=== PATIENT | female | born 1985 | race Caucasian/White ===

== ENCOUNTER 2020-12-30 13:25 | Outpatient (RCR) | payer MEDICAID, SELFPAY | END 2021-02-08 23:59 | LOC: IMMUN 13:25 | PROVIDERS: Referring Provider Family Medicine; Visit Provider Family Medicine | DX: Z23 Encounter for immunization (principal) | CPT/HCPCS: 0001A; 91300 ==

== ENCOUNTER 2021-05-08 17:54 | Emergency (ER) | payer MEDICAID, SELFPAY ==
[2021-05-08 17:56] VITALS: BP 140/100; PULSE 80; RESP 18; TEMP 36.5; O2SAT 100; BMI 35.1
--- NOTE | 2021-05-08 18:59 | US_ITS ---
HISTORY: LLQ pain in early pregancy EXAMINATION: US OB Transvaginal TECHNIQUE: Transvaginal (for optimal evaluation of the adnexa) pelvic ultrasound was performed. Grayscale, spectral waveform, and color flow Doppler evaluation of the adnexa. COMPARISON: None LMP: 04/09/2021 correlating with 6 weeks 1 day gestation and December 31, 2021 delivery date FINDINGS: 10.5 x 6.0 x 5.8 cm anteverted uterus with unremarkable myometrium. Single fundal gestational sac. Single normal yolk sac. Single pole with crown-rump length 0.51 cm correlate with 6 weeks 3 days gestation and estimated delivery date 12/29/2021. heart rate 114 bpm. Small giuliano-gestational hemorrhage involving less than 25% of sac circumference. Cervix is long and closed with small nabothian cysts. Right over a 2.4 x 3.2 x 1.9 cm with normal parenchymal appearance and preserved Doppler vascular flow. Left ovary 2.9 x 1.6 x 2.3 cm with normal small follicles and preserved Doppler vascular flow. Trace left adnexal free fluid. US/Transvaginal w/Preg US IMPRESSION: Single live intrauterine with normal heart rate. Estimated gestational age is concordant with provided dating. Small giuliano-gestational hemorrhage involving less than 25% of sac circumference. Normal ovaries with trace likely physiologic left adnexal free fluid. at 2137 Reported and signed by: Silvino Rodriguez MD Electronically Signed: Silvino Rodriguez MD at 21:36 EDT Tel , Service support ,
--- NOTE | 2021-05-08 19:50 | ED.VIS.FEGU ---
HPI HPI - Female History of Present Illness Chief Complaint: Vag Bld, Preg Informant: patient Pain Pain: Positive for Pelvic Pain Associated Symptoms P: 4 Ab: 0 Narrative Narrative: Patient is a 36-year-old female presenting with lower pelvic pain. Patient states she is approximately 5 weeks . Her last menstrual period was March 26. Had a positive test about a week ago. She notes been having red spotting and brown discharge since then. She did test positive for BV on Sunday but not started treatment for this. She follows with Dr. Campa through [facility]. She notes over the past week she is also an intermittent sharp pain in her left lower quadrant. She states she has never had this before. She is concerned there might be something with her . She denies any fever or chills. Denies any other urinary symptoms. No other complaints at this time. PFSH PFSH Home Medications metronidazole 500 mg PO BID 7 Days #14 tab 05/08/21 [Rx Last Taken Unknown] nitrofurantoin monohyd/m-cryst [Macrobid] 100 mg PO BID #10 cap 05/08/21 [Rx Last Taken Unknown] Allergy/AdvReac Type Severity Reaction Status Date / Time No Known Allergies Allergy Verified 05/08/21 17:55 Social History Smoking Status: Never smoker ROS ROS ED Constitutional Constitutional ED: Denies chills or fever(s) Eyes Eyes: Denies change in vision Cardiovascular Cardiovascular: Denies chest pain or palpitations Respiratory/Chest Respiratory/Chest: Denies cough or dyspnea Gastrointestinal Gastrointestinal: Reports abdominal pain; Denies diarrhea, nausea or vomiting Genitourinary Genitourinary ED: Reports urinary frequency and other Details: vaginal bleeding/spotting ; Denies dysuria or hematuria Musculoskeletal Musculoskeletal: Denies arthralgias or myalgias Integumentary Denies rash Neurologic Neurologic: Denies headache(s) or weakness EXAM Physical Exam Const Vital Signs: 05/08/21 17:56 05/08/21 21:07 05/08/21 21:23 Temperature 97.7 F L Temperature Source Temporal Pulse Rate 80 78 Respiratory Rate 18 17 19 H Blood Pressure 140/100 H 134/74 H 128/79 H Blood Pressure Mean 113 94 Pulse Ox 100 98 Oxygen Delivery Method Room Air Room Air Positive well nourished and well developed General Appearance ED: well developed HEENT Reports moist mucous membranes Negative for tenderness Eyes PERRL and EOMs intact bilaterally Neck supple and no JVD Chest Wall inspection of chest normal Resp normal respiratory effort and clear to auscultation bilaterally Cardio regular rate, regular rhythm and no murmurs GI normal to inspection, nondistended, normoactive bowel sounds no CVA tenderness Extremity normal to inspection and full ROM Neuro oriented x3 Sensorium / Orientation: alert Motor Exam: Negative for general weakness Psych mental status grossly normal Skin no rashes or lesions noted MDM MDM MDM Narrative Medical decision making narrative: Patient evaluated for vaginal bleeding and . She did show me results that showed a positive BV on outpatient blood work. Should be treated with Flagyl for this. We were in downtime so the remainder of her lab work resulted on paper. Patient's urinalysis showed negative nitrites, 50 blood, 500 leukoesterase with 5-10 white blood cells, 0-5 red blood cells, 5-10 epithelial cells and 2+ bacteria. Urine culture is added on and she will be treated for UTI with Macrobid. Patient's blood type is A+ and her CBC is largely normal with a hemoglobin of 13.0. Patient be discharged home with prescriptions for Macrobid and Flagyl. She will follow-up with her [facility]. Ultrasound shows single intrauterine gestation with small perigestational hemorrhage involving less than 25% of sac circumference. I suspect this is the cause of her bleeding. Counseled on risk and expectant management with threatened . Discharged home in stable condition. Lab Data Attestation: I reviewed the patient's lab results. Labs: Laboratory Results - last 24 hr 05/08/21 19:15 HCG, Quant 05369 H Radiography Diagnostic Testing: Radiology Impression Obstetrics Ultrasound 05/08/21 18:59 IMPRESSION: Single live intrauterine with normal heart rate. Estimated gestational age is concordant with provided dating. Small giuliano-gestational hemorrhage involving less than 25% of sac circumference. Normal ovaries with trace likely physiologic left adnexal free fluid. at 2137 Reported and signed by: Silvino Rodriguez MD Electronically Signed: Silvino Rodriguez MD at 21:36 EDT Tel , Service support , Discharge Plan Triage Chief Complaint: Vag Bld, Preg ED Provider: Deb Goodman Dx/Rx/DC Orders Clinical Impression: , threatened, UTI (urinary tract infection), Vaginitis affecting in first trimester, antepartum Instructions: ED Possible Miscarriage ..., ED CYSTITIS Female Adult, ED Bacterial Vaginosis (BV) Prescriptions: New nitrofurantoin monohyd/m-cryst [Macrobid] 100 mg capsule 100 mg PO BID Qty: 10 RF: 0 metronidazole 500 mg tablet 500 mg PO BID 7 Days Qty: 14 RF: 0 Primary Care Provider: Care Physician,No Primary Referrals: Care Physician,No Primary [Primary Care Provider] - Activity Restrictions/Additional Instructions: Please follow-up with your [facility]. Disposition Disposition: Home, Self Care
[2021-05-08 20:18] LABS: hCG Titer Quant., Serum 28130 mIU/mL (1-3)
[2021-05-08 21:07] VITALS: BP 134/74; RESP 17; O2SAT 98
[2021-05-08 21:07] LABS: Basophil# 0.03 X10^3/uL; Basophil% 0.3 % (0-1); Eosinophil# 0.23 X10^3/uL; Eosinophils% 2.3 % (0-5); Lymphocyte % 30.1 % (19-41); Mean Corp Hgb Conc 33.3 g/dL (32-36); Mean Corpuscular Hgb 29.3 pg (27.0-32.0); Mean Platelet Vol. 10.9 fl (6.2-12.0); NRBC Flagged by Analyzer 0 % (0-5); Neutrophil # 5.97 X10^3/uL (2.7-7.7); Neutrophil % 59.8 % (47-70); Platelet Count 280 K/mm3 (150-450); RBC Distribution Width CV 11.9 % (11.6-14.6); RBC Distribution Width SD 38.6 fl (35.1-43.9); Red Blood Count 4.43 M/mm3 (4.2-5.4)
[2021-05-08 21:23] VITALS: BP 128/79; PULSE 78; RESP 19
[2021-05-08 23:04] LABS: Bacteria 2+ /hpf (None Seen); Color, Urine Yellow (Yellow); Glucose, Dipstick NEGATIVE (Normal); Ketone-Dipstick Negative (Negative); Leukocyte Esterase-Dipstick 500 /ul (Negative); Mucous, Urine 1+ /hpf (<or=2+); Nitrite-Dipstick Negative (Negative); Occult Blood-Urine 50 /ul (Negative); Protein-Dipstick 30 mg/dl (Negative); Red Blood Cells-Urine 0-5 SEEN /hpf (0-5); Specific Gravity, Urine 1.025 (1.002-1.030); Squamous Epithelial Cells - UA 5-10 SEEN /hpf (5-10); Urine Bilirubin Dipstick Negative (Negative); Urine Clarity Clear (Clear); Urine Urobilinogen Normal (Normal); White Blood Cells 5-10 SEEN /hpf (0-5)
== END 2021-05-08 22:19 | disposition home or self-care (01) ==
PROVIDERS: Emergency Provider Emergency Medicine
DX: O02.0 Blighted ovum and nonhydatidiform mole (principal); O23.41 Unspecified infection of urinary tract in pregnancy, first trimester; O23.591 Infection of other part of genital tract in pregnancy, first trimester; Z3A.01 Less than 8 weeks gestation of pregnancy
CPT/HCPCS: 76817; 81001; 84702; 85025; 86900; 86901; 87086; 87088; 99282; A4216

== ENCOUNTER 2021-12-29 07:13 | Inpatient (IN) | payer MEDICAID, SELFPAY ==
[2021-12-29] VITALS (55 sets, daily range): BP systolic 101–161; BP diastolic 51–85; PULSE 63–101; RESP 18; TEMP 36.1–37.9; O2SAT 79–100; BMI 38.0
[2021-12-29] MEDS: 0.9% Normal Saline Single 100 ML IV.SOLN. INTRA-UTER (08:20)
--- NOTE | 2021-12-29 08:37 | HP.PCM.OB_ITS ---
HPI - General General Date of Admission: 12/29/21 HPI Narrative DUARTE SUNSHINE, is a 36 F at 39.5 weeks gestation who presents for induction of labor for AMA and Obesity. complicated by proteinuria. Maternal Data Information ALEK Calculator Estimated Delivery Date Method Current WG Current Estimate 12/31/21 Manual 39w 5d PFSH PFSH Allergy/AdvReac Type Severity Reaction Status Date / Time No Known Allergies Allergy Verified 05/08/21 17:55 Social History Smoking Status: Never smoker ROS Eyes Eyes: Denies blurry vision, change in vision or spots in vision ENT HEENT: Denies dizziness or headache(s) Cardiovascular Cardiovascular: Denies abdominal pain, chest pain or dyspnea Respiratory/Chest Respiratory/Chest: Denies cough, dyspnea, shortness of breath at rest or shortness of breath with exertion Gastrointestinal Gastrointestinal: Denies abdominal pain, diarrhea or vomiting Genitourinary Genitourinary: Denies change in urinary stream, difficulty urinating or dysuria Musculoskeletal Musculoskeletal: Reports none Integumentary Integumentary: Denies rash Neurologic Neurologic: Denies dizziness, headache(s), memory loss or weakness Psychiatric Psychiatric: Reports none Vital Signs Vital Signs Vital Signs: 12/29/21 07:25 12/29/21 07:29 Temperature 97.0 F L Pulse Rate 99 Blood Pressure 120/67 BP Systolic 120 BP Diastolic 67 Physical Exam Const alert, oriented x3 and no apparent distress General Appearance: cooperative Orientation / Consciousness: awake Exam Limitations: no limitations HEENT normocephalic Head and Scalp: normal to inspection Eyes General Eye: normal appearance of both eyes Neck full ROM and no lymphadenopathy Lymph Lymphatic: no lymphadenopathy noted Chest inspection of chest normal Resp normal respiratory effort, normal air movement and clear to auscultation bilaterally Effort and Inspection: able to speak in complete sentences and symmetric chest movement Cardio regular rate and regular rhythm GI normal to inspection, nondistended, normoactive bowel sounds Manual OB Exam: presentation cephalic, dilated 1, effaced 60 and station - 2 Back/Spine normal ROM Extremity full ROM and no calf tenderness Skin no rashes or lesions noted General Skin Exam: no breakdown Neuro oriented x3 and CN's II-XII intact bilaterally Psych mental status grossly normal and thought process normal Labs Labs Labs: Blood Type AB POSITIVE Antibody Screen Pending Hct 39.0 % (37-47) Hgb 13.0 g/dL (12.0-15.0) Obstetrics US Rubella- immune HB- neg HC- neg GBS - neg HIV- NR Assessment & Plan (1) 39 weeks gestation of : (2) Advanced maternal age (AMA) in : (3) Obesity affecting : QUALIFIERS: Trimester: third trimester Qualified Code(s): O99.213 - Obesity complicating , third trimester (4) Proteinuria affecting : QUALIFIERS: Trimester: third trimester Qualified Code(s): O12.13 - Gestational proteinuria, third trimester PLAN: Admit to labor and delivery Routine labs Start IV and titrate per orders CE- 1/60/-2 Parker bulb placed without difficulty Start Pitocin IV and titrate per policy GBS negative Epidural when indicated Anticipate Dr. Pete updated and is collaborating physician
[2021-12-29 08:39] LABS: Absolute Neutrophil Count 7.8 X10^3/uL (2.0-7.7); Basophil# 0.03 X10^3/uL; Basophil% 0.3 % (0-1); Eosinophil# 0.45 X10^3/uL; Eosinophils% 4.1 % (0-5); Hematocrit 37.1 % (37-47); Lymphocyte % 18.1 % (19-41); Mean Corp Hgb Conc 32.3 g/dL (32-36); Mean Corpuscular Hgb 28.2 pg (27.0-32.0); Mean Corpuscular Volume 87.1 fL (81-99); Mean Platelet Vol. 11.3 fl (6.2-12.0); Monocyte# 0.74 X10^3/uL; Monocyte% 6.7 % (0-10); NRBC Flagged by Analyzer 0 % (0-5); Neutrophil # 7.77 X10^3/uL (2.7-7.7); Neutrophil % 70.3 % (47-70); Platelet Count 225 K/mm3 (150-450); RBC Distribution Width CV 14.1 % (11.6-14.6); RBC Distribution Width SD 45.1 fl (35.1-43.9); Red Blood Count 4.26 M/mm3 (4.2-5.4)
[2021-12-29] MEDS: Lactated Ringers 1,000 ML 50 ML IV (08:42)
[2021-12-29] MEDS: Oxytocin 30 units/NS 500 ml 30 UNITS/500 ML IV.SOLN IV (08:43)
--- NOTE | 2021-12-29 12:13 | PCM.PN.BLA ---
Progress Note Patient seen at bedside. Parker bulb just came out. Feeling contractions and desires epidural placement. Physical Exam Const alert and no apparent distress General Appearance: cooperative and comfortable Exam Limitations: no limitations HEENT normocephalic Eyes General Eye: normal appearance of both eyes Neck full ROM General: normal visual inspection Chest Chest: symmetrical chest wall rise Resp normal respiratory effort and normal air movement Effort and Inspection: symmetric chest movement Auscultation: clear to auscultation bilaterally Cardio regular rate and regular rhythm GI normal to inspection, nondistended, normoactive bowel sounds Back/Spine normal ROM Extremity full ROM and no calf tenderness General Extremity: normal exam except as noted Skin no rashes or lesions noted Neuro CN's II-XII intact bilaterally Psych mental status grossly normal Assessment & Plan Assessment/Plan (1) 39 weeks gestation of : (2) Advanced maternal age (AMA) in : (3) Obesity affecting : QUALIFIERS: Trimester: third trimester Qualified Code(s): O99.213 - Obesity complicating , third trimester (4) Proteinuria affecting : QUALIFIERS: Trimester: third trimester Qualified Code(s): O12.13 - Gestational proteinuria, third trimester PLAN: CE- /-1- difficult to complete due to maternal pain Pitocin 6 mu/min- continue to increase per policy Cat. 1 tracing, NST reactive Anticipate AROM after epidural placement
[2021-12-29] MEDS: Lactated Ringers 500 ML 999 ML IV ×2 (12:19→14:44)
[2021-12-29] MEDS: fentaNYL-bupivacaine (epidural) 100 ML BAG EPIDURAL ×2 (13:10→18:19)
[2021-12-29] MEDS: Lactated Ringers 1,000 ML 200 ML IV (16:59)
[2021-12-29] MEDS: Amnioinfusion- 0.9% NS 1,000 ML IV.SOLN. 1000 ML INTRA-UTER (18:06)
[2021-12-29] MEDS: Ondansetron 4 MG/2 ML Vial IV (18:19)
[2021-12-29] MEDS: Oxytocin 30 units/NS 500 ml 30 UNITS/500 ML IV.SOLN 334 UNITS IV (19:07)
--- NOTE | 2021-12-29 19:16 | EX.PCM.OBRPT ---
Assessment & Plan (1) (spontaneous vaginal delivery): Maternal Data Information ALEK Calculator Estimated Delivery Date Method Current WG Current Estimate 12/31/21 Manual 39w 5d Vaginal Delivery Maternal Presentation Maternal Presentation: Medically Indicated Induction Maternal Presentation: Patient at 39.5 weeks here for induction of labor for AMA and Obesity. Type of Induction: Pitocin, Parker Bulb and Amniotomy Medical Reason for Induction: - (AMA, OBESITY) Operative Information Date of Procedure: 12/29/21 Pre-Operative Diagnosis: Term gestation Post-Operative Diagnosis: Same, Live female Surgery / Procedure Performed: Spontaneous Vaginal Delivery Type of Anesthesia: Epidural Drain: Parker to straight drain Estimated Blood Loss: 200 Time of Delivery: 19:06 Findings Description of Procedure: Patient feeling pressure with contractions. Minimal maternal effort delivered head followed immediately by body. Vigorous female placed on maternal abdomen and was attended to by nursing staff. Pitocin IV started for active management of the third stage of labor. 3 vessel cord was clamped and cut after delay by patient. Infant placed immediately skin to skin with patient. Placenta delivered spontaneously and intact. Fundus firm 1 below U. Vagina and perineum intact. Vaginal sweep completed by me. Hemostasis obtained. EBL 200 cc. APGARS 8/9. Patient and infant bonding well at this time. Presentation: Vertex and THAD Amniotic Membrane Rupture Type: Artificial Time of Membrane Rupture: 1448 Amniotic Fluid Description: Clear Placental Delivery Description: Spontaneous Placenta Disposition: [facility] Cord Vessel Description: 3 Vessels Cord Entanglement: None A Gender: Female (1 minute): 8 (5 minute): 9 Delayed Cord Clamping: Yes Post Vaginal Delivery Medications Given After Delivery: IV Pitocin Episiotomy Description: None Laceration: None Complication Complications: None
[2021-12-29] MEDS: Naproxen 500 MG Tablet PO (22:25)
[2021-12-30] MEDS: Naproxen 500 MG Tablet PO (06:36)
--- NOTE | 2021-12-30 08:03 | PN_ITS ---
Subjective Subjective patient seen at bedside, doing well. Patient reports good pain control. lochia mild. Objective Data Objective Data Vital Signs: Vital Signs Temp Pulse Resp BP Pulse Ox 99 F 64 18 118/60 79 12/29/21 22:25 12/29/21 22:25 12/29/21 22:25 12/29/21 22:25 12/29/21 14:38 Weight: 100.6 kg Body Mass Index (BMI) 38.0 Intake & Output: Intake and Output for Last 24 Hours 12/28/21 12/29/21 12/30/21 23:59 23:59 23:59 Intake Total 3013.97 / 3013.97 Output Total 1300 / 1300 200 / 200 Balance 1713.97 / 1713.97 -200 / -200 Lab / Micro Data Result Diagrams: 12/29/21 08:20 Labs: Laboratory Results - last 24 hr 12/29/21 08:20: WBC 11.0, RBC 4.26, Hgb 12.0, Hct 37.1, MCV 87.1, MCH 28.2, MCHC 32.3, RDW Std Deviation 45.1 H, RDW Coeff of Neel 14.1, Plt Count 225, MPV 11.3, Immature Gran % (Auto) 0.500, Neut % (Auto) 70.3 H, Lymph % (Auto) 18.1 L, [place] % (Auto) 6.7, Eos % (Auto) 4.1, Baso % (Auto) 0.3, Absolute Neuts (auto) 7.8 H, Absolute Lymphs (auto) 2.00, Nucleated RBC % 0 12/29/21 08:20: Blood Type AB POSITIVE, Antibody Screen NEGATIVE Micro: Microbiology 12/29/21 08:20 Nasal Secretion SARS-CoV-2 Antigen (Rapid) - Final Physical Exam Const alert and oriented x3 General Appearance: cooperative HEENT normocephalic Neck General: normal visual inspection GI soft to palpation and non-distended GI Narrative: Fundus firm Extremity normal to inspection and no calf tenderness Skin no rashes or lesions noted Neuro oriented x3 and CN's II-XII intact bilaterally Psych mental status grossly normal Assessment & Plan Assessment/Plan (1) (spontaneous vaginal delivery): PLAN: PPD# 1 , Doing well Routine care pain mgmt ambulation dc home at 24 hrs
--- NOTE | 2021-12-30 08:04 | PCM.DC ---
Discharge Instructions Diet Discharge Diet: No restrictions Activity May resume sexual activity in: 6-8 weeks Dressing / Incision Call your doctor if you observe: Fever of 101 or Higher, Inability to urinate, Using more than 1 pad per hour and Uncontrolled pain Follow Up Care Please Follow Up With: Belén Doshi MD When: 1-2 weeks post and again at 6 weeks post . [phone] Test Results: Test results from this visit will be discussed in further detail at your follow-up appointment, if applicable. Discharge Plan Admission Admit Date/Time: 12/29/21 07:13 Attending Provider: Serene Horowitz Primary Care Provider: Care Physician,Ebony Primary Discharge Orders/Prescriptions Prescriptions: New acetaminophen 500 mg Tablet 1,000 mg PO Q6H PRN PRN (Reason: Pain 1-10 Or Fever) Qty: 0 RF: 0 naproxen 500 mg Tablet 500 mg PO Q8H PRN PRN (Reason: Pain Score 1-3) Qty: 0 RF: 0 Referrals / Follow Up: Care Physician,No Primary [Primary Care Provider] - Disposition Disposition (needs filled in before D/C Order can be placed): Home, Self Care
[2021-12-30 09:32] VITALS: BP 119/71; PULSE 87; RESP 14; TEMP 36.7
[2021-12-30 12:01] VITALS: BP 112/48; PULSE 74; RESP 16; TEMP 37.1
[2021-12-30 16:19] VITALS: BP 106/58; PULSE 78; RESP 14; TEMP 36.9
[2021-12-30 20:24] VITALS: BP 108/64; RESP 15; TEMP 36.7
== END 2021-12-30 21:45 | disposition home or self-care (01) | DRG 560 ==
PROVIDERS: Admitting Provider Advanced Practice Midwife; Referring Provider Advanced Practice Midwife; Visit Provider Advanced Practice Midwife
DX: O99.213 Obesity complicating pregnancy, third trimester (principal); Z37.0 Single live birth; O12.13 Gestational proteinuria, third trimester; E66.9 Obesity, unspecified; Z3A.39 39 weeks gestation of pregnancy
CPT/HCPCS: 59025; 59050; 85025; 86850; 86900; 86901; 87426; 99218; J7030; J7120; G0378; J2405

== ENCOUNTER 2022-05-11 06:57 | Day surgery (SDC) | payer MEDICAID, SELFPAY ==
[2022-05-10 11:33] LABS: Hematocrit 38.1 % (37-47); Mean Corp Hgb Conc 34.1 g/dL (32-36); Mean Corpuscular Volume 87.8 fL (81-99); Mean Platelet Vol. 10.3 fl (6.2-12.0); Platelet Count 264 K/mm3 (150-450); RBC Distribution Width CV 11.9 % (11.6-14.6); RBC Distribution Width SD 38.5 fl (35.1-43.9); Red Blood Count 4.34 M/mm3 (4.2-5.4); White Blood Count 8.5 K/mm3 (4.4-11.0)
--- NOTE | 2022-05-11 | FALS_PTH ---
PATIENT: DUARTE SUNSHINE [place] [facility] [place][id number] AGE/SX: 37/F ROOM: RE05/11/[address]: Dr. Gini Pete DO : 1985 BED: DIS: 05/11/2022 SPEC #: [id number] RECD: 05/11/22 12:00 STATUS: RAY JODY #: [id number] KATHLEEN: 05/11/22 00:[address]: Gini Pete DEPT: SURGICAL PATHOLOGY RECD BY: Candelario Roque ENTERED: 05/11/22 12:01 SP TYPE: FALL TUBES OTHR DR: No Primary Care Phys Tissues: Fallopian tube Procedures: Surgery Specimen Level II HEADER OPERATION: Laparoscopic salpingectomy PRE-OP DIAGNOSIS: Sterilization TISSUE SUBMITTED: Bilateral fallopian tubes MICROSCOPIC DIAGNOSIS Bilateral fallopian tubes, salpingectomy: Bilateral fallopian tubes, no pathologic diagnosis. DOLORES:daniel 05/12/2022 MICROSCOPIC DESCRIPTION Slides are reviewed. GROSS DESCRIPTION Received in fixative is one container labeled with the patient's name and designated bilateral fallopian tubes. The specimen consists of bilateral fallopian tubes including fimbrial ends measuring 6 cm in length and 0.4 cm in diameter and 4.5 cm in length and 0.5 cm in diameter. The fallopian tubes are not identified as right or left. Sections reveal unremarkable cut surfaces. Cadd Manager sections are submitted in two cassettes with each cassette containing one fallopian tube. / SJ:rg 05/11/2022 TC:4 CPT: 59001 x2
[2022-05-11 07:25] VITALS: BP 137/88; PULSE 88; RESP 16; TEMP 36.6; O2SAT 100; BMI 32.1
[2022-05-11] MEDS: Lactated Ringers 1,000 ML 15 ML IV (07:30)
[2022-05-11 07:31] LABS: Internal QC Validated? YES +Cl - CLEAR BKGD; Pregnancy, Urine Negative Negative
[2022-05-11] MEDS: Bupivacaine 0.25% 30 ML Vial (08:21)
[2022-05-11] MEDS: Lubricating Jelly 60 GM Tube 30 GM (08:21)
--- NOTE | 2022-05-11 08:25 | DCINST_ITS ---
Discharge Instructions Diet Discharge Diet: No restrictions Activity Discharge Activity: May Drive (Once you are more than 24 hours out from surgery, and you feel strong enough to slam on a brake or turn a steering wheel sharply) and May Shower (Once you are more than 24 hours out from surgery) May resume sexual activity in: 1 week (No intercourse, tampons, hot tubs, baths, pools) Ice area for (Minutes): 15 Weight Bearing Status: Weight bearing as tolerated Lifting Restrictions: Nothing heavier than baby Dressing / Incision Call your doctor if your incision/area has: Continuous Slow Oozing, Sudden Increased Bleeding, Increased Pain/ Swelling, Increased Redness, Foul Smelling Discharge and Swelling at the incision site Call your doctor if you observe: Fever of 101 or Higher, Coldness, Increased Pain, Numbness or Tingling, Change in Color, Inability to urinate, Inability to have a bowel movement, Using more than 1 pad per hour, Shortness of breath, Dizziness, Fainting spells, Swelling in the ankles, Chest pain, Increased palpitations (irregular heartbeat), Calf discomfort and Uncontrolled pain Suture Line Care: Avoid Pulling/Pushing and Avoid Pinching/Bending Remove Dressing in: leave until fall off (The glue may start to peel off, and you can peel it off or cut the edges that are up if they are bothersome for you. There are sutures underneath the glue that will dissolve) Cleanse incision/area with: Soap & Water Follow Up Care Please Follow Up With: Gini Pete DO When: 1-2 weeks Test Results: Test results from this visit will be discussed in further detail at your follow- up appointment, if applicable. Discharge Plan Admission Primary Reason for Your Visit: surgery Attending Provider: Gini Pete Primary Care Provider: Care Physician,Ebony Primary Discharge Orders/Prescriptions Prescriptions: New oxycodone-acetaminophen [Percocet] 5-325 mg tablet 1 tab PO Q6H PRN (Reason: pain) 7 Days Qty: 10 0RF Continued naproxen 500 mg Tablet 500 mg PO Q8H PRN PRN (Reason: Pain Score 1-3) Qty: 0 0RF Held acetaminophen 500 mg Tablet 1,000 mg PO Q6H PRN PRN (Reason: Pain 1-10 Or Fever) Qty: 0 0RF Hold Instructions: Resume on 05/18/22. while taking percocet Referrals / Follow Up: Care Physician,No Primary [Primary Care Provider] - Disposition Disposition (needs filled in before D/C Order can be placed): Home, Self Care
--- NOTE | 2022-05-11 08:35 | OP.PCM_ITS ---
Problems Associated Problem List Diagnoses (1) Encounter for sterilization: Report of Operation Date of Procedure: 05/11/22 Pre-Operative Diagnosis: Request for sterilization Post-Operative Diagnosis: As above Surgery/Procedure Performed:: Laparoscopic bilateral salpingectomy Description of Surgical Findings:: Normal appearing pelvis, uterus and bilateral adnexa Surgeon: Gini Pete programmer developer: Kelli Holcomb [id number] Type of Anesthesia: General Special Medications: None Specimen's removed: Bilateral fallopian tubes Drains: None Estimated Blood Loss (mL): < 50 Fluids Replaced: 1 L Description of Procedure: The patient was taken to the operating room where general anesthesia was induced. She was prepped and draped in the dorsal lithotomy position using yellowfin stirrups. From below a weighted speculum was placed. The anterior lip of the cervix was grasped with a single-tooth tenaculum. A Alyse cannula uterine manipulator was placed. The weighted speculum was removed. Gloves were changed and attention was turned to the abdominal portion of the procedure. Local was infiltrated at all port sites. An infraumbilical incision was made to accommodate a 5 mm port. This port was placed under direct visualization. Once confirmed intraperitoneal, CO2 insufflation was initiated. The patient was placed in Trendelenburg. The pelvis was inspected and noted to be normal- appearing. A left lateral 5 mm port was placed. A right lateral 5 mm port was placed. The left fallopian tube was followed out to the fimbriated end. The mesosalpinx was serially clamped, cauterized, and ligated using the LigaSure device until reaching level of the cornua. Once at the level of the cornua the tube was transected. The left fallopian tube was removed. The same was performed on the right side after following the right fallopian tube out to the fimbriated end. The LigaSure device was used to serially clamped, cauterized, and transected along the mesosalpinx hugging the tube. Once at the level of the cornua the tube was transected and removed. The bilateral fallopian tubes were sent to pathology for review. Hemostasis was noted. The abdomen was exsufflated. The ports were removed. Port sites were closed with Monocryl and glue. Instrument, sponge, needle counts were correct. The patient was taken to the recovery room in stable condition. Grafts/Implants Used: None Procedure Start Time: 09:01 Procedure Stop Time: :50 Complications None Admit VTE Documentation VTE Present on Admission: No VTE Mechan Device Prophylaxis: SCD's
[2022-05-11 09:59] VITALS: BP 122/91; BP 137/88; PULSE 76; RESP 16; TEMP 36.8; O2SAT 96
[2022-05-11 10:15] VITALS: BP 134/83; BP 137/88; PULSE 79; RESP 16; O2SAT 96
[2022-05-11 10:30] VITALS: BP 132/94; BP 137/88; PULSE 74; RESP 16; O2SAT 100
[2022-05-11 10:37] VITALS: BP 123/96; BP 137/88; PULSE 70; RESP 16; TEMP 36.6; O2SAT 100
--- NOTE | 2022-05-11 11:31 | NURSING ---
STATES HAS MILD DIZZINESS. NO C/O NAUSEA. NO C/O PAIN. STATES HAS WEIRD TASTE IN MOUTH AFTER EATING ICE CREAM AND DRINKING HOT TEA. PATIENT BELIEVES WEIRD TASTE MAY BE DUE TO EFFECTS OF ANESTHESIA.
[2022-05-11 11:45] VITALS: BP 137/88; BP 138/85; PULSE 85; RESP 16; TEMP 36.6; O2SAT 99
== END 2022-05-11 12:26 | disposition home or self-care (01) ==
LOC: SDC 06:59 → AC 06:59
PROVIDERS: Referring Provider Obstetrics & Gynecology; Visit Provider Obstetrics & Gynecology
PROC: (CPT 58661; principal; 2022-05-11 08:20)
DX: Z30.2 Encounter for sterilization (principal)
CPT/HCPCS: 58661; 00840; 36415; 81025; 85027; 86850; 86900; 86901; 88302; J7120; J2405

== ENCOUNTER 2024-06-22 17:54 | Emergency (ER) | payer MEDICAID, SELFPAY ==
[2024-06-22 17:55] VITALS: BP 137/104; PULSE 89; RESP 18; TEMP 36.3; O2SAT 100; BMI 35.6
--- NOTE | 2024-06-22 20:12 | EX.ED.DYSGE1 ---
HPI History of Present Illness Chief Complaint: Rash Narrative Narrative: 39-year-old female who denies significant past medical history presents with eczematous rash on her arms and on her torso that she has had since around June 07, 2 weeks ago. She states on the she went to urgent care and was put on a Medrol Dosepak. She took it but feels like her symptoms are still present. She has really done her eye skin on her hands and she feels an itchy burning type of rash. It is not on her legs. She denies any difficulty swallowing or breathing. No recent fevers or chills, no nausea or vomiting. No exacerbating or alleviating factors. She denies any new lotions or detergents, states that she has not used lotion in a while but needs to. She describes the areas as a red splotchy patches that are all over, and are itchy. No throat closing or other symptoms. [facility] Medical History Anxiety Alcohol use Low iron Seasonal allergies Lactating mother Gastric reflux Non-smoker Leg cramps History of pyloric stenosis as a child Home Medications ?Medication ?Instructions ?Recorded ?Last Taken ?Type acetaminophen 500 mg tablet 1,000 mg (2 x 500 mg) PO Q6H PRN 12/30/21 Unknown Rx PRN Pain 1-10 Or Fever #0 tabs naproxen 500 mg tablet 500 mg PO Q8H PRN PRN Pain Score 12/30/21 Unknown Rx 1-3 #0 tabs benzocaine 15 mg-menthol 3.6 mg 1 madalyn mucous membrane Q2H PRN sore 02/28/24 Unknown Rx lozenges (Cepacol Sore Throat throat #16 ea (benzocaine-menthol)) Allergy/AdvReac Type Severity Reaction Status Date / Time No Known Allergies Allergy Verified 06/22/24 18:01 Surgical History History of oral surgery Social History Smoking Status: Current some day smoker tobacco type: e-cigarettes alcohol intake: current substance use type: does not use ROS ROS ED ROS Narrative Review of systems positive for maculopapular rash, itchy, with dry skin located on her arms and torso. Denies throat closing, no difficulty breathing or shortness of breath, no fevers or chills, no nausea or vomiting. EXAM Physical Exam Narrative Exam Narrative: Afebrile. Vital signs noted. Nontoxic-appearing. Regular rate and rhythm. Lungs clear to auscultation bilaterally. Abdomen soft nontender with normal active bowel sounds. Airway patent. No wheezing or stridor. Neurological examination nonfocal and nonlateralizing. Skin examination does reveal maculopapular eczematous rash all over her bilateral upper extremities and on her torso. Const Vital Signs: 06/22/24 17:55 Temperature 97.3 F L Temperature Source Temporal Pulse Rate 89 Respiratory Rate 18 Blood Pressure 137/104 H Blood Pressure Mean 115 Pulse Ox 100 Oxygen Delivery Method Room Air MDM MDM MDM Narrative Medical decision making narrative: Differential diagnosis includes but not limited to atopic dermatitis/eczema versus pityriasis versus hives. Patient was concerned that she has a history of STD, but it was treated. I do not think this is any relation to do with her previous STD. Given her dry flaky skin, she could have psoriasis as well. I do feel she would benefit from a Kenalog intramuscular injection. She will follow-up with her primary care provider, she was referred to dermatology as well. I feel she can be discharged safely home with follow-up. Return instructions to the emergency department were reviewed. Disposition is discharged home in stable condition. Discharge Plan Triage Chief Complaint: Rash ED Provider: Chon Lamar Dx/Rx/DC Orders Clinical Impression: Dermatitis, Rash Instructions: Nonspecific Skin Rash, ED Atopic Dermatitis (Adult) Prescriptions: No Action Cepacol Sore Throat (roc-men) 15-3.6 mg lozenge 1 madalyn mucous membrane Q2H PRN (Reason: sore throat) Qty: 16 0RF acetaminophen 500 mg Tablet 1,000 mg PO Q6H PRN PRN (Reason: Pain 1-10 Or Fever) Qty: 0 0RF naproxen 500 mg Tablet 500 mg PO Q8H PRN PRN (Reason: Pain Score 1-3) Qty: 0 0RF Primary Care Provider: Care Physician,No Primary Referrals: Dayne Cabrera MD [Med Staff - Active Staff] - 1 Week if not improving Ehsan Luna MD [Med Staff - Machine Joiner Cementer] - As soon as possible Care Physician,No Primary [Primary Care Provider] - Print Language: Belizean Disposition Disposition: Home, Self Care
[2024-06-22 20:22] VITALS: BP 119/73; PULSE 75; RESP 16; TEMP 36.7; O2SAT 100
[2024-06-22] MEDS: Triamcinolone Acetonide 40 MG/ML Vial IM (20:25)
== END 2024-06-22 20:44 | disposition home or self-care (01) ==
PROVIDERS: Emergency Provider Emergency Medicine; Visit Provider Emergency Medicine
DX: L30.9 Dermatitis, unspecified (principal); F17.290 Nicotine dependence, other tobacco product, uncomplicated
CPT/HCPCS: 96372; 99282

== ENCOUNTER 2025-03-28 20:00 | Emergency (ER) | payer MEDICAID, SELFPAY ==
[2025-03-28 20:01] VITALS: BP 128/80; PULSE 81; RESP 16; TEMP 36.8; O2SAT 100
--- NOTE | 2025-03-28 20:22 | EDS_ITS ---
<Statement entered by Toñito Lozoya DO - 03/28/25 23:39> Patient was seen and examined with physician early childhood assistant Linda All components of the history and physical confirmed and agreed. History of present illness and physical exam: Patient is a 40-year-old female with past medical history anxiety, alcohol use, GERD who presented to the emergency department with concerns for anxiety. States that she is drinking yesterday evening stayed up late and woke up this morning feeling hung over with a slight headache was feeling nauseous. She states that she had 1 episode of diarrhea earlier. They ordered pizza for dinner and noted that her mouth became dry and started to panic and felt shaky. States that she felt like she was going to have the beginning of panic attack therefore called EMS who brought her here for further evaluation management. Patient states that she is feeling better now. Patient states that this feels very similar to her anxiety attacks. Denies any sick contacts. . Review of systems: Agreed above Physical exam: Agree with above MDM Patient is a 40-year-old female who presented to the emergency department with a chief complaint of concern for anxiety attack. On the differential diagnose includes but not limited to anxiety, panic attack, ACS, dehydration. Nursing notified us at after going to the bathroom the patient felt much better and wants to go home. She states that she will return with worsening symptoms or other concerns. She was advised follow-up with her doctor in outpatient setting. All course concerns answered she was discharged home in stable condition. Final impression: Anxiety attack Nausea Disposition: Patient will be discharged home in stable condition Supervising attending attestation: Toñito Lozoya D.O. [facility] History of Present Illness Chief Complaint: Anxiety Narrative Narrative: Patient presenting today due to concerns for anxiety. She was drinking yesterday evening and stayed up late. She woke up this morning feeling hung over and had a slight headache and was feeling nauseous. She had 1 episode of loose stool. She ordered pizza for dinner and her mouth became really dry including her throat, she started to panic and felt shaky. She began to have a panic attack which she has had in the past and called EMS who transported her here for evaluation. She reports that she is now feeling improved, she does feel dehydrated from drinking last night and reports that she has only had 1 water bottle to drink today and a medium sized coffee. She denies fever, chills, abdominal pain, chest pain, and vomiting. No HI, SI, or substance use aside from alcohol. PFSH PFSH Medical History Anxiety Alcohol use Low iron Seasonal allergies Lactating mother Gastric reflux Non-smoker Leg cramps History of pyloric stenosis as a child Home Medications ?Medication ?Instructions ?Recorded ?Last Taken ?Type NK 03/28/25 Unknown History Allergy/AdvReac Type Severity Reaction Status Date / Time No Known Allergies Allergy Verified 03/28/25 20:01 Family History no significant family his Surgical History History of oral surgery Social History Smoking Status: Current some day smoker tobacco type: e-cigarettes alcohol intake: current substance use type: does not use ROS ROS ED Constitutional Constitutional ED: Denies chills or fever(s) Cardiovascular Cardiovascular: Denies chest pain Respiratory/Chest Respiratory/Chest: Denies dyspnea Gastrointestinal Gastrointestinal: Reports nausea; Denies abdominal pain or vomiting Integumentary Denies rash Neurologic Neurologic: Denies weakness Psychiatric Psychiatric: Reports anxiety; Denies depression, suicidal ideation or suicidal thoughts EXAM Physical Exam Const Vital Signs: 03/28/25 20:01 03/28/25 21:01 03/28/25 21:04 Temperature 98.3 F 98.3 F 98.3 F Temperature Source Oral Pulse Rate 81 81 81 Respiratory Rate 16 16 16 Blood Pressure 128/80 H 128/80 H 128/80 H Blood Pressure Mean 96 96 96 Pulse Ox 100 100 100 Oxygen Delivery Method Room Air
--- NOTE | 2025-03-28 20:22 | EX.ED.DYSGE1 ---
HPI History of Present Illness Chief Complaint: Anxiety Narrative Narrative: Patient presenting today due to concerns for anxiety. She was drinking yesterday evening and stayed up late. She woke up this morning feeling hung over and had a slight headache and was feeling nauseous. She had 1 episode of loose stool. She ordered pizza for dinner and her mouth became really dry including her throat, she started to panic and felt shaky. She began to have a panic attack which she has had in the past and called EMS who transported her here for evaluation. She reports that she is now feeling improved, she does feel dehydrated from drinking last night and reports that she has only had 1 water bottle to drink today and a medium sized coffee. She denies fever, chills, abdominal pain, chest pain, and vomiting. No HI, SI, or substance use aside from alcohol. [facility] Medical History Anxiety Alcohol use Low iron Seasonal allergies Lactating mother Gastric reflux Non-smoker Leg cramps History of pyloric stenosis as a child Home Medications ?Medication ?Instructions ?Recorded ?Last Taken ?Type NK 03/28/25 Unknown History Allergy/AdvReac Type Severity Reaction Status Date / Time No Known Allergies Allergy Verified 03/28/25 20:01 Family History no significant family his Surgical History History of oral surgery Social History Smoking Status: Current some day smoker tobacco type: e-cigarettes alcohol intake: current substance use type: does not use ROS ROS ED Constitutional Constitutional ED: Denies chills or fever(s) Cardiovascular Cardiovascular: Denies chest pain Respiratory/Chest Respiratory/Chest: Denies dyspnea Gastrointestinal Gastrointestinal: Reports nausea; Denies abdominal pain or vomiting Integumentary Denies rash Neurologic Neurologic: Denies weakness Psychiatric Psychiatric: Reports anxiety; Denies depression, suicidal ideation or suicidal thoughts EXAM Physical Exam Const Vital Signs: 03/28/25 20:01 03/28/25 21:01 03/28/25 21:04 Temperature 98.3 F 98.3 F 98.3 F Temperature Source Oral Pulse Rate 81 81 81 Respiratory Rate 16 16 16 Blood Pressure 128/80 H 128/80 H 128/80 H Blood Pressure Mean 96 96 96 Pulse Ox 100 100 100 Oxygen Delivery Method Room Air Positive well nourished, well developed and no apparent distress General Appearance ED: well developed HEENT Reports normocephalic and head/scalp atraumatic Mouth ED: Yes moist mucous membranes normal Eyes PERRL and EOMs intact bilaterally Neck full ROM and supple Chest Wall inspection of chest normal Resp normal respiratory effort and clear to auscultation bilaterally Cardio regular rate and regular rhythm GI soft to palpation, non-tender, non-distended and no masses Back/Spine normal ROM and normal to inspection Extremity normal to inspection and full ROM Neuro oriented x3, CN's II-XII intact bilaterally, moves all extremities, no focal motor deficits and no sensory deficits noted Sensorium / Orientation: awake and alert Psych mental status grossly normal and thought process normal Appearance: grossly normal Attitude: calm Activity / Motor Behavior: appropriate eye contact Speech: normal speech Insight: insight good Judgement: judgement good Skin no rashes or lesions noted and no wounds MDM MDM MDM Narrative Medical decision making narrative: Patient presenting today due to concerns for anxiety. She was out drinking last night and stayed up late and felt hung over this morning when she woke up. All she had to drink today was 1 water bottle and a medium coffee, she then ate pizza for dinner and her mouth became really dry and her throat became dry which panicked her and she started to have a panic attack. She then called EMS. She reports that she has had panic attacks in the past but is no longer feeling as anxious. She reports that she feels dehydrated. She has been intermittently nauseous today but denies having any abdominal pain. Her abdomen is soft and nontender on exam. I did order IV fluids and Zofran for her, however she is now requesting to leave the emergency department reports that she is feeling better. She has no HI or SI. She denies any other substance use. Given she is feeling improved she will be discharged home in stable condition. Discharge Plan Triage Chief Complaint: Anxiety ED Midlevel Provider: [place] ED Provider: Toñito Lozoya Dx/Rx/DC Orders Clinical Impression: Anxiety, Nausea Instructions: ED Panic Attack Prescriptions: No Action NK Primary Care Provider: Care Physician,No Primary Referrals: Care Physician,No Primary [Primary Care Provider] - Activity Restrictions/Additional Instructions: Follow-up with your PCP and return for any worsening symptoms. Print Language: Chinese Disposition Disposition: Home, Self Care Discharge Date/Time: 03/28/25 21:04
--- OUTSIDE RECORDS SUMMARY | 2025-03-28 20:56 | XMS RPT_ITS | CCD ---
Author Organization [facility] Care Team Providers Care Computer Equipment Repairer Name Role Phone Sammi Georges Unavailable Unavailable Roshni Franklin Unavailable Unavailable Cem Perez Unavailable Unavailable EvelinaHang Unavailable Unavai lable Sammi Georges Unavailable Unavailable Sammi Georges Unavailable Unavailable Ty, Carissa Attending Unavailable Ty, Carissa Admitting Unavailable No Doctor Assigned, Nodr Primary Care Unavail able Ty, Carissa Attending Unavailable No Doctor Assigned, Nodr Primary Care Unavail able Ty, Carissa Attending Unavailable No Doctor Assigned, Nodr Primary Care Unavail able Ty, Carissa Attending Unavailable No Doctor Assigned, Nodr Primary Care Unavail able Ty, Carissa Admitting Unavailable Ty, Carissa Attending Unavailable No Doctor Assigned, Nodr Primary Care Unavail able Ty, Carissa Admitting Unavailable Ty, Carissa Attending Unavailable No Doctor Assigned, Nodr Primary Care Unavail able Ty, Carissa Admitting Unavailable Ty, Carissa Attending Unavailable No Doctor Assigned, Nodr Primary Care Unavail able Ty, Carissa Attending Unavailable No Doctor Assigned, Nodr Primary Care Unavail able Ty, Carissa Admitting Unavailable Ty, Carissa Attending Unavailable No Doctor Assigned, Nodr Primary Care Unavail able Ty, Carissa Attending Unavailable No Doctor Assigned, Nodr Primary Care Unavail able Arturo, Lazara Primary Care Provider [phone] ARTURO, LAZARA Primary Care Unavailable MARY ALEXIS Attending Unavailabl e ARTURO, LAZARA Primary Care Unavailable BENNETT KERNS Admitting Unavail able CEM PEREZ Attending Unavailabl e ARTURO, LAZARA Primary Care Unavailable Unavailable Primary Care Provider Unavailabl e Unavailable Primary Care Provider Unavailabl e Unavailable Primary Care Provider Unavailabl e Unavailable Primary Care Provider Unavailabl e Heri Wolf Attending Unavailable Care Physician, No Primary Referring Unava ilable Care Physician, No Primary Primary Care Unava ilable Teajs Washington Attending Unavailable Care Physician, No Primary Referring Unava ilable Care Physician, No Primary Primary Care Unava ilable Care Physician, No Primary Primary Care Unava ilable Chon Lamar Attending Unavailable BOO PRIEST Attending Unavailable BETTY MEREDITH Attending Unavailable MASOUD, BETTY Referring Unavailable Allergies Allergy Classification Reported Allergen(s) Allergy Type Date of Onset Reaction(s) Facility (1 source) No Known Medication Allergies; Translations: [No Known Medication Allergies] Propensity to adverse reactions to drug (disorder) [facility] Repository (20 sources) Butorphanol; Translations: [BUTORPHANOL] Drug Allergy 1 Other: See Comments [facility] Work Phone: (20 sources) Seasonal allergy; Translations: [SEASONAL ALLERGIES] Allergy to substance 1 Other: See Comments [facility] Work Phone: (20 sources) House Dust Mite; Translations: [HOUSE DUST MITE] Drug Allergy 1 Unknown [facility] Work Phone: Medications Current Medications Medication Drug Class(es) Dates Sig (Normalized) Sig (Original) acetaminophen 500 mg oral tablet (3 sources) Start: 12-30-2021 take 1000 mg by mouth every six hours as needed Acetaminophen Active 1000 MG PO EVERY 6 HOURS NEEDED December 30, 2021 8:04am Start: 03-20-2019 End: 03-22-2019 take 1 tablet by mouth every four hours as needed acetaminophen (TYLENOL) tablet 650 mg acetaminophen 325 mg / oxyCODONE hydrochloride 5 mg oral tablet (1 source) Opioid Agonist Start: 05-11-2022 take 1 tablet by mouth every six hours Oxycodone-Acetaminophen (Percocet) 5-325 mg tablet Active 1 TABLET PO EVERY 6 HOURS 06 09May 11, 2022 Start: 05-11-2022 take 1 tablet by carmelo th every six hours Oxycodone-Acetaminophen (Percocet) 5-325 mg tablet Active 1 TABLET PO EVERY 6 HOURS 06 09May 11, 2022 60 actuat albuterol 0.09 mg/actuat metered dose inhaler (2 sources) beta2-Adrenergic Agonist Start: 01-23-2019 End: 02-22-2019 take 2 puff(s) by inhalation every six hours as needed for wheezing albuterol 90 mcg/actuation inhaler Inhale 2 (two) puffs every 6 (six) hours as needed for wheezing . 1 Inhaler 0 01/23/2019 02/22/2019 Active cephalexin 500 mg oral capsule (3 sources) Cephalosporin Antibacterial Start: 09-29-2024 End: 10-09-2024 take 1 capsule by mouth twice daily cephALEXin (KEFLEX) 500 mg capsule Indications: Strep throat Take 1 capsule by mouth two times a day for 10 days. 20 capsule 09/29/2024 10/09/2024 Active Start: 10-02-2022 End: 10-09-2022 take 1 capsule by mouth twice daily cephALEXin (KEFLEX) 500 mg capsule Take 1 capsule by mouth twice daily for 7 days. 14 capsule 0 10/02/2022 10/09/2022 Active Comment on above: Take 1 capsule by [facility] twice daily for 7 days. doxycycline monohydrate 100 mg oral capsule (2 sources) Tetracycline-class Drug Start: 05-07-20 End: 05-14-20 take 1 capsule by mouth twice daily doxycycline monohydrate (MONODOX) 100 mg capsule Take 1 capsule by mouth twice daily for 7 days. 14 capsule 0 05/07/2023 05/14/2023 Active Comment on above: Take 1 capsule by [facility] twice daily for 7 days. ibuprofen 600 mg oral tablet (2 sources) Nonsteroidal Anti-inflammatory Drug Start: 03-20-20 End: 04-21-20 take 1 tablet by mouth every six hours as needed ibuprofen (ADVIL,MOTRIN) 600 MG tablet Take 1 (one) tablet (600 mg total) by mouth every 6 (six) hours as needed for pain . 30 tablet 0 03/22/2019 04/21/2019 Active metroNIDAZOLE 500 mg oral tablet (4 sources) Nitroimidazole Antimicrobial Start: 01-07-20 End: 01-14-20 take 1 tablet by mouth twice daily metroNIDAZOLE (FLAGYL) 500 mg tablet Take 1 tablet by mouth two times a day for 7 days. 14 tablet 01/06/2025 01/13/2025 Active Start: 06-25-2024 End: 07-02-2024 take 1 tablet by mouth twice daily metroNIDAZOLE (FLAGYL) 500 mg tablet Indications: Bacterial vaginosis Take 1 tablet by mouth two times a day for 7 days. 14 tablet 06/25/2024 07/02/2024 Active naproxen 500 mg oral tablet (2 sources) Nonsteroidal Anti-inflammatory Drug Start: 12-30-2021 take 500 mg by mouth every eight hours as needed Naproxen Active 500 MG PO EVERY 8 HOURS NEEDED 0 December 30, 2021 8:04am Norethindrone (2 sources) Start: 11-01-2017 norethindrone (MICRONOR) 0.35 mg tablet penicillin v potassium 500 mg oral tablet (1 source) Start: 04-26-2022 End: 05-01-2022 take 1 tablet by mouth four times daily penicillin V potassium (V-CILLIN, VEETIDS) 500 mg tablet Indications: Toothache Take 1 tablet by mouth four times daily for 5 days. 20 tablet 0 04/26/2022 05/01/2022 Active Comment on above: Take 1 tablet by carmelo th four times daily for 5 days. PNV no.95/ferrous fum/folic ac ( MULTIVITAMINS ORAL) (1 source) PNV no.95/ferrou s fum/folic ac ( MULTIVITAMINS ORAL) Take by mouth . 0 Active valACYclovir 1000 mg oral tablet (4 sources) Herpesvirus Nucleoside Analog DNA Polymerase Inhibitor, Herpes Simplex Virus Nucleoside Analog DNA Polymerase Inhibitor, Herpes Zoster Virus Nucleoside Analog DNA Polymerase Inhibitor Start: 06-24-2024 End: 07-01-2024 valACYclovir (VALTREX) 1 gram tablet Take 1 tablet by mouth two times a day for 7 days. FOR 7 DAYS. 14 tablet 06/24/2024 07/01/2024 Active Completed/Discontinued Medications Medication Drug Class(es) Dates Sig (Normalized) Sig (Original) acyclovir 400 mg oral tablet (17 sources) Herpesvirus Nucleoside Analog DNA Polymerase Inhibitor, Herpes Simplex Virus Nucleoside Analog DNA Polymerase Inhibitor, Herpes Zoster Virus Nucleoside Analog DNA Polymerase Inhibitor Start: 12-01-2021 End: 06-24-2024 take 1 tablet by mouth three times daily acyclovir (ZOVIRAX) 400 mg tablet Indications: 35 weeks gestation of , Supervision of high risk in third trimester , Obesity complicating , third trimester , History of herpes genitalis Take 1 tablet by mouth three times daily. Continue until delivery. 90 tablet 1 12/01/2021 06/24/2024 Discontinued Comment on above: Take 1 tablet by [facility] three times daily. Continue until delivery. aluminum hydroxide 40 mg/ml / magnesium hydroxide 40 mg/ml / simethicone 4 mg/ml oral suspension (1 source) Start: 03-20-2019 End: 03-22-2019 take 30 mL by mouth every four hours as needed aluminum-magnesium hydroxide-simethic one (MAALOX PLUS) 200-200-20 mg/5 mL suspension 30 mL amoxicillin 500 mg oral capsule (5 sources) Penicillin-class Antibacterial Start: 09-29-2024 End: 09-29-2024 take 1 capsule by mouth twice daily amoxicillin (AMOXIL) 500 mg capsule Indications: Strep throat Take 1 capsule by mouth two times a day for 10 days. 20 capsule 09/29/2024 09/29/2024 Discontinued Start: 09-10-2024 End: 09-20-2024 take 1 capsule by mouth twice daily amoxicillin (AMOXIL) 500 mg capsule Take 1 capsule by mouth two times a day for 10 days. 20 capsule 09/10/2024 09/20/2024 Active Start: 03-19-2023 End: 03-29-2023 take 1 capsule by mouth twice daily amoxicillin (AMOXIL) 500 mg capsule Indications: Strep throat Take 1 capsule by mouth twice daily for 10 days. 20 capsule 0 03/19/2023 03/29/2023 Active take 1 capsule by [facility] three times daily amoxicillin (AMOXIL) 500 MG capsule Take 500 mg by mouth 3 (three) times a day . 0 Active Comment on above: Take 1 capsule by [facility] twice daily for 10 days. aspirin 81 mg delayed release oral tablet (7 sources) Platelet Aggregation Inhibitor, Nonsteroidal Anti-inflammatory Drug Start: 021 End: take 1 tablet by mouth once daily aspirin, enteric coated (ASPIRIN, ENTERIC COATED) 81 mg EC tablet Take 1 tablet by mouth once daily. 30 tablet 5 07/29/2021 04/26/2022 Discontinued Comment on above: Take 1 tablet by [facility] once daily. benzocaine 200 mg/ml topical spray (1 source) Standardized Chemical Allergen Start: End: benzocaine (AMERICAINE) 20 % topical spray 1 application calcium chloride 0.0014 meq/ml / potassium chloride 0.004 meq/ml / sodium chloride 0.103 meq/ml / sodium lactate 0.028 meq/ml injectable solution (1 source) Start: End: lactated Ringers infusion diphenhydrAMINE (BENADRYL) oral solid 25 mg (1 source) Start: End: take 25 mg by mouth every six hours as needed diphenhydrAMINE (BENADRYL) oral solid 25 mg docusate sodium 100 mg oral capsule (1 source) Start: End: docusate sodium (COLACE) capsule 100 mg docusate sodium 50 mg / sennosides, alf 8.6 mg oral tablet (1 source) Start: End: senna-docusate (SENNA-S) 8.6-50 mg per tablet 2 tablet famotidine 20 mg oral tablet (1 source) Histamine-2 Receptor Antagonist Start: take 1 tablet by mouth twice daily famotidine (PEPCID) 20 mg tablet Take 1 tablet by mouth twice daily. 60 tablet 0 11/02/2021 Active Comment on above: [facility]. 24 hr ferrous sulfate 142 mg extended release oral tablet (7 sources) Start: End: take 3 tablets by mouth once daily Ferrous Sulfate (SLOW FE) 142 mg (45 mg iron) TbER Indications: 33 weeks gestation of , Supervision of high risk in third trimester Take 3 tablets by mouth once daily. 60 tablet 5 11/16/2021 04/26/2022 Discontinued Comment on above: Take 3 tablets by mo [facility] once daily. folic acid 1 mg oral tablet (7 sources) Start: End: take 1 tablet by mouth once daily folic acid 1 mg tablet Take 1 tablet by mouth once daily. 60 tablet 5 05/27/2021 04/26/2022 Discontinued Comment on above: [facility]. omeprazole 10 mg delayed release oral capsule (17 sources) Proton Pump Inhibitor Start: End: take 1 capsule by mouth once daily omeprazole (PRILOSEC) 10 mg capsule Indications: 37 weeks gestation of , Gastroesophageal reflux disease, unspecified whether esophagitis present take 1 capsule by mouth once daily 30 capsule 01/24/2022 06/24/2024 Discontinued Comment on above: Take 1 capsule by mo [facility] once daily. take 1 capsule by mo [facility] once daily ondansetron 4 mg oral tablet (7 sources) Serotonin-3 Receptor Antagonist Start: End: take 1 tablet by mouth every eight hours as needed ondansetron (ZOFRAN) 4 mg tablet Take 1 tablet by mouth every 8 hours as needed for nausea/vomiting. 40 tablet 1 05/27/2021 04/26/2022 Discontinued Comment on above: Take 1 tablet by [facility] every 8 hours as needed for nausea/vomiting. oxytocin (PITOCIN) bolus from bag 10,000 haylie-units (1 source) Start: End: oxytocin (PITOCIN) bolus from bag 10,000 haylie-units oxytocin in lactated ringers (PITOCIN) 20 unit/1,000 mL infusion (2 sources) Start: End: oxytocin in lactated ringers (PITOCIN) 20 unit/1,000 mL infusion Start: 03-20-2019 End: 03-20-2019 oxytocin in lactated ringers (PITOCIN) 20 unit/1,000 mL infusion oxytocin in lactated ringers (PITOCIN) 20 unit/1,000 mL infusion - ADS Override Pull (1 source) Start: 03-20-2019 End: 03-20-2019 oxytocin in lactated ringers (PITOCIN) 20 unit/1,000 mL infusion - ADS Override Pull rho(d) immune globulin (RHOPHYLAC) injection 300 mcg (1 source) Start: 03-20-2019 End: 03-22-2019 inject 300 ug by intramuscular injection every twenty-four hours as needed rho(d) immune globulin (RHOPHYLAC) injection 300 mcg simethicone 80 mg chewable tablet (1 source) Start: 03-20-2019 End: 03-22-2019 simethicone (MYLICON) chewable tablet 80 mg vitamin b6 50 mg oral tablet (7 sources) Start: 05-27-2021 End: 04-26-2022 take 1 tablet by mouth twice daily pyridoxine, vitamin B6, (VITAMIN B-6) 50 mg tablet Take 1 tablet by mouth twice daily. 100 tablet 1 05/27/2021 04/26/2022 Discontinued Comment on above: Take 1 tablet by carmelo th twice daily. Problems Active Problems Problem Classification Problem Date Documented Date Episodic/Chronic Contraceptive and procreative management (5 sources) Patient encounter status; Translations: [Encounter for other general counseling and advice on contraception] Episodic Disorders of teeth and jaw (1 source) Toothache; Translations: [Other specified disorders of teeth and supporting structures] Episodic Esophageal disorders (1 source) Gastroesophageal reflux disease; Translations: [Gastro-esophageal reflux disease without esophagitis] Chronic Genitourinary symptoms and ill-defined conditions (4 sources) Dysuria; Translations: [Dysuria] Onset: 01-05-2025 05-06-2023 Episodic Hemorrhage during ; abruptio placenta; placenta previa (2 sources) Threatened miscarriage; Translations: [Threatened ] Episodic Immunizations and screening for infectious disease (1 source) Exposure to sexually transmissible disorder; Translations: [Contact with and (suspected) exposure to infections with a predominantly sexual mode of transmission] 05-06-2023 Episodic Inflammatory diseases of female pelvic organs (1 source) Bacterial vaginosis; Translations: [Acute vaginitis] 06-25-2024 Episodic Other complications of ; puerperium affecting management of mother (3 sources) Advanced maternal age ; Translations: [Advanced maternal age during ] Episodic Other complications of (3 sources) Maternal obesity complicating , childbirth and the puerperium, antepartum; Translations: [Obesity complicating , third trimester] Chronic Other complications of (1 source) Obesity complicating , unspecified trimester; Translations: [Obesity complicating , childbirth, or the puerperium, unspecified as to episode of care or not applicable] Chronic Other complications of (3 sources) High risk ; Translations: [Supervision of high risk , unspecified, third trimester] Episodic Other complications of (2 sources) Vaginitis in ; Translations: [Infection of other part of genital tract in , first trimester] Episodic Other complications of (2 sources) Proteinuria; Translations: [Gestational proteinuria, unspecified trimester] Episodic Other complications of (1 source) Gestational proteinuria, unspecified trimester; Translations: [Unspecified renal disease in , without mention of hypertension, unspecified as to episode of care or not applicable] Episodic Other female genital disorders (2 sources) Vaginal discharge; Translations: [Other specified noninflammatory disorders of vagina] 06-24-2024 Episodic Other female genital disorders (1 source) Other specified noninflammatory disorders of vagina; Translations: [Vaginal discharge] Onset: 01-05-2025 Episodic Other lower respiratory disease (2 sources) Cough; Translations: [Cough] Episodic Other nervous system disorders (1 source) Postoperative pain ; Translations: [Other acute postprocedural pain] Episodic Other and delivery including normal (4 sources) Vaginal delivery; Translations: [Encounter for full-term uncomplicated delivery] Episodic Other screening for suspected conditions (not mental disorders or infectious disease) (1 source) Cancer cervix screening status; Translations: [Encounter for screening for malignant neoplasm of cervix] 06-24-2024 Episodic Other skin disorders (1 source) Rash and other nonspecific skin eruption; Translations: [Rash and other nonspecific skin eruption] Onset: 07-15-2024 Episodic Other upper respiratory infections (7 sources) Sore throat symptom; Translations: [Acute pharyngitis, unspecified] Onset: 02-28-2024 03-19-2023 Episodic Residual codes; unclassified (5 sources) Gestation period, 39 weeks; Translations: [39 weeks gestation of ] Onset: 03-20-2019 03-20-2019 Episodic Residual codes; unclassified (1 source) Gestation period, 35 weeks; Translations: [35 weeks gestation of ] Episodic Residual codes; unclassified (1 source) Gestation period, 38 weeks; Translations: [38 weeks gestation of ] Episodic Residual codes; unclassified (1 source) 39 weeks gestation of ; Translations: [ state, incidental] Episodic Residual codes; unclassified (1 source) Gestation period, 37 weeks; Translations: [37 weeks gestation of ] Episodic Residual codes; unclassified (1 source) Postoperative state; Translations: [Other specified postprocedural states] Episodic Residual codes; unclassified (1 source) Unprotected sexual intercourse; Translations: [High risk heterosexual behavior] 06-24-2024 Episodic Urinary tract infections (3 sources) Urinary tract infectious disease; Translations: [Urinary tract infection, site not specified] Episodic Past or Other Problems Problem Classification Problem Date Documented Da te Episodic/Chronic Other complications of (20 sources) Obesity; Translations: [Obesity complicating , unspecified trimester] Onset: 1 Resolved: 4 06-02-2021 Chronic Other complications of (20 sources) Multigravida of advanced maternal age; Translations: [Supervision of elderly multigravida, unspecified trimester] Onset: 1 Resolved: 4 06-02-2021 Episodic Other complications of (20 sources) Spotting per vagina in ; Translations: [Spotting complicating , unspecified trimester] Onset: 1 Resolved: 4 06-02-2021 Episodic Other complications of (20 sources) Heartburn; Translations: [Other specified related conditions, third trimester] Onset: 2 Resolved: 4 11-02-2021 Episodic Other complications of (20 sources) Gestational proteinuria; Translations: [Gestational proteinuria, third trimester] Onset: 2 Resolved: 4 Episodic Other gastrointestinal disorders (20 sources) H/O: gastrointestinal disease; Translations: [Personal history of other diseases of the digestive system] Onset: 1 06-02-2021 Episodic Other infections; including parasitic (20 sources) History of sexually transmitted disease; Translations: [Personal history of other infectious and parasitic diseases] Onset: 1 Episodic Residual codes; unclassified (1 source) High risk heterosexual behavior; Translations: [Unprotected sexual intercourse] Onset: 4 Episodic Screening and history of mental health and substance abuse codes (20 sources) H/O: anxiety state; Translations: [Personal history of other mental and behavioral disorders] Onset: 1 06-02-2021 Episodic Sexually transmitted infections (not HIV or hepatitis) (20 sources) Syphilis test finding; Translations: [Syphilis, unspecified] Onset: 1 07-29-2021 Episodic NEGATED: Highlighted row has been ruled out!Unclassified (2 sources) No known active problems Results Test Name Value Interpretation Reference Range Facil ity BACTERIAL VAGINOSIS NAATon 0 01-05-2025 Lactobacillus crispatus+gasseri+ jensenii + Gardnerella vaginalis + Atopobium vaginae rRNA FLACO+probe Ql (Vag fld) Detected Abnormal Not detected [facility] Comment on above: Order Comment: Speci men Type: FLUID SPECIMEN Ordering Facility: [facility] Address: [address] [place] [address] Performed By: #### H PVHRT #### [facility] CLIA [id number] [address] [place] [address] [place] #### [id number] #### [facility] CLIA [id number] [address] [place] [address] [place] [facility] CLIA [id number] [address] [place] [address] [place] Bacteria Ur Culton Bacteria identified Cx Nom (U) ORGANISM ID: 1 10,000 -<50,000 CFU/ml Normal urogenital sola Normal [facility] Comment on above: Performed By: #### H PVHRT #### [facility] CLIA [id number] [address] [place] [address] [place] #### [id number] #### [facility] CLIA [id number] [address] [place] [address] [place] [facility] CLIA [id number] [address] [place] [address] [place] C. trachomatis+N. gonorrhoea e DNA FLACO+probe Ql (Unsp spec)on 01-05-2025 C. trachomatis rRNA FLACO+probe Ql (Unsp spec) Not detected Normal Not detected [facility] Comment on above: Order Comment: Speci men Type: FLUID SPECIMEN Ordering Facility: [facility] Address: [address] [place] [address] Performed By: #### H PVHRT #### [facility] CLIA [id number] [address] [place] [address] [place] #### [id number] #### [facility] CLIA [id number] [address] [place] [address] [place] [facility] CLIA [id number] [address] [place] [address] [place] N. gonorrhoeae rRNA FLACO+probe Ql (Unsp spec) Not detected Normal Not detected [facility] Comment on above: Order Comment: Speci men Type: FLUID SPECIMEN Ordering Facility: [facility] Address: [address] [place] [address] Performed By: #### H PVHRT #### [facility] CLIA [id number] [address] [place] [address] [place] #### [id number] #### [facility] CLIA [id number] [address] [place] [address] [place] [facility] CLIA [id number] [address] [place] [address] [place] LUCY/TRICHOMONAS NAATon 0 01-05-2025 C. glabrata RNA FLACO+probe Ql (Vag fld) Not detected Normal Not detected [facility] Comment on above: Order Comment: Speci men Type: FLUID SPECIMEN Ordering Facility: [facility] Address: [address] [place] [address] Performed By: #### H PVHRT #### [facility] CLIA [id number] [address] [place] [address] [place] #### [id number] #### [facility] CLIA [id number] [address] [place] [address] [place] [facility] CLIA [id number] [address] [place] [address] [place] Lucy sp DNA FLACO+probe Ql (Vag fld) Not detected Normal Not detected [facility] Comment on above: Order Comment: Speci men Type: FLUID SPECIMEN Ordering Facility: [facility] Address: [address] [place] [address] Result Comment: The Lucy species group target includes C. albicans, C. tropicalis, C. parapsilosis, and C. dubliniensis. Performed By: #### H PVHRT #### [facility] CLIA [id number] [address] [place] [address] [place] #### [id number] #### [facility] LAB[facility]ATORY CLIA [id number] [address] [place] [address] [place] [facility] CLIA [id number] [address] [place] [address] [place] T. vaginalis DNA FLACO+probe Ql (Unsp spec) Not detected Normal Not detected [facility] Comment on above: Order Comment: Speci men Type: FLUID SPECIMEN Ordering Facility: [facility] Address: [address] [place] [address] Performed By: #### H PVHRT #### [facility] CLIA [id number] [address] [place] [address] [place] #### [id number] #### [facility] CLIA [id number] [address] [place] [address] [place] [facility] CLIA [id number] [address] [place] [address] [place] CNOVon 01-05-2025 CNOV Office Visit (UCWSTR ) DUARTE SUNSHINE ([id number]) 1985 F Date Time Provider Department 01/05/25 3:30 PM BOO PRIEST UCWSTR During your visit today, we recorded the following information about you: Temperature Pulse Respiration Blood pressure 98.4 degrees 64/minute 18/minute 132/68 Weight Last Period 95 kg 12/29/24 Boo Priest APRN.LEI MAKER 01/05/2025 3:55 PM Signed [facility] Subjective Duarte Sunshine is a 39 year old female. Patient presents with: UTI: Yellow vaginal discharge, denies burning with urination or frequency Patient came in with complaints of 1 weeks worth of burning and frequency. Patient says she has noticed some yellow discharge. Patient does have unprotected sex with her partner but they have been together 11 years. Patient denies any abdominal pain fever chills nausea vomiting or other symptoms. Patient had her tubes tied says there is no chance of . Patient did have some spotting before and after her period The history is provided by the patient. No humanities and languages professor was used. UTI Review of Systems Constitutional: Negative. HENT: Negative. Genitourinary: Positive for dysuria and vaginal discharge. Objective BP 132/68 (BP Site: Left Arm, BP Position: Sitting) Pulse 64 Temp 36.9 ?C (98.4 ?F) Resp 18 Wt 95 kg (209 lb 7 oz) LMP 12/29/2024 (Approximate) SpO2 100% BMI 35.32 kg/m? Physical Exam Constitutional: Appearance: Normal appearance. Cardiovascular: Rate and Rhythm: Normal rate and regular rhythm. Heart sounds: Normal heart sounds. Pulmonary: Effort: Pulmonary effort is normal. Breath sounds: Normal breath sounds. Abdominal: General: Abdomen is flat. Palpations: Abdomen is soft. Tenderness: There is no abdominal tenderness. There is no right CVA tenderness, left CVA tenderness or guarding. Neurological: Mental Status: She is alert. PAST MEDICAL HISTORY Diagnosis Date Abnormal Pap smear of cervix Anemia anxiety Chlamydia 2012 Gestational proteinuria in third trimester (HCC) 12/28/2021 Herpes simplex virus (HSV) infection History of genital warts History of HPV infection History of syphilis Syphilis 2016 PAST SURGICAL HISTORY Procedure Laterality Date PAST SURGICAL HISTORY OF had pyloric stenosis as a baby, had surgery to open SALPINGECTOMY Bilateral 05/11/2022 laparoscopic ALLERGIES House Dust Mite, Seasonal Allergies, and Stadol [Butorphanol] MEDICATIONS No prescriptions on file. FAMILY HISTORY Problem Relation Age of Onset Thyroid Mother Hypertension Mother Hyperlipidemia Father other (ovarian cysts) Sister Breast Cancer Maternal Grandmother 70 Blood Clots Maternal Grandfather Ovarian cancer Paternal Grandmother 90 Hodgkin Lymphoma Paternal Grandfather No Known Problems Daughter No Known Problems Daughter No Known Problems Son No Known Problems Son Social History Tobacco Use Smoking status: Never Smokeless tobacco: Never Vaping Use Vaping status: Never Used Substance Use Topics Alcohol use: Not Currently Comment: Occasionally Drug use: Never {ASSESSMENT/PLAN: 1. Dysuria - ICD9: 788.1, ICD10: R30.0 (primary diagnosis) acute - Send urine for culture - Patient education for prevention given - UA DIP, URINE (POC) - BACTERIAL CULTURE, URINE 2. Vaginal discharge - ICD9: 623.5, ICD10: N89.8 - BACTERIAL VAGINOSIS NAAT - LUCY/TRICHOMONAS NAAT - GONORRHEA/CHLAMYDIA NAAT Did self swabs. No treatment was given at this time. If anything comes back positive please treat accordingly. Boo Priest APRN.LEI MAKER History and Record Review External record(s) reviewed: no prior records. Disposition The patient was discharged. Procedures Allergies As of Date: 01/05/2025 Noted Allergy Reaction HOUSE DUST MITE 05/04/2021 16 - Unknown SEASONAL ALLERGIES 05/04/2021 14 - Other: See Comments STADOL (BUTORPHANOL) 06/02/2021 14 - Other: See Comments Comments: dizziness and increased heart rate Date Reviewed: 01/05/2025 Reviewed by: Priya Ramos OCCA - Fully Assessed Reason for Visit: UTI [116] Cmt: Yellow vaginal discharge, denies burning with urination or frequency Primary Visit Diagnosis:Dysuria [R30.0] Other Visit Diagnosis:Vaginal discharge [N89.8] Order(s):UA DIP, URINE (POC) [[id number]] Order #: [id number]. #:[id number] BACTERIAL CULTURE, URINE [SQURCUL] Order #: [id number]. #:[id number] BACTERIAL VAGINOSIS NAAT [SQBVAMP] Order #: [id number]. #:[id number] LUCY/TRICHOMONAS NAAT [SQCVTV] Order #: [id number]. #:[id number] GONORRHEA/CHLAMYDIA NAAT [SQGCCT] Order #: [id number]. #:[id number] Problem List As Of Date 01/05/2025 Noted Resolved Antepartum multigravida of advanced maternal ag*06/02/2021 06/24/2024 Obesity during [O99.210] 06/02/2021 06/24/20 (more content not included)... Normal [facility] UA DIP, URINE (POC)on 2024 BILIRUBIN UA (POCT) Negative Negative [facility] CLARITY UA (POCT) Clear [facility] COLOR UA (POCT) Yellow [facility] GLUCOSE UA (POCT) Negative Negative mg/dL [facility] Hemoglobin Ql (U) Trace-intact Abnormal Negative [facility] Interpretation and review of laboratory results Abnormal [facility] KETONE UA (POCT) Negative Negative mg/dL [facility] LEUKOCYTES UA (POCT) Trace Abnormal Negative [facility] NITRITE UA (POCT) Negative Negative [facility] PH UA (POCT) 7 4.5 - 8.0 [facility] Protein Ql (U) Negative Negative mg/dL [facility] SPECIFIC GRAVITY UA (POCT) 1.015 1.005 - 1.030 [facility] UROBILINOGEN UA (POCT) 0.2 Normal E.U./dL [facility] Location:[address], [place], [place], [id number] [place] [address] POINT OF CARE [facility] CNOVon 09-29-2024 CNOV Office Visit (UCWSTR ) DUARTE SUNSHINE ([id number]) 1985 F Date Time Provider Department 09/29/24 9:30 AM BOO PRIEST WSTR During your visit today, we recorded the following information about you: Temperature Pulse Respiration Blood pressure 98.8 degrees 101/minute 18/minute 106/72 Weight 92.2 kg Boo Priest APRN.LEI MAKER 09/29/2024 9:59 AM Signed CC: Patient presents with: Sore Throat: ST, fever, OSEGUERA, bodyaches, chills and fatigue x 2 days HPI: Duarte Sunshien is a 39 year old female who presents to the office with complaint of sore throat and fever for 2 days. Symptoms are staying the same. Associated symptoms includes body aches. Denies nausea, vomiting , and diarrhea. Treatments tried include nothing so far. with no relief of symptoms. Sick contacts: unknown. History of asthma, frequent episodes of bronchitis, chronic bronchitis, bronchiectasis or COPD: No Smoker: No Seasonal/environmental allergies: No The ROS is otherwise negative. The patient's pmh, medications, allergies, and past visits are reviewed. PHYSICAL EXAM: BP 106/72 Pulse 101 Temp 37.1 ?C (98.8 ?F) (Tympanic) Resp 18 Wt 92.2 kg (203 lb 4.2 oz) LMP 05/31/2024 (Approximate) SpO2 98% BMI 34.28 kg/m? General appearance: alert, cooperative, pleasant, in no acute distress Head: Normocephalic Eyes: EOM's intact, conjunctiva pink and moist, no icterus, sclera white, non-injected Ears: Right ear: External ear/canal- Normal, TM - clear with good landmarks. Left ear: External ear/canal- Normal, TM - clear with good landmarks Oropharynx:moderate erythema, with exudates present Heart: Negative. RRR without obvious murmur, gallop, or rubs. No ectopy. Lungs: clear to auscultation, without rales or wheeze, good air exchange PAST MEDICAL HISTORY Diagnosis Date Abnormal Pap smear of cervix Anemia anxiety Chlamydia 2013 Gestational proteinuria in third trimester 12/28/2021 Herpes simplex virus (HSV) infection History of genital warts History of HPV infection History of syphilis Syphilis 2017 PAST SURGICAL HISTORY Procedure Laterality Date PAST SURGICAL HISTORY OF had pyloric stenosis as a baby, had surgery to open SALPINGECTOMY Bilateral 05/11/2022 laparoscopic ALLERGIES House Dust Mite, Seasonal Allergies, and Stadol [Butorphanol] MEDICATIONS cephALEXin (KEFLEX) 500 mg capsule Take 1 capsule by mouth two times a day for 10 days. FAMILY HISTORY Problem Relation Age of Onset Thyroid Mother Hypertension Mother Hyperlipidemia Father other (ovarian cysts) Sister Breast Cancer Maternal Grandmother 70 Blood Clots Maternal Grandfather Ovarian cancer Paternal Grandmother 90 Hodgkin Lymphoma Paternal Grandfather No Known Problems Daughter No Known Problems Daughter No Known Problems Son No Known Problems Son Social History Tobacco Use Smoking status: Never Smokeless tobacco: Never Vaping Use Vaping status: Never Used Substance Use Topics Alcohol use: Not Currently Comment: Occasionally Drug use: Never ASSESSMENT/PLAN: 1. Sore throat - ICD9: 462, ICD10: J02.9 (primary diagnosis) - STREP A MOLECULAR (POC) - pos 2. Strep throat - ICD9: 034.0, ICD10: J02.0 - CEPHALEXIN 500 MG CAPSULE Recently completed amoxicillin for strep Prescription instructions reviewed with patient as applicable. Potential red flag symptoms discussed with the patient. Reviewed appropriate action plan to take if red flag symptoms occur. Patient agreeable to treatment plan. Boo Priest APRN.LEI MAKER Allergies As of Date: 09/29/2024 Noted Allergy Reaction HOUSE DUST MITE 05/04/2021 16 - Unknown SEASONAL ALLERGIES 05/04/2021 14 - Other: See Comments STADOL (BUTORPHANOL) 06/02/2021 14 - Other: See Comments Comments: dizziness and increased heart rate Date Reviewed: 09/29/2024 Reviewed by: Meaghan Hurt LPN - Fully Assessed Reason for Visit: Sore Throat [200] Cmt: ST, fever, OSEGUERA, bodyaches, chills and fatigue x 2 days Primary Visit Diagnosis:Sore throat [J02.9] Other Visit Diagnosis:Strep throat [J02.0] Order(s):STREP A MOLECULAR (POC) [[id number]] Order #: [id number]. #:[id number] cephALEXin (KEFLEX) 500 mg capsuleTake 1 capsule by mouth two times a day for 10 days.Disp: 20 capsuleRfl: 0 Prescriptions as of 09/29/2024 - cephALEXin (KEFLEX) 500 mg capsule Take 1 capsule by mouth two times a day for 10 days. 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 Normal [facility] STREP A MOLECULAR (POC)on Interpretation and review of laboratory results Abnormal [facility] Procedural Control Valid [facility] Strep A (POCT) Positive Abnormal Negative [facility] CNOVon 09-10-2024 CNOV Office Visit (UCWSTR ) DUARTE SUNSHINE ([id number]) 1985 F Date Time Provider Department 09/10/24 3:30 PM JAMAAL CHAPARRO [facility] During your visit today, we recorded the following information about you: Temperature Pulse Respiration Blood pressure 98.7 degrees 88/minute 18/minute 118/76 Weight 91.3 kg Jamaal Chaparro MD 09/10/2024 3:34 PM Signed Patient presents with: Sore Throat: ST, fatigue and drainage x 4 days HPI: Feeling sick for 4-5 days. Positive symptoms: Sore throat, Fatigue, malaise, some Cough with dry throat Negative symptoms: Rhinorrhea, Fever, Nausea, Vomiting, Diarrhea, OTC: Ibuprofen MEDICATIONS: No current outpatient medications on file. No current facility-administered medications for this visit. ALLERGIES: ALLERGIES Allergen Reactions House Dust Mite Unknown Seasonal Allergies Other: See Comments Stadol [Butorphanol] Other: See Comments dizziness and increased heart rate VITALS: BP 118/76 Pulse 88 Temp 37.1 ?C (98.7 ?F) (Tympanic) Resp 18 Wt 91.3 kg (201 lb 4.5 oz) LMP 05/31/2024 (Approximate) SpO2 99% BMI 33.95 kg/m? PHYSICAL EXAM: GEN: Pleasant, in no acute distress. HEENT: PERRL, EOMI, conjunctiva clear Ears: canals clear. TMs without erythema, bulge, or effusion Sinuses: non-tender frontal sinus, non-tender maxillary sinuses Throat: moist mucous membranes, pharyngeal erythema and exudate Neck: supple, no thyromegaly, mild anterior lymphadenopathy HEART: regular rate, regular rhythm, no murmurs LUNGS: clear to auscultation, no wheezes or crackles, no increased WOB ASSESSMENT/PLAN: 1. Streptococcal pharyngitis - ICD9: 034.0, ICD10: J02.0 (primary diagnosis) 2. Sore throat - ICD9: 462, ICD10: J02.9 - Rapid molecular strep test positive - Discussed supportive care treatment with as needed analgesia. - Contagious disease precautions discussed- including considered contagious until on antibiotics for 24 hours - STREP A MOLECULAR (POC) Jamaal Chaparro MD Allergies As of Date: 09/10/2024 Noted Allergy Reaction HOUSE DUST MITE 05/04/2021 16 - Unknown SEASONAL ALLERGIES 05/04/2021 14 - Other: See Comments STADOL (BUTORPHANOL) 06/02/2021 14 - Other: See Comments Comments: dizziness and increased heart rate Date Reviewed: 09/10/2024 Reviewed by: Meaghan Hurt LPN - Fully Assessed Reason for Visit: Sore Throat [200] Cmt: ST, fatigue and drainage x 4 days Primary Visit Diagnosis:Streptococca l pharyngitis [J02.0] Other Visit Diagnosis:Sore throat [J02.9] Order(s):STREP A MOLECULAR (POC) [[id number]] Order #: [id number]. #:[id number] amoxicillin (AMOXIL) 500 mg capsuleTake 1 capsule by mouth two times a day for 10 days.Disp: 20 capsuleRfl: 0 Prescriptions as of 09/10/2024 - amoxicillin (AMOXIL) 500 mg capsule Take 1 capsule by mouth two times a day for 10 days. 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 Level of Service: OFFICE/OUTPATIENT ESTABLISHED MOD MDM 30 MIN [[id number]] LOS History for Encounter --- Level of Service: OFFICE/OUTPATIENT ESTABLISHED LOW MDM 20 MIN[[id number]] Date AND Time: 09-10-2024 3:34 PM Recorded by User: JAMAAL CHAPARRO Encounter Status:Closed by JAMAAL CHAPARRO on 09/10/24 Normal [facility] STREP A MOLECULAR (POC)on Interpretation and review of laboratory results Abnormal [facility] Procedural Control Valid [facility] Strep A (POCT) Positive Abnormal Negative [facility] Burak 06-26-2024 OSEIN Telephone (OBGYWM) BITADUARTE Julio ([id number]) 1985 F Date Time Provider Department 06/26/24 BETTY MEREDITH During your visit today, we recorded the following information about you: Betty Meredith APRN.CNP 06/26/2024 7:58 AM Signed Please let the pt know that her Syphilis is positive, 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 She will need treatment. CRISPIN Romero Jennifer, RN 06/26/2024 8:34 AM Signed Left message for patient to call office. Faxed notification to [facility] asking that they reach out to patient for treatment. KRISTOFER Blair Jennifer, RN 06/26/2024 9:12 AM Signed Patient notified. [facility] will [facility]. She's aware that her partner(s) need treatment. Geraldine Donnelly RN Allergies As of Date: 06/26/2024 Noted Allergy Reaction HOUSE DUST MITE 05/04/2021 16 - Unknown SEASONAL ALLERGIES 05/04/2021 14 - Other: See Comments STADOL (BUTORPHANOL) 06/02/2021 14 - Other: See Comments Comments: dizziness and increased heart rate Date Reviewed: 06/24/2024 Reviewed by: Betty Meredith APRN.CNP - Fully Assessed Reason for Visit: Results [95] Prescriptions as of 06/26/2024 - metroNIDAZOLE (FLAGYL) 500 mg tablet Take 1 tablet by mouth two times a day for 7 days. - valACYclovir (VALTREX) 1 gram tablet Take 1 tablet by mouth two times a day for 7 days. FOR 7 DAYS. 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 [A*07/11/2021 Heartburn during in third trimester [*11/02/2021 06/24/2024 Gestational proteinuria in third trimester [O12*12/28/2021 06/24/2024 Encounter Status:Closed by GERALDINE DONNELLY on 06/26/24 [facility] DU[facility]SHINE ([id number]) 1985 F Date Time Provider Department 06/25/24 JACI TA During your visit today, we recorded the following information about you: Allergies As of Date: 06/25/2024 Noted Allergy Reaction HOUSE DUST MITE 05/04/2021 16 - Unknown SEASONAL ALLERGIES 05/04/2021 14 - Other: See Comments STADOL (BUTORPHANOL) 06/02/2021 14 - Other: See Comments Comments: dizziness and increased heart rate Date Reviewed: 06/24/2024 Reviewed by: Betty Meredith APRN.[facility] - Fully Assessed Reason for Visit: Results [95] Primary Visit Diagnosis:Bacterial vaginosis [N76.0, B96.89] Order(s):metroNIDAZOLE (FLAGYL) 500 mg tabletTake 1 tablet by mouth two times a day for 7 days.Disp: 14 tabletRfl: 0 Prescriptions as of 06/25/2024 - metroNIDAZOLE (FLAGYL) 500 mg tablet Take 1 tablet by mouth two times a day for 7 days. - valACYclovir (VALTREX) 1 gram tablet Take 1 tablet by mouth two times a day for 7 days. FOR 7 DAYS. 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 Encounter Status:Closed by MARIVEL BUTTS on 06/25/24 Normal [facility] BACTERIAL VAGINOSIS NAATon 1 Lactobacillus crispatus+gasseri+ jensenii + Gardnerella vaginalis + Atopobium vaginae rRNA FLACO+probe Ql (Vag fld) Positive Abnormal Negative for bacterial vaginosis [facility] Comment on above: Order Comment: Speci men Type: FLUID SPECIMEN Ordering Facility: [facility] Address: [address] [place] [address] Performed By: #### H PVHRT #### [facility] CLIA [id number] [address] [place] [address] [place] #### [id number] #### [facility] CLIA [id number] [address] [place] [address] [place] [facility] CLIA [id number] [address] [place] [address] [place] C. trachomatis+N. gonorrhoea e DNA FLACO+probe Ql (Unsp spec)on 06-24-2024 C. trachomatis rRNA FLACO+probe Ql (Unsp spec) Negative Normal Negative for Chlamydia trachomatis by amplificaton [facility] Comment on above: Order Comment: Speci men Type: FLUID SPECIMEN Ordering Facility: [facility] Address: [address] [place] [address] Performed By: #### H PVHRT #### [facility] CLIA [id number] [address] [place] [address] [place] #### [id number] #### [facility] CLIA [id number] [address] [place] [address] [place] [facility] CLIA [id number] [address] [place] [address] [place] N. gonorrhoeae rRNA FLACO+probe Ql (Unsp spec) Negative Normal Negative for Neisseria gonorrhoeae by amplification [facility] Comment on above: Order Comment: Speci men Type: FLUID SPECIMEN Ordering Facility: [facility] Address: [address] [place] [address] Performed By: #### H PVHRT #### [facility] CLIA [id number] [address] [place] [address] [place] #### [id number] #### [facility] CLIA [id number] [address] [place] [address] [place] [facility] CLIA [id number] [address] [place] [address] [place] LUCY/TRICHOMONAS NAATon 1 C. glabrata RNA FLACO+probe Ql (Vag fld) Negative Normal Negative for Lucy glabrata [facility] Comment on above: Order Comment: Speci men Type: SWAB Ordering Facility: [facility] Address: [address] [place] [address] Performed By: #### C VTV #### [facility] CLIA [id number] [address] [place] [address] [place] Lucy sp DNA FLACO+probe Ql (Vag fld) Negative Normal Negative for Lucy species [facility] Comment on above: Order Comment: Speci men Type: SWAB Ordering Facility: [facility] Address: [address] [place] [address] Performed By: #### C VTV #### [facility] CLIA [id number] [address] [place] [address] OF [place] T. vaginalis DNA FLACO+probe Ql (Unsp spec) Negative Normal Negative for Trichomonas vaginalis by amplification [facility] Comment on above: Order Comment: Speci men Type: SWAB Ordering Facility: [facility] Address: [address] [place] [address] Performed By: #### C VTV #### [facility] CLIA [id number] [address] [place] [address] OF [place]UN CNOVon 06-24-2024 CNOV Office Visit (OBGYWM ) DUARTE SUNSHINE ([id number]) 1985 F Date Time Provider Department 06/24/24 9:00 AM BETTY MEREDITH OBGYWM During your visit today, we recorded the following information about you: Blood pressure Weight Height Last Period 122/78 91.7 kg 1.64 m 05/31/24 Betty Meredith APRN.LEI MAKER 06/24/2024 10:37 AM Signed Patient declined tilt tray driverMorris Luna is a 39 year old who presents for an annual gynecologic exam with complaints, patient reported unprotected intercourse, vaginal discharge. Rash started on 06/10- a little itchy Menses: cycles every 28 days and 4-5 days of flow. Contraception: tubal sterilization HPV vaccine: No Last Pap: 10/14/2019 normal HPV: 10/13/2019 negative patient reports a history of HPV with genital warts History of abnormal pap: Yes Last mammogram: never Sexually active: Yes Patient concerns for STD exposure: Yes OB History T5 L5 SAB0 IAB0 Ectopic0 Multiple0 Live Births5 Comment: x 4 [employer] History LMP: 04/23/2023 (Approximate), Unknown Age at Menarche: Age at First : Age at Menopause: Wrapper [employer] Preserver History Comments: Sexual Activity: Yes; Male Contraception: Condom, Pill PAST MEDICAL HISTORY Diagnosis Date Abnormal Pap smear of cervix Anemia anxiety Chlamydia 2013 Gestational proteinuria in third trimester 12/28/2021 Herpes simplex virus (HSV) infection History of genital warts History of HPV infection History of syphilis Syphilis 2017 PAST SURGICAL HISTORY Procedure Laterality Date PAST SURGICAL HISTORY OF had pyloric stenosis as a baby, had surgery to open SALPINGECTOMY Bilateral 05/11/2022 laparoscopic FAMILY HISTORY Problem Relation Age of Onset Thyroid Mother Hypertension Mother Hyperlipidemia Father other (ovarian cysts) Sister Breast Cancer Maternal Grandmother 70 Blood Clots Maternal Grandfather Ovarian cancer Paternal Grandmother 90 Hodgkin Lymphoma Paternal Grandfather No Known Problems Daughter No Known Problems Daughter No Known Problems Son No Known Problems Son SOCIAL HISTORY Social History Tobacco Use Smoking status: Never Smokeless tobacco: Never Vaping Use Vaping status: Never Used Substance Use Topics Alcohol use: Not Currently Comment: Occasionally Drug use: Never REVIEW OF SYSTEMS Abdomen: No abdominal pain, nausea, vomiting, diarrhea, or constipation. No bloating, early satiety, indigestion, or increased flatulence. Bladder: No dysuria, gross hematuria, urinary frequency, urinary urgency, or incontinence. Breast: No breast lumps, nipple d/c, overlying skin changes, redness or skin retraction. Allergies and current medication updated:Yes SENSITIVE EXAM: The sensitive examination was discussed with the Patient or Patient's Authorized Api Architect. As applicable, any other physician, advance practice provider, medical student, or other health professional student that will be observing or involved in the sensitive examination for educational or training purposes was discussed with the Patient or Authorized Api Architect. The Patient or Authorized Api Architect has agreed to proceed with the sensitive examination. (Sensitive examination includes inspection and/or palpation of the breasts, pelvis, prostate and anorectal regions). EXAM: LMP 04/23/2023 GENERAL: pleasant, female in no apparent distress HEENT: Normocephalic, atraumatic, mucus membranes moist, and no lesions NECK: Supple, full range of motion, no adenopathy, and thyroid normal DERMATOLOGY: papular rash all over body BREAST: soft, non-tender, symmetric, no dominant mass, normal nipple-areolar complex, no lymphadenopathy, and no nipple discharge CHEST: Normal inspiratory effort ABDOMEN: soft, non-tender, and no masses PELVIC: external genitalia normal, normal Bartholin's glands, urethra, [place]'s glands, no cervical lesions, physiologic discharge present, normal appearing perineal body and perianal region, vulvar lesion herpes lesions BIMANUAL: uterus normal size, shape and consistency, no adnexal masses, and non-tender RECTOVAGINAL: deferred. NEURO: alert and oriented x3,exam grossly non-focal EXTREMITIES: normal ASSESSMENT/PLAN: 1. Encounter for gynecological examination (general) (routine) without abnormal findings - ICD9: V72.31, ICD10: Z01.419 (primary diagnosis) - Completed pap test and breast exam - Encouraged monthly BSE - Follow up for annual exam in one year. - GONORRHEA/CHLAMYDIA NAAT 2. Vaginal discharge - ICD9: 623.5, ICD10: N89.8 - GONORRHEA/CHLAMYDIA NAAT - HEPATITIS B SURFACE ANTIGEN - TRICHOMONAS VAGINALIS NAAT - LUCY/TRICHOMONAS NAAT - BACTERIAL VAGINOSIS NAAT 3. Unprotected sexual intercourse - ICD9: V69.2, ICD10: Z72.51 - SYPHILIS TREPONEMAL W/REFLEX - HIV 1/2 COMBO WITH REFLEX TO DIFFERENTIATION - HEPATITIS C ANTIBODY I (more content not included)... Normal [facility] HBV surface Ag Ser Qlon 10 HBV surface Ag Ql (S) Negative Normal Negative [facility] Comment on above: Order Comment: Speci men Type: FLUID SPECIMEN Ordering Facility: [facility] Address: [address] [place] [address] Performed By: #### H PVHRT #### [facility] CLIA [id number] [address] [place] [address] [place] [address] [place] #### [id number] #### [facility] CLIA [id number] [address] [place] [address] [place] [facility] CLIA [id number] [address] [place] [address] [place] HCV Ab Ser Qlon 06-24-2024 HCV Ab Ql (S) Negative Normal Negative [facility] Comment on above: Order Comment: Speci men Type: FLUID SPECIMEN Ordering Facility: [facility] Address: [address] [place] [address] Result Comment: The result suggests no evidence of active infection with Hepatitis C virus. Should recent infection be suspected, repeat testing may be considered 4-6 weeks after this draw. Performed By: #### H PVHRT #### [facility] CLIA [id number] [address] [place] [address] [place] #### [id number] #### [facility] CLIA [id number] [address] [place] [address] [place] [facility] CLIA [id number] [address] [place] [address] [place] HIGH RISK HUMAN PAPILLOMA BHARATH (HPV), PCR FOR DETECTION AND GENOTYPINGon 06-24-2024 HPV 16 Ag Ql (Unsp spec) Not detected Normal Not detected [facility] Comment on above: Order Comment: Speci men Type: FLUID SPECIMEN Ordering Facility: [facility] Address: [address] [place] [address] Performed By: #### H PVHRT #### [facility] CLIA [id number] [address] [place] [address] [place] #### [id number] #### [facility] CLIA [id number] [address] [place] [address] [place] [facility] CLIA [id number] [address] [place] [address] [place] HPV 18 Ag Ql (Unsp spec) Not detected Normal Not detected [facility] Comment on above: Order Comment: Speci men Type: FLUID SPECIMEN Ordering Facility: [facility] Address: [address] [place] [address] Performed By: #### H PVHRT #### [facility] CLIA [id number] [address] [place] [address] [place] #### [id number] #### [facility] CLIA [id number] [address] [place] [address] [place] [facility] CLIA [id number] [address] [place] [address] [place] HPV 31+33+35+39+45+51+ 52+56+58+59+66+68 DNA FLACO+probe Ql (Cvx) Not detected Normal Not detected [facility] Comment on above: Order Comment: Speci men Type: FLUID SPECIMEN Ordering Facility: [facility] Address: [address] [place] [address] Result Comment: High Risk HPV Other Type includes HPV types 31, 33, 35, 39, 45, 51, 52, 56, 58, 59, 66 and 68. Performed By: #### H PVHRT #### [facility] CLIA [id number] [address] [place] [address] [place] #### [id number] #### [facility] CLIA [id number] [address] [place] [address] [place] [facility] CLIA [id number] [address] [place] [address] [place] HIV 1+2 Ab IA Qlon 4 HIV 1 and 2 Ab IA.rapid Nom (S/P/Bld) Normal [facility] Comment on above: Order Comment: Speci men Type: FLUID SPECIMEN Ordering Facility: [facility] Address: [address] [place] [address] Result Comment: Test not indicated. Performed By: #### H PVHRT #### [facility] CLIA [id number] [address] [place] [address] [place] #### [id number] #### [facility] CLIA [id number] [address] [place] [address] [place] [facility] CLIA [id number] [address] [place] [address] [place] HIV 1+2 Ab+HIV1 p24 Ag IA Ql Non-Reactive Normal Nonreactive [facility] Comment on above: Order Comment: Speci men Type: FLUID SPECIMEN Ordering Facility: [facility] Address: [address] [place] [address] Performed By: #### H PVHRT #### [facility] CLIA [id number] [address] [place] [address] [place] #### [id number] #### [facility] CLIA [id number] [address] [place] [address] [place] [facility] CLIA [id number] [address] [place] [address] [place] HIV immunoassay testing algorithm interpretation (S/P/Bld) [Interp] Normal [facility] Comment on above: Order Comment: Speci men Type: FLUID SPECIMEN Ordering Facility: [facility] Address: [address] [place] [address] Result Comment: No e vidence of HIV-1 or HIV-2 infection. Should recent infection be suspected, repeat testing may be considered 2-3 weeks after this draw. [place] Rev. Code 3701.243(E): This information has been disclosed to you from confidential records protected from disclosure by state law. ???You shall make no further disclosure of this information without the specific, written, and informed release of the individual to whom it pertains or as otherwise permitted by state law. A general authorization for the release of medical or other information is not sufficient for the purpose of the release of HIV test results or diagnoses. Performed By: #### H PVHRT #### [facility] CLIA [id number] [address] [place] [address] [place] #### [id number] #### [facility] CLIA [id number] [address] [place] [address] [place] [facility] CLIA [id number] [address] [place] [address] [place] PAP TESTon 06-24-2024 ADEQUACY Normal [facility] Comment on above: Order Comment: Speci men Type: FLUID SPECIMEN Ordering Facility: [facility] Address: [address] [place] [address] Result Comment: Sati sfactory for interpretation. No endocervical component Performed By: #### H PVHRT #### [facility] CLIA [id number] [address] [place] [address] [place] #### [id number] #### [facility] CLIA [id number] [address] [place] [address] [place] [facility] CLIA [id number] [address] [place] [address] [place] CASE REPORT Normal [facility] Comment on above: Order Comment: Speci men Type: FLUID SPECIMEN Ordering Facility: [facility] Address: [address] [place] [address] Result Comment: Gyne cologic Cytology Report Case: [id number] Authorizing Provider: Betty Meredith APRN.LEI MAKER Collected: 06/24/2024 11:34 AM Ordering Location: OB/Gynecology Received: 06/24/2024 12:19 PM First Screen: Darling, Samantha, CT, ASCP Specimen: Pap Test, ThinPrep, Cervix Performed By: #### H PVHRT #### [facility] CLIA [id number] [address] [place] [address] [place] #### [id number] #### [facility] CLIA [id number] [address] [place] [address] [place] [facility] CLIA [id number] [address] [place] [address] [place] CLINICAL HISTORY, CYTOLOGY, MERCERIZING RANGE FEEDER Routine Exam Normal [facility] Comment on above: Order Comment: Speci men Type: FLUID SPECIMEN Ordering Facility: [facility] Address: [address] [place] [address] Performed By: #### H PVHRT #### [facility] CLIA [id number] [address] [place] [address] [place] #### [id number] #### [facility] CLIA [id number] [address] [place] [address] [place] [facility] CLIA [id number] [facility] [place] [address] [place] CYTOLOGY PAP OTHER INT Predominance of coccobacilli consistent with shift in vaginal sola Normal [facility] Comment on above: Order Comment: Speci men Type: FLUID SPECIMEN Ordering Facility: [facility] Address: [address] [place] [address] Performed By: #### H PVHRT #### [facility] CLIA [id number] [address] [place] [address] [place] #### [id number] #### [facility] CLIA [id number] [address] [place] [address] [place] [facility] CLIA [id number] [address] [place] [address] [place] FINAL PERFORMING LAB Normal [facility] Comment on above: Order Comment: Speci men Type: FLUID SPECIMEN Ordering Facility: [facility] Address: [address] [place], [place] [id number] Result Comment: Tech nical component, trommel tender screening performed at [facility], [address] [place] [address] CLIA# [id number] Diagnostic interpretation performed at [facility], [address] [place] [id number] CLIA# [id number] Credit Verification Clerk: Marianne Bradley M.D. Performed By: #### H PVHRT #### [facility] CLIA [id number] [address] [place] [address] [place] #### [id number] #### [facility] CLIA [id number] [address] [place] [address] [place] [facility] CLIA [id number] [address] [place] [address] [place] INTERPRETATION, CYTOLOGY, MERCERIZING RANGE FEEDER Normal [facility] Comment on above: Order Comment: Speci men Type: FLUID SPECIMEN Ordering Facility: [facility] Address: [address] [place] [address] Result Comment: Nega tive for intraepithelial lesion or malignancy. Performed By: #### H PVHRT #### [facility] CLIA [id number] [address] [place] [address] [place] #### [id number] #### [facility] CLIA [id number] [address] [place] [address] [place] [facility] CLIA [id number] [address] [place] [address] [place] LMP 05/31/2024 Normal [facility] Comment on above: Order Comment: Speci men Type: FLUID SPECIMEN Ordering Facility: [facility] Address: [address] [place] [address] Performed By: #### H PVHRT #### [facility] CLIA [id number] [address] [place] [address] [place] #### [id number] #### [facility] CLIA [id number] [address] [place] [address] [place] [facility] CLIA [id number] [address] [place] [address] [place] PAP DISCLAIMER COMMENT The Pap Smear is a screening test for cervical cancer. False negative results occur with all screening tests, emphasizing the need for rescreening at recommended intervals, and clinical correlation. Normal [facility] Comment on above: Order Comment: Speci men Type: FLUID SPECIMEN Ordering Facility: [facility] Address: [address] [place] [address] Performed By: #### H PVHRT #### [facility] CLIA [id number] [address] [place] [address] [place] #### [id number] #### [facility] CLIA [id number] [address] [place] [address] [place] [facility] CLIA [id number] [address] [place] [address] [place] PAP ROAD MARKER COMMENT This specimen has be en analyzed by the ThinPrep Imaging System, an automated imaging and review system, which assists the laboratory in evaluating cells on ThinPrep Pap tests. Following automated imaging, selected brooks from every slide are reviewed by a trommel tender. Normal [facility] Comment on above: Order Comment: Speci men Type: FLUID SPECIMEN Ordering Facility: [facility] Address: [address] [place] [address] Performed By: #### H PVHRT #### [facility] CLIA [id number] [address] [place] [address] [place] #### [id number] #### [facility] CLIA [id number] [address] [place] [address] [place] [facility] CLIA [id number] [address] [place] [address] [place] RPR Ser Qlon 06-24-2024 Reagin Ab RPR Ql (S) Reactive Abnormal Nonreactive [facility] Comment on above: Order Comment: Speci men Type: FLUID SPECIMEN Ordering Facility: [facility] Address: [address] [place] [address] Result Comment: Rapi d plasma reagin (RPR) test detects non-treponemal antibodies. RPR may be reactive in a variety of infectious and non-infectious conditions. Correlation with clinical picture and with treponemal antibody results is required for final interpretation. Performed By: #### H PVHRT #### [facility] CLIA [id number] [address] [place] [address] [place] #### [id number] #### [facility] CLIA [id number] [address] [place] [address] [place] [facility] CLIA [id number] [address] [place] [address] [place] RPR Ser-Titron 06-24-2024 Reagin Ab RPR (S) [Titer] 1:256 Normal [facility] Comment on above: Order Comment: Speci men Type: FLUID SPECIMEN Ordering Facility: [facility] Address: [address] [place] [address] Result Comment: Rapi d plasma reagin (RPR) test detects non-treponemal antibodies. RPR may be reactive in a variety of infectious and non-infectious conditions. Correlation with clinical picture and with treponemal antibody results is required for final interpretation. Performed By: #### H PVHRT #### [facility] CLIA [id number] [address] [place] [address] [place] #### [id number] #### [facility] CLIA [id number] [address] [place] [address] [place] [facility] CLIA [id number] [address] [place] [address] [place] Reagin and Treponema pallidu m IgG and IgM [Interp]on 06-24-2024 T. pallidum IgG+IgM IA Ql (S) Reactive Abnormal Nonreactive [facility] Comment on above: Order Comment: Speci men Type: FLUID SPECIMEN Ordering Facility: [facility] Address: [address] [place] [address] Performed By: #### H PVHRT #### [facility] CLIA [id number] [address] [place] [address] [place] #### [id number] #### [facility] CLIA [id number] [address] [place] [address] [place] [facility] CLIA [id number] [address] [place] [address] [place] Reagin+T pallidum IgG+IgM Se rPl-Impon 06-24-2024 Reagin and Treponema pallidum IgG and IgM [Interp] The results suggest active Treponemal infection, however, RPR titers may remain elevated for extended periods after adequate treatment in serofast individuals. Correlation with clinical picture and treatment history is required. Normal [facility] Comment on above: Order Comment: Speci men Type: FLUID SPECIMEN Ordering Facility: [facility] Address: [address] [place] [address] Performed By: #### H PVHRT #### [facility] CLIA [id number] [address] [place] [address] [place] #### [id number] #### [facility] CLIA [id number] [address] [place] [address] [place] [facility] CLIA [id number] [address] [place] [address] [place] Emergency Department Summary on 06-22-2024 Emergency Department Summary [facility] Records Department [address] [place] [address] Emergency Department Summary 06/22/24 MR#: [id number] Acct: [id number] Name: BITADUARTE ADY Rep #: [id number] : 1985 39 From: Chon Lamar MD PCP: Care Physician,No Primary Status:REG ER Location: ED HPI History of Present Illness Chief Complaint: Rash Narrative Narrative: 39-year-old female who denies significant past medical history presents with eczematous rash on her arms and on her torso that she has had since around June 07, 2 weeks ago. She states on the she went to urgent care and was put on a Medrol Dosepak. She took it but feels like her symptoms are still present. She has really done her eye skin on her hands and she feels an itchy burning type of rash. It is not on her legs. She denies any difficulty swallowing or breathing. No recent fevers or chills, no nausea or vomiting. No exacerbating or alleviating factors. She denies any new lotions or detergents, states that she has not used lotion in a while but needs to. She describes the areas as a red splotchy patches that are all over, and are itchy. No throat closing or other symptoms. [facility] Medical History Anxiety Alcohol use Low iron Seasonal allergies Lactating mother Gastric reflux Non-smoker Leg cramps History of pyloric stenosis as a child Home Medications ???Medication ???Instructions ???Recorded ???Last Taken ???Type acetaminophen 500 mg tablet 1,000 mg (2 x 500 mg) PO Q6H PRN 12/30/21 Unknown Rx PRN Pain 1-10 Or Fever #0 tabs naproxen 500 mg tablet 500 mg PO Q8H PRN PRN Pain Score 12/30/21 Unknown Rx 1-3 #0 tabs benzocaine 15 mg-menthol 3.6 mg 1 madalyn mucous membrane Q2H PRN sore 02/28/24 Unknown Rx lozenges (Cepacol Sore Throat throat #16 ea (benzocaine-menthol)) Allergy/AdvReac Type Severity Reaction Status Date / Time No Known Allergies Allergy Verified 06/22/24 18:01 Surgical History History of oral surgery Social History Smoking Status: Current some day smoker tobacco type: e-cigarettes alcohol intake: current substance use type: does not use ROS ROS ED ROS Narrative Review of systems positive for maculopapular rash, itchy, with dry skin located on her arms and torso. Denies throat closing, no difficulty breathing or shortness of breath, no fevers or chills, no nausea or vomiting. EXAM Physical Exam Narrative Exam Narrative: Afebrile. Vital signs noted. Nontoxic-appearing. Regular rate and rhythm. Lungs clear to auscultation bilaterally. Abdomen soft nontender with normal active bowel sounds. Airway patent. No wheezing or stridor. Neurological examination nonfocal and nonlateralizing. Skin examination does reveal maculopapular eczematous rash all over her bilateral upper extremities and on her torso. Const Vital Signs: 06/22/24 17:55 Temperature 97.3 F L Temperature Source Temporal Pulse Rate 89 Respiratory Rate 18 Blood Pressure 137/104 H Blood Pressure Mean 115 Pulse Ox 100 Oxygen Delivery Method Room Air MDM MDM MDM Narrative Medical decision making narrative: Differential diagnosis includes but not limited to atopic dermatitis/eczema versus pityriasis versus hives. Patient was concerned that she has a history of STD, but it was treated. I do not think this is any relation to do with her previous STD. Given her dry flaky skin, she could have psoriasis as well. I do feel she would benefit from a Kenalog intramuscular injection. She will follow-up with her primary care provider, she was referred to dermatology as well. I feel she can be discharged safely home with follow-up. Return instructions to the emergency department were reviewed. Disposition is discharged home in stable condition. Discharge Plan Triage Chief Complaint: Rash ED Provider: Chon Lamar Dx/Rx/DC Orders Clinical Impression: Dermatitis, Rash Instructions: Nonspecific Skin Rash, ED Atopic Dermatitis (Adult) Prescriptions: No Action Cepacol Sore Throat (roc-men) 15-3.6 mg lozenge 1 madalyn mucous membrane Q2H PRN (Reason: sore throat) Qty: 16 0RF acetaminophen 500 mg Tablet 1,000 mg PO Q6H PRN PRN (Reason: Pain 1-10 Or Fever) Qty: 0 0RF naproxen 500 mg Tablet 500 mg PO Q8H PRN PRN (Reason: Pain Score 1-3) Qty: 0 0RF Primary Care Provider: Care Physician,No Primary Referrals: Dayne Cabrera MD [Med Staff - Active Staff] - 1 Week if not improving Ehsan Luna MD [Med Staff - Radiology Administrator] - As soon as possible Care Physician,No Primary [Primary Care Provider] - Print Language: Telugu Disposition Disposition: Home, Self Care What to do i (more content not included)... Normal [facility] Urgent Care Visit Reporton 0 02-28-2024 Urgent Care Visit Report [facility] [address], [address] [place] [address] OFFICE VISIT Date of Service: 02/28/24 MR#: [id number] Acct: [id number] Name: DUARTE SUNSHINE ADY Rep #: [id number] : 1985 Provider: MG Slaughter Age/Sex: 39/F Location: [facility] Status: Signed Intake Vital Signs 05/11/22 07:25 02/28/24 10:27 Height 5 ft 4 in 5 ft 4 in Weight: 193 lb BMI 33.1 BP 112/60 Blood Pressure Location Lt brachial Position Sitting Respiration 17 Pulse 81 Pulse Source NIBP Temp 98.7 F Temp Source Temporal Pulse Oximetry (%) 97 Oxygen Delivery Method room air Intake Visit Reasons: CONCERN FOR STREP THROAT Chief Complaint: ST, fatigue Child Care Worker Required: No Is patient in pain?: Yes Allergies No Known Allergies Allergy (Verified 02/28/24 10:28) Is last menstrual period known: No Post menopausal: No Patient : No Have you fallen in the past year?: No Nurse's Note: ST, fatigue x 2 days worsening. concern for strep. denies cough, congestion, fever, OSEGUERA, BA PFSH Medical History Anxiety Alcohol use Low iron Seasonal allergies Lactating mother Gastric reflux Non-smoker Leg cramps History of pyloric stenosis as a child Surgical History History of oral surgery Social History (Updated 02/28/24 @ 10:30 by Nikki Priest) Smoking Status: Never smoker alcohol intake: current substance use type: does not use HPI HPI Chief Complaint: ST, fatigue Details: DUARTE SUNSHINE, is a 39 F who presents to the office today for complaint of sore throat and fatigue starting yesterday. Patient states being concerned for strep and is requesting a strep test at this time. She denies hemoptysis, shortness of breath or difficulty breathing. She has had a slight cough which she states is intermittent and nonproductive. She denies fever, chills, sweats. No nausea, vomiting or diarrhea. No loss of taste or smell. No other associated symptoms or alleviating/aggravatin g factors. ROS Const Constitutional: No other (6 system ROS completed with pertinent findings in the HPI otherwise normal.) Exam Const General: cooperative and healthy appearing HENMT Head: normal to inspection Ears: hearing grossly normal bilaterally, TM's normal bilaterally and EAC's normal Nose: external nose normal and nasal discharge clear Mouth: oral mucosae normal Throat: abnormal tonsil bilaterally Resp Effort Inspection: normal respiratory effort Auscultation: Bilateral: Clear to Auscultation Cardio Palpation: normal PMI Rate: regular rate Rhythm: regular rhythm Neuro General: patient alert and CN's II-XI intact bilaterally Psych Appearance: grossly normal Mental Status: mental status grossly normal Results Office Rapid Strep A Office Rapid Strep A Negative Last Edit by Nikki Priest on 02/28/24 10:36 Coding Level of Care Code Off vis,new,level 3 Diagnoses Acute pharyngitis J02.9 Assessment and Plan Assessment and Plan (1) Acute pharyngitis: Status: Acute Orders: Orders POC Rapid Strep A Today J02.9 - Acute pharyngitis, unspecified Medications: New benzocaine-menthol 15-3.6 mg (Cepacol Sore Throat (benzocaine-menthol)) 1 madalyn mucous membrane Q2H PRN 16 ea 0RF sore throat Discontinued oxycodone-acetaminophe n 5-325 mg (Percocet) Discontinued Reason: Order Completed 1 TAB PO Q6H 7 days PRN 10 tabs 0RF pain G89.18 - Other acute postprocedural pain Plan Patient tested negative for strep in the office today. Cepacol as prescribed today. Encouraged to get plenty of rest, drink lots of clear liquids, and use Tylenol or Ibuprofen (unless contraindicated) for fever and comfort. Patient also educated on other symptomatic management techniques. To be seen in 7-10 days if no improvement; sooner if worsening of symptoms. Patient advised of potential red flags and when appropriate to report to the ED. Patient verbalized understanding and agreement with all the above. Clinical Quality Measures Falls Risk Screening/Assistive Devices Have you fallen in the past year?: No 02/28/24 1100 Date Heri Pereser Signature: Date (if applicable) CC: Normal [facility] UA DIP, URINE (POC)on 2022 BILIRUBIN UA (POCT) Negative Negative [facility] CLARITY UA (POCT) Clear [facility] COLOR UA (POCT) Yellow [facility] GLUCOSE UA (POCT) Negative Negative mg/dL [facility] Hemoglobin Ql (U) Trace-intact Abnormal Negative [facility] KETONE UA (POCT) Negative Negative mg/dL [facility] LEUKOCYTES UA (POCT) Negative Negative [facility] NITRITE UA (POCT) Negative Negative [facility] PH UA (POCT) 7.0 4.5 - 8.0 [facility] Protein Ql (U) Negative Negative mg/dL [facility] SPECIFIC GRAVITY UA (POCT) 1.015 1.005 - 1.030 [facility] UROBILINOGEN UA (POCT) 0.2 E.U./dL Normal E.U./dL [facility] STREP A MOLECULAR (POC)on Procedural Control Valid [facility] Strep A (POCT) Positive Abnormal Negative [facility] UA DIP, URINE (POC)on 2022 BILIRUBIN UA (POCT) Negative Negative [facility] CLARITY UA (POCT) Clear [facility] COLOR UA (POCT) Yellow [facility] GLUCOSE UA (POCT) Negative Negative mg/dL [facility] HEMOGLOBIN/BLOOD UA (POCT) Trace-lysed Abnormal Negative [facility] KETONE UA (POCT) Negative Negative mg/dL [facility] LEUKOCYTES UA (POCT) Negative Negative [facility] NITRITE UA (POCT) Negative Negative [facility] PH UA (POCT) 7.0 4.5 - 8.0 [facility] Protein Ql (U) 100 mg/dL Abnormal Negative mg/dL [facility] SPECIFIC GRAVITY UA (POCT) 1.020 1.005 - 1.030 [facility] UROBILINOGEN UA (POCT) 0.2 E.U./dL Normal E.U./dL [facility] Laboratory - Chemistry and C hemistry - challengeon 05-11-2022 HCG ( test) Ql (U) Negative [facility] Work Phone: Comment on above: Very dilute urine sp ecimens, as indicated by a low specificgravity, may not contain media sales representative levels of hCG. If is still suspected, a first morning urinespecimen should be collected 48 hours later and tested. Basophil percentageon 2021 WBC (Bld) [#/Vol] 8.5 10*3/uL 4.4-11.0 [facility] Work Phone: Blood erythrocytes count (nu mber/volume)on 05-10-2022 RBC (Bld) [#/Vol] 4.34 10*6/uL 4.2-5.4 [facility] Work Phone: Blood hemoglobin measurement (mass/volume)on 05-10-2022 Hemoglobin (Bld) [Mass/Vol] 13.0 g/dL 12.0-15.0 [facility] Work Phone: Blood platelet mean volumeon 05-10-2022 Platelet mean volume (Bld) [Entitic vol] 10.3 fL 6.2-12.0 [facility] Work Phone: Determination of erythrocyte mean corpuscular volume (MCV)on 05-10-2022 MCV (RBC) [Entitic vol] 87.8 fL 81-99 [facility] Work Phone: Hematocrit Auto (Bld) [Volum e fraction]on 05-10-2022 Hematocrit (Bld) [Volume fraction] 38.1 % 37-47 [facility] Work Phone: Laboratory - Hematology and Cell countson 05-10-2022 Erythrocyte distribution width (RBC) [Entitic vol] 38.5 fL 35.1-43.9 [facility] Work Phone: Erythrocyte distribution width (RBC) [Ratio] 11.9 % 11.6-14.6 [facility] Work Phone: MCH (RBC) [Entitic mass] 30.0 pg 27.0-32.0 [facility] Work Phone: MCHC Auto (RBC) [Mass/Vol]on 05-10-2022 MCHC (RBC) [Mass/Vol] 34.1 g/dL 32-36 [facility] Work Phone: Platelets bldon 05-10-2022 Platelets (Bld) [#/Vol] 264 10*3/uL 150-450 [facility] Work Phone: HCG QUAL UR B/Oon 03-23-2022 status Negative neg - pos [facility] Quality Check Yes [facility] Absolute lymphocyte counton 12-29-2021 Lymphocytes Auto (Unsp spec) [#/Vol] 2.00 10*3/uL 0.83-4.51 [facility] Work Phone: Basophil percentageon 2021 Basophils/100 WBC (Bld) 0.3 % 0-1 [facility] Work Phone: Eosinophils/100 WBC (Bld) 4.1 % 0-5 [facility] Work Phone: Neutrophils (Bld) [#/Vol] 7.8 10*3/uL 2.0-7.7 [facility] Work Phone: Neutrophils/100 WBC (Bld) 70.3 % 47-70 [facility] Work Phone: WBC (Bld) [#/Vol] 11.0 10*3/uL 4.4-11.0 [facility] Work Phone: Blood erythrocytes count (nu mber/volume)on 12-29-2021 RBC (Bld) [#/Vol] 4.26 10*6/uL 4.2-5.4 [facility] Work Phone: Blood hemoglobin measurement (mass/volume)on 12-29-2021 Hemoglobin (Bld) [Mass/Vol] 12.0 g/dL 12.0-15.0 [facility] Work Phone: Blood lymphocytes/100 leukoc yteson 12-29-2021 Lymphocytes/100 WBC (Bld) 18.1 % 19-41 [facility] Work Phone: Blood monocytes/100 leukocyt eson 12-29-2021 Monocytes/100 WBC (Bld) 6.7 % 0-10 [facility] Work Phone: Blood platelet mean volumeon 12-29-2021 Platelet mean volume (Bld) [Entitic vol] 11.3 fL 6.2-12.0 [facility] Work Phone: Determination of erythrocyte mean corpuscular volume (MCV)on 12-29-2021 MCV (RBC) [Entitic vol] 87.1 fL 81-99 [facility] Work Phone: Hematocrit Auto (Bld) [Volum e fraction]on 12-29-2021 Hematocrit (Bld) [Volume fraction] 37.1 % 37-47 [facility] Work Phone: Laboratory - Hematology and Cell countson 12-29-2021 Erythrocyte distribution width (RBC) [Entitic vol] 45.1 fL 35.1-43.9 [facility] Work Phone: Erythrocyte distribution width (RBC) [Ratio] 14.1 % 11.6-14.6 [facility] Work Phone: Immature granulocytes/100 WBC (Bld) 0.500 % 0.0-0.9 [facility] Work Phone: Comment on above: IG% - Immature Granu locytes (promyelocytes, myelocytes and metamyelocytes) > 1% indicates that a LEFT SHIFT is Present. MCH (RBC) [Entitic mass] 28.2 pg 27.0-32.0 [facility] Work Phone: Nucleated RBC/100 WBC (Bld) [Ratio] 0 % 0-5 [facility] Work Phone: MCHC Auto (RBC) [Mass/Vol]on 12-29-2021 MCHC (RBC) [Mass/Vol] 32.3 g/dL 32-36 [facility] Work Phone: Platelets bldon 12-29-2021 Platelets (Bld) [#/Vol] 225 10*3/uL 150-450 [facility] Work Phone: URINE OB DIP B/Oon 2 Glucose Ql (U) Negative Neg mg/dL [facility] Protein.monoclonal (U) [Mass/Vol] 30 mg/dL Neg mg/dL [facility] CBC W Auto Differential pane l (Bld)on 12-23-2021 Abs Immature Gran 0.08 k/uL <0.10 k/uL [facility] Basophils (Bld) [#/Vol] 0.03 10*3/uL <0.11 k/uL [facility] Basophils/100 WBC (Bld) 0.2 % [facility] Differential cell count method Nom (Bld) Auto [facility] Eosinophils (Bld) [#/Vol] 0.27 10*3/uL <0.46 k/uL [facility] Eosinophils/100 WBC (Bld) 2.2 % [facility] Erythrocyte distribution width (RBC) [Ratio] 14.3 % 11.5 - 15.0 % [facility] Hematocrit (Bld) [Volume fraction] 36.6 % 36.0 - 46.0 % [facility] Hemoglobin (Bld) [Mass/Vol] 12.0 g/dL 11.5 - 15.5 g/dL [facility] Immature Gran % 0.7 % [facility] Lymphocytes (Bld) [#/Vol] 2.09 10*3/uL 1.00 - 4.00 k/uL [facility] Lymphocytes/100 WBC (Bld) 17.0 % [facility] MCH (RBC) [Entitic mass] 28.1 pg 26.0 - 34.0 pg [facility] MCHC (RBC) [Mass/Vol] 32.8 g/dL 30.5 - 36.0 g/dL [facility] MCV (RBC) [Entitic vol] 85.7 fL 80.0 - 100.0 fL [facility] Monocytes (Bld) [#/Vol] 0.59 10*3/uL <0.87 k/uL [facility] Monocytes/100 WBC (Bld) 4.8 % [facility] Neutrophils (Bld) [#/Vol] 9.22 10*3/uL High 1.45 - 7.50 k/uL [facility] Neutrophils/100 WBC (Bld) 75.1 % [facility] Nucleated RBC (Bld) [#/Vol] 10*3/uL <0.01 k/uL [facility] Nucleated RBC/100 WBC (Bld) [Ratio] 0.0 /100 WBC [facility] Platelet mean volume (Bld) [Entitic vol] 10.5 fL 9.0 - 12.7 fL [facility] Platelets (Bld) [#/Vol] 242 10*3/uL 150 - 400 k/uL [facility] RBC (Bld) [#/Vol] 4.27 10*6/uL 3.90 - 5.20 m/uL [facility] WBC (Bld) [#/Vol] 12.28 10*3/uL High 3.70 - 11.00 k/ uL [facility] Comprehensive metabolic 2000 panelon 12-23-2021 Albumin [Mass/Vol] 3.6 g/dL Low 3.9 - 4.9 g/dL [facility] ALP [Catalytic activity/Vol] 115 U/L 34 - 123 U/L [facility] ALT [Catalytic activity/Vol] 12 U/L 7 - 38 U/L [facility] Anion gap [Moles/Vol] 10 mmol/L 9 - 18 mmol/L [facility] AST [Catalytic activity/Vol] 16 U/L 13 - 35 U/L [facility] Bilirubin [Mass/Vol] 1.1 mg/dL 0.2 - 1.3 mg/dL [facility] Calcium [Mass/Vol] 8.8 mg/dL 8.5 - 10.2 mg/dL [facility] Chloride [Moles/Vol] 102 mmol/L 97 - 105 mmol/L [facility] CO2 [Moles/Vol] 23 mmol/L 22 - 30 mmol/L [facility] Creatinine [Mass/Vol] 0.59 mg/dL 0.58 - 0.96 mg/dL [facility] Estimated Glomerular Filtration Rate 121 mL/min/1.73m >=60 mL/min/1.73m [facility] Glucose [Mass/Vol] 80 mg/dL 74 - 99 mg/dL [facility] Potassium [Moles/Vol] 4.0 mmol/L 3.7 - 5.1 mmol/L [facility] Protein [Mass/Vol] 6.5 g/dL 6.3 - 8.0 g/dL [facility] Sodium [Moles/Vol] 135 mmol/L Low 136 - 144 mmol/L [facility] Urea nitrogen [Mass/Vol] 6 mg/dL Low 7 - 21 mg/dL [facility] URIC ACID BLOODon 12-23-2021 Urate [Mass/Vol] 5.7 mg/dL 2.5 - 6.6 mg/dL [facility] URINE OB DIP B/Oon Glucose Ql (U) Negative Neg mg/dL [facility] Protein.monoclonal (U) [Mass/Vol] 30+ Neg mg/dL [facility] CBC WITH AUTO DIFFERENTIALon 03-21-2019 Basophils (Bld) [#/Vol] 0.02 10*3/uL [facility] Basophils/100 WBC (Bld) 0.1 % [facility] Eosinophils (Bld) [#/Vol] 0.15 10*3/uL [facility] Eosinophils/100 WBC (Bld) 1.1 % [facility] Erythrocyte distribution width (RBC) [Entitic vol] 14.0 % 11.6 - 14.8 % [facility] Hematocrit (Bld) [Volume fraction] 31.9 % Low 36 - 46 % [facility] Hemoglobin (Bld) [Mass/Vol] 10.6 g/dL Low 12 - 16 g/dL [facility] Immature granulocytes (Bld) [#/Vol] 0.13 10*3/uL [facility] Immature granulocytes/100 WBC (Bld) 0.90 % [facility] Comment on above: The IG parameter is the percentage of metamyelocytes, myelocytes, and promyelocytes. Interpretation and review of laboratory results Abnormal [facility] Lymphocytes (Bld) [#/Vol] 2.77 10*3/uL [facility] Lymphocytes/100 WBC (Bld) 20.2 % [facility] MCH (RBC) [Entitic mass] 29.6 pg 26 - 34 pg [facility] MCHC (RBC) [Mass/Vol] 33.2 g/dL 31 - 37 g/dL [facility] MCV (RBC) [Entitic vol] 89.1 fL 80 - 100 fL [facility] Monocytes (Bld) [#/Vol] 1.05 10*3/uL High [facility] Monocytes/100 WBC (Bld) 7.7 % [facility] Neutrophils (Bld) [#/Vol] 9.57 10*3/uL High [facility] Neutrophils/100 WBC (Bld) 70.0 % [facility] Nucleated RBC (Bld) [#/Vol] 0.00 10*3/uL [facility] Nucleated RBC/100 WBC (Bld) [Ratio] 0.0 % [facility] Platelet mean volume (Bld) [Entitic vol] 11.5 fL 9 - 15.5 fL [facility] Platelets (Bld) [#/Vol] 163 10*3/uL [facility] RBC (Bld) [#/Vol] 3.58 10*6/uL Low [facility] WBC (Bld) [#/Vol] 13.69 10*3/uL [facility] SCAN OTHER ORDERSon 03-20- 19 Ordered by an unspecified provider. [facility] Hematologyon 01-23-2019 Basophils #/vol (Bld) 0.03 10*3/uL [facility] Basophils/100 WBC (Bld) 0.3 % [facility] Eosinophils #/vol (Bld) 0.33 10*3/uL [facility] Eosinophils/100 WBC (Bld) 2.9 % [facility] Hematocrit Volume Fraction (Bld) 33.4 % Low 36 - 46 % [facility] Hemoglobin mass conc (Bld) 11.3 g/dL Low 12 - 16 g/dL [facility] Lymphocytes #/vol (Bld) 2.11 10*3/uL [facility] Lymphocytes/100 WBC (Bld) 18.7 % [facility] MCH Entitic mass (RBC) 29.7 pg 26 - 34 pg [facility] MCV Entitic volume (RBC) 87.9 fL 80 - 100 fL [facility] Monocytes #/vol (Bld) 0.97 10*3/uL High [facility] Monocytes/100 WBC (Bld) 8.6 % [facility] Neutrophils #/vol (Bld) 7.63 10*3/uL High [facility] Neutrophils/100 WBC (Bld) 67.8 % [facility] Nucleated RBC #/vol (Bld) 0.00 10*3/uL [facility] Platelets #/vol (Bld) 193 10*3/uL [facility] RBC #/vol (Bld) 3.80 10*6/[facility]Bld) 11.26 10*3/uL High [facility] Metabolic Panelon 01-23-2019 Anion gap molar conc 12 mmol/L 10 - 20 mmol/L [facility] Chloride molar conc 109 mmol/L High 98 - 108 mmol/L [facility] Creatinine mass conc 0.47 mg/dL 0.4 - 1.1 mg/dL [facility] GFR/1.73 sq M predicted among non-blacks MDRD vol rate/area (S/P/Bld) The eGFR should be used for monitoring renal function only and not for medication dosing. [facility] Glucose mass conc 90 mg/dL 65 - 99 mg/dL [facility] Potassium molar conc 3.7 mmol/L 3.5 - 5.1 mmol/L [facility] Sodium molar conc 140 mmol/L 135 - 145 mmol/L [facility] Urea nitrogen mass conc 3 mg/dL Low 8 - 25 mg/dL [facility] Urea nitrogen/Creatinin e mass ratio 6.4 mg/mg Low [facility] Otheron 01-23-2019 No radiographic evidence of acute cardiopulmonary disease. Minimal atelectasis may be present at the lung bases right greater than left. [facility] Workstation ID: [id number] [facility], Rad In Fu ji Speechq - 01/23/2019 5:00 AM EDT EXAMINATION: XR CHEST PA/AP HISTORY: ORDERING SYSTEM PROVIDED HISTORY: cough, TECHNOLOGIST PROVIDED HISTORY: Reason for exam: cough/congestion Illness/Other Cancer History: u Surgery, RadiationHistory: u Encounter Type: Initial Additional signs and symptoms: . ORDERING SYSTEM PROVIDED DIAGNOSIS CODES: R05 Cough COMPARISON: Prior dated 01/02/2013. FINDINGS: There is no focal pulmonary infiltrate or consolidation. Mild bibasilar atelectasis is not excluded. Overall improved aeration compared to the prior. The cardiomediastinal silhouette is within normal limits. There is no large pleural effusion. The pulmonary vasculature is unremarkable. There is no acute osseous abnormality. IMPRESSION: No radiographic evidence of acute cardiopulmonary disease. Minimal atelectasis may be present at the lung bases right greater than left. [facility] Workstation ID: [id number] [facility] EXAMINATION: XR CHES T PA/AP HISTORY: ORDERING SYSTEM PROVIDED HISTORY: cough, TECHNOLOGIST PROVIDED HISTORY: Reason for exam: cough/congestion Illness/Other Cancer History: u Surgery, RadiationHistory: u Encounter Type: Initial Additional signs and symptoms: . ORDERING SYSTEM PROVIDED DIAGNOSIS CODES: R05 Cough COMPARISON: Prior dated 01/02/2013. FINDINGS: There is no focal pulmonary infiltrate or consolidation. Mild bibasilar atelectasis is not excluded. Overall improved aeration compared to the prior. The cardiomediastinal silhouette is within normal limits. There is no large pleural effusion. The pulmonary vasculature is unremarkable. There is no acute osseous abnormality. [facility] FLUAV RNA FLACO+probe Ql (Unsp spec) Not Detected Not Detected [facility] FLUBV RNA FLACO+probe Ql (Unsp spec) Not Detected Not Detected [facility] Interpretation and review of laboratory results Normal [facility] Test Method: Nucleic Acid Amplification [facility] GFR/1.73 sq M.predicted CKD-EPI vol rate/area (S/P/Bld) 130 >=60 mL/min/1.73 m2 [facility] HCO3 molar conc 23 mmol/L 21 - 32 mmol/L [facility] Interpretation and review of laboratory results Abnormal [facility] Erythrocyte distribution width Entitic volume (RBC) 13.0 % 11.6 - 14.8 % [facility] Immature granulocytes #/vol (Bld) 0.19 10*3/uL [facility] Immature granulocytes/100 WBC (Bld) 1.70 % [facility] Comment on above: The IG parameter is the percentage of metamyelocytes, myelocytes, and promyelocytes. Interpretation and review of laboratory results Abnormal [facility] MCHC mass conc (RBC) 33.8 g/dL 31 - 37 g/dL [facility] Nucleated RBC/100 WBC Ratio (Bld) 0.0 % [facility] Platelet mean volume Entitic volume (Bld) 10.7 fL 9 - 15.5 fL [facility] Interpretation and review of laboratory results Normal [facility] Strep A Ag Negative Presumptive Negative for Group A Streptococcus [facility] XR CHEST PA/APon 01-23-2019 XR CHEST PA/AP EXAMINATION: XR CHEST PA/AP HISTORY: ORDERING SYSTEM PROVIDED HISTORY: cough, TECHNOLOGIST PROVIDED HISTORY: Reason for exam: cough/congestion Illness/Other Cancer History: u Surgery, RadiationHistory: u Encounter Type: Initial Additional signs and symptoms: . ORDERING SYSTEM PROVIDED DIAGNOSIS CODES: R05 Cough COMPARISON: Prior dated 01/02/2013. FINDINGS: There is no focal pulmonary infiltrate or consolidation. Mild bibasilar atelectasis is not excluded. Overall improved aeration compared to the prior. The cardiomediastinal silhouette is within normal limits. There is no large pleural effusion. The pulmonary vasculature is unremarkable. There is no acute osseous abnormality. IMPRESSION: No radiographic evidence of acute cardiopulmonary disease. Minimal atelectasis may be present at the lung bases right greater than left. [facility]/hff Workstation ID: [id number] Dictated by: WALLACE ALEXIS on Hilda January 23, 2019 3:01:45 AM EDT Transcribed by: REYMUNDO DAMON on SunJanuary 23, 2019 3:04:55 AM EDT Finalized by: WALLACE ALEXIS on SunJanuary 23, 2019 4:57:28 AM EDT [facility] Comment on above: Order Comment: Reaso n for exam?:cough/congestion Injury/Trauma or Illness?:Illness/Other How long have you had these symptoms (acute/chronic)?:Unknown History of cancer?:u Surgeries, chemotherapy, or radiation?:u Type of Exam?:Initial Additional signs and symptoms?:. US After 1st Trime steron 11-06-2018 US After 1st Trimester Exam Date/Time: 11/06/2018 10:19 EST Reason for Exam: DATES & ANATOMY;Standard Anatomy Report STUDY: US After 1st Trimester 11/06/2018 10:19 am INDICATION: Standard Anatomy. COMPARISON: None. ACCESSION NUMBER(S): [id number] ORDERING CLINICIAN: Carissa Crawford TECHNIQUE: Routine ultrasound of the pelvis was performed. Evaluation of the female pelvis was performed by transabdominal. FINDINGS: There is a single live intrauterine gestation in variable position. BPD 50mm, 21 weeks, 2 days HC 188mm, 21 weeks, 1 days AC 149mm, 20 weeks, 1 days FL 34mm, 20 weeks, 4 days This results in a composite gestational age of 20 weeks, 6 days, +/-10 days. The estimated date of delivery by ultrasound is 03/20/2019. By dates the fetus should be 20 weeks, 0 days, which is concordant with the ultrasound dating. There is an estimated weight of 354 g +/-53 g (71st percentile). heart rate measures 142 beats per minute. Anatomy: HEART (FOUR-CHAMBER): Seen THREE-VESSEL CORD: Seen UMBILICAL CORD INSERTION: Seen BLADDER: Seen STOMACH: Seen SPINE: Seen KIDNEYS: Seen DIAPHRAGM: Seen LATERAL VENTRICLE: Seen The placenta is in anterior position. No evidence of placenta previa is seen. The amniotic fluid volume is within normal limits. Exam Date/Time: 11/06/2018 10:19 EST Report Maternal anatomy: The cervix is closed, measuring up to 4.1 cm in length. IMPRESSION: Single live intrauterine gestation corresponding to 20 weeks, 6 days, +/-10 days. No gross anatomic abnormality is identified. Recommend continued routine follow-up imaging evaluation. FINAL REPORT Dictated: 11/06/2018 10:49 am Ernie Syed MD Signed (Electronic Signature): 11/06/2018 10:49 am Signed by: Ernie Syed MD Technologist: [facility] AFP Tetra Profileon 10-23-19 19 AFP TP AFP Mom Value 1.64 [facility] Comment on above: Performed By: #### 2 [id number] #### RAHUL RemHemo [address] [place] [address] AFP TP AFP Kanwal EIA 53.7 ng/mL [facility] Comment on above: Performed By: #### 2 [id number] #### RAHUL RemHemo [address] [place] [address] AFP TP Comments: Comment [facility] Comment on above: Result Comment: Melly Gore, Ph.D., [facility] Principal Genetics Gravel Machine Operator References: Available Upon Request. Multiples Of Median Cutoffs Abbreviation Definitions For AFP Elevations IDD- Insulin Dep Diabetes Garcia 2.5 Black 2.8 OSBR- Open Spina Bifida IDD 2.0 Twins 4.5 Risk DSR Cutoff 1:270 DSR- Down Syndrome Risk T18 Cutoff 1:100 T18- Trisomy 18 Down Syndrome and Trisomy 18 screening are considered Investigational For further inquiries contact [employer] at [phone]. Performed At: [facility] [address] [place], [place] [id number] Junito Bennett MD Ph:[phone] Performed By: #### 2 597555 #### RAHUL RemHemo [address] [place] [address] AFP TP KHLOE Mom Value 0.90 [facility] Comment on above: Performed By: #### 2 070872 #### RAHUL RemHemo [address] [place] [address] AFP TP KHLOE Value EIA 129.35 pg/mL [facility] Comment on above: Performed By: #### 2 239851 #### RAHUL RemHemo [address] [place] [address] AFP TP DSR 2nd Times 1IN [address] [facility] Comment on above: Performed By: #### 2 655686 #### RAHUL HolcombHemo [address] [place] [address] AFP TP DSR(by Age) 1IN 428 [facility] Comment on above: Performed By: #### 2 547343 #### RAHUL RemHemo [address] [place] [address] AFP TP GA Base Ultrasound [facility] Comment on above: Result Comment: 17.3 on 10/18/2018 Performed By: #### 2 070164 #### RAHUL HolcombHemo [address] [place] [address] AFP TP Gest Age 17.3 week(s) [facility] Comment on above: Performed By: #### 2 693650 #### RAHUL HolcombHemo [address] [place] [address] AFP TP hCG Mom 0.90 [facility] Comment on above: Performed By: #### 2 665574 #### RAHUL RemHemo [address] [place] [address] AFP TP Insulin Dep Diabetes No [facility] Comment on above: Performed By: #### 2 602084 #### RAHUL RemHemo [address] [place] [address] AFP TP Interp Comment [facility] Comment on above: Result Comment: Inte rpretation: Screen Negative This result is screen negative for OSB, Down Syndrome and Trisomy 18. The AFP MoM and patient specific risks calculated are based on the gestational age and the clinical information provided. This test can identify up to 80% of open neural tube defects. Closed neural tube defects and some open defects may not be detected by this test. The combination of maternal age, AFP, hCG, uE3, and KHLOE identifies 75-80% of Down Syndrome. The combination of maternal age, AFP, hCG and uE3 identifies 60% of Trisomy 18 pregnancies. The [employer] recommends amniocentesis be offered to women age 35 and older. Recalculations are not recommended when gestational dating by LMP and ultrasound are within 10 days. Performed By: #### 2 965364 #### RAHUL RemHemo [address] [place] [address] AFP TP Mat Age ALEK 33.2 [facility] Comment on above: Performed By: #### 2 454001 #### RAHUL RemHemo [address] [place] [address] AFP TP Mult Gest No [facility] Comment on above: Performed By: #### 2 668539 #### RAHUL RemHemo [address] [place] [address] AFP TP OSBR Risk 1 IN 1895 [facility] Comment on above: Performed By: #### 2 594704 #### RAHUL RemHemo [address] [place] [address] AFP TP Race [facility] Comment on above: Performed By: #### 2 405672 #### RAHUL RemHemo [address] [place] [address] AFP TP T18 (By Age) Not increased [facility] Comment on above: Performed By: #### 2 593127 #### RAHUL RemHemo [address] [place] [address] AFP TP T18 Risk 1:1667 [facility] Comment on above: Performed By: #### 2 508683 #### RAHUL RemHemo [address] [place] [address] AFP TP Test Results: Negative [facility] Comment on above: Performed By: #### 2 570636 #### RAHUL RemHemo [address] [place] [address] AFP TP uE3 Mom 1.36 [facility] Comment on above: Performed By: #### 2 571123 #### RAHUL HolcombHemo [address] [place] [address] AFP TP uE3 Value 1.41 ng/mL Normal [facility] Comment on above: Performed By: #### 2 080927 #### RAHUL HolcombHemo [address] [place] [address] [place] [address] m[IU]/mL Normal [facility] Comment on above: Performed By: #### 2 271318 #### [place] [address] IGP W/hpv Rfx [id number] 09-26 Diagnosis: See Ref Lab Report Normal [facility] Comment on above: Order Comment: Order Added by Discern Expert. Performed By: #### 2 285698 #### [place] [address] RPRon 09-25-2018 Reagin Ab RPR Ql (S) Non-Reactive Normal Non-Reactive [facility] Comment on above: Performed By: #### 2 063430 #### [place] [address] C Urineon 09-22-2018 C Urine Final Report: Light growth of Normal skin sola isolated Normal [facility] Comment on above: Performed By: #### 2 404015 #### RAHUL Microbiology Subsection [address] [place] [address] Hep Bs Agon 09-22-2018 Hep Bs Ag Negative Normal Negative [facility] Comment on above: Result Comment: Perf ormed At: [facility] [address] [id number] Kecia Bateman PhD Ph:[phone] Performed By: #### 2 845921 #### RAHUL Send Outs Subsection [facility] [place] [address] ABO/Rh Echoon 09-20-2018 ABO/Rh E Interp... AB POS Normal [facility] Comment on above: Performed By: #### 8 [id number] #### RAHUL Blood Bank Subsection [address] [place] [address] Antibody Screen Cap...on Screen Interp... Negative Normal [facility] Comment on above: Performed By: #### 8 [id number] #### RAHUL Blood Bank Subsection [address] [place] [address] Auto Diffon 09-20-2018 Basophils #/vol (Bld) 0.0 E3/mcL Normal 0.0-0.2 [facility] Comment on above: Order Comment: Order Added by Discern Expert. Performed By: #### 2 961837 #### RAHUL RemHemo [address] [place] [address] Basophils/100 WBC (Bld) 0.3 % Normal 0.0-2.0 [facility] Comment on above: Order Comment: Order Added by Discern Expert. Performed By: #### 2 515200 #### RAHUL RemHemo [address] [place] [address] Eos Absolute 0.1 E3/mcL Normal 0.0-0.7 [facility] Comment on above: Order Comment: Order Added by Discern Expert. Performed By: #### 2 748587 #### RAHUL RemHemo [address] [place] [address] Eosinophils/100 WBC (Bld) 1.4 % Normal 0.0-11.0 [facility] Comment on above: Order Comment: Order Added by Discern Expert. Performed By: #### 2 323403 #### RAHUL RemHemo [address] [place] [address] Lymphocytes #/vol (Bld) 2.0 E3/mcL Normal 1.2-3.4 [facility] Comment on above: Order Comment: Order Added by Discern Expert. Performed By: #### 2 550971 #### RAHUL RemHemo [address] [place] [address] Lymphocytes/100 WBC (Bld) 20.3 % Normal 20.0-55.0 [facility] Comment on above: Order Comment: Order Added by Discern Expert. Performed By: #### 2 758547 #### RAHUL RemHemo [address] [place] [address] [place] Absolute 0.5 E3/mcL Normal 0.0-0.7 [facility] Comment on above: Order Comment: Order Added by Discern Expert. Performed By: #### 2 596520 #### RAHUL HolcombHemo [address] [place] [phone] Monocytes/100 WBC (Bld) 4.8 % Normal 0.0-10.0 [facility] Comment on above: Order Comment: Order Added by Discern Expert. Performed By: #### 2 938878 #### RAHUL HolcombHemo [address] [place], [place] [address] Neutro Absolute 7.1 E3/mcL High 1.4-6.5 [facility] Comment on above: Order Comment: Order Added by Discern Expert. Performed By: #### 2 159599 #### RAHUL HolcombHemo [address] [place] [address] Neutro Auto 73.2 % Normal 37.0-75.0 [facility] Comment on above: Order Comment: Order Added by Discern Expert. Performed By: #### 2 981879 #### RAHUL HolcombHemo [address] [place], [place] [address] CBC w/ Auto Diffon 9 Erythrocyte distribution width Ratio (RBC) 12.6 % Normal 11.5-14.5 [facility] Comment on above: Performed By: #### 2 249878 #### RAHUL HolcombHemo [address] [place], [place] [address] Hematocrit Volume Fraction (Bld) 38.6 % Normal 36.0-48.0 [facility] Comment on above: Performed By: #### 2 386152 #### RAHUL AichaHemo [address] [place] [phone] Hemoglobin mass conc (Bld) 13.2 g/dL Normal 12.0-16.0 [facility] Comment on above: Performed By: #### 2 888782 #### RAHUL HolcombHemo [address] [place] [address] MCH Entitic mass (RBC) 30.4 pg Normal 27.0-31.0 [facility] Comment on above: Performed By: #### 2 147846 #### RAHUL Silva [address] [place], [place] [address] MCHC mass conc (RBC) 34.3 g/dL Normal 33.0-37.0 [facility] Comment on above: Performed By: #### 2 425549 #### RAHUL Lopezo [address] [place], [place] [address] MCV Entitic volume (RBC) 88.7 fL Normal 78.0-100.0 [facility] Comment on above: Performed By: #### 2 366105 #### RAHUL Silva [address] [place], [place] [address] Platelet mean volume Entitic volume (Bld) 9.4 fL Normal 7.4-11.0 [facility] Comment on above: Performed By: #### 2 179499 #### [place] [id number] Platelets #/vol (Bld) 235 E3/mcL Normal 130-400 [facility] Comment on above: Performed By: #### 2 126551 #### RAHUL Silva [address] [place], [place] [address] RBC #/vol (Bld) 4.35 E6/mcL Normal 3.90-5.40 [facility] Comment on above: Performed By: #### 2 022569 #### RAHUL Lopezo [address] [place], [place] [address] WBC #/vol (Bld) 9.8 E3/mcL Normal 3.6-11.0 [facility] Comment on above: Performed By: #### 2 905779 #### RAHUL [place] [address] Chlamydia GC by PCRon 2018 Chlamydia by PCR. Not Detected Normal Not Detected [facility] Comment on above: Result Comment: Xper t CT/NG Assay performance has not been evaluated in patients less than 14 years of age. Performed By: #### 3 [id number] #### RAHUL Martinez Micro SubSection , Gonorrhoeae by PCR Not Detected Normal Not Detected [facility] Comment on above: Result Comment: Xper t CT/NG Assay performance has not been evaluated in patients less than 14 years of age. Performed By: #### 3 [id number] #### RAHUL Misc Micro SubSection , HIV-1/2 Ag/Abon 09-20-2018 HIV Combo Internal Control Line Reactive Normal Reactive [facility] Comment on above: Performed By: #### 6 [id number] #### RAHUL Chemistry Manual Subsection [address] [place] [address] HIV-1 & HIV-2 Antibodies Non-Reactive Normal Non-Reactive [facility] Comment on above: Performed By: #### 6 [id number] #### RAHUL Chemistry Manual Subsection [facility] [place] [address] HIV-1 p-24 Antigen Non-Reactive Normal Non-Reactive [facility] Comment on above: Performed By: #### 6 [id number] #### RAHUL Chemistry Manual Subsection [address] [place] [address] HIV-1/2 Ag/Ab Interp Negative Normal Negative [facility] Comment on above: Performed By: #### 6 [id number] #### RAHUL Chemistry Manual Subsection [address] [place] [address] Rubella IgG Lvlon 09-20-2018 Rubella IgG Lvl 265.7 (POS) Normal [facility] Comment on above: Result Comment: <10I U/ml NON REACTIVE: NOT IMMUNE 10-15 IU/ml RUBELLA SPECIFIC AB PRESENT, EVALUATE FURTHER TO DETERMINE IMMUNE STATUS >15 IU/ml REACTIVE, IMMUNE Performed By: #### 2 [id number] #### RAHUL [employer] [address] [place] [address] TSHon 09-20-2018 Thyrotropin Qn 1.42 mcIU/mL Normal 0.30-5.60 [facility] Comment on above: Performed By: #### 2 328656 #### RAHUL [employer] [address] [place], [place] [address] Hgb and Hcton 07-04-2017 Hematocrit (HCT) 31.3 % Low 34.4-44.8 [facility] Comment on above: Performed By: #### H H ####Unless otherwise noted, all testing performed by [place] [address] [address] [place] [place], [place] [phone]: [id number] Director: Terry Lam M.D. Hemoglobin mass conc (Bld) 10.5 g/dL Low 11.6-15.4 [facility] Comment on above: Performed By: #### H H ####Unless otherwise noted, all testing performed by [place] [address] [address], [place] [phone]: [id number] Director: Terry Lam M.D. SURGon 07-03-2017 SURG Name: DUARTE SUNSHINE AResubmission due to incomplete transmission of the original reportSource Placental third trimester Clinical History Maternal Syphillis Disease Diagnosis Placental disc : Appropriate weight (542 g) for gestational age (40w1d; mean weight 510 g). Peripheral infarct (occupying <5% of disc). Subchorionic fibrin deposition (occupying 20% of surface). Intervillous fibrin deposition (occupying <10% of disc). Mature villi. Maternal and blood vessels appear unremarkable. No significant inflammation. membranes: No significant inflammation. Umbilical cord: Trivascular with no significant inflammation. Gross Description The specimen is received fresh designated placenta and consists of a garcia placenta with attached segment of umbilical cord and attached membranes. The attached segment of umbilical cord measures 42 cm in length with an average diameter of 1.0 cm. The cord is mildly twisted, trivascular and has an eccentric insertion (located 7.5 cm from closest disc edge). The cut surface does not contain any blood clots and no areas of discoloration are identified. The membranes are jefferson-pink and translucent with a marginal insertion. The trimmed placental disc weighs 542 g and measures 23.4 x 17.1 x 2.0 cm. The surface is kemp-blue and glistening, with a normal array of surface vasculature. Subchorionic fibrin is present occupying approximately 20% of the surface. The maternal surface is coarsely lobulated and intact. A peripheral jefferson infarct is identified measuring 3.0 cm in greatest dimension and occupying less than 5% of the maternal surface. The cut surface of the placental disc is composed of spongy pink parenchyma without any other discrete lesions. Cassette 1 contains media sales representative umbilical cord. Cassette 2 contains media sales representative umbilical cord insertion site. Cassette 3 contains media sales representative membranes. Cassette 4 contains media sales representative placental disc, peripheral. Cassettes 5-6 contain media sales representative placental disc, central. (ICT/lt) Electronically Signed By Anshu Lord DO , Pathologist (Case signed 07/05/2017) Normal [facility] CBC with Diffon 07-01-2017 Basophils Auto #/vol (Bld) 0.1 K/mcL Normal 0-0.2 [facility] Comment on above: Performed By: #### C BCDIF, SYPHABS ####Unless otherwise noted, all testing performed by [address]IA: [id number] Director: Terry Lam M.D. Basophils/100 WBC Auto (Bld) 0.4 % Normal [facility] Comment on above: Performed By: #### C BCDIF, SYPHABS ####Unless otherwise noted, all testing performed by [address]CLIA: [id number] Director: Terry Lam M.D. Eosinophils 0.2 K/mcL Normal 0-0.5 [facility] Comment on above: Performed By: #### C BCDIF, SYPHABS ####Unless otherwise noted, all testing performed by [address] [phone]: [id number] Director: Terry Lam M.D. Eosinophils/100 leukocytes 1.2 % Normal [facility] Comment on above: Performed By: #### C BCDIF, SYPHABS ####Unless otherwise noted, all testing performed by [place] [address]CLIA: [id number] Director: Terry Lam M.D. Erythrocyte distribution width Auto Ratio (RBC) 13.5 % Normal 10.0-14.4 [facility] Comment on above: Performed By: #### C BCDIF, SYPHABS ####Unless otherwise noted, all testing performed by [address] [phone]: [id number] Director: Terry Lam M.D. Erythrocytes (RBC) 3.97 M/mcL Normal 3.7-5.0 [facility] Comment on above: Performed By: #### C BCDIF, SYPHABS ####Unless otherwise noted, all testing performed by [address] [phone]: [id number] Director: Terry Lam M.D. Hematocrit (HCT) 35.2 % Normal 34.4-44.8 [facility] Comment on above: Performed By: #### C BCDIF, SYPHABS ####Unless otherwise noted, all testing performed by [address] [phone]: [id number] Director: Terry Lam M.D. Hemoglobin mass conc (Bld) 12.1 g/dL Normal 11.6-15.4 [facility] Comment on above: Performed By: #### C BCDIF, SYPHABS ####Unless otherwise noted, all testing performed by [address] [phone]: [id number] Director: Terry Lam M.D. Lymphocytes 2.4 K/mcL Normal 1.0-3.7 [facility] Comment on above: Performed By: #### C BCDIF, SYPHABS ####Unless otherwise noted, all testing performed by [address] [phone]: [id number] Director: Terry Lam M.D. Lymphocytes/100 leukocytes 18.0 % Normal [facility] Comment on above: Performed By: #### C BCDIF, SYPHABS ####Unless otherwise noted, all testing performed by [address] [phone]: [id number] Director: Terry Lam M.D. MCH 30.4 pg Normal 27.9-33.9 [facility] Comment on above: Performed By: #### C BCDIF, SYPHABS ####Unless otherwise noted, all testing performed by [address] [phone]: [id number] Director: Terry Lam M.D. MCHC mass conc (RBC) 34.3 g/dL Normal 33.1-35.1 [facility] Comment on above: Performed By: #### C BCDIF, SYPHABS ####Unless otherwise noted, all testing performed by [address] [phone]: [id number] Director: Terry Lam M.D. MCV 88.5 fL Normal 82.6-98.9 [facility] Comment on above: Performed By: #### C BCDIF, SYPHABS ####Unless otherwise noted, all testing performed by [address] [phone]: [id number] Director: Terry Lam M.D. Monocytes 1.1 K/mcL High 0.1-0.6 [facility] Comment on above: Performed By: #### C BCDIF, SYPHABS ####Unless otherwise noted, all testing performed by [address]CLIA: [id number] Director: Terry Lam M.D. Monocytes/100 leukocytes 8.1 % Normal [facility] Comment on above: Performed By: #### C BCDIF, SYPHABS ####Unless otherwise noted, all testing performed by [address]CLIA: [id number] Director: Terry Lam M.D. Neutrophils 9.5 K/mcL High 1.2-6.9 [facility] Comment on above: Performed By: #### C BCDIF, SYPHABS ####Unless otherwise noted, all testing performed by [address]CLIA: [id number] Director: Terry Lam M.D. Platelet mean volume (PMV) 8.7 fL Normal 7.0-10.6 [facility] Comment on above: Performed By: #### C BCDIF, SYPHABS ####Unless otherwise noted, all testing performed by [address]8[address]IA: [id number] Director: Terry Lam M.D. Platelets 168 K/mcL Normal 162-402 [facility] Comment on above: Performed By: #### C BCDIF, SYPHABS ####Unless otherwise noted, all testing performed by [address] [phone]: [id number] Director: Terry Lam M.D. Segmented Neut % 72.3 % Normal [facility] Comment on above: Performed By: #### C BCDIF, SYPHABS ####Unless otherwise noted, all testing performed by [address] [phone]: [id number] Director: Terry Lam M.D. WBC (Leukocytes) 13.2 K/mcL High 3.4-10.6 [facility] Comment on above: Performed By: #### C BCDIF, SYPHABS ####Unless otherwise noted, all testing performed by [address] [phone]: [id number] Director: Terry Lam M.D. Culture, Urineon 07-01-2017 Culture, Urine Test Name: Culture, Urine Culture Status: Final Culture Report: No significant growth. Micro Source: Urine - clean catch Normal [facility] Comment on above: Performed By: #### U RCUL ####Unless otherwise noted, all testing performed by [address] [phone]: [id number] Director: Terry Lam M.D. Rupture Of [] Membranes on 07-01-2017 Rupture Of [] Membranes Negative Normal [facility] Comment on above: Result Comment: Rapi d test procedural control acceptable. Performed By: #### R OM ####Unless otherwise noted, all testing performed by [address], [place] [phone]: [id number] Director: Terry Lam M.D. Syphilis Ab, IgGon 7 RPR Screen Reactive Abnormal Non-Reactive [facility] Comment on above: Performed By: #### C BCDIF, SYPHABS ####Unless otherwise noted, all testing performed by [address] [phone]: [id number] Director: Terry Lam M.D. RPR Titer 1:2 Normal [facility] Comment on above: Result Comment: [place] [address] Performed By: #### C BCDIF, SYPHABS ####Unless otherwise noted, all testing performed by [address] [phone]: [id number] Director: Terry Lam M.D. Syphilis Ab, IgG Positive Abnormal Negative [facility] Comment on above: Result Comment: [place] [address] Performed By: #### C BCDIF, SYPHABS ####Unless otherwise noted, all testing performed by [address] [phone]: [id number] Director: Terry Lam M.D. Urinalysis, Routineon 2016 Bilirubin,Urine Negative Normal NEG;NEGATIVE [facility] Comment on above: Performed By: #### U A ####Unless otherwise noted, all testing performed by [address] [phone]: [id number] Director: Terry Lam M.D. Blood,Urine Moderate Abnormal NEG;NEGATIVE [facility] Comment on above: Performed By: #### U A ####Unless otherwise noted, all testing performed by [address] [id number]: [id number] Director: Terry Lam M.D. Ketone,Urine Negative Normal NEG;NEGATIVE [facility] Comment on above: Performed By: #### U A ####Unless otherwise noted, all testing performed by [place] [id number]: [id number] Director: Terry Lam M.D. Leuk.Esterase,Urin e Large Abnormal Negative [facility] Comment on above: Performed By: #### U A ####Unless otherwise noted, all testing performed by [address] [id number]: [id number] Director: Terry Lam M.D. Mucus, Urine Rare Abnormal None Seen [facility] Comment on above: Performed By: #### U A ####Unless otherwise noted, all testing performed by [address] [phone]: [id number] Director: Terry Lam M.D. Nitrite,Urine Negative Normal NEG;NEGATIVE [facility] Comment on above: Performed By: #### U A ####Unless otherwise noted, all testing performed by [address] [id number]: [id number] Director: Terry Lam M.D. Protein,Urine 30 mg/dL High < 30 [facility] Comment on above: Performed By: #### U A ####Unless otherwise noted, all testing performed by [address] [phone]: [id number] Director: Terry Lam M.D. Specific Marion,Urine 1.034 High 1.003-1.029 [facility] Comment on above: Performed By: #### U A ####Unless otherwise noted, all testing performed by [address] [phone]: [id number] Director: Terry Lam M.D. Squamous Epithelial 3 /HPF Normal 0-40 [facility] Comment on above: Performed By: #### U A ####Unless otherwise noted, all testing performed by [address] [phone]: [id number] Director: Terry Lam M.D. Trichomonas, Urine Present Abnormal None Seen [facility] Comment on above: Performed By: #### U A ####Unless otherwise noted, all testing performed by [address] [phone]: [id number] Director: Terry Lam M.D. Urine, bacteria in sediment Occasional Abnormal NS;RARE [facility] Comment on above: Performed By: #### U A ####Unless otherwise noted, all testing performed by [address] [phone]: [id number] Director: Terry Lam M.D. Urine, character Hazy Normal [facility] Comment on above: Performed By: #### U A ####Unless otherwise noted, all testing performed by [address] [id number]: [id number] Director: Terry Lam M.D. Urine, color Yellow Normal [facility] Comment on above: Performed By: #### U A ####Unless otherwise noted, all testing performed by [address] [phone]: [id number] Director: Terry Lam M.D. Urine, erythrocytes in sediment by area 9 /[HPF] High 0-5 [facility] Comment on above: Performed By: #### U A ####Unless otherwise noted, all testing performed by [phone]: [id number] Director: Terry Lam M.D. Urine, glucose presence Negative Normal NEG;NEGATIVE [facility] Comment on above: Performed By: #### U A ####Unless otherwise noted, all testing performed by [address] [phone]: [id number] Director: Trery Lam M.D. Urine, leukocytes in sedmiment 60 /[HPF] High 0-5 [facility] Comment on above: Performed By: #### U A ####Unless otherwise noted, all testing performed by [place] [id number]: [id number] Director: Terry Lam M.D. Urine, pH 5.0 [pH] Normal 4.5-8.0 [facility] Comment on above: Performed By: #### U A ####Unless otherwise noted, all testing performed by [address] [phone]: [id number] Director: Terry Lam M.D. Urobilinogen,Urine < 2.0 Normal <2 [facility] Comment on above: Performed By: #### U A ####Unless otherwise noted, all testing performed by [address] [phone]: [id number] Director: Terry Lam M.D. Culture, Urineon 06-23-2017 Culture, Urine Test Name: Culture, Urine Culture Status: Final Culture Report: No significant growth. Micro Source: Urine Normal [facility] Comment on above: Performed By: #### U RCUL ####Unless otherwise noted, all testing performed by [address] [phone]: [id number] Director: Terry Lam M.D. Urinalysis, Routineon 2016 Bilirubin,Urine Negative Normal NEG;NEGATIVE [facility] Comment on above: Performed By: #### U A ####Unless otherwise noted, all testing performed by [address] [phone]: [id number] Director: Terry Lam M.D. Blood,Urine Large Abnormal NEG;NEGATIVE [facility] Comment on above: Performed By: #### U A ####Unless otherwise noted, all testing performed by [address] [phone]: [id number] Director: Terry Lam M.D. Ketone,Urine Negative Normal NEG;NEGATIVE [facility] Comment on above: Performed By: #### U A ####Unless otherwise noted, all testing performed by [phone]: [id number] Director: Terry Lam M.D. Leuk.Esterase,Urin e Large Abnormal Negative [facility] Comment on above: Performed By: #### U A ####Unless otherwise noted, all testing performed by [place] [id number]: [id number] Director: Terry Lam M.D. Mucus, Urine Rare Abnormal None Seen [facility] Comment on above: Performed By: #### U A ####Unless otherwise noted, all testing performed by [place] [id number]: [id number] Director: Terry Lam M.D. Nitrite,Urine Negative Normal NEG;NEGATIVE [facility] Comment on above: Performed By: #### U A ####Unless otherwise noted, all testing performed by [phone]: [id number] Director: Terry Lam M.D. Protein,Urine 30 mg/dL High < 30 [facility] Comment on above: Performed By: #### U A ####Unless otherwise noted, all testing performed by [address] [phone]: [id number] Director: Terry Lam M.D. Specific [place],Urine 1.023 Normal 1.003-1.029 [facility] Comment on above: Performed By: #### U A ####Unless otherwise noted, all testing performed by [address] [id number]: [id number] Director: Terry Lam M.D. Squamous Epithelial 7 /HPF Normal 0-40 [facility] Comment on above: Performed By: #### U A ####Unless otherwise noted, all testing performed by [address] [phone]: [id number] Director: Terry Lam M.D. Urine, bacteria in sediment Moderate Abnormal NS;RARE [facility] Comment on above: Performed By: #### U A ####Unless otherwise noted, all testing performed by [address] [phone]: [id number] Director: Terry Lam M.D. Urine, character Cloudy Normal [facility] Comment on above: Performed By: #### U A ####Unless otherwise noted, all testing performed by [address] [id number]: [id number] Director: Terry Lam M.D. Urine, color Amy Normal [facility] Comment on above: Performed By: #### U A ####Unless otherwise noted, all testing performed by [address] [phone]: [id number] Director: Terry Lam M.D. Urine, erythrocytes in sediment by area /[HPF] High 0-5 [facility] Comment on above: Performed By: #### U A ####Unless otherwise noted, all testing performed by [address] [phone]: [id number] Director: Terry Lam M.D. Urine, glucose presence Negative Normal NEG;NEGATIVE [facility] Comment on above: Performed By: #### U A ####Unless otherwise noted, all testing performed by [address] [phone]: [id number] Director: Terry Lam M.D. Urine, leukocytes in sedmiment 96 /[HPF] High 0-5 [facility] Comment on above: Performed By: #### U A ####Unless otherwise noted, all testing performed by [address] [phone]: [id number] Director: Terry Lam M.D. Urine, pH 6.0 [pH] Normal 4.5-8.0 [facility] Comment on above: Performed By: #### U A ####Unless otherwise noted, all testing performed by [address] [phone]: [id number] Director: Terry Lam M.D. Urobilinogen,Urine < 2.0 Normal <2 [facility] Comment on above: Performed By: #### U A ####Unless otherwise noted, all testing performed by [place] [address], [place] [phone]: [id number] Director: Terry Lam M.D. Vital Signs Date Time Vital Sign Value Performing Clinician Facility 01-05-2025 15:23-0400 Body mass index (BMI) [Ratio] 35.32 kg/m2 Boo Priest APRN.LEI MAKER Work Phone: [facility] 01-05-2025 15:23-0400 Body temperature 98.4 [degF] Boo Priest APRN.LEI MAKER Work Phone: [facility] 01-05-2025 15:23-0400 Body weight 95 kg Boo Priest APRN.LEI MAKER Work Phone: [facility] 01-05-2025 15:23-0400 Diastolic blood pressure 68 mm[Hg] Boo Priest APRN.LEI MAKER Work Phone: [facility] 01-05-2025 15:23-0400 Heart rate 64 /min Boo Priest APRN.LEI MAKER Work Phone: [facility] 01-05-2025 15:23-0400 Respiratory rate 18 /min Boo Priest APRN.LEI MAKER Work Phone: [facility] 01-05-2025 15:23-0400 SaO2% (BldA) [Mass fraction] 100 % Boo Priest APRN.LEI MAKER Work Phone: [facility] 01-05-2025 15:23-0400 Systolic blood pressure 132 mm[Hg] Boo Priest APRN.LEI MAKER Work Phone: [facility] 09-29-2024 09:41-0500 Body mass index (BMI) [Ratio] 34.28 kg/m2 Boo Priest APRN.LEI MAKER Work Phone: [facility] 09-29-2024 09:41-0500 Body temperature 98.8 [degF] Boo Priest APRN.LEI MAKER Work Phone: [facility] 09-29-2024 09:41-0500 Body weight 92.2 kg Boo Priest APRN.LEI MAKER Work Phone: [facility] 09-29-2024 09:41-0500 Diastolic blood pressure 72 mm[Hg] Boo Priest APRN.LEI MAKER Work Phone: [facility] 09-29-2024 09:41-0500 Heart rate 101 /min Boo Priest APRN.LEI MAKER Work Phone: [facility] 09-29-2024 09:41-0500 Respiratory rate 18 /min Boo Priest APRN.LEI MAKER Work Phone: [facility] 09-29-2024 09:41-0500 SaO2% (BldA) [Mass fraction] 98 % Boo Priest APRN.LEI MAKER Work Phone: [facility] 09-29-2024 09:41-0500 Systolic blood pressure 106 mm[Hg] Boo Priest APRN.LEI MAKER Work Phone: [facility] 09-10-2024 15:15-0500 Body mass index (BMI) [Ratio] 33.95 kg/m2 Jamaal Chaparro MD Work Phone: [facility] 09-10-2024 15:15-0500 Body temperature 98.71 [degF] Jamaal Chaparro MD Work Phone: [facility] 09-10-2024 15:15-0500 Body weight 91.3 kg Jamaal Chaparro MD Work Phone: [facility] 09-10-2024 15:15-0500 Diastolic blood pressure 76 mm[Hg] Jamaal Chaparro MD Work Phone: [facility] 09-10-2024 15:15-0500 Heart rate 88 /min Jamaal Chaparro MD Work Phone: [facility] 09-10-2024 15:15-0500 Respiratory rate 18 /min Jamaal Chaparro MD Work Phone: [facility] 09-10-2024 15:15-0500 SaO2% (BldA) [Mass fraction] 99 % Jamaal Chaparro MD Work Phone: [facility] 09-10-2024 15:15-0500 Systolic blood pressure 118 mm[Hg] Jamaal Chaparro MD Work Phone: [facility] 06-24-2024 09:12-0400 Body height 164 cm Betty Nesconset READING TUTOR.LEI MAKER Work Phone: [facility] 06-24-2024 09:12-0400 Body mass index (BMI) [Ratio] 34.1 kg/m2 Betty Masoud READING TUTOR.LEI MAKER Work Phone: [facility] 06-24-2024 09:12-0400 Body weight 91.72 kg Betty Masoud READING TUTOR.LEI MAKER Work Phone: [facility] 06-24-2024 09:12-0400 Diastolic blood pressure 78 mm[Hg] Betty Nesconset READING TUTOR.LEI MAKER Work Phone: [facility] 06-24-2024 09:12-0400 Systolic blood pressure 122 mm[Hg] Betty Masoud READING TUTOR.LEI MAKER Work Phone: [facility] 05-06-2023 12:18-0400 Body temperature 98.49 [degF] Jaon Ca READING TUTOR.LEI MAKER Work Phone: [facility] 05-06-2023 12:18-0400 Body weight 87.45 kg Joan Ca READING TUTOR.LEI MAKER Work Phone: [facility] 05-06-2023 12:18-0400 Diastolic blood pressure 78 mm[Hg] Joan Ca READING TUTOR.LEI MAKER Work Phone: [facility] 05-06-2023 12:18-0400 Heart rate 88 /min Joan Ca READING TUTOR.LEI MAKER Work Phone: [facility] 05-06-2023 12:18-0400 Respiratory rate 20 /min Joan Ca READING TUTOR.LEI MAKER Work Phone: [facility] 05-06-2023 12:18-0400 SaO2% (BldA) [Mass fraction] 99 % Joan Ca READING TUTOR.LEI MAKER Work Phone: [facility] 05-06-2023 12:18-0400 Systolic blood pressure 120 mm[Hg] Joan Ca READING TUTOR.LEI MAKER Work Phone: [facility] 03-19-2023 18:48-0400 Body temperature 99.39 [degF] Cheryl Praisler-Wood READING TUTOR.LEI MAKER Work Phone: [facility] 03-19-2023 18:48-0400 Body weight 85.73 kg Cheryl Praisler-Wood READING TUTOR.LEI MAKER Work Phone: [facility] 03-19-2023 18:48-0400 Diastolic blood pressure 64 mm[Hg] Cheryl Praisler-Wood READING TUTOR.LEI MAKER Work Phone: [facility] 03-19-2023 18:48-0400 Heart rate 94 /min Cheryl Praisler-Wood READING TUTOR.LEI MAKER Work Phone: [facility] 03-19-2023 18:48-0400 Respiratory rate 16 /min Cheryl Praisler-Wood READING TUTOR.LEI MAKER Work Phone: [facility] 03-19-2023 18:48-0400 SaO2% (BldA) [Mass fraction] 99 % Cheryl Praisler-Wood READING TUTOR.LEI MAKER Work Phone: [facility] 03-19-2023 18:48-0400 Systolic blood pressure 112 mm[Hg] Cheryl Praisler-Wood READING TUTOR.LEI MAKER Work Phone: [facility] 10-02-2022 18:00-0500 Body temperature 98.49 [degF] Zena HOLLIDAY-C Work Phone: [facility] 10-02-2022 18:00-0500 Body weight 88.91 kg Zena Cabrera PA-C Work Phone: [facility] 10-02-2022 18:00-0500 Diastolic blood pressure 78 mm[Hg] Zena Athy PA-C Work Phone: [facility] 10-02-2022 18:00-0500 Heart rate 68 /min Zena Athy PA-C Work Phone: [facility] 10-02-2022 18:00-0500 Respiratory rate 16 /min Zena Athy PA-C Work Phone: [facility] 10-02-2022 18:00-0500 SaO2% (BldA) [Mass fraction] 98 % Zena Athy PA-C Work Phone: [facility] 10-02-2022 18:00-0500 Systolic blood pressure 132 mm[Hg] Zena Athy PA-C Work Phone: [facility] 05-25-2022 09:40-0400 Body weight 84.37 kg Gini Pete MD Work Phone: [facility] 05-25-2022 09:40-0400 Diastolic blood pressure 74 mm[Hg] Gini Pete MD Work Phone: [facility] 05-25-2022 09:40-0400 Systolic blood pressure 108 mm[Hg] Gini Pete MD Work Phone: [facility] 05-11-2022 11:45-0400 Body temperature 97.8 [degF] [facility] Work Phone: 05-11-2022 11:45-0400 Diastolic blood pressure 85 mm[Hg] [facility] Work Phone: 05-11-2022 11:45-0400 Heart rate 85 /min [facility] Work Phone: 05-11-2022 11:45-0400 Respiratory rate 16 /min [facility] Work Phone: 05-11-2022 11:45-0400 SaO2% (BldA) [Mass fraction] 99 % [facility] Work Phone: 05-11-2022 11:45-0400 Systolic blood pressure 138 mm[Hg] [facility] Work Phone: 05-11-2022 07:25-0400 Body height 162.56 cm [facility] Work Phone: 05-11-2022 07:25-0400 Body mass index (BMI) [Ratio] 32.1 kg/m2 [facility] Work Phone: 05-11-2022 07:25-0400 Body weight 85 kg [facility] Work Phone: 05-03-2022 09:08-0400 Body height 163.8 cm Gini Pete MD Work Phone: [facility] 05-03-2022 09:08-0400 Body weight 84.19 kg Gini Pete MD Work Phone: [facility] 05-03-2022 09:08-0400 Diastolic blood pressure 78 mm[Hg] Gini Pete MD Work Phone: [facility] 05-03-2022 09:08-0400 Heart rate 79 /min Gini Pete MD Work Phone: [facility] 05-03-2022 09:08-0400 Respiratory rate 16 /min Gini Pete MD Work Phone: [facility] 05-03-2022 09:08-0400 Systolic blood pressure 110 mm[Hg] Gini Pete MD Work Phone: [facility] 04-26-2022 12:22-0400 Body temperature 98.49 [degF] Jamaal Chaparro MD Work Phone: [facility] 04-26-2022 12:22-0400 Body weight 84.82 kg Jamaal Chaparro MD Work Phone: [facility] 04-26-2022 12:22-0400 Diastolic blood pressure 88 mm[Hg] Jamaal Chaparro MD Work Phone: [facility] 04-26-2022 12:22-0400 Heart rate 78 /min Jamaal Chaparro MD Work Phone: [facility] 04-26-2022 12:22-0400 Respiratory rate 21 /min Jamaal Chaparro MD Work Phone: [facility] 04-26-2022 12:22-0400 SaO2% (BldA) [Mass fraction] 98 % Jamaal Chaparro MD Work Phone: [facility] 04-26-2022 12:22-0400 Systolic blood pressure 130 mm[Hg] Jamaal Chaparro MD Work Phone: [facility] 03-23-2022 10:35-0400 Body weight 85.19 kg Gini Pete MD Work Phone: [facility] 03-23-2022 10:35-0400 Diastolic blood pressure 76 mm[Hg] Gini Pete MD Work Phone: [facility] 03-23-2022 10:35-0400 Systolic blood pressure 110 mm[Hg] Gini Pete MD Work Phone: [facility] 12-30-2021 20:24-0400 Body temperature 98.1 [degF] [facility] Work Phone: 12-30-2021 20:24-0400 Diastolic blood pressure 64 mm[Hg] [facility] Work Phone: 12-30-2021 20:24-0400 Respiratory rate 15 /min [facility] Work Phone: 12-30-2021 20:24-0400 Systolic blood pressure 108 mm[Hg] [facility] Work Phone: 12-30-2021 16:19-0400 Heart rate 78 /min [facility] Work Phone: 12-29-2021 14:38-0400 SaO2% (BldA) [Mass fraction] 79 % [facility] Work Phone: 12-29-2021 08:44-0400 Body height 162.56 cm [facility] Work Phone: 12-29-2021 08:44-0400 Body mass index (BMI) [Ratio] 38 kg/m2 [facility] Work Phone: 12-29-2021 08:44-0400 Body weight 100.6 kg [facility] Work Phone: 12-28-2021 14:19-0400 Body weight 99.52 kg Gini Pete MD Work Phone: [facility] 12-28-2021 14:19-0400 Diastolic blood pressure 74 mm[Hg] Gini Pete MD Work Phone: [facility] 12-28-2021 14:19-0400 Systolic blood pressure 110 mm[Hg] Gini Pete MD Work Phone: [facility] 12-23-2021 11:36-0400 Body weight 98.88 kg Serene Horowitz READING TUTOR.CNM Work Phone: [facility] 12-23-2021 11:36-0400 Diastolic blood pressure 74 mm[Hg] Serene Horowitz READING TUTOR.CNM Work Phone: [facility] 12-23-2021 11:36-0400 Systolic blood pressure 113 mm[Hg] Serene Horowitz READING TUTOR.CNM Work Phone: [facility] 11-30-2021 14:23-0400 Body weight 99.97 kg Gini Pete MD Work Phone: [facility] 11-30-2021 14:23-0400 Diastolic blood pressure 68 mm[Hg] Gini Pete MD Work Phone: [facility] 11-30-2021 14:23-0400 Systolic blood pressure 110 mm[Hg] Gini Pete MD Work Phone: [facility] 03-22-2019 09:26-0400 Body Temperature 98.8 [degF] Bennett Kerns [facility] 03-22-2019 09:26-0400 BP Diastolic 71 mm[Hg] Bennett Kerns [facility] 03-22-2019 09:26-0400 BP Systolic 111 mm[Hg] Bennett Kerns [facility] 03-22-2019 09:26-0400 Pulse (Heart Rate) 83 /min Bennett Kerns [facility] 03-22-2019 09:26-0400 Pulse Oximetry 98 % Bennett Kerns [facility] 03-22-2019 09:26-0400 Respiratory Rate 14 /min Bennett Kerns [facility] 03-20-2019 07:39-0400 BMI (Body Mass Index) 36.9 kg/m2 Bennett Kerns [facility] 03-20-2019 07:39-0400 Body weight 97.52 kg Bennett Kerns [facility] 03-20-2019 07:39-0400 Height 162.6 cm Bennett Kerns [facility] 01-23-2019 01:42-0400 Body Temperature 98.4 [degF] Mary Alexis [facility] 01-23-2019 01:42-0400 BP Diastolic 63 mm[Hg] Mary Alexis [facility] 01-23-2019 01:42-0400 BP Systolic 111 mm[Hg] Mary Alexis [facility] 01-23-2019 01:42-0400 Pulse (Heart Rate) 96 /min Mary Alexis [facility] 01-23-2019 01:42-0400 Pulse Oximetry 98 % Mary Alexis [facility] 01-23-2019 01:42-0400 Respiratory Rate 16 /min Mary Alexis [facility] 01-23-2019 01:34-0400 BMI (Body Mass Index) 32.11 kg/m2 Mary Alexis [facility] 01-23-2019 01:34-0400 Height 163.8 cm Mary Alexis [facility] 01-23-2019 01:34-0400 Weight 86.18 kg Mary Alexis [facility] 10-23-2018 05:05-0500 Body weight Measured 87.5448 kg [facility] Comment on above: Performed By: #### [id number] #### RAHUL Ricardo [address] [place] [address] Encounters Encounter Date Encounter Type Care Provider Facility Start: 01-05-2025 End: 01-05-2025 Patient encounter procedure Boo Cem READING TUTOR.LEI MAKER Work Phone: [facility] Comment on above: Dysuria (Primary Dx) ; Vaginal discharge Start: 01-05-2025 End: 01-05-2025 ambulatory [facility] Facility:[facility] Start: 01-05-2025 End: 01-06-2025 Follow-up encounter Jamaal Chaparro MD Work Phone: [facility] Comment on above: Results Start: 09-29-2024 End: 09-29-2024 [facility] Facility:[facility] Start: 09-29-2024 End: 09-29-2024 Patient encounter procedure Boo Cem READING TUTOR.LEI MAKER Work Phone: [facility] Comment on above: Sore throat (Primary Dx); Strep throat Start: 09-10-2024 End: 09-10-2024 Office outpatient visit 25 minutes Jamaal Chaparro MD Work Phone: [facility] Comment on above: Streptococcal pharyn gitis (Primary Dx); Sore throat Start: 09-10-2024 End: 09-10-2024 ambulatory Tejsa Thompson MT Facility:[facility] Start: 06-26-2024 End: 06-26-2024 Telephone encounter Betty Yungf READING TUTOR.LEI MAKER Work Phone: [facility] Comment on above: Results Start: 06-25-2024 End: 06-25-2024 Refill Betty Masoud READING TUTOR.LEI MAKER Work Phone: [facility] Comment on above: Refill Request Start: 06-25-2024 End: 06-25-2024 Telephone encounter Jaci Ta READING TUTOR.LEI MAKER Work Phone: [facility] Comment on above: Results Start: 06-24-2024 End: 06-24-2024 ambulatory BETTY MASOUD Facility:[facility] Start: 06-24-2024 End: 06-24-2024 Patient encounter procedure Betty Masoud READING TUTOR.LEI MAKER Work Phone: OB/Gynecology Comment on above: Encounter for gyneco logical examination (general) (routine) without abnormal findings (Primary Dx); Vaginal discharge; Unprotected sexual intercourse; Encounter for screening for human papillomavirus (HPV); Screening for malignant neoplasm of cervix Start: 06-24-2024 End: 06-24-2024 Patient encounter status Betty Meredith CHI.LEI MAKER Work Phone: [facility] Start: 06-22-2024 End: 06-22-2024 Emergency department patient visit No Primary Care Physician Facility:[facility] Start: 02-28-2024 End: 02-28-2024 ambulatory Heri HOLLIDAY Facility:[facility] Start: 05-29-2023 Telephone encounter Queenie Lujan Work Phone: Infectious Disease Comment on above: Education Of Patient /family (HIV PrEP education) Start: 05-07-2023 Telephone encounter Boo Priest APRN.LEI MAKER Work Phone: [facility] Comment on above: Results Start: 05-06-2023 End: 05-06-2023 Patient encounter procedure Joan Ca APRN.LEI MAKER Work Phone: [facility] Comment on above: Exposure to sexually transmitted disease (STD) (Primary Dx); Dysuria; Microscopic hematuria Start: 03-19-2023 End: 03-19-2023 Patient encounter procedure Cheryl Randall APRN.LEI MAKER Work Phone: [facility] Comment on above: Sore throat (Primary Dx); Strep throat Start: 10-04-2022 Telephone encounter Zena jenkins PA-C Work Phone: [facility] Comment on above: Results Start: 10-02-2022 End: 10-02-2022 Patient encounter procedure Zena Cabrera PA-C Work Phone: [facility] Comment on above: Acute cystitis with hematuria (Primary Dx) Start: 05-25-2022 End: 05-25-2022 Patient encounter procedure Gini Pete MD Work Phone: OB/Gynecology Comment on above: Post-operative state (Primary Dx) Start: 05-11-2022 End: 05-11-2022 Admission to same day surgery center [facility] Start: 05-11-2022 End: 05-11-2022 ambulatory [facility] Work Phone: Start: 05-03-2022 End: 05-03-2022 Patient encounter procedure Gini Pete MD Work Phone: OB/Gynecology Comment on above: Pre-op exam (Primary Dx); Request for sterilization; Class 1 obesity with body mass index (BMI) of 31.0 to 31.9 in adult, unspecified obesity type, unspecified whether serious comorbidity present Start: 05-03-2022 End: 05-03-2022 Preprocedural examination done Gini Pete MD Work Phone: OB/Gynecology Start: 04-26-2022 End: 04-26-2022 Patient encounter procedure Jamaal Chaparro MD Work Phone: [facility] Comment on above: Toothache (Primary D x) Start: 04-03-2022 Telephone encounter Gini cortez MD Work Phone: OB/Gynecology Comment on above: Schedule Surgery Start: 03-23-2022 End: 03-23-2022 Patient encounter procedure Gini Pete MD Work Phone: OB/Gynecology Comment on above: Sterilization consul t (Primary Dx); Lactating mother Start: 01-21-2022 Refill Gini Hudson Work Phone: OB/Gynecology Comment on above: Refill Request Start: 12-29-2021 End: 12-30-2021 [facility] Start: 12-28-2021 End: 12-28-2021 Patient encounter procedure Gini Pete MD Work Phone: OB/Gynecology Comment on above: 39 weeks gestation o f (Primary Dx); Supervision of high risk in third trimester; Gestational proteinuria in third trimester Start: 12-23-2021 End: 12-23-2021 Patient encounter procedure Serene Horowitz APRN.CNM Work Phone: OB/Gynecology Comment on above: Supervision of high risk in third trimester (Primary Dx); 38 weeks gestation of ; Gestational proteinuria in third trimester Start: 11-30-2021 End: 11-30-2021 Patient encounter procedure Gini Pete MD Work Phone: OB/Gynecology Comment on above: 35 weeks gestation o f (Primary Dx); Supervision of high risk in third trimester; Obesity complicating , third trimester; History of herpes genitalis Start: 03-20-2019 End: 03-22-2019 Evaluation and management of inpatient BENNETT KERNS [facility] Start: 03-20-2019 End: 03-22-2019 Evaluation and management of inpatient Bennett Kerns Work Phone: [facility] Obstetrics Start: 02-27-2019 End: 03-03-2019 Patient encounter procedure [facility] Start: 01-23-2019 End: 01-23-2019 Emergency department patient visit MARYJAS ALEXIS [facility] Start: 01-23-2019 End: 01-23-2019 Emergency department patient visit Mary Alexis Work Phone: [facility] Emergency Department Comment on above: Cough (Primary Dx) Start: 11-15-2018 Patient encounter procedure Carissa Ty Facility:[facility] Start: 11-06-2018 End: 11-07-2018 Patient encounter procedure Carissa Ty Facility:[facility] Start: 11-06-2018 Patient encounter procedure Facility:[id number] Start: 10-18-2018 End: 10-19-2018 [facility] Start: 10-18-2018 Patient encounter procedure Facility:[id number] Start: 09-20-2018 End: 09-21-2018 Patient encounter procedure Carissa Ty Facility:[facility] Start: 09-20-2018 Patient encounter procedure Facility:[id number] Start: 08-19-2018 End: 08-20-2018 Patient encounter procedure Carissa Ty [facility] Start: 07-03-2017 End: 07-05-2017 Evaluation and management of inpatient Sammi Georges [facility] Start: 07-01-2017 End: 07-01-2017 Ambulatory Cem Perez Facility:[facility] Start: 06-23-2017 End: 06-23-2017 Ambulatory Sammi Conestoga Facility:[facility] Procedures Date Procedure Procedure Detail Performing Clinician Start: 01-05-2025 Urnls dip stick/tabl et rgnt auto w/o microscopy Boo Priest READING TUTOR.LEI MAKER Work Phone: Start: 09-29-2024 STREP A MOLECULAR (POC) Joan Ca READING TUTOR.LEI MAKER Work Phone: Start: 09-10-2024 STREP A MOLECULAR (POC) Cheryl Randall READING TUTOR.LEI MAKER Work Phone: Start: 05-06-2023 Urnls dip stick/tabl et rgnt auto w/o microscopy Joan Ca READING TUTOR.LEI MAKER Work Phone: Start: 03-19-2023 STREP A MOLECULAR (POC) Zena HOLLIDAY-Tony Work Phone: Start: 10-02-2022 Urnls dip stick/tabl et rgnt auto w/o microscopy Zena HOLLIDAY-C Work Phone: Start: 05-11-2022 Laparoscopic salpingectomy Start: 03-23-2022 Urine test visual color cmprsn meths Gini Pete MD Work Phone: Start: 12-29-2021 End: 12-29-2021 Viral antigen assay Start: 12-28-2021 URINE OB DIP B/O Gini lane MD Work Phone: Start: 12-23-2021 URINE OB DIP B/O Eliza Horowitz READING TUTOR.BRIANM Work Phone: Start: 03-21-2019 Complete blood count with white cell differential, automated Bennett Kerns Work Phone: Start: 03-21-2019 Complete blood count with white cell differential, manual Bennett Kerns Work Phone: Start: 03-20-2019 SCAN OTHER ORDERS Provi nell Not In System Start: 01-23-2019 Radiologic exam ches t single view Mary Alexis Work Phone: Start: 01-23-2019 Basic metabolic 1998 panel - Serum or Plasma Mary Alexis Work Phone: Start: 01-23-2019 Complete blood count with white cell differential, automated Mary Alexis Work Phone: Start: 01-23-2019 Complete blood count with white cell differential, manual Mary Alexis Work Phone: Start: 01-23-2019 Influenza virus A AN D B antigen assay Mary Alexis Work Phone: Start: 01-23-2019 Streptococcus pyogen es Ag [Presence] in Throat Mary Alexis Work Phone: Start: 12-05-2016 Microscopic observat ion [Identifier] in Cervix by Cyto stain Mary Alexis Plan of Treatment Date Care Activity Detail Author Start: 06-24-2029 Screening for malign ant neoplasm of cervix Cervical Cancer Screening [facility] Start: 06-26-2025 End: 06-26-2025 Patient encounter procedure 06/26/2025 3:30 PM EDT Office Visit OB/Gynecology [address], [place] [id number] Betty Meredith APRN.LEI MAKER [address] [place] [address] Annual Exam OB/Gynecology Comment on above: Annual Exam Start: 05-04-2025 Influenza vaccination Influenz a Vaccine (Season Ended) [facility] Start: 10-08-2024 HPV TESTING HPV TESTING [facility] Start: 10-08-2024 PAP TESTING PAP TESTING [facility] Start: 10-08-2024 Screening for malign ant neoplasm of cervix Cervical Cancer Screening [facility] Start: 06-24-2024 End: 09-23-2024 Hepatitis B virus surface Ag [Presence] in Serum [facility] Comment on above: Expected: 06/24/2024 , Expires: 09/23/2024 Start: 06-24-2024 End: 09-23-2024 Hepatitis C virus Ab [Presence] in Serum [facility] Comment on above: Expected: 06/24/2024 , Expires: 09/23/2024 Start: 06-24-2024 End: 09-23-2024 HIV 1+2 Ab [Presence] in Serum or Plasma by Immunoassay [facility] Comment on above: Expected: 06/24/2024 , Expires: 09/23/2024 Start: 06-24-2024 End: 09-23-2024 SYPHILIS TREPONEMAL W/REFLEX [facility] Work Phone: Comment on above: Expected: 06/24/2024 , Expires: 09/23/2024 Start: 05-04-2024 Covid-19 Vaccine () Covid-19 Vaccine () [facility] Start: 05-04-2024 Influenza vaccination Influenza Vacc ine (#1) [facility] Start: 05-06-2023 End: 07-06-2023 Bacteria identified in Urine by Culture URINE CULTURE Microbiology Routine Exposure to sexually transmitted disease (STD) Dysuria Expected: 05/06/2023, Expires: 07/06/2023 [facility] Work Phone: Comment on above: Expected: 05/06/2023 , Expires: 07/06/2023 Start: 05-04-2023 Influenza vaccination [facility] Start: 09-03-2022 [facility]PRESSION [facility] Start: 05-11-2022 Patient discharge [facility] Work Phone: Start: 05-11-2022 Procedure discontinued [facility] Work Phone: Start: 05-11-2022 End: 05-11-2022 [facility] Work Phone: Start: 05-11-2022 Ambulation without limitation [facility] Work Phone: Start: 05-11-2022 Medical regimen orde rs management [facility] Work Phone: Start: 05-11-2022 Medication education [facility] Work Phone: Start: 05-11-2022 Taking patient vital signs [facility] Work Phone: Start: 05-11-2022 [facility]ital signs [facility] Work Phone: Start: 05-11-2022 [facility] Start: 05-04-2022 Influenza vaccination [facility] Start: 12-23-2021 End: 02-22-2022 Protein/Creatinine [Mass Ratio] in Urine [facility] Work Phone: Comment on above: Expected: 12/23/2021 , Expires: 02/22/2022 Start: 12-05-2021 Screening for malign ant neoplasm of cervix PAP SMEAR [facility] Start: 08-12-2021 COVID-19 VACCINE (3 - Booster for Pfizer series) COVID-19 VACCINE (3 - Booster for Pfizer series) [facility] Start: 05-07-2021 COVID-19 VACCINE (3 - Booster for Pfizer series) COVID-19 VACCINE (3 - Booster for Pfizer series) [facility] Start: 05-07-2021 COVID-19 VACCINE (3 - Pfizer series) COVID-19 VACCINE (3 - Pfizer series) [facility] Start: 05-04-2021 Influenza vaccination INFLUENZA (#1) [facility] Start: 05-04-2019 Influenza vaccinatio n given [facility] Start: 11-26-2018 History and physical examination, annual for health maintenance Wellness Visit [facility] Start: 06-05-2012 Urine microalbumin profile DTaP,Tdap,Td Vaccine (5 - Tdap) [facility] Start: 04-25-2012 Tetanus vaccination TETANUS EVERY 10 YR [facility] Start: 2005 Hepatitis B Vaccine (1 of 3 - 19+ 3-dose series) Hepatitis B Vaccine (1 of 3 - 19+ 3-dose series) [facility] Start: 2005 Urine microalbumin profile [facility] Start: 01-09-2004 Anxiety Screening Anxiety Screening [facility] Start: 01-09-2004 Depression Screening Depression Scre ening [facility] Start: 1998 Adult depression screening assessment DEPRESSION SCREENING [facility] Start: 1986 HEPATITIS B (1 of 3 - 3-dose series) HEPATITIS B (1 of 3 - 3-dose series) [facility] Start: 1986 Hepatitis B Vaccine (1 of 3 - 3-dose series) Hepatitis B Vaccine (1 of 3 - 3-dose series) [facility] Start: 1986 Tetanus vaccination TETANUS EVERY 10 YR [facility] Bacteria identified in Urine by Culture URINE CULTURE Microbiology Routine Acute cystitis with hematuria 10/02/2022 6:29 PM EST [facility] Work Phone: Bacteria identified in Urine by Culture BACTERIAL CULTURE, URINE Microbiology Routine Dysuria 01/05/2025 3:50 PM EDT [facility] Work Phone: BACTERIAL VAGINOSIS NAAT BACTERIAL VAGINOSIS NAAT Lab Routine Exposure to sexually transmitted disease (STD) Ordered: 05/06/2023 [facility] Work Phone: Comment on above: Ordered: 05/06/2023 BACTERIAL VAGINOSIS NAAT BACTERIAL VAGINOSIS NAAT Lab Routine Vaginal discharge 06/24/2024 11:34 AM EDT [facility] BACTERIAL VAGINOSIS NAAT BACTERIAL VAGINOSIS NAAT Lab Routine Vaginal discharge 01/05/2025 3:50 PM EDT [facility] LUCY/TRICHOMONAS NAAT LUCY/TRICHOMONAS NAAT Lab Routine Exposure to sexually transmitted disease (STD) Ordered: 05/06/2023 [facility] Work Phone: Comment on above: Ordered: 05/06/2023 LUCY/TRICHOMONAS NAAT LUCY/TRICHOMONAS NAAT Lab Routine Vaginal discharge 06/24/2024 11:34 AM EDT [facility] LUCY/TRICHOMONAS NAAT LUCY/TRICHOMONAS NAAT Lab Routine Vaginal discharge 01/05/2025 3:50 PM EDT [facility] Chlamydia trachomatis+Neisseria gonorrhoeae DNA [Presence] in Unspecified specimen by FLACO with probe detection GONORRHEA/CHLAMYDIA NAAT Lab Routine Exposure to sexually transmitted disease (STD) Ordered: 05/06/2023 [facility] Work Phone: Comment on above: Ordered: 05/06/2023 Chlamydia trachomatis+Neisseria gonorrhoeae DNA [Presence] in Unspecified specimen by FLACO with probe detection GONORRHEA/CHLAMYDIA NAAT Lab Routine Encounter for gynecological examination (general) (routine) without abnormal findings Vaginal discharge 06/24/2024 11:34 AM EDT [facility] Chlamydia trachomatis+Neisseria gonorrhoeae DNA [Presence] in Unspecified specimen by FLACO with probe detection GONORRHEA/CHLAMYDIA NAAT Lab Routine Vaginal discharge 01/05/2025 3:50 PM EDT [facility] PAP TEST PAP TEST Lab Edita velazquez Encounter for screening for human papillomavirus (HPV) Screening for malignant neoplasm of cervix 06/24/2024 11:34 AM EDT [facility] Patient referral [facility] Work Phone: ROUTINE, GR OUP B STREP PCR ROUTINE, GROUP B STREP PCR Microbiology Routine 35 weeks gestation of 11/30/2021 3:26 PM EDT [facility] Work Phone: End: 01-23-2019 S. pyogenes Org specific cx Ql (Throat) Strep A Culture, Throat Microbiology KARIE Once for 1 Occurrences starting 01/23/2019 until 01/23/2019, 1 completed [facility] Comment on above: Once for 1 Occurrenc es starting 01/23/2019 until 01/23/2019, 1 completed S. pyogenes Org specific cx Ql (Throat) Strep A Culture, Throat Microbiology Routine 01/23/2019 1:58 AM EDT [facility] Immunizations Immunization Date Immunization Notes Care Provider Alysia mcgowan 03-20-2019 diphtheria, tetanus toxoids and acellular pertussis vaccine, unspecified formulation [facility] 03-20-2019 measles, mumps and r ubella virus vaccine [facility] 03-20-2019 varicella zoster immune globulin Edw casi [facility] 11-26-2017 tuberculin skin test ; purified protein derivative solution, intradermal Mary Alexis [facility] Payers Date Payer Category Payer Self-pay [id number] 2018 Medicaid [employer] [place] [id number] 2018-Present [phone] [address] [address] [place] [address] Medicaid [id number] 2018 Medicaid [id number] 2018 Unknown 2017 Medicaid [employer] xxxxxxxxxxxx 2017-Present [id number] 2017 Unknown [id number] 1986 Unknown [id number] [id number] 1986 Unknown [id number] 2.16840.1.278091.3.579.2.356 1986 Unknown [id number] 2.840.1.321344.3.579.2. 1986 Unknown [id number] 2.840.1.763544.3.579.2.356 1986 Unknown [id number] 2.16840.1.373332.3.579.2. 1986 Unknown [id number] 2.16.840.1.601236.3.579.2. 1986 Unknown [id number] 2.840.1.640583.3.579.2. 1986 Unknown [id number] 2.840.1.924159.3.579.2. 1986 Unknown [id number] 2.16.840.1.559242.3.579.2. 1986 Unknown [id number] 2.16.840.1.263671.3.579.2. 1986 Unknown [id number] 2.16840.1.459835.3.579.2. 1986 Unknown [id number] 2.16840.1.973791.3.579.2. 1986 Unknown [id number] 2.16.840.1.226265.3.579.2.717 1986 Unknown [id number] 2.16.840.1.199150.3.579.2.717 1986 Unknown [id number] 2.16.840.1.988170.3.579.2.900 1986 Unknown [id number] 2.16.840.1.470640.3.579.2.903 1986 Unknown [id number] 2.16.840.1.320745.3.579.2.903 Unknown [id number] 2.16.840.1.820127.3.579.2.462 Unknown [id number] [id number]2 Unknown [id number] [id number] Social History Date Type Detail Facility Start: 01-23-2019 End: 04-26-2022 Tobacco smoking status NHIS Never smoker [facility] Work Phone: Start: 01-23-2019 End: 10-08-2019 History SDOH Alcohol Frequency 1 [facility] Start: 07-03-2018 [facility] Start: 1985 Sex Assigned At Not on file [facility] Start: 06-02-2021 End: 04-26-2022 Tobacco use and exposure Smokeless tobacco non-user [facility] Work Phone: Start: 11-30-2021 End: 01-05-2025 Alcohol intake Ex-drinker (finding) [facility] Start: 10-08-2019 History SDOH Alcohol Frequency 3 [facility] Start: 10-28-2020 History SDOH Alcohol Comment Occasionally [facility] Start: 06-02-2021 Education 15 [facility] Start: 11-06-2021 End: 05-25-2022 Exposure to SARS-CoV-2 (event) Not sure [facility] Start: 12-29-2021 End: 05-09-2022 Tobacco smoking status NHIS Unknown if ever smoked [facility] Work Phone: Start: 1985 Sex Assigned At Female [facility] Work Phone: Start: 10-02-2022 End: 06-18-2024 History of Social function [facility] Start: 10-02-2022 End: 06-18-2024 Tobacco use panel [facility] National Score (1-100), lower number is lower risk 96 [facility] Goals Date Patient Goal Desired Activity /State Mental Status Date Assessment Result Facility 05-11-2022 Cognitive function Voice/Name [facility] Work Phone: Clinical Notes 11-30-2021 to 01-06-2025 Telephone Encounter - Mercy Cordova RN - 01/06/2025 8:53 AM EDTTelephone Encounter - Mercy Cordova RN - 01/06/2025 8:53 AM EDTTelephone Encounter - Tiffanie Parker MA - 01/06/2025 7:33 AM EDT Note Date & Type Note Facility 01-06-2025 Telephone encounter Note Pt returned the call and notified of positive BV and need to take antibiotic. Also let pt know that her voicemail is full. [facility] 01-06-2025 Miscellaneous Notes Pt returned the call and notified of positive BV and need to take antibiotic. Also let pt know that her voicemail is full. Unable to reach patient. Mailbox full/Mailbox not set up/ Number incorrect. Please try again later. Tiffanie Parker MA Please notify positive for BV. This is an overgrowth of normal bacteria. I will send flagyl to pharmacy. F/u with pcp or service center supervisor for continued s/s. Urine culture still pending. documented in this encounter [facility] 01-06-2025 Telephone encounter Note Unable to reach patient. Mailbox full/Mailbox not set up/ Number incorrect. Please try again later. Tiffanie Parker MA [facility] 01-06-2025 Telephone encounter Note Please notify positive for BV. This is an overgrowth of normal bacteria. I will send flagyl to pharmacy. F/u with pcp or service center supervisor for continued s/s. Urine culture still pending. [facility] 01-05-2025 Note HNO ID: [id number] Author: BOO PRIEST APRN.OSEI Service: ? Author Type: Nurse Practitioner Type: Progress Notes Filed: 01/05/2025 15:55 Note Text: [facility] Subjective Duarte Sunshine is a 39 year old female. Patient presents with: UTI: Yellow vaginal discharge, denies burning with urination or frequency Patient came in with complaints of 1 weeks worth of burning and frequency. Patient says she has noticed some yellow discharge. Patient does have unprotected sex with her partner but they have been together 11 years. Patient denies any abdominal pain fever chills nausea vomiting or other symptoms. Patient had her tubes tied says there is no chance of . Patient did have some spotting before and after her period The history is provided by the patient. No humanities and languages professor was used. UTI Review of Systems Constitutional: Negative. HENT: Negative. Genitourinary: Positive for dysuria and vaginal discharge. Objective BP 132/68 (BP Site: Left Arm, BP Position: Sitting) Pulse 64 Temp 36.9 ?C (98.4 ?F) Resp 18 Wt 95 kg (209 lb 7 oz) LMP 12/29/2024 (Approximate) SpO2 100% BMI 35.32 kg/m? Physical Exam Constitutional: Appearance: Normal appearance. Cardiovascular: Rate and Rhythm: Normal rate and regular rhythm. Heart sounds: Normal heart sounds. Pulmonary: Effort: Pulmonary effort is normal. Breath sounds: Normal breath sounds. Abdominal: General: Abdomen is flat. Palpations: Abdomen is soft. Tenderness: There is no abdominal tenderness. There is no right CVA tenderness, left CVA tenderness or guarding. Neurological: Mental Status: She is alert. PAST MEDICAL HISTORY Diagnosis Date Abnormal Pap smear of cervix Anemia anxiety Chlamydia 2012 Gestational proteinuria in third trimester (HCC) 12/28/2021 Herpes simplex virus (HSV) infection History of genital warts History of HPV infection History of syphilis Syphilis 2016 PAST SURGICAL HISTORY Procedure Laterality Date PAST SURGICAL HISTORY OF had pyloric stenosis as a baby, had surgery to open SALPINGECTOMY Bilateral 05/11/2022 laparoscopic ALLERGIES House Dust Mite, Seasonal Allergies, and Stadol [Butorphanol] MEDICATIONS No prescriptions on file. FAMILY HISTORY Problem Relation Age of Onset Thyroid Mother Hypertension Mother Hyperlipidemia Father other (ovarian cysts) Sister Breast Cancer Maternal Grandmother 70 Blood Clots Maternal Grandfather Ovarian cancer Paternal Grandmother 90 Hodgkin Lymphoma Paternal Grandfather No Known Problems Daughter No Known Problems Daughter No Known Problems Son No Known Problems Son Social History Tobacco Use Smoking status: Never Smokeless tobacco: Never Vaping Use Vaping status: Never Used Substance Use Topics Alcohol use: Not Currently Comment: Occasionally Drug use: Never {ASSESSMENT/PLAN: 1. Dysuria - ICD9: 788.1, ICD10: R30.0 (primary diagnosis) acute - Send urine for culture - Patient education for prevention given - UA DIP, URINE (POC) - BACTERIAL CULTURE, URINE 2. Vaginal discharge - ICD9: 623.5, ICD10: N89.8 - BACTERIAL VAGINOSIS NAAT - LUCY/TRICHOMONAS NAAT - GONORRHEA/CHLAMYDIA NAAT Did self swabs. No treatment was given at this time. If anything comes back positive please treat accordingly. Boo Priest APRN.LEI MAKER History and Record Review External record(s) reviewed: no prior records. Disposition The patient was discharged. Procedures [facility] 01-05-2025 History of Presen t illness Narrative [facility] Josselyn Sunshine is a 39 year old female. Patient presents with: UTI: Yellow vaginal discharge, denies burning with urination or frequency Patient came in with complaints of 1 weeks worth of burning and frequency. Patient says she has noticed some yellow discharge. Patient does have unprotected sex with her partner but they have been together 11 years. Patient denies any abdominal pain fever chills nausea vomiting or other symptoms. Patient had her tubes tied says there is no chance of . Patient did have some spotting before and after her period The history is provided by the patient. No humanities and languages professor was used. UTI Review of Systems Constitutional: Negative. HENT: Negative. Genitourinary: Positive for dysuria and vaginal discharge. Objective BP 132/68 (BP Site: Left Arm, BP Position: Sitting) Pulse 64 Temp 36.9 C (98.4 F) Resp 18 Wt 95 kg (209 lb 7 oz) LMP 12/29/2024 (Approximate) SpO2 100% BMI 35.32 kg/m Physical Exam Constitutional: Appearance: Normal appearance. Cardiovascular: Rate and Rhythm: Normal rate and regular rhythm. Heart sounds: Normal heart sounds. Pulmonary: Effort: Pulmonary effort is normal. Breath sounds: Normal breath sounds. Abdominal: General: Abdomen is flat. Palpations: Abdomen is soft. Tenderness: There is no abdominal tenderness. There is no right CVA tenderness, left CVA tenderness or guarding. Neurological: Mental Status: She is alert. PAST MEDICAL HISTORY Diagnosis Date Abnormal Pap smear of cervix Anemia anxiety Chlamydia 2012 Gestational proteinuria in third trimester (HCC) 12/28/2021 Herpes simplex virus (HSV) infection History of genital warts History of HPV infection History of syphilis Syphilis 2017 PAST SURGICAL HISTORY Procedure Laterality Date PAST SURGICAL HISTORY OF had pyloric stenosis as a baby, had surgery to open SALPINGECTOMY Bilateral 05/11/2022 laparoscopic ALLERGIES House Dust Mite, Seasonal Allergies, and Stadol [Butorphanol] MEDICATIONS No prescriptions on file. FAMILY HISTORY Problem Relation Age of Onset Thyroid Mother Hypertension Mother Hyperlipidemia Father other (ovarian cysts) Sister Breast Cancer Maternal Grandmother 70 Blood Clots Maternal Grandfather Ovarian cancer Paternal Grandmother 90 Hodgkin Lymphoma Paternal Grandfather No Known Problems Daughter No Known Problems Daughter No Known Problems Son No Known Problems Son Social History Tobacco Use Smoking status: Never Smokeless tobacco: Never Vaping Use Vaping status: Never Used Substance Use Topics Alcohol use: Not Currently Comment: Occasionally Drug use: Never {ASSESSMENT/PLAN: 1. Dysuria - ICD9: 788.1, ICD10: R30.0 (primary diagnosis) acute - Send urine for culture - Patient education for prevention given - UA DIP, URINE (POC) - BACTERIAL CULTURE, URINE 2. Vaginal discharge - ICD9: 623.5, ICD10: N89.8 - BACTERIAL VAGINOSIS NAAT - LUCY/TRICHOMONAS NAAT - GONORRHEA/CHLAMYDIA NAAT Did self swabs. No treatment was given at this time. If anything comes back positive please treat accordingly. Boo Priest APRN.OSEI History and Record Review External record(s) reviewed: no prior records. Disposition The patient was discharged. Procedures documented in this encounter [facility] 09-29-2024 Note HNO ID: [id number] Author: BOO PRIEST APRN.OSEI Service: ? Author Type: Nurse Practitioner Type: Progress Notes Filed: 09/29/2024 09:59 Note Text: CC: Patient presents with: Sore Throat: ST, fever, OSEGUERA, bodyaches, chills and fatigue x 2 days HPI: Duarte Sunshine is a 39 year old female who presents to the office with complaint of sore throat and fever for 2 days. Symptoms are staying the same. Associated symptoms includes body aches. Denies nausea, vomiting , and diarrhea. Treatments tried include nothing so far. with no relief of symptoms. Sick contacts: unknown. History of asthma, frequent episodes of bronchitis, chronic bronchitis, bronchiectasis or COPD: No Smoker: No Seasonal/environmental allergies: No The ROS is otherwise negative. The patient's pmh, medications, allergies, and past visits are reviewed. PHYSICAL EXAM: BP 106/72 Pulse 101 Temp 37.1 ?C (98.8 ?F) (Tympanic) Resp 18 Wt 92.2 kg (203 lb 4.2 oz) LMP 05/31/2024 (Approximate) SpO2 98% BMI 34.28 kg/m? General appearance: alert, cooperative, pleasant, in no acute distress Head: Normocephalic Eyes: EOM's intact, conjunctiva pink and moist, no icterus, sclera white, non-injected Ears: Right ear: External ear/canal- Normal, TM - clear with good landmarks. Left ear: External ear/canal- Normal, TM - clear with good landmarks Oropharynx:moderate erythema, with exudates present Heart: Negative. RRR without obvious murmur, gallop, or rubs. No ectopy. Lungs: clear to auscultation, without rales or wheeze, good air exchange PAST MEDICAL HISTORY Diagnosis Date Abnormal Pap smear of cervix Anemia anxiety Chlamydia 2013 Gestational proteinuria in third trimester 12/28/2021 Herpes simplex virus (HSV) infection History of genital warts History of HPV infection History of syphilis Syphilis 2016 PAST SURGICAL HISTORY Procedure Laterality Date PAST SURGICAL HISTORY OF had pyloric stenosis as a baby, had surgery to open SALPINGECTOMY Bilateral 05/11/2022 laparoscopic ALLERGIES House Dust Mite, Seasonal Allergies, and Stadol [Butorphanol] MEDICATIONS cephALEXin (KEFLEX) 500 mg capsule Take 1 capsule by mouth two times a day for 10 days. FAMILY HISTORY Problem Relation Age of Onset Thyroid Mother Hypertension Mother Hyperlipidemia Father other (ovarian cysts) Sister Breast Cancer Maternal Grandmother 70 Blood Clots Maternal Grandfather Ovarian cancer Paternal Grandmother 90 Hodgkin Lymphoma Paternal Grandfather No Known Problems Daughter No Known Problems Daughter No Known Problems Son No Known Problems Son Social History Tobacco Use Smoking status: Never Smokeless tobacco: Never Vaping Use Vaping status: Never Used Substance Use Topics Alcohol use: Not Currently Comment: Occasionally Drug use: Never ASSESSMENT/PLAN: 1. Sore throat - ICD9: 462, ICD10: J02.9 (primary diagnosis) - STREP A MOLECULAR (POC) - pos 2. Strep throat - ICD9: 034.0, ICD10: J02.0 - CEPHALEXIN 500 MG CAPSULE Recently completed amoxicillin for strep Prescription instructions reviewed with patient as applicable. Potential red flag symptoms discussed with the patient. Reviewed appropriate action plan to take if red flag symptoms occur. Patient agreeable to treatment plan. Boo Priest APRN.[facility] 09-29-2024 History of Presen t illness Narrative CC: Patient presents with: Sore Throat: ST, fever, OSEGUERA, bodyaches, chills and fatigue x 2 days HPI: Duarte Sunshine is a 39 year old female who presents to the office with complaint of sore throat and fever for 2 days. Symptoms are staying the same. Associated symptoms includes body aches. Denies nausea, vomiting , and diarrhea. Treatments tried include nothing so far. with no relief of symptoms. Sick contacts: unknown. History of asthma, frequent episodes of bronchitis, chronic bronchitis, bronchiectasis or COPD: No Smoker: No Seasonal/environmental allergies: No The ROS is otherwise negative. The patient's pmh, medications, allergies, and past visits are reviewed. PHYSICAL EXAM: BP 106/72 Pulse 101 Temp 37.1 C (98.8 F) (Tympanic) Resp 18 Wt 92.2 kg (203 lb 4.2 oz) LMP 05/31/2024 (Approximate) SpO2 98% BMI 34.28 kg/m General appearance: alert, cooperative, pleasant, in no acute distress Head: Normocephalic Eyes: EOM's intact, conjunctiva pink and moist, no icterus, sclera white, non-injected Ears: Right ear: External ear/canal- Normal, TM - clear with good landmarks. Left ear: External ear/canal- Normal, TM - clear with good landmarks Oropharynx:moderate erythema, with exudates present Heart: Negative. RRR without obvious murmur, gallop, or rubs. No ectopy. Lungs: clear to auscultation, without rales or wheeze, good air exchange PAST MEDICAL HISTORY Diagnosis Date Abnormal Pap smear of cervix Anemia anxiety Chlamydia 2013 Gestational proteinuria in third trimester 12/28/2021 Herpes simplex virus (HSV) infection History of genital warts History of HPV infection History of syphilis Syphilis 2017 PAST SURGICAL HISTORY Procedure Laterality Date PAST SURGICAL HISTORY OF had pyloric stenosis as a baby, had surgery to open SALPINGECTOMY Bilateral 05/11/2022 laparoscopic ALLERGIES House Dust Mite, Seasonal Allergies, and Stadol [Butorphanol] MEDICATIONS cephALEXin (KEFLEX) 500 mg capsule Take 1 capsule by mouth two times a day for 10 days. FAMILY HISTORY Problem Relation Age of Onset Thyroid Mother Hypertension Mother Hyperlipidemia Father other (ovarian cysts) Sister Breast Cancer Maternal Grandmother 70 Blood Clots Maternal Grandfather Ovarian cancer Paternal Grandmother 90 Hodgkin Lymphoma Paternal Grandfather No Known Problems Daughter No Known Problems Daughter No Known Problems Son No Known Problems Son Social History Tobacco Use Smoking status: Never Smokeless tobacco: Never Vaping Use Vaping status: Never Used Substance Use Topics Alcohol use: Not Currently Comment: Occasionally Drug use: Never ASSESSMENT/PLAN: 1. Sore throat - ICD9: 462, ICD10: J02.9 (primary diagnosis) - STREP A MOLECULAR (POC) - pos 2. Strep throat - ICD9: 034.0, ICD10: J02.0 - CEPHALEXIN 500 MG CAPSULE Recently completed amoxicillin for strep Prescription instructions reviewed with patient as applicable. Potential red flag symptoms discussed with the patient. Reviewed appropriate action plan to take if red flag symptoms occur. Patient agreeable to treatment plan. Boo Priest APRN.LEI MAKER documented in this encounter [facility] 09-10-2024 Note HNO ID: [id number] Author: JAMAAL CHAPARRO MD Service: ? Author Type: Physician Type: Progress Notes Filed: 09/10/2024 15:34 Note Text: Patient presents with: Sore Throat: ST, fatigue and drainage x 4 days HPI: Feeling sick for 4-5 days. Positive symptoms: Sore throat, Fatigue, malaise, some Cough with dry throat Negative symptoms: Rhinorrhea, Fever, Nausea, Vomiting, Diarrhea, OTC: Ibuprofen MEDICATIONS: No current outpatient medications on file. No current facility-administered medications for this visit. ALLERGIES: ALLERGIES Allergen Reactions House Dust Mite Unknown Seasonal Allergies Other: See Comments Stadol [Butorphanol] Other: See Comments dizziness and increased heart rate VITALS: BP 118/76 Pulse 88 Temp 37.1 ?C (98.7 ?F) (Tympanic) Resp 18 Wt 91.3 kg (201 lb 4.5 oz) LMP 05/31/2024 (Approximate) SpO2 99% BMI 33.95 kg/m? PHYSICAL EXAM: GEN: Pleasant, in no acute distress. HEENT: PERRL, EOMI, conjunctiva clear Ears: canals clear. TMs without erythema, bulge, or effusion Sinuses: non-tender frontal sinus, non-tender maxillary sinuses Throat: moist mucous membranes, pharyngeal erythema and exudate Neck: supple, no thyromegaly, mild anterior lymphadenopathy HEART: regular rate, regular rhythm, no murmurs LUNGS: clear to auscultation, no wheezes or crackles, no increased WOB ASSESSMENT/PLAN: 1. Streptococcal pharyngitis - ICD9: 034.0, ICD10: J02.0 (primary diagnosis) 2. Sore throat - ICD9: 462, ICD10: J02.9 - Rapid molecular strep test positive - Discussed supportive care treatment with as needed analgesia. - Contagious disease precautions discussed- including considered contagious until on antibiotics for 24 hours - STREP A MOLECULAR (POC) Jamaal Chaparro MD [facility] 09-10-2024 History of Presen t illness Narrative Patient presents with: Sore Throat: ST, fatigue and drainage x 4 days HPI: Feeling sick for 4-5 days. Positive symptoms: Sore throat, Fatigue, malaise, some Cough with dry throat Negative symptoms: Rhinorrhea, Fever, Nausea, Vomiting, Diarrhea, OTC: Ibuprofen MEDICATIONS: No current outpatient medications on file. No current facility-administered medications for this visit. ALLERGIES: ALLERGIES Allergen Reactions House Dust Mite Unknown Seasonal Allergies Other: See Comments Stadol [Butorphanol] Other: See Comments dizziness and increased heart rate VITALS: BP 118/76 Pulse 88 Temp 37.1 C (98.7 F) (Tympanic) Resp 18 Wt 91.3 kg (201 lb 4.5 oz) LMP 05/31/2024 (Approximate) SpO2 99% BMI 33.95 kg/m PHYSICAL EXAM: GEN: Pleasant, in no acute distress. HEENT: PERRL, EOMI, conjunctiva clear Ears: canals clear. TMs without erythema, bulge, or effusion Sinuses: non-tender frontal sinus, non-tender maxillary sinuses Throat: moist mucous membranes, pharyngeal erythema and exudate Neck: supple, no thyromegaly, mild anterior lymphadenopathy HEART: regular rate, regular rhythm, no murmurs LUNGS: clear to auscultation, no wheezes or crackles, no increased WOB ASSESSMENT/PLAN: 1. Streptococcal pharyngitis - ICD9: 034.0, ICD10: J02.0 (primary diagnosis) 2. Sore throat - ICD9: 462, ICD10: J02.9 - Rapid molecular strep test positive - Discussed supportive care treatment with as needed analgesia. - Contagious disease precautions discussed- including considered contagious until on antibiotics for 24 hours - STREP A MOLECULAR (POC) Jamaal Chaparro MD documented in this encounter [facility] 06-26-2024 Telephone encounter Note Patient notified. [facility] will [facility]. She's aware that her partner(s) need treatment. Geraldine Donnelly RN [facility] 06-26-2024 Miscellaneous Notes Patient notified. She will contact the [facility]. She's aware that her partner(s) need treatment. eGraldine Donnelly RN Left message for patient to call office. [facility]axed notification to [facility] asking that they reach out to patient for treatment. 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 She will need treatment. Betty Meredith APRN.CNP documented in this encounter [facility] 06-26-2024 Telephone encounter Note Left message for patient to call office. Faxed notification to [facility] asking that they reach out to patient for treatment. 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 She will need treatment. Betty Meredith APRN.CNP [facility] 06-24-2024 Note HNO ID: [id number] Author: MASOUD, BETTY, READING TUTOR.LEI MAKER Service: ? Author Type: Nurse Practitioner Type: Progress Notes Filed: 06/24/2024 10:37 Note Text: Patient declined tilt tray driver. Duarte is a 39 year old who presents for an annual gynecologic exam with complaints, patient reported unprotected intercourse, vaginal discharge. Rash started on 06/10- a little itchy Menses: cycles every 28 days and 4-5 days of flow. Contraception: tubal sterilization HPV vaccine: No Last Pap: 10/14/2019 normal HPV: 10/13/2019 negative patient reports a history of HPV with genital warts History of abnormal pap: Yes Last mammogram: never Sexually active: Yes Patient concerns for STD exposure: Yes OB History T5 L5 SAB0 IAB0 Ectopic0 Multiple0 Live Births5 Comment: x 4 [employer] History LMP: 04/23/2023 (Approximate), Unknown Age at Menarche: Age at First : Age at Menopause: [employer] History Comments: Sexual Activity: Yes; Male Contraception: Condom, Pill PAST MEDICAL HISTORY Diagnosis Date Abnormal Pap smear of cervix Anemia anxiety Chlamydia 2012 Gestational proteinuria in third trimester 12/28/2021 Herpes simplex virus (HSV) infection History of genital warts History of HPV infection History of syphilis Syphilis 2017 PAST SURGICAL HISTORY Procedure Laterality Date PAST SURGICAL HISTORY OF had pyloric stenosis as a baby, had surgery to open SALPINGECTOMY Bilateral 05/11/2022 laparoscopic FAMILY HISTORY Problem Relation Age of Onset Thyroid Mother Hypertension Mother Hyperlipidemia Father other (ovarian cysts) Sister Breast Cancer Maternal Grandmother 70 Blood Clots Maternal Grandfather Ovarian cancer Paternal Grandmother 90 Hodgkin Lymphoma Paternal Grandfather No Known Problems Daughter No Known Problems Daughter No Known Problems Son No Known Problems Son SOCIAL HISTORY Social History Tobacco Use Smoking status: Never Smokeless tobacco: Never Vaping Use Vaping status: Never Used Substance Use Topics Alcohol use: Not Currently Comment: Occasionally Drug use: Never REVIEW OF SYSTEMS Abdomen: No abdominal pain, nausea, vomiting, diarrhea, or constipation. No bloating, early satiety, indigestion, or increased flatulence. Bladder: No dysuria, gross hematuria, urinary frequency, urinary urgency, or incontinence. Breast: No breast lumps, nipple d/c, overlying skin changes, redness or skin retraction. Allergies and current medication updated:Yes SENSITIVE EXAM: The sensitive examination was discussed with the Patient or Patient's Authorized Api Architect. As applicable, any other physician, advance practice provider, medical student, or other health professional student that will be observing or involved in the sensitive examination for educational or training purposes was discussed with the Patient or Authorized Api Architect. The Patient or Authorized Api Architect has agreed to proceed with the sensitive examination. (Sensitive examination includes inspection and/or palpation of the breasts, pelvis, prostate and anorectal regions). EXAM: LMP 04/23/2023 GENERAL: pleasant, female in no apparent distress HEENT: Normocephalic, atraumatic, mucus membranes moist, and no lesions NECK: Supple, full range of motion, no adenopathy, and thyroid normal DERMATOLOGY: papular rash all over body BREAST: soft, non-tender, symmetric, no dominant mass, normal nipple-areolar complex, no lymphadenopathy, and no nipple discharge CHEST: Normal inspiratory effort ABDOMEN: soft, non-tender, and no masses PELVIC: external genitalia normal, normal Bartholin's glands, urethra, [place]'s glands, no cervical lesions, physiologic discharge present, normal appearing perineal body and perianal region, vulvar lesion herpes lesions BIMANUAL: uterus normal size, shape and consistency, no adnexal masses, and non-tender RECTOVAGINAL: deferred. NEURO: alert and oriented x3,exam grossly non-focal EXTREMITIES: normal ASSESSMENT/PLAN: 1. Encounter for gynecological examination (general) (routine) without abnormal findings - ICD9: V72.31, ICD10: Z01.419 (primary diagnosis) - Completed pap test and breast exam - Encouraged monthly BSE - Follow up for annual exam in one year. - GONORRHEA/CHLAMYDIA NAAT 2. Vaginal discharge - ICD9: 623.5, ICD10: N89.8 - GONORRHEA/CHLAMYDIA NAAT - HEPATITIS B SURFACE ANTIGEN - TRICHOMONAS VAGINALIS NAAT - LUCY/TRICHOMONAS NAAT - BACTERIAL VAGINOSIS NAAT 3. Unprotected sexual intercourse - ICD9: V69.2, ICD10: Z72.51 - SYPHILIS TREPONEMAL W/REFLEX - HIV 1/2 COMBO WITH REFLEX TO DIFFERENTIATION - HEPATITIS C ANTIBODY IA WITH CONFIRMATION - TRICHOMONAS VAGINALIS NAAT 4. Encounter for screening for human papillomavirus (HPV) - ICD9: V73.81, ICD10: Z11.51 - PAP TEST 5. Screening for malignant neoplasm of cervix - ICD9: V76.2, ICD10: Z12.4 - PAP TEST Will notify isma (more content not included)... [facility] 06-24-2024 History of Presen t illness Narrative Patient declined tilt tray driver. Duarte is a 39 year old who presents for an annual gynecologic exam with complaints, patient reported unprotected intercourse, vaginal discharge. Rash started on 06/10- a little itchy Menses: cycles every 28 days and 4-5 days of flow. Contraception: tubal sterilization HPV vaccine: No Last Pap: 10/14/2019 normal HPV: 10/13/2019 negative patient reports a history of HPV with genital warts History of abnormal pap: Yes Last mammogram: never Sexually active: Yes Patient concerns for STD exposure: Yes OB History T5 L5 SAB0 IAB0 Ectopic0 Multiple0 Live Births5 Comment: x 4 [employer] History LMP: 04/23/2023 (Approximate), Unknown Age at Menarche: Age at First : Age at Menopause: [employer] History Comments: Sexual Activity: Yes; Male Contraception: Condom, Pill PAST MEDICAL HISTORY Diagnosis Date Abnormal Pap smear of cervix Anemia anxiety Chlamydia 2013 Gestational proteinuria in third trimester 12/28/2021 Herpes simplex virus (HSV) infection History of genital warts History of HPV infection History of syphilis Syphilis 2017 PAST SURGICAL HISTORY Procedure Laterality Date PAST SURGICAL HISTORY OF had pyloric stenosis as a baby, had surgery to open SALPINGECTOMY Bilateral 05/11/2022 laparoscopic FAMILY HISTORY Problem Relation Age of Onset Thyroid Mother Hypertension Mother Hyperlipidemia Father other (ovarian cysts) Sister Breast Cancer Maternal Grandmother 70 Blood Clots Maternal Grandfather Ovarian cancer Paternal Grandmother 90 Hodgkin Lymphoma Paternal Grandfather No Known Problems Daughter No Known Problems Daughter No Known Problems Son No Known Problems Son SOCIAL HISTORY Social History Tobacco Use Smoking status: Never Smokeless tobacco: Never Vaping Use Vaping status: Never Used Substance Use Topics Alcohol use: Not Currently Comment: Occasionally Drug use: Never REVIEW OF SYSTEMS Abdomen: No abdominal pain, nausea, vomiting, diarrhea, or constipation. No bloating, early satiety, indigestion, or increased flatulence. Bladder: No dysuria, gross hematuria, urinary frequency, urinary urgency, or incontinence. Breast: No breast lumps, nipple d/c, overlying skin changes, redness or skin retraction. Allergies and current medication updated:Yes SENSITIVE EXAM: The sensitive examination was discussed with the Patient or Patient's Authorized Api Architect. As applicable, any other physician, advance practice provider, medical student, or other health professional student that will be observing or involved in the sensitive examination for educational or training purposes was discussed with the Patient or Authorized Api Architect. The Patient or Authorized Api Architect has agreed to proceed with the sensitive examination. (Sensitive examination includes inspection and/or palpation of the breasts, pelvis, prostate and anorectal regions). EXAM: LMP 04/23/2023 GENERAL: pleasant, female in no apparent distress HEENT: Normocephalic, atraumatic, mucus membranes moist, and no lesions NECK: Supple, full range of motion, no adenopathy, and thyroid normal DERMATOLOGY: papular rash all over body BREAST: soft, non-tender, symmetric, no dominant mass, normal nipple-areolar complex, no lymphadenopathy, and no nipple discharge CHEST: Normal inspiratory effort ABDOMEN: soft, non-tender, and no masses PELVIC: external genitalia normal, normal Bartholin's glands, urethra, [place]'s glands, no cervical lesions, physiologic discharge present, normal appearing perineal body and perianal region, vulvar lesion herpes lesions BIMANUAL: uterus normal size, shape and consistency, no adnexal masses, and non-tender RECTOVAGINAL: deferred. NEURO: alert and oriented x3,exam grossly non-focal EXTREMITIES: normal ASSESSMENT/PLAN: 1. Encounter for gynecological examination (general) (routine) without abnormal findings - ICD9: V72.31, ICD10: Z01.419 (primary diagnosis) - Completed pap test and breast exam - Encouraged monthly BSE - Follow up for annual exam in one year. - GONORRHEA/CHLAMYDIA NAAT 2. Vaginal discharge - ICD9: 623.5, ICD10: N89.8 - GONORRHEA/CHLAMYDIA NAAT - HEPATITIS B SURFACE ANTIGEN - TRICHOMONAS VAGINALIS NAAT - LUCY/TRICHOMONAS NAAT - BACTERIAL VAGINOSIS NAAT 3. Unprotected sexual intercourse - ICD9: V69.2, ICD10: Z72.51 - SYPHILIS TREPONEMAL W/REFLEX - HIV 1/2 COMBO WITH REFLEX TO DIFFERENTIATION - HEPATITIS C ANTIBODY IA WITH CONFIRMATION - TRICHOMONAS VAGINALIS NAAT 4. Encounter for screening for human papillomavirus (HPV) - ICD9: V73.81, ICD10: Z11.51 - PAP TEST 5. Screening for malignant neoplasm of cervix - ICD9: V76.2, ICD10: Z12.4 - PAP TEST Will notify patient of test results. Betty Meredith APRN.[facility] Medical Decision Making: Problems: Moderate: New problem with uncertain prognosis Data: Unique test(s) ordered: 3+ Risk: Moderate: Drug management Medical Decision Making Level: 4 - Moderate documented in this encounter [facility] 05-08-2023 Miscellaneous Notes Left another message with negative results ad recommendations.Meaghan Hurt LPN Left message for patient to return call. Tiffanie Parker Left message for patient to return call. Tiffanie Parker Patient's urine culture did not grow any significant urine bacteria. Patient should continue her treatment plan as discussed earlier. Patient should follow-up with primary care if anything worsens or changes. documented in this encounter [facility] 05-07-2023 Miscellaneous Notes Spoke with pt note below was read pt voiced understanding. Vanesa Lake LPN Left message for patient to return call. Tiffanie Parker Patient was positive for chlamydia. Doxycycline twice a day for 7 days was called in. Patient should finish medication and abstain from sex for 2 weeks. Patient should tell partners to get treated. Patient was negative for gonorrhea and trichomonas yeast and bacterial vaginosis. documented in this encounter [facility] 05-06-2023 History of Presen t illness Narrative This note was created using [email or web address]. Subjective Duarte Sunshine is a 38 year old female. Patient presents with one week of vaginal itching and white discharge. Patient is concerned for a yeast infection or STI. She was treated with antibiotics twice since March for strep throat. Per patient, her partner started treatment for chlamydia today. She is sexually active and does not use condoms. Last menstrual period was approximately three weeks ago. She denies any fever, chill, nausea, back pain, abdominal pain, or other urinary symptoms Vaginal Problem This is a new problem. The current episode started in the past 7 days. The problem occurs constantly. The problem has been unchanged. Pertinent negatives include no abdominal pain, chest pain, chills, congestion, coughing, fatigue, fever, nausea, rash, urinary symptoms or vomiting. Nothing aggravates the symptoms. She has tried nothing for the symptoms. PAST MEDICAL HISTORY Diagnosis Date Abnormal Pap smear of cervix Anemia anxiety Chlamydia 2012 Gestational proteinuria in third trimester 12/28/2021 Herpes simplex virus (HSV) infection History of genital warts History of HPV infection History of syphilis Syphilis 2016 PAST SURGICAL HISTORY Procedure Laterality Date PAST SURGICAL HISTORY OF had pyloric stenosis as a baby, had surgery to open SALPINGECTOMY Bilateral 05/11/2022 laparoscopic ALLERGIES House Dust Mite, Seasonal Allergies, and Stadol [Butorphanol] MEDICATIONS omeprazole (PRILOSEC) 10 mg capsule take 1 capsule by mouth once daily (Patient not taking: No sig reported) acyclovir (ZOVIRAX) 400 mg tablet Take 1 tablet by mouth three times daily. Continue until delivery. (Patient not taking: No sig reported) FAMILY HISTORY Problem Relation Age of Onset Thyroid Mother Hypertension Mother Hyperlipidemia Father other (ovarian cysts) Sister Breast Cancer Maternal Grandmother 70 Blood Clots Maternal Grandfather Ovarian cancer Paternal Grandmother 90 Hodgkin Lymphoma Paternal Grandfather No Known Problems Daughter No Known Problems Daughter No Known Problems Son No Known Problems Son Social History Tobacco Use Smoking status: Never Smokeless tobacco: Never Vaping Use Vaping Use: Never used Substance Use Topics Alcohol use: Not Currently Comment: Occasionally Drug use: Never Review of Systems Constitutional: Negative for chills, fatigue and fever. HENT: Negative for congestion. Respiratory: Negative for cough and shortness of breath. Cardiovascular: Negative for chest pain. Gastrointestinal: Negative for abdominal pain, nausea and vomiting. Genitourinary: Positive for vaginal discharge. Negative for difficulty urinating, dysuria, flank pain, frequency, genital sores, hematuria, menstrual problem, pelvic pain, urgency, vaginal bleeding and vaginal pain. Skin: Negative for rash. All other systems reviewed and are negative. Objective BP 120/78 Pulse 88 Temp 36.9 C (98.5 F) Resp 20 Wt 87.5 kg (192 lb 12.8 oz) LMP 04/23/2023 (Approximate) SpO2 99% BMI 32.58 kg/m Physical Exam Vitals reviewed. Exam conducted with a tilt tray driver present (Joan Ca). Constitutional: General: She is not in acute distress. Appearance: Normal appearance. She is normal weight. She is not ill-appearing or toxic-appearing. Cardiovascular: Rate and Rhythm: Normal rate and regular rhythm. Pulmonary: Effort: Pulmonary effort is normal. No respiratory distress. Breath sounds: Normal breath sounds. Genitourinary: General: Normal vulva. Exam position: Lithotomy position. Pubic Area: No rash or pubic lice. Nehemias stage (genital): 5. Labia: Right: No rash, tenderness, lesion or injury. Left: No rash, tenderness, lesion or injury. Vagina: Vaginal discharge present. No tenderness. Cervix: Discharge (white discharge) present. Neurological: General: No focal deficit present. Mental Status: She is alert and oriented to person, place, and time. Mental status is at baseline. Psychiatric: Mood and Affect: Mood normal. Behavior: Behavior normal. Thought Content: Thought content normal. Judgment: Judgment normal. Office Visit on 05/06/2023 Component Date Value Ref Range Status GLUCOSE UA (POCT) 05/06/2023 Negative Negative mg/dL Final BILIRUBIN UA (POCT) 05/06/2023 Negative Negative Final KETONE UA (POCT) 05/06/2023 Negative Negative mg/dL Final SPECIFIC GRAVITY UA (POCT) 05/06/2023 1.015 1.005 - 1.030 Final HEMOGLOBIN/BLOOD UA (POCT) 05/06/2023 Trace-intact (A) Negative Final PH UA (POCT) 05/06/2023 7.0 4.5 - 8.0 Final PROTEIN UA (POCT) 05/06/2023 Negative Negative mg/dL Final UROBILINOGEN UA (POCT) 05/06/2023 0.2 Normal E.U./dL Final NITRITE UA (POCT) 05/06/2023 Negative Negative Final LEUKOCYTES UA (POCT) 05/06/2023 Negative Negative Final COLOR UA (POCT) 05/06/2023 Yellow Final CLARITY UA (POCT) 05/06/2023 Clear Final Assessment and Plan ASSESSMENT/PLAN: 1. Exposure to sexually transmitted disease (STD) - ICD9: V01.6, ICD10: Z20.2 (primary diagnosis) Differentials include STI, BV, yeast, UTI - thick white discharge from cervix noted on pelvic exam - swabs sent for yeast, trichomonas, BV, gonorrhea, and chlamydia - will call patient with results (Will defer treatment until results) - advised patient no intercourse for two weeks with partner or others to limit reinfection - UA with trace hematuria- will send for culture - LUCY/TRICHOMONAS NAAT - BACTERIAL VAGINOSIS NAAT - GONORRHEA/CHLAMYDIA NAAT - UA DIP B/O - URINE CULTURE 2. Dysuria - ICD9: 788.1, ICD10: R30.0 - see above - UA DIP, URINE (POC) - URINE CULTURE 3. Microscopic hematuria - ICD9: 599.72, ICD10: R31.29 Urine sent for culture - See above E [place] [employer] Student TEACHING PROVIDER (Physician/PA/READING TUTOR) NOTE OF PERSONAL INVOLVEMENT IN CARE: I have personally seen and examined the patient and performed the medical decision-making components. I have reviewed the Advanced Practice Registered Nurse (READING TUTOR) Student's documentation and verified the findings in the note as written. Any additions or changes are noted in bold/italics. Signature: Joan Ca Date: 05/06/2023 Time: 1:00 PM documented in this encounter [facility] 03-19-2023 History of Presen t illness Narrative Subjective Sore Throat Pertinent negatives include no abdominal pain, congestion, coughing, ear pain or vomiting. Duarte Sunshine is a 38 year old female who presents with one day of sore throat, fever, body aches and chills. She took tylenol at home for pain. She denies any known exposure to strep throat. Review of Systems Constitutional: Positive for chills and fever. HENT: Positive for sore throat. Negative for congestion and ear pain. Respiratory: Negative for cough. Cardiovascular: Negative for chest pain. Gastrointestinal: Negative for abdominal pain, nausea and vomiting. Musculoskeletal: Positive for myalgias. Negative for back pain. Skin: Negative for rash. BP 112/64 Pulse 94 Temp 37.4 C (99.4 F) Resp 16 Wt 85.7 kg (189 lb) LMP 04/03/2022 (Exact Date) SpO2 99% BMI 31.94 kg/m PAST MEDICAL HISTORY Diagnosis Date Abnormal Pap smear of cervix Anemia anxiety Chlamydia 2012 Gestational proteinuria in third trimester 12/28/2021 Herpes simplex virus (HSV) infection History of genital warts History of HPV infection History of syphilis Syphilis 2016 PAST SURGICAL HISTORY Procedure Laterality Date PAST SURGICAL HISTORY OF had pyloric stenosis as a baby, had surgery to open SALPINGECTOMY Bilateral 05/11/2022 laparoscopic ALLERGIES House Dust Mite, Seasonal Allergies, and Stadol [Butorphanol] MEDICATIONS amoxicillin (AMOXIL) 500 mg capsule Take 1 capsule by mouth twice daily for 10 days. omeprazole (PRILOSEC) 10 mg capsule take 1 capsule by mouth once daily (Patient not taking: No sig reported) acyclovir (ZOVIRAX) 400 mg tablet Take 1 tablet by mouth three times daily. Continue until delivery. (Patient not taking: No sig reported) FAMILY HISTORY Problem Relation Age of Onset Thyroid Mother Hypertension Mother Hyperlipidemia Father other (ovarian cysts) Sister Breast Cancer Maternal Grandmother 70 Blood Clots Maternal Grandfather Ovarian cancer Paternal Grandmother 90 Hodgkin Lymphoma Paternal Grandfather No Known Problems Daughter No Known Problems Daughter No Known Problems Son No Known Problems Son Social History Tobacco Use Smoking status: Never Smokeless tobacco: Never Vaping Use Vaping Use: Never used Substance Use Topics Alcohol use: Not Currently Comment: Occasionally Drug use: Never Objective Physical Exam Vitals and nursing note reviewed. Constitutional: General: She is not in acute distress. Appearance: Normal appearance. She is not ill-appearing. HENT: Mouth/Throat: Mouth: Mucous membranes are moist. Pharynx: Uvula midline. Oropharyngeal exudate and posterior oropharyngeal erythema present. Cardiovascular: Rate and Rhythm: Normal rate and regular rhythm. Heart sounds: Normal heart sounds. Pulmonary: Effort: Pulmonary effort is normal. No respiratory distress. Breath sounds: Normal breath sounds. No wheezing or rales. Musculoskeletal: Cervical back: Neck supple. Lymphadenopathy: Cervical: Cervical adenopathy present. Skin: General: Skin is warm and dry. Findings: No erythema or rash. Neurological: Mental Status: She is alert. ASSESSMENT/PLAN: 1. Sore throat - ICD9: 462, ICD10: J02.9 (primary diagnosis) - STREP A MOLECULAR (POC) 2. Strep throat - ICD9: 034.0, ICD10: J02.0 - Alere Strep Test positive, no culture pending - Amoxicillin for 10 days. - Discussed supportive care treatment with fluids, rest and analgesia. - The patient may also use warm salt water gargles, throat lozenges and/or OTC throat spray as needed. - Contagious dz precautions discussed- including considered contagious until on antibiotics for 24 hours - Call back if drooling, increased temperature, symptoms of dehydration and/or still sick in one week - AMOXICILLIN 500 MG CAPSULE - Follow-up with your PCP in 3-5 days if symptoms have not improved or sooner if symptoms worsen - Discussed red flags and need for immediate medical evaluation if any occur. - Discussed supportive care treatment with fluids, rest and analgesia. - Discussed expected course of illness Cheryl Randall APRN.OSEI documented in this encounter [facility] 03-19-2023 Instructions Cheryl Randall APRN.OSEI - 03/19/2023 7:01 PM EDT ASSESSMENT/PLAN: 1. Sore throat - ICD9: 462, ICD10: J02.9 (primary diagnosis) - STREP A MOLECULAR (POC) 2. Strep throat - ICD9: 034.0, ICD10: J02.0 - Alere Strep Test positive, no culture pending - Amoxicillin for 10 days. - Discussed supportive care treatment with fluids, rest and analgesia. - The patient may also use warm salt water gargles, throat lozenges and/or OTC throat spray as needed. - Contagious dz precautions discussed- including considered contagious until on antibiotics for 24 hours - Call back if drooling, increased temperature, symptoms of dehydration and/or still sick in one week - AMOXICILLIN 500 MG CAPSULE - Follow-up with your PCP in 3-5 days if symptoms have not improved or sooner if symptoms worsen - Discussed red flags and need for immediate medical evaluation if any occur. - Discussed supportive care treatment with fluids, rest and analgesia. - Discussed expected course of illness Cheryl Randall APRN.LEI MAKER What is strep throat? Strep throat is an infection caused by a specific type of bacteria, Streptococcus. When your child has a strep throat, the tonsils are usually very inflamed, and the inflammation may affect the surrounding part of the throat as well. Symptoms Strep throat is caused by a bacterium called Streptococcus pyogenes. To some extent, the symptoms of strep throat depend on the child s age. Infants with strep infections may have only a low fever and a thickened or bloody nasal discharge. Toddlers (ages one to three) also may have a thickened or bloody nasal discharge with a fever. Such children are usually quite cranky, have no appetite, and often have swollen glands in the neck. Sometimes toddlers will complain of tummy pain instead of a sore throat. Children over three years of age with strep are often more ill; they may have an extremely painful throat, fever over 102 degrees Fahrenheit (38.9 degrees Celsius), swollen glands in the neck, and pus on the tonsils. It s important to be able to distinguish a strep throat from a viral sore throat, because strep infections are treated with antibiotics. When to call the bargeman If your child has a sore throat that persists (not one that goes away after her first drink in the morning), whether or not it is accompanied by fever, headache, stomachache, or extreme fatigue, you should call your bargeman. That call should be made even more urgently if your child seems extremely ill, or if she has difficulty breathing or extreme trouble swallowing (causing her to drool). This may indicate a more serious infection. Treatment If the strep test shows that your child does have strep throat, your bargeman will prescribe an antibiotic to be taken by mouth or by injection. If your child is given the oral medication, it s very important that she take it for the full course, as prescribed, even if the symptoms get better or go away. If a child s strep throat is not treated with antibiotics, or if she doesn t complete the treatment, the infection may worsen or spread to other parts of her body, leading to conditions such as abscesses of the tonsils or kidney problems. Untreated strep infections also can lead to rheumatic fever, a disease that affects the heart. However, rheumatic fever is rare in the [place] and in children under five years old. Prevention Most types of throat infections are contagious, being passed primarily through the air on droplets of moisture or on the hands of infected children or adults. For that reason, it makes sense to keep your child away from people who have symptoms of this condition. However, most people are contagious before their first symptoms appear, so often there s really no practical way to prevent your child from kaye the disease. In the past when a child had several sore throats, her tonsils might have been removed in an attempt to prevent further infections. But this operation, called a tonsillectomy, is recommended today only for the most severely affected children. Even in difficult cases, where there is repeated strep throat, antibiotic treatment is usually the best solution. documented in this encounter [facility] 10-05-2022 Miscellaneous Notes Phone call placed, no answer letter mailed to patient's listed address to contact a nurse for results. Sully Pendleton LPN Unable to reach patient. Mailbox full/Mailbox not set up/ Number incorrect. Please try again later. Tiffanie Parker Please call and let patient know that her urine culture showed it was contaminated by skin bacteria on collection. If antibiotics are helping she can finish those otherwise follow-up with PCP. documented in this encounter [facility] 10-02-2022 History of Presen t illness Narrative This note was created using [email or web address]. Subjective Duarte Sunshine is a 37 year old female. HPI Patient presents with urinary frequency, pelvic pressure over the past 3 to 4 days. She did have some back pain a few days ago but that has resolved. No blood in urine. She states her last menstrual cycle was September 12. She has had a tubal ligation. She states she is breast-feeding her 9-month-old. No vaginal itching or discharge. No fever or vomiting. She states when she gets a UTI she does not get burning with urination. Review of Systems Constitutional: Negative. HENT: Negative. Respiratory: Negative. Genitourinary: Positive for frequency, pelvic pain and urgency. Negative for dysuria, flank pain and hematuria. Musculoskeletal: Negative for back pain. All other systems reviewed and are negative. PAST MEDICAL HISTORY Diagnosis Date Abnormal Pap smear of cervix Anemia anxiety Chlamydia 2012 Gestational proteinuria in third trimester 12/28/2021 Herpes simplex virus (HSV) infection History of genital warts History of HPV infection History of syphilis Syphilis 2017 Current Outpatient Medications Medication Sig Dispense Refill cephALEXin (KEFLEX) 500 mg capsule Take 1 capsule by mouth twice daily for 7 days. 14 capsule 0 omeprazole (PRILOSEC) 10 mg capsule take 1 capsule by mouth once daily (Patient not taking: No sig reported) 30 capsule 0 acyclovir (ZOVIRAX) 400 mg tablet Take 1 tablet by mouth three times daily. Continue until delivery. (Patient not taking: No sig reported) 90 tablet 1 No current facility-administered medications for this visit. PAST SURGICAL HISTORY Procedure Laterality Date PAST SURGICAL HISTORY OF had pyloric stenosis as a baby, had surgery to open SALPINGECTOMY Bilateral 05/11/2022 laparoscopic FAMILY HISTORY Problem Relation Age of Onset Thyroid Mother Hypertension Mother Hyperlipidemia Father other (ovarian cysts) Sister Breast Cancer Maternal Grandmother 70 Blood Clots Maternal Grandfather Ovarian cancer Paternal Grandmother 90 Hodgkin Lymphoma Paternal Grandfather No Known Problems Daughter No Known Problems Daughter No Known Problems Son No Known Problems Son Social History Tobacco Use Smoking status: Never Smokeless tobacco: Never Vaping Use Vaping Use: Never used Substance Use Topics Alcohol use: Not Currently Comment: Occasionally Drug use: Never Objective BP 132/78 Pulse 68 Temp 36.9 C (98.5 F) (Tympanic) Resp 16 Wt 88.9 kg (196 lb) LMP 04/03/2022 (Exact Date) SpO2 98% BMI 33.12 kg/m Physical Exam Vitals reviewed. Constitutional: Appearance: Normal appearance. HENT: Head: Normocephalic and atraumatic. Cardiovascular: Rate and Rhythm: Normal rate and regular rhythm. Heart sounds: Normal heart sounds. Pulmonary: Effort: Pulmonary effort is normal. Breath sounds: Normal breath sounds. Abdominal: General: Abdomen is flat. Palpations: Abdomen is soft. Tenderness: There is no abdominal tenderness. There is no right CVA tenderness, left CVA tenderness or guarding. Skin: General: Skin is warm and dry. Findings: No rash. Neurological: Mental Status: She is alert. Assessment and Plan ASSESSMENT/PLAN: 1. Acute cystitis with hematuria - ICD9: 595.0, ICD10: N30.01 UA positive for blood. I will start her on Keflex. If urine culture is negative she can discontinue this. Would recommend follow-up with PCP for the blood in urine on dip. - UA DIP, URINE (POC) - URINE CULTURE Zena Cabrera PA-C documented in this encounter [facility] 05-25-2022 History of Presen t illness Narrative DATE OF SERVICE: 05/25/2022 PROBLEM: Duarte Sunshine presents for postop visit. SURGERY & DATE: Laparoscopic bilateral salpingectomy PATHOLOGY: Benign SUBJECTIVE/INTERVAL HISTORY: Duarte Sunshine is doing well and offers no complaints. No fevers, chills, N/V, pain, bleeding. OBJECTIVE: VITALS: BP 108/74 Wt 186 lb (84.4 kg) LMP 04/03/2022 (Exact Date) Yes BMI 31.43 kg/m HEENT: Normocephalic and atraumatic ABDOMEN: Abdomen soft, non-tender, no hepatosplenomegaly. Incision healing well. LOWER EXTREMITIES: No pitting edema and no skin changes. ASSESSMENT: Post op doing well PLAN: 1. Discussed results of pathology and surgery with patient. 2. Postop restrictions reviewed. RTO annual exams and PRN. Gini Pete DO documented in this encounter [facility] 05-03-2022 History and physical note DATE OF SERVICE: May 03, 2022 PROBLEM: desires sterilization DIAGNOSIS: desires sterilization PAST SURGICAL HISTORY: PAST SURGICAL HISTORY Procedure Laterality Date PAST SURGICAL HISTORY OF had pyloric stenosis as a baby, had surgery to open PAST MEDICAL HISTORY: PAST MEDICAL HISTORY Diagnosis Date Abnormal Pap smear of cervix Anemia anxiety Chlamydia 2012 Gestational proteinuria in third trimester 12/28/2021 Herpes simplex virus (HSV) infection History of genital warts History of HPV infection History of syphilis Syphilis 2016 SUBJECTIVE: Currently has a cavity and will be undergoing dental work later this month. Has been on pain medication and antibiotics for this. Currently not on an antibiotic and taking Ibuprofen for the pain. She is 100% certain she desires sterilization and does not desire more children. LMP 04/03/22. Still . Currently sexually active. Not using condoms. SOCIAL HISTORY: Social History Tobacco Use Smoking status: Never Smokeless tobacco: Never Vaping Use Vaping Use: Never used Substance Use Topics Alcohol use: Not Currently Comment: Occasionally Drug use: Never ALLERGIES Allergen Reactions House Dust Mite Unknown Seasonal Allergies Other: See Comments Stadol [Butorphanol] Other: See Comments dizziness and increased heart rate Current Outpatient Medications on File Prior to Visit Medication Sig omeprazole (PRILOSEC) 10 mg capsule take 1 capsule by mouth once daily (Patient not taking: Reported on 05/03/2022) acyclovir (ZOVIRAX) 400 mg tablet Take 1 tablet by mouth three times daily. Continue until delivery. (Patient not taking: Reported on 03/23/2022 ) No current facility-administered medications on file prior to visit. OBJECTIVE: VITALS: BP 110/78 Pulse 79 Resp 16 Ht 5' 4.5 (1.638 m) Wt 185 lb 9.6 oz (84.2 kg) LMP 04/03/2022 (Exact Date) Yes BMI 31.37 kg/m HEENT: Normocephalic, atraumatic, Mucus membranes moist without lesions. NECK: Soft and Supple. No adenopathy , thyromegaly or bruits. SKIN: No lesions. CHEST: Clear to auscultation. No wheezes or rales. Good air exchange. HEART: Regular rate and rhythm No S3 or S4. No gallops or rubs. BACK: Nontender with no CVA tenderness. ABDOMEN: Soft, non-tender, non-distended, no masses, no hepatosplenomegaly. LOWER EXTREMITIES: There was no pitting edema, no palpable cords and no skin changes. ASSESSMENT: request for sterilization PLAN: 1) Discussed laparoscopic bilateral salpingectomy. She understands this is permanent and irreversible, and there is a risk of regret. She is 100% certain she desires sterilization. The rationale for the proposed surgery was discussed in addition to risks, benefits, and alternatives. General pre- and post-operative care was reviewed. Questions were answered. After discussion, the patient indicated a desire to proceed with the planned surgery. Gini Pete DO Medical Decision Making: Problems: Moderate: New problem with uncertain prognosis Risk: Moderate: Decision on minor surgery w/ risk factors Medical Decision Making Level: 4 - Moderate documented in this encounter [facility] 04-26-2022 History of Presen t illness Narrative Patient presents with: Dental Problem: Tooth ache top left, sensitivity, throbbing x 2 days HPI: Dental pain: Duration: 3 days. Had pain in this tooth mostly fixed with filling in January. Location: left upper molar Character: aching, sharp, and throbbing Aggravating: biting, temperature Relieving: Pain relievers: Motrin, oragel Associated: Pertinent negatives: Denies fever, swelling, foul drainage MEDICATIONS: omeprazole (PRILOSEC) 10 mg capsule take 1 capsule by mouth once daily acyclovir (ZOVIRAX) 400 mg tablet Take 1 tablet by mouth three times daily. Continue until delivery. (Patient not taking: Reported on 03/23/2022 ) ALLERGIES: ALLERGIES Allergen Reactions House Dust Mite Unknown Seasonal Allergies Other: See Comments Stadol [Butorphanol] Other: See Comments dizziness and increased heart rate VITALS: BP 130/88 Pulse 78 Temp 36.9 C (98.5 F) Resp 21 Wt 84.8 kg (187 lb) LMP 03/26/2021 (Exact Date) SpO2 98% BMI 31.12 kg/m PHYSICAL EXAM: GEN: pleasant, no acute distress, alert HEENT: PERRL, EOMI, MMM, tender left upper first molar>2nd molar, no mandibular swelling NECK: supple, no lymphadenopathy, no thyromegaly HEART: regular rate, regular rhythm, no murmurs LUNGS: clear to auscultation, no wheezes or crackles, no increased WOB ASSESSMENT/PLAN: 1. Toothache - ICD9: 525.9, ICD10: K08.89 Possible infection vs filling or cavity issue. - PENICILLIN V POTASSIUM 500 MG TABLET Acetaminophen 500mg and ibuprofen 600mg every 6 hours as needed for pain. Follow up with dentist. She has reached out to several dentist but is having trouble getting an appointment soon with a provider that takes her insurance. Jamaal Chaparro MD documented in this encounter [facility] 04-04-2022 Miscellaneous Notes Patient called back and changed her mind. She would like to have surgery on 05/11. Marivel Butts RN Patient would like to have surgery on 05/05. Pre Op appointment scheduled. receptionist scheduler notified. Marivel Butts RN Left message to call office. Next available dates for surgery at [facility] for Dr. Pete are 05/05 & 05/11/2022. Patient will need a pre-operative appointment documented in this encounter [facility] 03-23-2022 History of Presen t illness Narrative Accounts Supervisor offered: Patient declines. Duarte Sunshine is a 37 year old female who presents for problem visit - desires sterilization. HPI: Desires sterilization. She is 100% certain she does not desire additional pregnancies in the future. She is currently and amenorrheic. Had unprotected intercourse about 3 weeks ago. Not using contraception at this time. 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 History Comments: Sexual Activity: Yes; Male Contraception: Condom, Pill PAST MEDICAL HISTORY Diagnosis Date Abnormal Pap smear of cervix Anemia anxiety Chlamydia 2013 Gestational proteinuria in third trimester 12/28/2021 Herpes simplex virus (HSV) infection History of genital warts History of HPV infection History of syphilis Syphilis 2017 PAST SURGICAL HISTORY Procedure Laterality Date PAST SURGICAL HISTORY OF had pyloric stenosis as a baby, had surgery to open FAMILY HISTORY Problem Relation Age of Onset Thyroid Mother Hypertension Mother Hyperlipidemia Father other (ovarian cysts) Sister Breast Cancer Maternal Grandmother 70 Blood Clots Maternal Grandfather Ovarian cancer Paternal Grandmother 90 Hodgkin Lymphoma Paternal Grandfather No Known Problems Daughter No Known Problems Daughter No Known Problems Son No Known Problems Son Social History Tobacco Use Smoking status: Never Smoker Smokeless tobacco: Never Used Vaping Use Vaping Use: Never used Substance Use Topics Alcohol use: Not Currently Comment: Occasionally Drug use: Never Current Outpatient Medications Medication Sig omeprazole (PRILOSEC) 10 mg capsule take 1 capsule by mouth once daily acyclovir (ZOVIRAX) 400 mg tablet Take 1 tablet by mouth three times daily. Continue until delivery. (Patient not taking: Reported on 03/23/2022 ) Ferrous Sulfate (SLOW FE) 142 mg (45 mg iron) TbER Take 3 tablets by mouth once daily. (Patient not taking: Reported on 02/08/2022 ) aspirin, enteric coated (ASPIRIN, ENTERIC COATED) 81 mg EC tablet Take 1 tablet by mouth once daily. (Patient not taking: Reported on 02/08/2022 ) folic acid 1 mg tablet Take 1 tablet by mouth once daily. (Patient not taking: Reported on 02/08/2022 ) pyridoxine, vitamin B6, (VITAMIN B-6) 50 mg tablet Take 1 tablet by mouth twice daily. (Patient not taking: Reported on 02/08/2022 ) ondansetron (ZOFRAN) 4 mg tablet Take 1 tablet by mouth every 8 hours as needed for nausea/vomiting. (Patient not taking: Reported on 02/08/2022 ) No current facility-administered medications for this visit. Allergies As of Date: 03/23/2022 Allergen Noted Reaction HOUSE DUST MITE 05/04/2021 Unknown SEASONAL ALLERGIES 05/04/2021 Other: See Comments STADOL [BUTORPHANOL] 06/02/2021 Other: See Comments Fully Assessed 03/23/2022 REVIEW OF SYSTEMS Expanded ROS: N/A Allergies and current medication updated:Yes EXAM: BP 110/76 Wt 187 lb 12.8 oz (85.2kg) LMP 03/26/2021 GENERAL: pleasant, female in no apparent distress HEENT: Normocephalic, atraumatic, mucus membranes moist and no lesions NECK: full range of motion DERMATOLOGY: Normal, without lesions, non-icteric and non-hirsute CHEST: Normal inspiratory effort NEURO: exam grossly non-focal EXTREMITIES: normal ASSESSMENT AND PLAN: Encounter Diagnosis ICD-10-CM 1. Sterilization consult Z30.09 2. Lactating mother Z39.1 HCG QUAL UR B/O Discussed that sterilization is permament and irreversible. Reviewed risk of regret. She understands other options for control including LARC's. She is 100% certain she desires sterilization. Title 19 paper work signed today. Surgery sheet completed for laparoscopic bilateral salpingectomy. Discussed surgery and questions answered. test today. Recommend abstinence or condom use. Gini Pete DO I spent 20 minutes in the visit, with more than 50% of the total [id number]-bt-[id number] time of the visit in counseling / coordination of care. documented in this encounter [facility] 01-23-2022 Miscellaneous Notes Patient delivered 12/29/21. Pending Prescriptions Disp Refills OMEPRAZOLE 10 MG CAPSULE,DELAYED RELEASE 30 capsule 0 Sig: take 1 capsule by mouth once daily DESTINY: Yes RX INSTRUCTIONS: Pharmacy initiated this request. No need to notify patient. Valerie Calix RN documented in this encounter [facility] 04-28-2022 History of Presen t illness Narrative NST SUMMARY PROVIDER ASSESSMENT AND INTERPRETATION Indications for NST: AMA Baseline: 140 Variability: Moderate Accelerations: Present 15 X 15 Decelerations: None Interpretation: Reactive SIGNATURE: Gini Pete DO documented in this encounter [facility] 12-28-2021 Miscellaneous Notes SW- Reports she is not well hydrated. Has not had much to eat or drink today. She feels well and has no complaints. Denies OSEGUERA, vision changes, upper abd pain, malaise. Denies regular ctx, vb, lof. Good FM. PE: Gen- NAD, well appearing Abd- Soft, gravid, NT Ext- No edema See flowsheet A/p 39 wk gestation - NST reactive today - Proteinuria: No evidence of pre eclampsia today. P/c ratio elevated but other labs WNL and no symptoms today. No hyper reflexia - Given AMA, obesity, and proteinuria discussed 39-40 week IOL and she desires to proceed. Discussed r/b/a to an induction and consent signed. Scheduled for tomorrow Gini Pete DO documented in this encounter [facility] 12-28-2021 Instructions Renetta Coello MA - 12/28/2021 2:14 PM EDT SEQUENTIAL SCREENINGS The [facility] offers sequential screenings for women who are interested in screenings for chromosomal abnormalities and certain defects during a . The sequential screen combines ultrasound and blood tests to determine the risk of chromosomal abnormalities, including Down's Syndrome (Trisomy 21) and Trisomy 18, as well as open neural tube defects including spina bifida. Ultrasound examination is performed between 11 weeks and 13 weeks gestational age. Blood tests are drawn after the ultrasound and again later in the between 15 and 21 weeks gestational age. Please let your physician know if you are interested in this testing. It will require an appointment with our clinical laboratory technician. This is not an ultrasound performed by a physician in our office during a routine visit. SIGNS AND SYMPTOMS OF LABOR 1. Contractions every 10 minutes or more often 2. Clear, pink, or brownish fluid (water) leaking from vagina 3. Feeling that baby is pushing down, pressure 4. Low, dull backache 5. Cramps that feel like a period 6. Cramps with or without diarrhea If you notice any of the above symptoms, contact our office at [phone] and ask to speak with a nurse. After hours, you can call doctors registry at [phone] OR call [facility] at [phone] and ask to have the doctor manager of community relations paged. If you consider this an emergency, dial 9-1-6 or go to your nearest emergency department. NEED HELP? Are you dealing with a violent or abusive relationship? Are you a victim of rape or sexual assult? Call [facility] ([place]) 24 hour Crisis Hotline: 631.919.7115 or 692-796-9503. MANUAL Your Guide to a Healthy manual is now on-line. Visit [email or web address] to download your free copy documented in this encounter [facility] 12-23-2021 History of Presen t illness Narrative NST SUMMARY PROVIDER ASSESSMENT AND INTERPRETATION Duarte Sunshine is a 36 year old female, , who is at 38w6d with an ALEK of 12/31/2021, by Last Menstrual Period dating method. Indications for NST: AMA Baseline: 140 Variability: Moderate Accelerations: Present 15 X 15 Decelerations: None Contractions: TOCO: irritability Interpretation: Category I and Reactive SIGNATURE: Serene Horowitz APRN.CNM documented in this encounter [facility] 12-23-2021 Miscellaneous Notes S: Duarte Sunshine is a 36 year old female who presents at 38.6 weeks gestation for NST and a routine visit. NST reactive, Cat. 1 tracing. Positive movement. Denies headache, visual changes, chest pain, shortness of breath, vaginal bleeding, leakage of fluid, or dysuria. Feeling well, no complaints. Discussed induction of labor at 39-40 weeks with provider last visit. Patient undecided if she wants induction before 40 weeks. O: See flow sheet Gen: No apparent distress Abd: Gravid, nontender CE- 60/-3 ASSESSMENT/PLAN: 1. Supervision of high risk in third trimester - ICD9: V23.9, ICD10: O09.93 (primary diagnosis) - URINE OB DIP B/O- 30+ protein 2. 38 weeks gestation of - ICD9: V22.2, ICD10: Z3A.38 3. Gestational proteinuria in third trimester - ICD9: 646.23, 791.0, ICD10: O12.13 - No signs of preeclampsia- BP normal range - CBC + DIFF - COMP METABOLIC PANEL - URIC ACID BLOOD - PROTEIN CREATININE RATIO P: 1) Labor and preeclampsia precautions reviewed and when to call 2) RTO 12/28/21 for NST and CE- Patient to make decision about induction of labor Serene Horowitz APRN.CNM documented in this encounter [facility] 12-23-2021 Instructions June Amaral Ma - 12/23/2021 11:33 AM EDT SEQUENTIAL SCREENINGS The [facility] offers sequential screenings for women who are interested in screenings for chromosomal abnormalities and certain defects during a . The sequential screen combines ultrasound and blood tests to determine the risk of chromosomal abnormalities, including Down's Syndrome (Trisomy 21) and Trisomy 18, as well as open neural tube defects including spina bifida. Ultrasound examination is performed between 11 weeks and 13 weeks gestational age. Blood tests are drawn after the ultrasound and again later in the between 15 and 21 weeks gestational age. Please let your physician know if you are interested in this testing. It will require an appointment with our clinical laboratory technician. This is not an ultrasound performed by a physician in our office during a routine visit. SIGNS AND SYMPTOMS OF LABOR 1. Contractions every 10 minutes or more often 2. Clear, pink, or brownish fluid (water) leaking from vagina 3. Feeling that baby is pushing down, pressure 4. Low, dull backache 5. Cramps that feel like a period 6. Cramps with or without diarrhea If you notice any of the above symptoms, contact our office at [phone] and ask to speak with a nurse. After hours, you can call doctors registry at [phone] OR call [facility] at [phone] and ask to have the doctor manager of community relations paged. If you consider this an emergency, dial 9-1-4 or go to your nearest emergency department. NEED HELP? Are you dealing with a violent or abusive relationship? Are you a victim of rape or sexual assult? Call [facility] ([place]) 24 hour Crisis Hotline: 783.474.5997 or 433-105-5601. MANUAL Your Guide to a Healthy manual is now on-line. Visit the [email or web address] to download your free copy documented in this encounter [facility] 11-30-2021 Miscellaneous Notes SW- Doing well. No regular ctx, vb, lof. Good FM PE: Gen- NAD, well appearing Abd- Soft, gravid, NT Ext- No edema See flowsheet A/p 35 wk gestation - Continue pepcid for acid reflux - Growth US today - GBS today - Start Acyclovir, rx sent - Weekly visits Gini Pete DO documented in this encounter [facility] 11-30-2021 Instructions Renetta Coello MA - 11/30/2021 2:16 PM EDT SEQUENTIAL SCREENINGS The [facility] offers sequential screenings for women who are interested in screenings for chromosomal abnormalities and certain defects during a . The sequential screen combines ultrasound and blood tests to determine the risk of chromosomal abnormalities, including Down's Syndrome (Trisomy 21) and Trisomy 18, as well as open neural tube defects including spina bifida. Ultrasound examination is performed between 11 weeks and 13 weeks gestational age. Blood tests are drawn after the ultrasound and again later in the between 15 and 21 weeks gestational age. Please let your physician know if you are interested in this testing. It will require an appointment with our clinical laboratory technician. This is not an ultrasound performed by a physician in our office during a routine visit. SIGNS AND SYMPTOMS OF LABOR 1. Contractions every 10 minutes or more often 2. Clear, pink, or brownish fluid (water) leaking from vagina 3. Feeling that baby is pushing down, pressure 4. Low, dull backache 5. Cramps that feel like a period 6. Cramps with or without diarrhea If you notice any of the above symptoms, contact our office at [phone] and ask to speak with a nurse. After hours, you can call doctors registry at [phone] OR call [facility] at [phone] and ask to have the doctor manager of community relations paged. If you consider this an emergency, dial 7-7-1 or go to your nearest emergency department. NEED HELP? Are you dealing with a violent or abusive relationship? Are you a victim of rape or sexual assult? Call [facility] ([place]) 24 hour Crisis Hotline: 662.455.8754 or 847-956-7144. MANUAL Your Guide to a Healthy manual is now on-line. Visit [email or web address] to download your free copy documented in this encounter [facility] Evaluation note Diagnosis 35 weeks gestation of - Primary state, incidental Supervision of high risk in third trimester Unspecified high-risk Obesity complicating , third trimester History of herpes genitalis Personal history of other infectious and parasitic disease [facility] Diagnosis Supervision of high risk in third trimester- Primary Unspecified high-risk 38 weeks gestation of state, incidental Gestational proteinuria in third trimester Unspecified antepartum renal disease [facility] Diagnosis 39 weeks gestation of - Primary state, incidental Supervision of high risk in third trimester Unspecified high-risk Gestational proteinuria in third trimester Unspecified antepartum renal disease [facility] Diagnosis Onset Date Resolution Status 39 weeks gestation of acute Advanced maternal age (AMA) in acute Obesity affecting acute Proteinuria affecting acute (spontaneous vaginal delivery) [facility] Work Phone: Evaluation note* Diagnosis 37 weeks gestation of state, incidental Gastroesophageal reflux disease, unspecified whether esophagitis present [facility] Diagnosis Sterilization consult- Primary Other general counseling and advice for contraceptive management Lactating mother care and examination of lactating mother [facility] Diagnosis Toothache- Primary Unspecified disorder of the teeth and supporting structures [facility] Diagnosis Pre-op exam- Primary Preoperative examination, unspecified Request for sterilization Class 1 obesity with body mass index (BMI) of 31.0 to 31.9 in adult, unspecified obesity type, unspecified whether serious comorbidity present [facility] Diagnosis Onset Date Resolution Status Encounter for sterilization [facility] Work Phone: Evaluation note* Diagnosis Post-operative state- Primary Other postprocedural status [facility] Diagnosis Acute cystitis with hematuria- Primary Acute cystitis [facility] Diagnosis Sore throat- Primary Acute pharyngitis Strep throat Streptococcal sore throat [facility] Diagnosis Exposure to sexually transmitted disease (STD)- Primary Contact with or exposure to other communicable diseases Dysuria Microscopic hematuria [facility] Diagnosis Encounter for gynecological examination (general) (routine) without abnormal findings- Primary Vaginal discharge Leukorrhea, not specified as infective Unprotected sexual intercourse Problems related to high-risk sexual behavior Encounter for screening for human papillomavirus (HPV) Special screening examination for human papillomavirus (HPV) Screening for malignant neoplasm of cervix Screening for malignant neoplasm of the cervix [facility] Diagnosis Bacterial vaginosis- Primary Vaginitis and vulvovaginitis, unspecified [facility] Diagnosis Streptococcal pharyngitis- Primary Streptococcal sore throat Sore throat Acute pharyngitis [facility] Diagnosis Sore throat- Primary Acute pharyngitis Strep throat Streptococcal sore throat [facility] Diagnosis Dysuria- Primary Vaginal discharge Leukorrhea, not specified as infective documented in this encounter [facility] Summary Purpose Family History No Family History Records FoundNo Family History Records FoundNo Family History Records FoundNo Family History Records FoundNo Family History Records FoundNo Family History Records FoundNo Family History Records Found Advance Directives No Advanced Directives Records FoundDocuments on File Type Date Recorded Patient Api Architect Expl anation Advance Directives and Livin g Will 01/23/2019 2:16 AM Documents on File Type Date Recorded Patient Api Architect Expl anation Advance Directives and Livin g Will 03/20/2019 8:36 AM Latest Code Status on File Code Status Date Activated Date Inactivated Comments Full Code 03/20/2019 5:41 PM Full Code 03/20/2019 7:34 AM 03/20/2019 5:41 PM Advance Directive Response Recorded Date/ Time Living Will No December 29, 2021 9:14am Power of Management Intern No December 29 9:14am Advance Directive Response Recorded Date/ Time Living Will No May 09 10:56am Power of Management Intern No May 09, 2022 10:56am Assessments Diagnosis Cough- Primary Diagnosis 39 weeks gestation of Hospital Course * Cem Perez MD - 03/22/2019 10:56 AM EDT DISCHARGE SUMMARY Patient: Duarte Sunshine Date of : 1985 Site: [facility] Family Provider: Lazara Ruth MD Admit Date: 03/20/2019 Discharge Date/Time: 03/22/19 Disposition: Home Clinical Summary Hospital Course: Duarte Sunshine is a 34 y.o. female patient of Lazara Ruth MD with a history of admission for elective induction of labor at term. Patient successfully underwent induction of labor and achieved normal spontaneous vaginal delivery of a viable . She and the spent a very unremarkable 2-day course in the hospital. During this time she regained bowel and bladder function was ambulatory taking regular diet and on oral pain medication. She was discharged home with her infant onthe second day on Motrin 600 mg 1 tab p.o. every 6 hours PRN for pain #30 with no refill. She will be seeing me in the office in 6 weeks for follow-up. Discharge Diagnoses: Induction of labor at term, normal spontaneous vaginal delivery of a viable infant. Surgeries: None Consults: No orders of the defined types were placed in this encounter. Allergies: Patient has no known allergies. Discharge Diet: Resume home diet Condition: Good Discharge Medications: Current Discharge Medication List START taking these medications Details ibuprofen (ADVIL,MOTRIN) 600 MG tablet Take 1 (one) tablet (600 mg total) by mouth every 6 (six) hours as needed for pain . Qty: 30 tablet, Refills: 0 CONTINUE these medications which have NOT CHANGED Details PNV no.95/ferrous fum/folic ac ( MULTIVITAMINS ORAL) Take by mouth . Physician(s) Family Provider: Lazara Ruth MD, Address: [address] [place] [address] / [facility] [address] Follow Up: Bennett Kerns MD [facility] Etienne Kil[address] [place] [id number] Schedule an appointment as soon as possible for a visit in 6 week(s) Additional Information: None Patient instructions, including activity, were given to the patient/family at discharge. Please seethe After Visit Summary in the electronic medical record for details. Time spent on discharge: < 30 minutes Completed by: Cem Perez MD on 03/22/19, 10:56 AM documented in this encounter Discharge Instructions * Discharge Instr - Other Orders* Mary Ann Gonzalez RN - 03/22/2019 9:11 AM EDT A Guide to Caring For Yourself was given to and reviewed with patient. Post Instructions After delivery you may experience some symptoms which may cause concern but are not serious. Some examples include: nausea, abdominal discomfort, breast tenderness or engorgement, vaginal discharge or spotting, fatigue, swelling or blues. You should contact our office however if you experience any of the following: - Fever >100.5 F - Persistent vomiting - Pain/redness with swelling in either leg - Worsening abdominal pain - Difficulty breathing or chest pain - Heavy vaginal bleeding - Difficulty urinating - Severe depression - Localized breast pain/redness - Persistent constipation - Foul smelling vaginal discharge - Swelling, redness, or fluid leakage from an incision - Separation of skin edges with drainage or excessive bleeding from a tubal ligation or incision. Some points to keep in mind: - Take a nap while the baby is sleeping. Get as much rest as possible! - You should place nothing in the vagina for a least 6 weeks. - No tub bathing or swimming for 4 weeks. - You may climb stairs cautiously! - Walking is great exercise within limits! - Avoid constipation maintain a regular diet with plenty of fiber and fluids. Use a stool softener and Milk of Mag if you need a laxative. - Continue taking your vitamins for at least 3 months - Use [id number] meds for pain. You may have been prescribed medications to use if necessary. If you had a vaginal delivery: - Use the sitz bath frequently for comfort. Cleanse the vagina/perineum with plain water after urinating/bowel movements, using the squirt bottle. If you had a section: - Do not lift anything in excess of 20 lbs for the first 2 weeks post operatively. - Do not drive for at least 2 weeks - Wash the incision daily while showering. After showering, the incision should be thoroughly driedand kept dry. Use a chair inspector and leveler (on cool) after showing if necessary Call soon to schedule an office follow up visit in 5 to 7 days to remove external maria teresa. If you don t have visible maria teresa, schedule a follow up appointment in 7 to 10 days post operatively for an incision check. Remove steri-strips one week post operatively after showering. Feel free to call the office at any time with questions. documented in this encounter History of Present Illness * Cem Perez MD - 03/21/2019 7:46 AM EDT Obstetrics Inpatient Follow-up 03/21/2019 Cem Perez MD [facility] Patient: Duarte Sunshine Date of : 1985 (34 y.o.) PCP: Lazara Ruth MD ASSESSMENT/PLAN: Duarte Sunshine 34 y.o. female with history of spontaneous vaginal delivery after elective admissionfor induction of labor. The patient is ambulatory taking a regular diet and on oral pain medicationshe is bonding well with her baby. Plan is for discharge tomorrow. SUBJECTIVE: History Since Last Visit: Spontaneous vaginal delivery yesterday after elective induction of labor.Patient and her tolerated the delivery well. Patient is ambulatory taking a regular diet andon oral pain medication. Review of Systems: Unremarkable OBJECTIVE: Physical Examination: BP 123/74 (Patient Position: Lying) Pulse 77 Temp 98.5 F (36.9 C) (Oral) Resp 15 Ht 5' 4 Wt 97.5 kg (215 lb) SpO2 98% ? Unknown BMI 36.90 kg/m Perineum is intact Laboratory and Additional Data Reviewed: Reviewed 03/21/19 7:47 AM: Hemoglobin is 10.6 * Qi Bruce RN - 03/21/2019 5:16 AM EDT Pt requests motrin with infants next feeding at 0600 unless wakes earlier then she will call. * Qi Bruce RN - 03/21/2019 4:05 AM EDT Pt requesting formula bottle for infant. Given. Discussed benefits of and listened topatients concerns. Pt exclusively breast fed last child for 15 months and does not want to do that with this child for multiple reasons. Offered pt pump, various options and scenarios of feeding and c ombination of feeding types. Pt is going to breastfeed for maybe 3 weeks but may offer formula between. * Qi Bruce RN - 03/21/2019 4:02 AM EDT Baby to room, patient aroused easily, number ID and name verified with patient. documented in this encounter Chief Complaint and Reason for Visit Chief Complaint VAG Reason for Visit 39 weeks gestation o f Advanced maternal age (AMA) in Obesity affecting Proteinuria affecting (spontaneous vaginal delivery) Chief Complaint LAP BILAT SALPINGECT IAN Reason for Visit Encounter for steril ization Additional Source Comments INFORMATION SOURCE (unrecogn ized section and content) DATE CREATED AUTHOR 02/26/2018 [facility] DATE CREATED AUTHOR AUTHOR'S ORGANIZ ATION 11/11/2018 [facility] DATE CREATED AUTHOR AUTHOR'S ORGANIZ ATION 11/16/2018 [facility] DATE CREATED AUTHOR AUTHOR'S ORGANIZ ATION 04/26/2019 [facility] DATE CREATED AUTHOR AUTHOR'S ORGANIZ ATION 05/03/2019 [facility] DATE CREATED AUTHOR AUTHOR'S ORGANIZ ATION 09/16/2024 [facility] DATE CREATED AUTHOR AUTHOR'S ORGANIZ ATION 2025 [facility] Reason for Visit (unrecogniz ed section and content) Reason Comments Cough PT C/O NONPRODUCTIVE COUGH FOR ABOUT 4 DAYS; PT STATES SHE WAS SEEN AT URGENT CARE, DX'D WITH BRONCHITIS AND GIVEN ATB; PT STATES SHE DOES NOT THINK ATB'S ARE WORKING AND HAS BEEN UNABLE TO SLEEP D/T COUGHING AND CHEST CONGESTION Reason Comments Scheduled Induction Induction Status Reason Specialty Diagnoses / Procedures Referre d By Contact Referred To Contact Reason Onset Date Comments Care 11/30/2021 Reason Onset Date Comments Care 12/23/2021 Reason Onset Date Comments Care 12/28/2021 Reason Comments Refill Request Reason Comments Follow Up discuss tubal Reason Comments Schedule Surgery Reason Comments Dental Problem Tooth ache top left, sensitivity, throbbing x 2 days Reason Comments Pre-Op Visit Reason Comments Post-Op Visit Reason Comments Urinary Frequency Frequency and low ba ck pain x 4-5 days Reason Comments Results Reason Comments Sore Throat swollen glands, feve r, bodyaches and chills x 1 day Reason Comments STD Needs tested partner + Reason Comments Education Of Patient/family HIV PrEP edu cation Reason Comments Well Woman Reason Comments Sore Throat ST, fatigue and drai nage x 4 days Reason Comments Sore Throat ST, fever, OSEGUERA, bodya ches, chills and fatigue x 2 days Reason Comments UTI Yellow vaginal disch arge, denies burning with urination or frequency Reason Onset Date Comments Results 01/05/2025 Angi Graham RN - 01/23/2019 1:45 AM EDTPAngi soto RN - 01/23/2019 1:45 AM EDT ED Notes (unrecognized secti on and content) Dr Reuben forrest documented in this encounter Dr Reuben forrest documented in this encounter Bennett Kerns MD - 03/20/2019 2:41 PM EDT H&P Notes (unrecognized sect ion and content) History of Present Illness: Duarte Sunshine is a 34 y.o. female presenting with Scheduled Induction ( Induction) . OB History Para Term AB Living 4 3 3 3 SAB TAB Ectopic Multiple Live Births 3 # Outcome Date GA Lbr Alex/2nd Weight Sex Delivery Anes PTL Lv 4 Current 3 Term 07/03/17 40w0d 3.402 kg (7 lb 8 oz) F Vag-Spont N JACQUELINE 2 Term 12/23/13 40w0d F Vag-Spont N JACQUELINE 1 Term 05/10/06 40w0d M Vag-Spont N JACQUELINE I have reviewed the relevant past medical, surgical, family, social, sexual, and drug and alcohol histories with Ms. Duarte Sunshine. I have also reviewed the relevant problem list items, home medications, and allergies with Ms. Duarte Sunshine. ROS: Constitutional: no fatigue, no fever, Skin: no abnormal moles, no rashes Respiratory: no dyspnea / shortness of breath, no cough, no sputum production, no hemoptysis, no wheezing Cardiovascular: no chest pain, no orthopnea Gastrointestinal: no dysphagia, no abdominal pain, no bowel movement changes, no diarrhea, no constipation, no rectal bleeding Genitourinary: no hematuria, no flank pain, no difficulty urinating Sexual: no sexual problems Musculoskeletal: generalized muscle aches, no muscle weakness, no arthralgias/joint pain Neurologic: no headaches, no dizziness, no LOC, no weakness, no numbness, no seizures Psych: no alcoholism, no illicit drugs OBJECTIVE: Wt Readings from Last 3 Encounters: 03/20/19 97.5 kg (215 lb) 03/13/19 97.5 kg (215 lb) 03/05/19 96.9 kg (213 lb 9.6 oz) Body mass index is 36.9 kg/m . BP (!) 108/56 Pulse 76 Temp 98.1 F (36.7 C) Resp 16 Ht 5' 4 Wt 97.5 kg (215 lb) SpO2 97% BMI 36.90 kg/m Physical Exam: General Appearance: healthy-appearing, well-nourished, no acute distress Neuro/psych: normal mood, normal affect, no focal deficits, oriented Skin:Appearance: no rashes, no lesions Neck/Thyroid: no enlargement, no nodules, non-tender, no enlarged lymph nodes Cardiovascular System- RRR, no significant murmur Breast: no skin changes, mild tenderness, no discrete/distinct masses Abdomen: soft, no tenderness, uterine fundus consistent with term gestation, no CVA tenderness Musculo-skeletal: Grossly normal range of motion with no skeletal defects Encounter for induction of labor. Assessment and Plan: Induction of labor with pitocin AROM Placement of internal monitors as appropriate Anticipate . Bennett Kerns MD 03/20/19 2:41 PM documented in this encounter Quick Note - Mary Ann Gonzalez RN - 03/22/2019 2:55 PM EDTPlan of Care - Mary Ann Gonzalez RN - 03/22/2019 9:07 AM EDTPlan of Care - Jami Pool RN - 03/22/2019 1:10 AM EDT Miscellaneous Notes (unrecog nized section and content) Discharge instructions given. Discharged to car with baby POC updated Problem: Pain Goal: Manage acute pain Outcome: Partially Met Problem: Plan for Discharge Goal: Knowledge of discharge plan and instructions Outcome: Partially Met Review and continue POC. independently. . , Infant and self teaching ongoing. PO motrin effective for pain. Progressing well toward discharge home. Plan of care reviewed and updated. Patient reports no pain and pain controlled by PO medication. Education ongoing. POC updated teaching ongoing. Vaginal Delivery Note Diagnosis: Active Problems: 39 weeks gestation of SNOMED CT(R): GESTATION PERIOD, 39 WEEKS Graening, Baby Boy Duarte [[id number]] Delivery Anesthesia Method: Epidural Operative Delivery Forceps attempted?: No Vacuum extractor attempted?: No Shoulder Dystocia Shoulder dystocia present: No Bingham Presentation Presentation: Vertex Bingham Information date/time: 03/20/191412 Gender: Male Delivery type: Vaginal, Spontaneous Delivery location: OB Unit ?: No Details: Delivery Providers Delivering clinician: Bennett Kerns MD Other personnel: Provider Role Covering Attending Resident [employer] Chrystal Blackburn RN Delivery Nurse Kim Mendoza RN Registered Nurse Delivery Assist Nurse Practitioner Sydni Meyer RN Registered Nurse Cord Vessels: 3 vessels Complications: Nuchal Nuchal intervention: reduced Nuchal cord description: loose nuchal cord Number of loops: 1 Delayed cord clamping?: No Cord blood obtained?: Refrigerator Cord segment obtained?: No Gases sent?: No Stem cell collection (by Provider)?: No Placenta Date/time: 03/20/2019 1415 Removal: Spontaneous Appearance: Intact Disposition: Refrigerator Apgars Living status: Living Initial disposition: Routine NB Care Scoring Pham: 0 1 2 Skin color Blue or pale Acrocyanotic Completely pink Heart rate Absent <100 bpm >100 bpm Reflex irritability No response Grimace Cry or active withdrawal Muscle tone Limp Some flexion Active motion Respiratory effort Absent Weak cry; hypoventilation Good, crying Skin color: Heart rate: Reflex irritability: Muscle tone: Respiratory effort: Total: 1 Minute: 1 2 2 2 2 9 5 Minute: 1 2 2 2 2 9 10 Minute: 15 Minute: 20 Minute: Bingham Measurements Weight: 8 lb 8.5 oz (3870 g) Length: 21 Head Circumference: 13.5 Lacerations Episiotomy: None Perineal lacerations: None Other Lacerations: no non-perineal laceration Repair suture: None Number of repair packets: 300 Sponge Initial Count: 10 Needle Initial Count: 0 Counted By: DEMARIO MINER Verified By: DR. KERNS Sponge Final Count: 10 Needle Final Count: 0 Counted By: DEMARIO MINER Verified By: DR. KERNS Other Procedures Procedures: None POC initiated. Problem: Actual or potential alteration in health Goal: Absence of healthcare acquired conditions Outcome: Met Goal: Knowledge of Interdisciplinary Plan of Care Outcome: Met Goal: Knowledge of Enviroment Outcome: Met Problem: Constipation Goal: Bowel elimination within specified parameters Outcome: Met Problem: Pain Goal: Manage acute pain Outcome: Met Goal: Reduced pain sensation Outcome: Met Goal: Achievement of comfort function goal Outcome: Met Problem: Plan for Discharge Goal: Knowledge of discharge plan and instructions Outcome: Met documented in this encounter Source Comments (unrecognize d section and content) In the event this informatio n is protected by the Federal Confidentiality of Alcohol and Drug Abuse Patient Records regulations: The Federal rules restrict any use of the information to criminally investigate or prosecute any alcohol or drug abuse patient.[facility]In the event this information is protected by the Federal Confidentiality of Alcohol and Drug Abuse Patient Records regulations: The Federal rules restrict any use of the information to criminally investigate or prosecute any alcohol or drug abuse patient.[facility] the event this information is protected by the Federal Confidentiality of Alcohol and Drug Abuse Patient Records regulations: The Federal rules restrict any use of the information to criminally investigate or prosecute any alcohol or drug abuse patient.[facility]In the event this information is protected by the Federal Confidentiality of Alcohol and Drug Abuse Patient Records regulations: The Federal rules restrict any use of the information to criminally investigate or prosecute any alcohol or drug abuse patient.[facility]In the event this information is protected by the Federal Confidentiality of Alcohol and Drug Abuse Patient Records regulations: The Federal rules restrict any use of the information to criminally investigate or prosecute any alcohol or drug abuse patient.[facility]In the event this information is protected by the Federal Confidentiality of Alcohol and Drug Abuse Patient Records regulations: The Federal rules restrict any use of the information to criminally investigate or prosecute any alcohol or drug abuse patient.[facility] HospitalIn the event this information is protected by the Federal Confidentiality of Alcohol and Drug Abuse Patient Records regulations: The Federal rules restrict any use of the information to criminally investigate or prosecute any alcohol or drug abuse patient.[facility] HospitalIn the event this information is protected by the Federal Confidentiality of Alcohol and Drug Abuse Patient Records regulations: The Federal rules restrict any use of the information to criminally investigate or prosecute any alcohol or drug abuse patient.[facility] HospitalIn the event this information is protected by the Federal Confidentiality of Alcohol and Drug Abuse Patient Records regulations: The Federal rules restrict any use of the information to criminally investigate or prosecute any alcohol or drug abuse patient.[facility] HospitalIn the event this information is protected by the Federal Confidentiality of Alcohol and Drug Abuse Patient Records regulations: The Federal rules restrict any use of the information to criminally investigate or prosecute any alcohol or drug abuse patient.[facility] HospitalIn the event this information is protected by the Federal Confidentiality of Alcohol and Drug Abuse Patient Records regulations: The Federal rules restrict any use of the information to criminally investigate or prosecute any alcohol or drug abuse patient.[facility] HospitalIn the event this information is protected by the Federal Confidentiality of Alcohol and Drug Abuse Patient Records regulations: The Federal rules restrict any use of the information to criminally investigate or prosecute any alcohol or drug abuse patient.[facility] HospitalIn the event this information is protected by the Federal Confidentiality of Alcohol and Drug Abuse Patient Records regulations: The Federal rules restrict any use of the information to criminally investigate or prosecute any alcohol or drug abuse patient.[facility] HospitalIn the event this information is protected by the Federal Confidentiality of Alcohol and Drug Abuse Patient Records regulations: The Federal rules restrict any use of the information to criminally investigate or prosecute any alcohol or drug abuse patient.[facility] HospitalIn the event this information is protected by the Federal Confidentiality of Alcohol and Drug Abuse Patient Records regulations: The Federal rules restrict any use of the information to criminally investigate or prosecute any alcohol or drug abuse patient.[facility] HospitalIn the event this information is protected by the Federal Confidentiality of Alcohol and Drug Abuse Patient Records regulations: The Federal rules restrict any use of the information to criminally investigate or prosecute any alcohol or drug abuse patient.[facility] HospitalIn the event this information is protected by the Federal Confidentiality of Alcohol and Drug Abuse Patient Records regulations: The Federal rules restrict any use of the information to criminally investigate or prosecute any alcohol or drug abuse patient.[facility] HospitalIn the event this information is protected by the Federal Confidentiality of Alcohol and Drug Abuse Patient Records regulations: The Federal rules restrict any use of the information to criminally investigate or prosecute any alcohol or drug abuse patient.[facility] HospitalIn the event this information is protected by the Federal Confidentiality of Alcohol and Drug Abuse Patient Records regulations: The Federal rules restrict any use of the information to criminally investigate or prosecute any alcohol or drug abuse patient.[facility] HospitalIn the event this information is protected by the Federal Confidentiality of Alcohol and Drug Abuse Patient Records regulations: The Federal rules restrict any use of the information to criminally investigate or prosecute any alcohol or drug abuse patient.[facility] HospitalIn the event this information is protected by the Federal Confidentiality of Alcohol and Drug Abuse Patient Records regulations: The Federal rules restrict any use of the information to criminally investigate or prosecute any alcohol or drug abuse patient.[facility] HospitalIn the event this information is protected by the Federal Confidentiality of Alcohol and Drug Abuse Patient Records regulations: The Federal rules restrict any use of the information to criminally investigate or prosecute any alcohol or drug abuse patient.[facility] HospitalIn the event this information is protected by the Federal Confidentiality of Alcohol and Drug Abuse Patient Records regulations: The Federal rules restrict any use of the information to criminally investigate or prosecute any alcohol or drug abuse patient.[facility] HospitalIn the event this information is protected by the Federal Confidentiality of Alcohol and Drug Abuse Patient Records regulations: The Federal rules restrict any use of the information to criminally investigate or prosecute any alcohol or drug abuse patient.[facility] Goals (unrecognized section and content) Goals may be documented in a n alternate section FOR RECORDS PERTAINING TO PATIENTS WHO ARE OR HAVE BEEN ENROLLED IN A CHEMICAL DEPENDENCY/SUBSTANCEABUSE PROGRAM, SOME INFORMATION MAY BE OMITTED. This clinical summary was aggregated from multiple sources. Caution should be exercised in using it in the provision of clinical care. This summary normalizes information from multiple sources, and as a consequence, information in this document may materially change the coding, format and clinical context of patient data. In addition, data may be omitted in some cases. CLINICAL DECISIONS SHOULD BE BASED ON THE PRIMARY CLINICAL RECORDS. [facility] [employer] [facility]. provides no warranty or guarantee of the accuracy or completeness of information in this document.
[2025-03-28 21:01] VITALS: BP 128/80; PULSE 81; RESP 16; TEMP 36.8; O2SAT 100
[2025-03-28 21:04] VITALS: BP 128/80; PULSE 81; RESP 16; TEMP 36.8; O2SAT 100
== END 2025-03-28 21:04 | disposition home or self-care (01) ==
PROVIDERS: Emergency Provider Emergency Medicine; Visit Provider Emergency Medicine
DX: F41.9 Anxiety disorder, unspecified (principal); R19.7 Diarrhea, unspecified; F17.290 Nicotine dependence, other tobacco product, uncomplicated; R11.0 Nausea; K21.9 Gastro-esophageal reflux disease without esophagitis
CPT/HCPCS: J2405; 99284

== ENCOUNTER 2025-03-29 15:35 | Emergency (ER) | payer MEDICAID, SELFPAY ==
[2025-03-29 15:35] VITALS: BP 133/78; PULSE 70; RESP 16; TEMP 36.9; O2SAT 99; BMI 35.6
--- NOTE | 2025-03-29 15:39 | EDS_ITS ---
HPI History of Present Illness Chief Complaint: General Illness Narrative Narrative: 40-year-old female past medical history of infrequent anxiety attacks and panic attacks presents with multiple somatic complaints. She states that she has been having dry mouth, diarrhea, and headaches over the last few days. Of note, she was seen in the emergency department and had called 911 because she thought she was having a panic attack. She had dry mouth, and was nauseated at that time. She admits that 2 days ago in the evening she drank alcohol, and was feeling a little hung over yesterday. As she was feeling improved after she came to the emergency department, she did not want a workup and decided to go home. She took the naproxen and has been drinking plenty of fluids. She woke up and went to work today, but states that she still feels slightly nauseated and has abdominal discomfort. She has had a few episodes of loose stool as well. While her headache may have improved, she still continues to have dry mouth and feels dehydrated. [facility] Medical History Anxiety Alcohol use Low iron Seasonal allergies Lactating mother Gastric reflux Non-smoker Leg cramps History of pyloric stenosis as a child Home Medications ?Medication ?Instructions ?Recorded ?Last Taken ?Type NK 03/28/25 Unknown History Allergy/AdvReac Type Severity Reaction Status Date / Time No Known Allergies Allergy Verified 03/29/25 15:36 Surgical History History of oral surgery Social History Smoking Status: Current every day smoker tobacco type: e-cigarettes alcohol intake: current substance use type: does not use ROS ROS ED ROS Narrative Review of systems positive for headaches, nausea, dry mouth, dy spepsia/abdominal, for symptoms. No longer having palpitations or anxiety. EXAM Physical Exam Narrative Exam Narrative: Afebrile. Vital signs noted. Nontoxic-appearing. Cardiovascular examination of is a regular rate and rhythm. Lungs are clear to auscultation bilaterally. Abdomen is soft, nontender, without guarding or rebound. Positive bowel sounds. Logical is nonfocal, nonlateralizing. No pedal edema. Const Vital Signs: 03/29/25 15:35 03/29/25 16:12 03/29/25 17:04 Temperature 98.4 F 98.4 F Temperature Source Oral Pulse Rate 70 86 Respiratory Rate 16 23 H Respiratory Pattern Normal Blood Pressure 133/78 H 118/64 Blood Pressure Mean 96 82 Pulse Ox 99 100 Oxygen Delivery Method 03/29/25 17:35 03/29/25 19:00 Temperature 98.4 F 98.1 F Temperature Source Oral Oral Pulse Rate 86 56 L Respiratory Rate 23 H 19 H Respiratory Pattern Blood Pressure 118/64 126/66 H Blood Pressure Mean 82 86 Pulse Ox 100 99 Oxygen Delivery Method Room Air Room Air MDM MDM MDM Narrative Medical decision making narrative: The differential diagnosis includes but not limited to intravascular volume depletion versus dehydration versus other electrolyte abnormality versus anxiety. I reviewed her prior ED visit from last night. She did not have any laboratory work performed. She is no longer having palpitations so I do not feel EKG is indicated and she is not tachycardic. She will be bolused IV fluids and given Bentyl orally as well. I will check her CBC and CMP to look for electrolyte abnormality or dehydration. Additionally, she states that she has a remote history of gallstones, but she is not having right upper quadrant pain or nausea and vomiting so I do not feel that she needs any imaging of her abdomen currently. Will also add a serum test. I reviewed her laboratory work and she has normal white count of 9.7, hemoglobin normal at 12.5, no anemia, hematocrit normal at 37.5, platelet count 272. Electrolyte panel shows glucose is elevated at 103 with normal anion gap of 10, normal sodium and normal potassium. BUN normal at 11 with creatinine 0.72. No evidence of dehydration. Serum test is negative. Repeat examination after 500 mL of IV fluid show her slightly improved. At this point in time I suspect she may have more intravascular volume depletion. I feel she can be discharged safely home with follow-up. Return instructions to the emergency department were reviewed. She was referred to her primary care provider. Disposition is discharged home in stable condition. However, prior to discharge, patient asked RN if she could get a UA and a throat swab, although she had not mentioned any dysuria or problems with urination during the history and physical. Urinalysis obtained and reviewed. Is negative for ketones so I do not feel that she is dehydrated completely. 0-5 WBCs. I do not feel antibiotics are indicated. I did obtain a strep swab to see if she would require antibiotics for strep pharyngitis but on her physical, there was no pharyngeal erythema appreciated, no obstruction, and she had only mentioned dry mouth. In review of her prior problem list acute pharyngitis was listed. I reviewed her strep test and is negative. Once again I do not feel that she needs antibiotics. She will be discharged to follow-up with her primary care provider. History & Record Review Discussion w/independent historian: Patient Additional record(s) reviewed:: Prior ED visit Lab Data Attestation: I reviewed the patient's lab results. Labs: Laboratory Results - last 24 hr 03/29/25 03/29/25 16:03 17:50 WBC 9.7 RBC 4.22 Hgb 12.5 Hct 37.5 MCV 88.9 MCH 29.6 MCHC 33.3 RDW Std Deviation 39.5 RDW Coeff of Neel 12.2 Plt Count 272 MPV 11.0 Sodium 141 Potassium 4.0 Chloride 106 Carbon Dioxide 24.5 Anion Gap 10 BUN 11 Creatinine 0.72 Estim Creat Clear Calc 116.70 Est GFR (MDRD) Non-Af 109 BUN/Creatinine Ratio 15.3 Glucose 103 H Calcium 9.0 Total Bilirubin 0.88 AST 22 ALT 14 Alkaline Phosphatase 70 Total Protein 6.6 Albumin 4.3 Globulin 2.3 Albumin/Globulin Ratio 1.9 Serum , Qual NEGATIVE Urine Color Straw Urine Clarity Clear Urine pH 6.0 Ur Specific Simms 1.015 Urine Protein 15 H Urine Glucose (UA) Normal Urine Ketones Negative Urine Occult Blood 25 H Urine Nitrite Negative Urine Bilirubin Negative Urine Urobilinogen Normal Ur Leukocyte Esterase Negative Urine RBC 0-5 SEEN Urine WBC 0-5 SEEN Ur Squamous Epith Cells 0-5 SEEN Urine Bacteria RARE Urine Mucus 0 SEEN Discharge Plan Triage Chief Complaint: General Illness ED Provider: Chon Lamar Dx/Rx/DC Orders Clinical Impression: Dry mouth, Nausea, Intravascular volume depletion Instructions: ED Dehydration (Adult) Prescriptions: No Action NK Primary Care Provider: Care Physician,No Primary Referrals: Rambo Obrien MD [Med Staff - [employer]] - As Needed Care Physician,No Primary [Primary Care Provider] - Activity Restrictions/Additional Instructions: Continue to drink plenty of oral fluids/water. Return with new or worsening sym ptoms. Print Language: Czech Disposition Disposition: Home, Self Care
[2025-03-29] MEDS: 0.9% Normal Saline (1000mL) 1,000 ML 1000 ML IV (16:10)
[2025-03-29 16:23] LABS: Hematocrit 37.5 % (37-47); Hemoglobin 12.5 g/dL (12.0-15.0); Mean Corp Hgb Conc 33.3 g/dL (32-36); Mean Corpuscular Volume 88.9 fL (81-99); Mean Platelet Vol. 11.0 fl (6.2-12.0); Platelet Count 272 K/mm3 (150-450); RBC Distribution Width CV 12.2 % (11.6-14.6); RBC Distribution Width SD 39.5 fl (35.1-43.9); Red Blood Count 4.22 M/mm3 (4.2-5.4); White Blood Count 9.7 K/mm3 (4.4-11.0)
--- OUTSIDE RECORDS SUMMARY | 2025-03-29 16:24 | XMS RPT_ITS | CCD ---
Author Organization [facility]iniSywi Care Team Providers Care Supervisor Remelt Name Role Phone Sammi Georges Unavailable Unavailable Roshni Franklin Unavailable Unavailable Cem Perez Unavailable Unavailable Hang Hoyt Unavailable Unavai lable ChambersSammi Unavailable Unavailable Chambers Sammi Unavailable Unavailable Ty, Carissa Attending Unavailable Ty, [...] Unavail able Arturo, Lazara Primary Care Provider ARTURO, LAZARA Primary Care Unavailable MARY ALEXIS Attending Unavailabl e ARTURO, LAZARA Primary Care Unavailable BENNETT KERNS Admitting Unavail able CEM PEREZ Attending Unavailabl e ARTURO, LAZARA Primary Care Unavailable Unavailable Primary Care Provider Unavailabl e Unavailable Primary Care Provider Unavailabl e Unavailable Primary Care Provider Unavailabl e Unavailable Primary Care Provider Unavailabl e BOO PRIEST Attending Unavailable BETTY MEREDITH Attending Unavailable BETTY MEREDITH Referring Unavailable Care Physician, No Primary Primary Care Provider Unavailable Dr. Toñito Lozoya DO Emergency Provider [phone] Tejas Thompson Attending Unavailable Care Physician, No Primary Primary Care Unava ilable Care Physician, No Primary Referring An ilChon Edwards Attending Unavailable Care Physician, No Primary Primary Care Unava ilable Care Physician, No Primary Primary Care Unava ilToñito Carl Attending Unavailable Allergies Allergy Classification Reported Allergen(s) Allergy Type Date of Onset Reaction(s) Facility (1 source) No Known Medication Allergies; Translations: [No Known Medication Allergies] Propensity to adverse reactions to drug (disorder) [facility] Repository (20 sources) Butorphanol; Translations: [BUTORPHANOL] Drug Allergy 1 Other: See Comments [facility] Work Phone: (20 sources) Seasonal allergy; Translations: [SEASONAL ALLERGIES] Allergy to substance 1 Other: See Comments [facility] Work Phone: (20 sources) House Dust Mite; Translations: [HOUSE DUST MITE] Drug Allergy 1 Unknown [facility] Work Phone: Medications Current Medications Medication Drug Class(es) Dates Sig (Normalized) Sig (Original) 60 actuat albuterol 0.09 mg/actuat metered dose [...] Comment on above: Take 1 capsule by [facility] twice daily for 7 days. doxycycline monohydrate 100 mg oral capsule (2 sources) Tetracycline-class Drug Start: 05-07-20 End: 05-14-20 take 1 capsule by mouth twice daily doxycycline monohydrate (MONODOX) 100 mg capsule Take 1 capsule by mouth twice daily for 7 days. 14 capsule 0 05/07/2023 05/14/2023 Active Comment on above: Take 1 capsule by [facility] twice daily for 7 days. ibuprofen 600 [...] 7 days. 14 tablet 06/25/2024 07/02/2024 Active [place] (Nk) (1 source) Start: 03-28-2025 [place] (Nk) Active March 28, 2025 12:00am Norethindrone (2 sources) Start: 11-01-2017 norethindrone (MICRONOR) [...] Sig (Original) acetaminophen 500 mg oral tablet (4 sources) Start: 12-30-2021 End: 03-28-2025 take 1-10 tablets by mouth every six hours as needed for pain Acetaminophen 500 mg Tablet Discontinued 1000 mg PO EVERY 6 HOURS NEEDED as needed for Pain 1-10 Or Fever 0 0 December 30, 2021 12:00am March 28, 2025 8:09pm On Hold: Resume on 05/18/22. while taking percocet Start: 12-30-2021 take 1000 mg by mout h every six hours as needed Acetaminophen Active 1000 MG PO EVERY 6 HOURS NEEDED 0 December 30, 2021 8:04am Start: 03-20-2019 End: 03-22-2019 take 1 tablet by mouth every four hours as needed acetaminophen (TYLENOL) tablet 650 mg acetaminophen 325 mg / oxyCODONE hydrochloride 5 mg oral tablet (2 sources) Opioid Agonist Start: 05-11-2022 End: 02-28-2024 Oxycodone-Acetaminophen (Percocet) 5-325 mg tablet Discontinued 1 {tbl} PO EVERY 6 HOURS as needed for pain 10 7 0 May 11, 2022 February 28, 2024 10:29am Postoperative pain Other acute postprocedural pain acyclovir 400 mg oral tablet (17 sources) [...] on above: Take 1 tablet by carmelo three times daily. Continue until delivery. aluminum hydroxide 40 mg/ml / magnesium hydroxide 40 mg/ml / simethicone 4 mg/ml oral suspension (1 source) Start: 03-20-2019 End: 03-22-2019 take 30 mL by mouth every four hours as needed aluminum-magnesium hydroxide-simethicone (MAALOX PLUS) 200-200-20 mg/5 mL suspension 30 [...] 03/19/2023 03/29/2023 Active take 1 capsule by [facility] three times daily amoxicillin (AMOXIL) 500 MG capsule Take 500 mg by mouth 3 (three) times a day . 0 Active Comment on above: Take 1 capsule by mo [facility] twice daily for 10 days. aspirin 81 mg delayed release oral tablet (7 sources) Platelet Aggregation Inhibitor, Nonsteroidal Anti-inflammatory Drug Start: 021 End: 022 take 1 tablet by mouth once daily aspirin, enteric coated (ASPIRIN, ENTERIC COATED) 81 mg EC tablet Take 1 tablet by mouth once daily. 30 tablet 5 07/29/2021 04/26/2022 Discontinued Comment on above: Take 1 tablet by carmelo th once daily. benzocaine 200 mg/ml topical spray (1 source) Standardized Chemical Allergen Start: End: benzocaine (AMERICAINE) 20 % topical spray 1 application benzocaine 15 mg / menthol 3.6 mg oral lozenge (1 source) Standardized Chemical Allergen Start: End: Benzocaine-Menthol (Cepacol Sore Throat (Rafi-Men)) 15-3.6 mg lozenge Discontinued 1 NMA MUCOUS MEM Q2H as needed for sore throat 16 0 February 28, 2024 12:00am March 28, 2025 8:09pm calcium chloride 0.0014 meq/ml / potassium chloride [...] mg docusate sodium 50 mg / sennosides, penitentiary 8.6 mg oral tablet (1 source) Start: End: senna-docusate (SENNA-S) 8.6-50 mg per tablet 2 tablet famotidine 20 mg oral tablet (1 source) Histamine-2 Receptor Antagonist Start: take 1 tablet by mouth twice daily famotidine (PEPCID) 20 mg tablet Take 1 tablet by mouth twice daily. 60 tablet 0 11/02/2021 Active Comment on above: Take 1 tablet by carmelo twice daily. 24 hr ferrous sulfate 142 [...] Comment on above: Take 3 tablets by [facility] once daily. folic acid 1 mg oral tablet (7 sources) Start: End: take 1 tablet by mouth once daily folic acid 1 mg tablet Take 1 tablet by mouth once daily. 60 tablet 5 05/27/2021 04/26/2022 Discontinued Comment on above: Take 1 tablet by [facility] once daily. naproxen 500 mg oral tablet (3 sources) Nonsteroidal Anti-inflammatory Drug Start: End: take 1 tablet by mouth every eight hours as needed for pain Naproxen 500 mg Tablet Discontinued 500 mg PO EVERY 8 HOURS NEEDED as needed for Pain Score 1-3 0 0 December 30, 2021 12:00am March 28, 2025 8:09pm omeprazole 10 mg delayed release oral capsule (17 sources) Proton Pump Inhibitor Start: End: take 1 capsule by mouth once daily omeprazole (PRILOSEC) 10 mg capsule Indications: 37 weeks gestation of , Gastroesophageal reflux disease, unspecified whether esophagitis present take 1 capsule by mouth once daily 30 capsule 01/24/2022 06/24/2024 Discontinued Comment on above: Take 1 capsule by [facility] once daily. take 1 capsule by [facility] once daily ondansetron 4 mg oral tablet (7 sources) Serotonin-3 Receptor Antagonist Start: End: take 1 tablet by mouth every eight hours as needed ondansetron (ZOFRAN) 4 mg tablet Take 1 tablet by mouth every 8 hours as needed for nausea/vomiting. 40 tablet 1 05/27/2021 04/26/2022 Discontinued Comment on above: Take 1 tablet by [facility] every 8 hours as needed for nausea/vomiting. [...] on above: Take 1 tablet by carmelo twice daily. Problems Active Problems Problem Classification Problem Date Documented Date Episodic/Chronic Allergic reactions (1 source) Inflammatory dermatosis; Translations: [Dermatitis, unspecified] 06-30-2024 Episodic Anxiety disorders (1 source) Anxiety; Translations: [Anxiety disorder, unspecified] 03-28-2025 Chronic Contraceptive and procreative management (7 sources) Patient encounter status; Translations: [Encounter for [...] Hemorrhage during ; abruptio placenta; placenta previa (3 sources) Threatened miscarriage; Translations: [Threatened ] 05-08-2021 Episodic Immunizations and screening for infectious disease (1 source) Exposure to sexually transmissible disorder; Translations: [Contact with and (suspected) exposure to infections with a predominantly sexual mode of transmission] 05-06-2023 Episodic Inflammatory diseases of female pelvic organs (1 source) Bacterial vaginosis; Translations: [Acute vaginitis] 06-25-2024 Episodic Nausea and vomiting (1 source) Nausea; Translations: [Nausea] 03-28-2025 Episodic Other complications of ; puerperium affecting management of mother (4 sources) Advanced maternal age ; Translations: [Advanced maternal age during ] Episodic Other complications of (4 sources) Maternal obesity complicating , childbirth and [...] unspecified, third trimester] Episodic Other complications of (3 sources) Vaginitis in ; Translations: [Infection of other part of genital tract in , first trimester] 05-08-2021 Episodic Other complications of (3 sources) Proteinuria; Translations: [Gestational proteinuria, unspecified trimester] 01-07-2022 Episodic Other complications of (1 source) Gestational [...] Translations: [Cough] Episodic Other nervous system disorders (2 sources) Postoperative pain ; Translations: [Other acute postprocedural pain] 05-11-2022 Episodic Other and delivery including normal (5 sources) Vaginal delivery; Translations: [Encounter for full-term uncomplicated delivery] Episodic Other screening for suspected conditions (not mental disorders or infectious disease) (1 source) Cancer cervix screening status; Translations: [Encounter for screening for malignant neoplasm of cervix] 06-24-2024 Episodic Other skin disorders (1 source) Eruption; Translations: [Rash and other nonspecific skin eruption] 06-30-2024 Episodic Other upper respiratory infections (7 sources) Sore throat symptom; Translations: [Acute pharyngitis, unspecified] 03-19-2023 Episodic Residual codes; unclassified (6 sources) Gestation period, 39 weeks; Translations: [39 [...] heterosexual behavior] 06-24-2024 Episodic Urinary tract infections (4 sources) Urinary tract infectious disease; Translations: [Urinary [...] infectious and parasitic diseases] Onset: 1 Episodic Other skin disorders (1 source) Rash and other nonspecific skin eruption; Translations: [Rash and other nonspecific skin eruption] Onset: 4 Episodic Residual codes; unclassified (1 source) High [...] Name Value Interpretation Reference Range Facil ity Basic Metabolic Profile (BMP )on 03-28-2025 BUN Normal - [facility] Comment on above: Result Comment: JANEY ENT DISCHARGED Performed By: #### L 100.0100, L500.2500 #### [facility] [address] [place], [place], [address] BUN/CRE Normal 06-22 [facility] Comment on above: Result Comment: JANEY ENT DISCHARGED Performed By: #### L 100.0100, L500.2500 #### [facility] [address] [place], [address] Calcium Normal 7.6-11.0 [facility] Comment on above: Result Comment: JANEY ENT DISCHARGED Performed By: #### L 100.0100, L500.2500 #### [facility] [address] [place], [address] CL Normal 98-108 [facility] Comment on above: Result Comment: JANEY ENT DISCHARGED Performed By: #### L 100.0100, L500.2500 #### [facility] [address] [place], [address] CO2 Normal 21.0-32.0 [facility] Comment on above: Result Comment: JANEY ENT DISCHARGED Performed By: #### L 100.0100, L500.2500 #### [facility] [address] [place], [address] CREAT,SERUM Normal 0.70-1.20 [facility] Comment on above: Result Comment: JANEY ENT DISCHARGED Performed By: #### L 100.0100, L500.2500 #### [facility] [address] [place], [address] eGFR Normal >60 [facility] Comment on above: Result Comment: JANYE ENT DISCHARGED Performed By: #### L 100.0100, L500.2500 #### [facility] [address] [place], [address] GAP Normal 5-15 [facility] Comment on above: Result Comment: JANEY ENT DISCHARGED Performed By: #### L 100.0100, L500.2500 #### [facility] [address] [place], [address] GLU Normal 70-99 [facility] Comment on above: Result Comment: JANEY ENT DISCHARGED Performed By: #### L 100.0100, L500.2500 #### [facility] [address] [place], [address] Potassium Normal 3.3-5.1 [facility] Comment on above: Result Comment: JANEY ENT DISCHARGED Performed By: #### L 100.0100, L500.2500 #### [facility] [address] [place], [address] Basic Metabolic Profile (BMP) Normal 133-145 [facility] Comment on above: Result Comment: JANEY ENT DISCHARGED Performed By: #### L 100.0100, L500.2500 #### [facility] [address] [place], [address] CBC W/Diff, Automatedon 07-2 Absolute Neut Normal 2.0-7.7 [facility] Comment on above: Result Comment: JANEY ENT DISCHARGED Performed By: #### L 100.0100, L500.2500 #### [facility] [address] [place], [address] HCT Normal 37-47 [facility] Comment on above: Result Comment: JANEY ENT DISCHARGED Performed By: #### L 100.0100, L500.2500 #### [facility] [address] [place], [address] HGB Normal 12.0-15.0 [facility] Comment on above: Result Comment: JANEY ENT DISCHARGED Performed By: #### L 100.0100, L500.2500 #### [facility] [address] [place], [address] MCH Normal 27.0-32.0 [facility] Comment on above: Result Comment: JANEY ENT DISCHARGED Performed By: #### L 100.0100, L500.2500 #### [facility] [address] [place], [address] MCHC Normal 32-36 [facility] Comment on above: Result Comment: JANEY ENT DISCHARGED Performed By: #### L 100.0100, L500.2500 #### [facility] [address] [place], [address] MCV Normal 81-99 [facility] Comment on above: Result Comment: JANEY ENT DISCHARGED Performed By: #### L 100.0100, L500.2500 #### [facility] [address] [place], [address] NEUT% Normal 47-70 [facility] Comment on above: Result Comment: JANEY ENT DISCHARGED Performed By: #### L 100.0100, L500.2500 #### [facility] [address] [place], [address] PLT Normal 150-450 [facility] Comment on above: Result Comment: JANEY ENT DISCHARGED Performed By: #### L 100.0100, L500.2500 #### [facility] [address] [place], [address] RBC Normal 4.2-5.4 [facility] Comment on above: Result Comment: JANEY ENT DISCHARGED Performed By: #### L 100.0100, L500.2500 #### [facility] [address] [place], [address] RDW CV Normal 11.6-14.6 [facility] Comment on above: Result Comment: JANEY ENT DISCHARGED Performed By: #### L 100.0100, L500.2500 #### [facility] [address] [place], [address] RDW SD Normal 35.1-43.9 [facility] Comment on above: Result Comment: JANEY ENT DISCHARGED Performed By: #### L 100.0100, L500.2500 #### [facility] [address] [place], [address] WBC Normal 4.4-11.0 [facility] Comment on above: Result Comment: JANEY ENT DISCHARGED Performed By: #### L 100.0100, L500.2500 #### [facility] [address] [place], [address] Emergency Department Summary on 03-28-2025 Emergency Department Summary [facility] Medical Records Department [address] [place] [address] Emergency Department Summary 03/28/25 MR#: [id number] Acct: [id number] Name: DUARTE SUNSHINE Rep #: [id number] : 1985 40 From: [facility] PCP: Care Physician,No Primary Status:DEP ER Location: ED Patient was seen and examined with physician server service assistant Linda All components of the history and physical confirmed and agreed. History of present illness and physical exam: Patient is a 40-year-old female with past medical history anxiety, alcohol use, GERD who presented to the emergency department with concerns for anxiety. States that she is drinking yesterday evening stayed up late and woke up this morning feeling hung over with a slight headache was feeling nauseous. She states that she had 1 episode of diarrhea earlier. They ordered pizza for dinner and noted that her mouth became dry and started to panic and felt shaky. States that she felt like she was going to have the beginning of panic attack therefore called EMS who brought her here for further evaluation management. Patient states that she is feeling better now. Patient states that this feels very similar to her anxiety attacks. Denies any sick contacts. . Review of systems: Agreed above Physical exam: Agree with above MDM Patient is a 40-year-old female who presented to the emergency department with a chief complaint of concern for anxiety attack. On the differential diagnose includes but not limited to anxiety, panic attack, ACS, dehydration. Nursing notified us at after going to the bathroom the patient felt much better and wants to go home. She states that she will return with worsening symptoms or other concerns. She was advised follow-up with her doctor in outpatient setting. All course concerns answered she was discharged home in stable condition. Final impression: Anxiety attack Nausea Disposition: Patient will be discharged home in stable condition Supervising attending attestation: Toñ[employer]ALS History of Present Illness Chief Complaint: Anxiety Narrative Narrative: Patient presenting today due to concerns for anxiety. She was drinking yesterday evening and stayed up late. She woke up this morning feeling hung over and had a slight headache and was feeling nauseous. She had 1 episode of loose stool. She ordered pizza for dinner and her mouth became really dry including her throat, she started to panic and felt shaky. She began to have a panic attack which she has had in the past and called EMS who transported her here for evaluation. She reports that she is now feeling improved, she does feel dehydrated from drinking last night and reports that she has only had 1 water bottle to drink today and a medium sized coffee. She denies fever, chills, abdominal pain, chest pain, and vomiting. No HI, SI, or substance use aside from alcohol. [facility] Medical History Anxiety Alcohol use Low iron Seasonal allergies Lactating mother Gastric reflux Non-smoker Leg cramps History of pyloric stenosis as a child Home Medications ???Medication ???Instructions ???Recorded ???Last Taken ???Type NK 03/28/25 Unknown History Allergy/AdvReac Type Severity Reaction Status Date / Time No Known Allergies Allergy Verified 03/28/25 20:01 Family History no significant family his Surgical History History of oral surgery Social History Smoking Status: Current some day smoker tobacco type: e-cigarettes alcohol intake: current substance use type: does not use ROS ROS ED Constitutional Constitutional ED: Denies chills or fever(s) Cardiovascular Cardiovascular: Denies chest pain Respiratory/Chest Respiratory/Chest: Denies dyspnea Gastrointestinal Gastrointestinal: Reports nausea; Denies abdominal pain or vomiting Integumentary Denies rash Neurologic Neurologic: Denies weakness Psychiatric Psychiatric: Reports anxiety; Denies depression, suicidal ideation or suicidal thoughts EXAM Physical Exam Const Vital Signs: 03/28/25 20:01 03/28/25 21:01 03/28/25 21:04 Temperature 98.3 F 98.3 F 98.3 F Temperature Source Oral Pulse Rate 81 81 81 Respiratory Rate 16 16 16 Blood Pressure 128/80 H 128/80 H 128/80 H Blood Pressure Mean 96 96 96 Pulse Ox 100 100 100 Oxygen Delivery Method Room Air Positive well nourished, well developed and no apparent distress General Appearance ED: well developed HEENT Reports normocephalic and head/scalp atraumatic Mouth ED: Yes moist mucous membranes normal Eyes PERRL and EOMs intact bilaterally Neck fu (more content not included)... Normal [facility] BACTERIAL VAGINOSIS NAATon 0 01-05-2025 Lactobacillus crispatus+gasseri+ jensenii + Gardnerella vaginalis + Atopobium vaginae rRNA FLACO+probe Ql (Vag fld) Detected Abnormal Not detected [facility] Comment on above: Order Comment: Speci men Type: FLUID SPECIMEN Ordering Facility: [facility] Address: [address] [place] [address] Performed By: #### H PVHRT #### [facility] CLIA [id number] [address] [place] [address] [place] #### [id number] #### [facility] CLIA [id number] [address] [place] [address] [place] [facility] CLIA [id number] [address] [place] [address] [place] Bacteria Ur Culton Bacteria identified Cx Nom (U) ORGANISM ID: 1 10,000 -<50,000 CFU/ml Normal urogenital sola Normal [facility] Comment on above: Performed By: #### H PVHRT #### [facility] CLIA [id number] [address] [place] [address] [place] #### [id number] #### [facility] CLIA [id number] [address] [place] [address] [place] [facility] CLIA [id number] [address] [place] [address] [place] C. trachomatis+N. gonorrhoea e DNA FLACO+probe Ql (Unsp spec)on 01-05-2025 C. trachomatis rRNA FLACO+probe Ql (Unsp spec) Not detected Normal Not detected [facility] Comment on above: Order Comment: Speci men Type: FLUID SPECIMEN Ordering Facility: [facility] Address: [address] [place] [address] Performed By: #### H PVHRT #### [facility] CLIA [id number] [address] [place] [address] [place] #### [id number] #### [facility] CLIA [id number] [address] [place] [address] [place] [facility] CLIA [id number] [address] [place] [address] [place] N. gonorrhoeae rRNA FLACO+probe Ql (Unsp spec) Not detected Normal Not detected [facility] Comment on above: Order Comment: Speci men Type: FLUID SPECIMEN Ordering Facility: [facility] Address: [address] [place] [address] Performed By: #### H PVHRT #### [facility] CLIA [id number] [address] [place] [address] [place] #### [id number] #### [facility] CLIA [id number] [address] [place] [address] [place] [facility] CLIA [id number] [address] [place] [address] [place] LUCY/TRICHOMONAS NAATon 0 01-05-2025 C. glabrata RNA FLACO+probe Ql (Vag fld) Not detected Normal Not detected [facility] Comment on above: Order Comment: Speci men Type: FLUID SPECIMEN Ordering Facility: [facility] Address: [address] [place] [address] Performed By: #### H PVHRT #### [facility] CLIA [id number] [address] [place] [address] [place] #### [id number] #### [facility] CLIA [id number] [address] [place] [address] [place] [facility] CLIA [id number] [address] [place] [address] [place] Lucy sp DNA FLACO+probe Ql (Vag fld) Not detected Normal Not detected [facility] Comment on above: Order Comment: Speci men Type: FLUID SPECIMEN Ordering Facility: [facility] Address: [address] [place] [address] Result Comment: The Lucy species group target includes C. albicans, C. tropicalis, C. parapsilosis, and C. dubliniensis. Performed By: #### H PVHRT #### [facility] CLIA [id number] [address] [place] [address] [place] #### [id number] #### [facility] CLIA [id number] [address] [place] [address] [place] [facility] CLIA [id number] [address] [place] [address] [place] T. vaginalis DNA FLACO+probe Ql (Unsp spec) Not detected Normal Not detected [facility] Comment on above: Order Comment: Speci men Type: FLUID SPECIMEN Ordering Facility: [facility] Address: [address] [place] [address] Performed By: #### H PVHRT #### [facility] CLIA [id number] [address] [place] [address] [place] #### [id number] #### [facility] CLIA [id number] [address] [place] [address] [place] [facility] CLIA [id number] [address] [place] [address] [place] CNOVon 01-05-2025 CNOV Office Visit (UCWSTR ) DUARTE SUNSHINE ([id number]) 1985 F Date Time Provider Department 01/05/25 3:30 PM [facility] During your visit today, we recorded the following information about you: Temperature Pulse Respiration Blood pressure 98.4 degrees 64/minute 18/minute 132/68 Weight Last Period 95 kg 12/29/24 Boo Priest APRN.SAND OPERATOR 01/05/2025 3:55 PM Signed [facility] [...] history is provided by the patient. No speech and language specialist was used. UTI Review of Systems Constitutional: [...] Chlamydia 2013 Gestational proteinuria in third trimester (HCC) 12/28/2021 [...] back positive please treat accordingly. Boo Priest APRN.SAND OPERATOR History and Record Review External record(s) reviewed: [...] Diagnosis:Vaginal discharge [N89.8] Order(s):UA DIP, URINE (POC) [[id number]] Order #: [id number]. #:[id number] BACTERIAL CULTURE, URINE [SQURCUL] Order #: [id number]. #:[id number] BACTERIAL VAGINOSIS NAAT [SQBVAMP] Order #: [id number]. #:[id number] LUCY/TRICHOMONAS NAAT [SQCVTV] Order #: [id number]. #:[id number] GONORRHEA/CHLAMYDIA NAAT [SQGCCT] Order #: [id number]. #:[id number] Problem List As Of Date 01/05/2025 Noted Resolved Antepartum multigravida of advanced maternal ag*06/02/2021 06/24/2024 Obesity during [O99.210] 06/02/2021 06/24/20 (more content not included)... Normal [facility] UA DIP, URINE (POC)on 2024 BILIRUBIN UA (POCT) Negative Negative [facility] CLARITY UA (POCT) Clear [facility] COLOR UA (POCT) Yellow [facility] GLUCOSE UA (POCT) Negative Negative mg/dL [facility] Hemoglobin Ql (U) Trace-intact Abnormal Negative [facility] Interpretation and review of laboratory results Abnormal [facility] KETONE UA (POCT) Negative Negative mg/dL [facility] LEUKOCYTES UA (POCT) Trace Abnormal Negative [facility] NITRITE UA (POCT) Negative Negative [facility] PH UA (POCT) 7 4.5 - 8.0 [facility] Protein Ql (U) Negative Negative mg/dL [facility] SPECIFIC GRAVITY UA (POCT) 1.015 1.005 - 1.030 [facility] UROBILINOGEN UA (POCT) 0.2 Normal E.U./dL [facility] Location:[address], [address] [facility] POINT OF CARE [facility] CNOVon 09-29-2024 CNOV Office Visit (UCWSTR ) DUARTE SUNSHINE ([id number]) 1985 F Date Time Provider Department 09/29/24 9:30 AM BOO PRIEST [facility] During your visit today, we recorded the following information about you: Temperature Pulse Respiration Blood pressure 98.8 degrees 101/minute 18/minute 106/72 Weight 92.2 kg Boo Priest APRN.SAND OPERATOR 09/29/2024 9:59 AM Signed CC: Patient presents [...] Patient agreeable to treatment plan. Boo Priest APRN.SAND OPERATOR Allergies As of Date: 09/29/2024 Noted Allergy [...] Diagnosis:Strep throat [J02.0] Order(s):STREP A MOLECULAR (POC) [[id number]] Order #: [id number]. #:[id number] cephALEXin (KEFLEX) 500 mg capsuleTake 1 capsule [...] [A*07/11/2021 H (more content not included)... Normal [facility] STREP A MOLECULAR (POC)on Interpretation and review of laboratory results Abnormal [facility] Procedural Control Valid [facility] Strep A (POCT) Positive Abnormal Negative [facility] CNOVon 09-10-2024 CNOV Office Visit (UCWSTR ) DUARTE SUNSHINE ([id number]) 1985 F Date Time Provider Department 09/10/24 3:30 PM JAMAAL CHAPARRO [facility] During your visit today, we [...] Diagnosis:Sore throat [J02.9] Order(s):STREP A MOLECULAR (POC) [[id number]] Order #: [id number]. #:[id number] amoxicillin (AMOXIL) 500 mg capsuleTake 1 capsule [...] Service: OFFICE/OUTPATIENT ESTABLISHED MOD MDM 30 MIN [92881] LOS History for Encounter --- Level of Service: OFFICE/OUTPATIENT ESTABLISHED LOW MDM 20 MIN[29463] Date AND Time: 09-10-2024 3:34 PM Recorded by User: JAMAAL CHAPARRO Encounter Status:Closed by JAMAAL CHAPARRO on 09/10/24 Normal [facility] STREP A MOLECULAR (POC)on Interpretation and review of laboratory results Abnormal [facility] Procedural Control Valid [facility] Strep A (POCT) Positive Abnormal Negative [facility] CNPJillian 06-26-2024 CNPN Telephone (OBGYWM) DUARTE SUNSHINE ([id number]) 1985 F Date Time Provider Department 06/26/24 [...] Signed Patient notified. She will contact the [facility] Department. She's aware that her partner(s) need treatment. [...] Encounter Status:Closed by GERALDINE DONNELLY on 06/26/24 Normal [facility] DU[facility]SHINE ([id number]) 1985 F Date Time Provider Department 06/25/24 JACI TA During your visit today, we recorded the following information about you: Allergies As of Date: 06/25/2024 Noted Allergy Reaction HOUSE DUST MITE 05/04/2021 16 - Unknown SEASONAL ALLERGIES 05/04/2021 14 - Other: See Comments STADOL (BUTORPHANOL) 06/02/2021 14 - Other: See Comments Comments: dizziness and increased heart rate Date Reviewed: 06/24/2024 Reviewed by: Betty Merediht APRN.SAND OPERATOR - Fully Assessed Reason for Visit: Results [...] Status:Closed by MARIVEL BUTTS on 06/25/24 Normal [facility] BACTERIAL VAGINOSIS NAATon 1 Lactobacillus crispatus+gasseri+ jensenii + Gardnerella vaginalis + Atopobium vaginae rRNA FLACO+probe Ql (Vag fld) Positive Abnormal Negative for bacterial vaginosis [facility] Comment on above: Order Comment: Speci men Type: FLUID SPECIMEN Ordering Facility: [facility] Address: [address] [place] [address] Performed By: #### H PVHRT #### [facility] CLIA [id number] [address] [place] [address] [place] #### [id number] #### [facility] CLIA [id number] [address] [place] [address] [place] [facility] CLIA [id number] [address] [place] [address] [place] C. trachomatis+N. gonorrhoea e DNA FLACO+probe Ql (Unsp spec)on 06-24-2024 C. trachomatis rRNA FLACO+probe Ql (Unsp spec) Negative Normal Negative for Chlamydia trachomatis by amplificaton [facility] Comment on above: Order Comment: Speci men Type: FLUID SPECIMEN Ordering Facility: [facility] Address: [address] [place] [address] Performed By: #### H PVHRT #### [facility] CLIA [id number] [address] [place] [address] [place] #### [id number] #### [facility] CLIA [id number] [address] [place] [address] [place] [facility] CLIA [id number] [address] [place] [address] [place] N. gonorrhoeae rRNA FLACO+probe Ql (Unsp spec) Negative Normal Negative for Neisseria gonorrhoeae by amplification [facility] Comment on above: Order Comment: Speci men Type: FLUID SPECIMEN Ordering Facility: [facility] Address: [address] [place] [address] Performed By: #### H PVHRT #### [facility] CLIA [id number] [address] [place] [address] [place] #### [id number] #### [facility] CLIA [id number] [address] [place] [address] [place] [facility] CLIA [id number] [address] [place] [address] [place] LUCY/TRICHOMONAS NAATon 1 C. glabrata RNA FLACO+probe Ql (Vag fld) Negative Normal Negative for Lucy glabrata [facility] Comment on above: Order Comment: Speci men Type: SWAB Ordering Facility: [facility] Address: [address] [place] [address] Performed By: #### C VTV #### [facility] CLIA [id number] [address] [place] [address] [place] Lucy sp DNA FLACO+probe Ql (Vag fld) Negative Normal Negative for Lucy species [facility] Comment on above: Order Comment: Speci men Type: SWAB Ordering Facility: [facility] Address: [address] [place] [address] Performed By: #### C VTV #### [facility] CLIA [id number] [address] [place] [address] OF [place] T. vaginalis DNA FLACO+probe Ql (Unsp spec) Negative Normal Negative for Trichomonas vaginalis by amplification [facility] Comment on above: Order Comment: Speci men Type: SWAB Ordering Facility: [facility] Address: [address] [place] [address] Performed By: #### C VTV #### [facility] CLIA [id number] [address] [place] [address] OF [place] CNOVon 06-24-2024 CNOV Office Visit (OBGYWM ) DUARTE SUNSHINE Nori ([id number]) 1985 F Date Time Provider Department 06/24/24 9:00 AM BETTY MEREDITH OBDAYTONWAzra During your visit today, we recorded the following information about you: Blood pressure Weight Height Last Period 122/78 91.7 kg 1.64 m 05/31/24 Betty Meredith APRN.SAND OPERATOR 06/24/2024 10:37 AM Signed Patient declined assembler motor vehicleMorris Luna is a 39 year old who [...] Ectopic0 Multiple0 Live Births5 Comment: x 4 Ultrasound Spec History LMP: 04/23/2023 (Approximate), Unknown Age at Menarche: Age at First : Age at Menopause: Ultrasound Spec History Comments: Sexual Activity: Yes; Male Contraception: [...] discussed with the Patient or Patient's Authorized Solid Tire Finisher. As applicable, any other physician, advance practice provider, medical student, or other health professional student that will be observing or involved in the sensitive examination for educational or training purposes was discussed with the Patient or Authorized Solid Tire Finisher. The Patient or Authorized Solid Tire Finisher has agreed to proceed with the sensitive [...] external genitalia normal, normal Bartholin's glands, urethra, Bond's glands, no cervical lesions, physiologic discharge present, [...] ANTIBODY I (more content not included)... Normal [facility] HBV surface Ag Ser Qlon 06-04 HBV surface Ag Ql (S) Negative Normal Negative [facility] Comment on above: Order Comment: Speci men Type: FLUID SPECIMEN Ordering Facility: [facility] Address: [address] [place] [address] Performed By: #### H PVHRT #### [facility] CLIA [id number] [address] [place] [address] [place] [address] [place] #### [id number] #### [facility] CLIA [id number] [address] [place] [address] [place] [facility] CLIA [id number] [address] [place] [address] [place] HCV Ab Ser Qlon 06-24-2024 HCV Ab Ql (S) Negative Normal Negative [facility] Comment on above: Order Comment: Speci men Type: FLUID SPECIMEN Ordering Facility: [facility] Address: [address] [place] [address] Result Comment: The result suggests no evidence of active infection with Hepatitis C virus. Should recent infection be suspected, repeat testing may be considered 4-6 weeks after this draw. Performed By: #### H PVHRT #### [facility] CLIA [id number] [address] [place] [address] [place] #### [id number] #### [facility] CLIA [id number] [address] [place] [address] [place] [facility] CLIA [id number] [address] [place] [address] [place] HIGH RISK HUMAN PAPILLOMA BHARATH (HPV), PCR FOR DETECTION AND GENOTYPINGon 06-24-2024 HPV 16 Ag Ql (Unsp spec) Not detected Normal Not detected [facility] Comment on above: Order Comment: Speci men Type: FLUID SPECIMEN Ordering Facility: [facility] Address: [address] [place] [address] Performed By: #### H PVHRT #### [facility] CLIA [id number] [address] [place] [address] [place] #### [id number] #### [facility] CLIA [id number] [address] [place] [address] [place] [facility] CLIA [id number] [address] [place] [address] [place] HPV 18 Ag Ql (Unsp spec) Not detected Normal Not detected [facility] Comment on above: Order Comment: Speci men Type: FLUID SPECIMEN Ordering Facility: [facility] Address: [address] [place] [address] Performed By: #### H PVHRT #### [facility] CLIA [id number] [address] [place] [address] [place] #### [id number] #### [facility] CLIA [id number] [address] [place] [address] [place] [facility] CLIA [id number] [address] [place] [address] [place] HPV 31+33+35+39+45+51+ 52+56+58+59+66+68 DNA FLACO+probe Ql (Cvx) Not detected Normal Not detected [facility] Comment on above: Order Comment: Speci men Type: FLUID SPECIMEN Ordering Facility: [facility] Address: [address] [place] [address] Result Comment: High Risk HPV Other Type includes HPV types 31, 33, 35, 39, 45, 51, 52, 56, 58, 59, 66 and 68. Performed By: #### H PVHRT #### [facility] CLIA [id number] [address] [place] [address] [place] #### [id number] #### [facility] CLIA [id number] [address] [place] [address] [place] [facility] CLIA [id number] [address] [place] [address] [place] HIV 1+2 Ab IA Qlon 4 HIV 1 and 2 Ab IA.rapid Nom (S/P/Bld) Normal [facility] Comment on above: Order Comment: Speci men Type: FLUID SPECIMEN Ordering Facility: [facility] Address: [address] [place] [address] Result Comment: Test not indicated. Performed By: #### H PVHRT #### [facility] CLIA [id number] [address] [place] [address] [place] #### [id number] #### [facility] CLIA [id number] [address] [place] [address] [place] [facility] CLIA [id number] [address] [place] [address] [place] HIV 1+2 Ab+HIV1 p24 Ag IA Ql Non-Reactive Normal Nonreactive [facility] Comment on above: Order Comment: Speci men Type: FLUID SPECIMEN Ordering Facility: [facility] Address: [address] [place] [address] Performed By: #### H PVHRT #### [facility] CLIA [id number] [address] [place] [address] [place] #### [id number] #### [facility] CLIA [id number] [address] [place] [address] [place] [facility] CLIA [id number] [address] [place] [address] [place] HIV immunoassay testing algorithm interpretation (S/P/Bld) [Interp] Normal [facility] Comment on above: Order Comment: Speci men Type: FLUID SPECIMEN Ordering Facility: [facility] Address: [address] [place] [address] Result Comment: No e vidence of HIV-1 or HIV-2 infection. Should recent infection be suspected, repeat testing may be considered 2-3 weeks after this draw. Warrick Rev. Code 3701.243(E): This information has been [...] diagnoses. Performed By: #### H PVHRT #### [facility] CLIA [id number] [address] [place] [address] [place] #### [id number] #### [facility] CLIA [id number] [address] [place] [address] [place] [facility] CLIA [id number] [address] [place] [address] [place] PAP TESTon 06-24-2024 ADEQUACY Normal [facility] Comment on above: Order Comment: Speci men Type: FLUID SPECIMEN Ordering Facility: [facility] Address: [address] [place] [address] Result Comment: Sati sfactory for interpretation. No endocervical component Performed By: #### H PVHRT #### [facility] CLIA [id number] [address] [place] [address] [place] #### [id number] #### [facility] CLIA [id number] [address] [place] [address] [place] [facility] CLIA [id number] [address] [place] [address] [place] CASE REPORT Normal [facility] Comment on above: Order Comment: Speci men Type: FLUID SPECIMEN Ordering Facility: [facility] Address: [address] [place] [address] Result Comment: Gyne cologic Cytology Report Case: [id number] Authorizing Provider: Betty Meredith APRN.SAND OPERATOR Collected: 06/24/2024 11:34 AM Ordering Location: OB/Gynecology Received: 06/24/2024 12:19 PM First Screen: Darling, Samantha, CT, ASCP Specimen: Pap Test, ThinPrep, Cervix Performed By: #### H PVHRT #### [facility] CLIA [id number] [address] [place] [address] [place] #### [id number] #### [facility] CLIA [id number] [address] [place] [address] [place] [facility] CLIA [id number] [address] [place] [id number] [place] CLINICAL HISTORY, CYTOLOGY, DIETARY SERVICES MANAGER Routine Exam Normal [facility] Comment on above: Order Comment: Speci men Type: FLUID SPECIMEN Ordering Facility: [facility] Address: [address] [place], [place] [id number] Performed By: #### H PVHRT #### [facility] CLIA [id number] [address] [place] [address] [place] #### [id number] #### [facility] CLIA [id number] [address] [place] [address] [place] [facility] CLIA [id number] [address] [place] [address] [place] CYTOLOGY PAP OTHER INT Predominance of coccobacilli consistent with shift in vaginal sola Normal [facility] Comment on above: Order Comment: Speci men Type: FLUID SPECIMEN Ordering Facility: [facility] Address: [address] [place] [address] Performed By: #### H PVHRT #### [facility] CLIA [id number] [address] [place] [address] [place] #### [id number] #### [facility] CLIA [id number] [address] [place] [id number] [place] [facility] CLIA [id number] [address] [place], [place] [address] [place] FINAL PERFORMING LAB Normal [facility] Comment on above: Order Comment: Speci men Type: FLUID SPECIMEN Ordering Facility: [facility] Address: [address] [id number] Result Comment: Tech nical component, compliance tester screening performed at [facility], [address] [facility], [place] [address] CLIA# [id number] Diagnostic interpretation performed at [facility], [address] [facility], [place] [id number] CLIA# [id number] Kiln Burner Helper: Marianne Bradley M.D. Performed By: #### H PVHRT #### [facility] CLIA [id number] [address] [place] [address] [place] #### [id number] #### [facility] CLIA [id number] [address] [place] [address] [place] [facility] CLIA [id number] [address] [place] [address] [place] INTERPRETATION, CYTOLOGY, DIETARY SERVICES MANAGER Normal [facility] Comment on above: Order Comment: Speci men Type: FLUID SPECIMEN Ordering Facility: [facility] Address: [address] [place] [address] Result Comment: Nega tive for intraepithelial lesion or malignancy. Performed By: #### H PVHRT #### [facility] CLIA [id number] [address] [place] [address] [place] #### [id number] #### [facility] CLIA [id number] [address] [place] [address] [place] [facility] CLIA [id number] [address] [place] [address] [place] LMP 05/31/2024 Normal [facility] Comment on above: Order Comment: Speci men Type: FLUID SPECIMEN Ordering Facility: [facility] Address: [address] [place] [address] Performed By: #### H PVHRT #### [facility] CLIA [id number] [address] [place] [address] [place] #### [id number] #### [facility] CLIA [id number] [address] [place] [address] [place] [facility] CLIA [id number] [address] STATES OF [place] PAP DISCLAIMER COMMENT The Pap Smear is a screening test for cervical cancer. False negative results occur with all screening tests, emphasizing the need for rescreening at recommended intervals, and clinical correlation. Normal [facility] Comment on above: Order Comment: Speci men Type: FLUID SPECIMEN Ordering Facility: [facility] Address: [address] [place] [address] Performed By: #### H PVHRT #### [facility] CLIA [id number] [address] [place] [address] [place] #### [id number] #### [facility] CLIA [id number] [address] [place] [address] [place] [facility] CLIA [id number] [address] [place] [address] [place] PAP ROAD CREW MEMBER COMMENT This specimen has be en analyzed by the ThinPrep Imaging System, an automated imaging and review system, which assists the laboratory in evaluating cells on ThinPrep Pap tests. Following automated imaging, selected brooks from every slide are reviewed by a compliance tester. Normal [facility] Comment on above: Order Comment: Speci men Type: FLUID SPECIMEN Ordering Facility: [facility] Address: [address] [place] [address] Performed By: #### H PVHRT #### [facility] CLIA [id number] [address] [place] [address] [place] #### [id number] #### [facility] CLIA [id number] [address] [place] [address] [place] [facility] CLIA [id number] [address] [place] [address] [place] RPR Ser Qlon 06-24-2024 Reagin Ab RPR Ql (S) Reactive Abnormal Nonreactive [facility] Comment on above: Order Comment: Speci men Type: FLUID SPECIMEN [facility] [facility] Address: [address] [place] [address] Result Comment: Rapi d plasma reagin (RPR) test detects non-treponemal antibodies. RPR may be reactive in a variety of infectious and non-infectious conditions. Correlation with clinical picture and with treponemal antibody results is required for final interpretation. Performed By: #### H PVHRT #### [facility] CLIA [id number] [address] [place] [address] [place] #### [id number] #### [facility] CLIA [id number] [address] [place] [address] [place] [facility] CLIA [id number] [address] [place] [address] [place] RPR Ser-Titron 06-24-2024 Reagin Ab RPR (S) [Titer] 1:256 Normal [facility] Comment on above: Order Comment: Speci men Type: FLUID SPECIMEN Ordering Facility: [facility] Address: [address] [place] [address] Result Comment: Rapi d plasma reagin (RPR) test detects non-treponemal antibodies. RPR may be reactive in a variety of infectious and non-infectious conditions. Correlation with clinical picture and with treponemal antibody results is required for final interpretation. Performed By: #### H PVHRT #### [facility] CLIA [id number] [address] [place] [address] [place] #### [id number] #### [facility] CLIA [id number] [address] [place] [address] [place] [facility] CLIA [id number] [address] [place] [address] [place] Reagin and Treponema pallidu m IgG and IgM [Interp]on 06-24-2024 T. pallidum IgG+IgM IA Ql (S) Reactive Abnormal Nonreactive [facility] Comment on above: Order Comment: Speci men Type: FLUID SPECIMEN Ordering Facility: [facility] Address: [address] [place] [address] Performed By: #### H PVHRT #### [facility] CLIA [id number] [address] [place] [address] [place] #### [id number] #### [facility] CLIA [id number] [address] [place] [address] [place] [facility] CLIA [id number] [address] [place] [address] [place] Reagin+T pallidum IgG+IgM Se rPl-Impon 06-24-2024 Reagin and Treponema pallidum IgG and IgM [Interp] The results suggest active Treponemal infection, however, RPR titers may remain elevated for extended periods after adequate treatment in serofast individuals. Correlation with clinical picture and treatment history is required. Normal [facility] Comment on above: Order Comment: Speci men Type: FLUID SPECIMEN Ordering Facility: [facility] Address: [address] [place] [address] Performed By: #### H PVHRT #### [facility] CLIA [id number] [address] [place] [address] [place] #### [id number] #### [facility] CLIA [id number] [address] [place] [address] [place] [facility] CLIA [id number] [address] [place] [address] [place] Emergency Department Summary on 06-22-2024 Emergency Department Summary [facility] Medical Records Department [address] [place] [address] Emergency Department Summary 06/22/24 MR#: [id number] Acct: [id number] Name: DUARTE SUNSHINE ADY Rep #: [id number] : 1985 39 From: Chon Lamar MD [...] itchy. No throat closing or other symptoms. [facility] Medical History Anxiety Alcohol use Low iron [...] (Adult) Prescriptions: No Action Cepacol Sore Throat (rafi-men) 15-3.6 mg lozenge 1 madalyn mucous membrane [...] improving Ehsan Luna MD [Med Staff - Slot Machine Floor Person] - As soon as possible Care Physician,No Primary [Primary Care Provider] - Print Language: [place] Disposition Disposition: Home, Self Care What to do i (more content not included)... Normal [facility] UA DIP, URINE (POC)on 2022 BILIRUBIN UA (POCT) Negative Negative [facility] CLARITY UA (POCT) Clear [facility] COLOR UA (POCT) Yellow [facility] GLUCOSE UA (POCT) Negative Negative mg/dL [facility] Hemoglobin Ql (U) Trace-intact Abnormal Negative [facility] KETONE UA (POCT) Negative Negative mg/dL [facility] LEUKOCYTES UA (POCT) Negative Negative [facility] NITRITE UA (POCT) Negative Negative [facility] PH UA (POCT) 7.0 4.5 - 8.0 [facility] Protein Ql (U) Negative Negative mg/dL [facility] SPECIFIC GRAVITY UA (POCT) 1.015 1.005 - 1.030 [facility] UROBILINOGEN UA (POCT) 0.2 E.U./dL Normal E.U./dL [facility] STREP A MOLECULAR (POC)on Procedural Control Valid [facility] Strep A (POCT) Positive Abnormal Negative [facility] UA DIP, URINE (POC)on 2022 BILIRUBIN UA (POCT) Negative Negative [facility] CLARITY UA (POCT) Clear [facility] COLOR UA (POCT) Yellow [facility] GLUCOSE UA (POCT) Negative Negative mg/dL [facility] HEMOGLOBIN/BLOOD UA (POCT) Trace-lysed Abnormal Negative [facility] KETONE UA (POCT) Negative Negative mg/dL [facility] LEUKOCYTES UA (POCT) Negative Negative [facility] NITRITE UA (POCT) Negative Negative [facility] PH UA (POCT) 7.0 4.5 - 8.0 [facility] Protein Ql (U) 100 mg/dL Abnormal Negative mg/dL [facility] SPECIFIC GRAVITY UA (POCT) 1.020 1.005 - 1.030 [facility] UROBILINOGEN UA (POCT) 0.2 E.U./dL Normal E.U./dL [facility] Laboratory - Chemistry and C hemistry - challengeon 05-11-2022 HCG ( test) Ql (U) Negative [facility] Work Phone: Comment on above: Very dilute urine sp ecimens, as indicated by a low specificgravity, may not contain escrow representative levels of hCG. If is still suspected, a first morning urinespecimen should be collected 48 hours later and tested. Basophil percentageon 2021 WBC (Bld) [#/Vol] 8.5 10*3/uL 4.4-11.0 [facility] Work Phone: Blood erythrocytes count (nu mber/volume)on 05-10-2022 RBC (Bld) [#/Vol] 4.34 10*6/uL 4.2-5.4 [facility] Work Phone: Blood hemoglobin measurement (mass/volume)on 05-10-2022 Hemoglobin (Bld) [Mass/Vol] 13.0 g/dL 12.0-15.0 [facility] Work Phone: Blood platelet mean volumeon 05-10-2022 Platelet mean volume (Bld) [Entitic vol] 10.3 fL 6.2-12.0 [facility] Work Phone: Determination of erythrocyte mean corpuscular volume (MCV)on 05-10-2022 MCV (RBC) [Entitic vol] 87.8 fL 81-99 [facility] Work Phone: Hematocrit Auto (Bld) [Volum e fraction]on 05-10-2022 Hematocrit (Bld) [Volume fraction] 38.1 % 37-47 [facility] Work Phone: Laboratory - Hematology and Cell countson 05-10-2022 Erythrocyte distribution width (RBC) [Entitic vol] 38.5 fL 35.1-43.9 [facility] Work Phone: Erythrocyte distribution width (RBC) [Ratio] 11.9 % 11.6-14.6 [facility] Work Phone: MCH (RBC) [Entitic mass] 30.0 pg 27.0-32.0 [facility] Work Phone: MCHC Auto (RBC) [Mass/Vol]on 05-10-2022 MCHC (RBC) [Mass/Vol] 34.1 g/dL 32-36 [facility] Work Phone: [phone] Platelets bldon 05-10-2022 Platelets (Bld) [#/Vol] 264 10*3/uL 150-450 [facility] Work Phone: HCG QUAL UR B/Oon 03-23-2022 status Negative neg - pos [facility] Quality Check Yes [facility] Absolute lymphocyte counton 12-29-2021 Lymphocytes Auto (Unsp spec) [#/Vol] 2.00 10*3/uL 0.83-4.51 [facility] Work Phone: Basophil percentageon 2021 Basophils/100 WBC (Bld) 0.3 % 0-1 [facility] Work Phone: Eosinophils/100 WBC (Bld) 4.1 % 0-5 [facility] Work Phone: Neutrophils (Bld) [#/Vol] 7.8 10*3/uL 2.0-7.7 [facility] Work Phone: Neutrophils/100 WBC (Bld) 70.3 % 47-70 [facility] Work Phone: [phone] WBC (Bld) [#/Vol] 11.0 10*3/uL 4.4-11.0 [facility] Work Phone: Blood erythrocytes count (nu mber/volume)on 12-29-2021 RBC (Bld) [#/Vol] 4.26 10*6/uL 4.2-5.4 [facility] Work Phone: Blood hemoglobin measurement (mass/volume)on 12-29-2021 Hemoglobin (Bld) [Mass/Vol] 12.0 g/dL 12.0-15.0 [facility] Work Phone: Blood lymphocytes/100 leukoc yteson 12-29-2021 Lymphocytes/100 WBC (Bld) 18.1 % 19-41 [facility] Work Phone: Blood monocytes/100 leukocyt eson 12-29-2021 Monocytes/100 WBC (Bld) 6.7 % 0-10 [facility] Work Phone: Blood platelet mean volumeon 12-29-2021 Platelet mean volume (Bld) [Entitic vol] 11.3 fL 6.2-12.0 [facility] Work Phone: Determination of erythrocyte mean corpuscular volume (MCV)on 12-29-2021 MCV (RBC) [Entitic vol] 87.1 fL 81-99 [facility] Work Phone: Hematocrit Auto (Bld) [Volum e fraction]on 12-29-2021 Hematocrit (Bld) [Volume fraction] 37.1 % 37-47 [facility] Work Phone: Laboratory - Hematology and Cell countson 12-29-2021 Erythrocyte distribution width (RBC) [Entitic vol] 45.1 fL 35.1-43.9 [facility] Work Phone: Erythrocyte distribution width (RBC) [Ratio] 14.1 % 11.6-14.6 [facility] Work Phone: Immature granulocytes/100 WBC (Bld) 0.500 % 0.0-0.9 [facility] Work Phone: Comment on above: IG% - Immature Granu locytes (promyelocytes, myelocytes and metamyelocytes) > 1% indicates that a LEFT SHIFT is Present. MCH (RBC) [Entitic mass] 28.2 pg 27.0-32.0 [facility] Work Phone: Nucleated RBC/100 WBC (Bld) [Ratio] 0 % 0-5 [facility] Work Phone: MCHC Auto (RBC) [Mass/Vol]on 12-29-2021 MCHC (RBC) [Mass/Vol] 32.3 g/dL 32-36 [facility] Work Phone: Platelets bldon 12-29-2021 Platelets (Bld) [#/Vol] 225 10*3/uL 150-450 [facility] Work Phone: URINE OB DIP B/Oon 2 Glucose Ql (U) Negative Neg mg/dL [facility] Protein.monoclonal (U) [Mass/Vol] 30 mg/dL Neg mg/dL [facility] CBC W Auto Differential pane l (Bld)on 12-23-2021 Abs Immature Gran 0.08 k/uL <0.10 k/uL [facility] Basophils (Bld) [#/Vol] 0.03 10*3/uL <0.11 k/uL [facility] Basophils/100 WBC (Bld) 0.2 % [facility] Differential cell count method Nom (Bld) Auto [facility] Eosinophils (Bld) [#/Vol] 0.27 10*3/uL <0.46 k/uL [facility] Eosinophils/100 WBC (Bld) 2.2 % [facility] Erythrocyte distribution width (RBC) [Ratio] 14.3 % 11.5 - 15.0 % [facility] Hematocrit (Bld) [Volume fraction] 36.6 % 36.0 - 46.0 % [facility] Hemoglobin (Bld) [Mass/Vol] 12.0 g/dL 11.5 - 15.5 g/dL [facility] Immature Gran % 0.7 % [facility] Lymphocytes (Bld) [#/Vol] 2.09 10*3/uL 1.00 - 4.00 k/uL [facility] Lymphocytes/100 WBC (Bld) 17.0 % [facility] MCH (RBC) [Entitic mass] 28.1 pg 26.0 - 34.0 pg [facility] MCHC (RBC) [Mass/Vol] 32.8 g/dL 30.5 - 36.0 g/dL [facility] MCV (RBC) [Entitic vol] 85.7 fL 80.0 - 100.0 fL [facility] Monocytes (Bld) [#/Vol] 0.59 10*3/uL <0.87 k/uL [facility] Monocytes/100 WBC (Bld) 4.8 % [facility] Neutrophils (Bld) [#/Vol] 9.22 10*3/uL High 1.45 - 7.50 k/uL [facility] Neutrophils/100 WBC (Bld) 75.1 % [facility] Nucleated RBC (Bld) [#/Vol] 10*3/uL <0.01 k/uL [facility] Nucleated RBC/100 WBC (Bld) [Ratio] 0.0 /100 WBC [facility] Platelet mean volume (Bld) [Entitic vol] 10.5 fL 9.0 - 12.7 fL [facility] Platelets (Bld) [#/Vol] 242 10*3/uL 150 - 400 k/uL [facility] RBC (Bld) [#/Vol] 4.27 10*6/uL 3.90 - 5.20 m/uL [facility] WBC (Bld) [#/Vol] 12.28 10*3/uL High 3.70 - 11.00 k/ uL [facility] Comprehensive metabolic 2000 panelon 12-23-2021 Albumin [Mass/Vol] 3.6 g/dL Low 3.9 - 4.9 g/dL [facility] ALP [Catalytic activity/Vol] 115 U/L 34 - 123 U/L [facility] ALT [Catalytic activity/Vol] 12 U/L 7 - 38 U/L [facility] Anion gap [Moles/Vol] 10 mmol/L 9 - 18 mmol/L [facility] AST [Catalytic activity/Vol] 16 U/L 13 - 35 U/L [facility] Bilirubin [Mass/Vol] 1.1 mg/dL 0.2 - 1.3 mg/dL [facility] Calcium [Mass/Vol] 8.8 mg/dL 8.5 - 10.2 mg/dL [facility] Chloride [Moles/Vol] 102 mmol/L 97 - 105 mmol/L [facility] CO2 [Moles/Vol] 23 mmol/L 22 - 30 mmol/L [facility] Creatinine [Mass/Vol] 0.59 mg/dL 0.58 - 0.96 mg/dL [facility] Estimated Glomerular Filtration Rate 121 mL/min/1.73m >=60 mL/min/1.73m [facility] Glucose [Mass/Vol] 80 mg/dL 74 - 99 mg/dL [facility] Potassium [Moles/Vol] 4.0 mmol/L 3.7 - 5.1 mmol/L [facility] Protein [Mass/Vol] 6.5 g/dL 6.3 - 8.0 g/dL [facility] Sodium [Moles/Vol] 135 mmol/L Low 136 - 144 mmol/L [facility] Urea nitrogen [Mass/Vol] 6 mg/dL Low 7 - 21 mg/dL [facility] URIC ACID BLOODon 12-23-2021 Urate [Mass/Vol] 5.7 mg/dL 2.5 - 6.6 mg/dL [facility] URINE OB DIP B/Oon Glucose Ql (U) Negative Neg mg/dL [facility] Protein.monoclonal (U) [Mass/Vol] 30+ Neg mg/dL [facility] CBC WITH AUTO DIFFERENTIALon 03-21-2019 Basophils (Bld) [#/Vol] 0.02 10*3/uL [facility] Basophils/100 WBC (Bld) 0.1 % [facility] Eosinophils (Bld) [#/Vol] 0.15 10*3/uL [facility] Eosinophils/100 WBC (Bld) 1.1 % [facility] Erythrocyte distribution width (RBC) [Entitic vol] 14.0 % 11.6 - 14.8 % [facility] Hematocrit (Bld) [Volume fraction] 31.9 % Low 36 - 46 % [facility] Hemoglobin (Bld) [Mass/Vol] 10.6 g/dL Low 12 - 16 g/dL [facility] Immature granulocytes (Bld) [#/Vol] 0.13 10*3/uL [facility] Immature granulocytes/100 WBC (Bld) 0.90 % [facility] Comment on above: The IG parameter is the percentage of metamyelocytes, myelocytes, and promyelocytes. Interpretation and review of laboratory results Abnormal [facility] Lymphocytes (Bld) [#/Vol] 2.77 10*3/uL [facility] Lymphocytes/100 WBC (Bld) 20.2 % [facility] MCH (RBC) [Entitic mass] 29.6 pg 26 - 34 pg [facility] MCHC (RBC) [Mass/Vol] 33.2 g/dL 31 - 37 g/dL [facility] MCV (RBC) [Entitic vol] 89.1 fL 80 - 100 fL [facility] Monocytes (Bld) [#/Vol] 1.05 10*3/uL High [facility] Monocytes/100 WBC (Bld) 7.7 % [facility] Neutrophils (Bld) [#/Vol] 9.57 10*3/uL High [facility] Neutrophils/100 WBC (Bld) 70.0 % [facility] Nucleated RBC (Bld) [#/Vol] 0.00 10*3/uL [facility] Nucleated RBC/100 WBC (Bld) [Ratio] 0.0 % [facility] Platelet mean volume (Bld) [Entitic vol] 11.5 fL 9 - 15.5 fL [facility] Platelets (Bld) [#/Vol] 163 10*3/uL [facility] RBC (Bld) [#/Vol] 3.58 10*6/uL Low [facility] ealth WBC (Bld) [#/Vol] 13.69 10*3/uL [facility] SCAN OTHER ORDERSon 03-20-20 19 Ordered by an unspecified provider. [facility] Hematologyon 01-23-2019 Basophils #/vol (Bld) 0.03 10*3/uL [facility] Basophils/100 WBC (Bld) 0.3 % [facility] Eosinophils #/vol (Bld) 0.33 10*3/uL [facility] Eosinophils/100 WBC (Bld) 2.9 % [facility] Hematocrit Volume Fraction (Bld) 33.4 % Low 36 - 46 % [facility] Hemoglobin mass conc (Bld) 11.3 g/dL Low 12 - 16 g/dL [facility] Lymphocytes #/vol (Bld) 2.11 10*3/uL [facility] Lymphocytes/100 WBC (Bld) 18.7 % [facility] MCH Entitic mass (RBC) 29.7 pg 26 - 34 pg [facility] MCV Entitic volume (RBC) 87.9 fL 80 - 100 fL [facility] Monocytes #/vol (Bld) 0.97 10*3/uL High [facility] Monocytes/100 WBC (Bld) 8.6 % [facility] Neutrophils #/vol (Bld) 7.63 10*3/uL High [facility] Neutrophils/100 WBC (Bld) 67.8 % [facility] Nucleated RBC #/vol (Bld) 0.00 10*3/uL [facility] Platelets #/vol (Bld) 193 10*3/uL [facility] RBC #/vol (Bld) 3.80 10*6/uL Low [facility] lth WBC #/vol (Bld) 11.26 10*3/uL High [facility] alth Metabolic Panelon 01-23-2019 Anion gap molar conc 12 mmol/L 10 - 20 mmol/L [facility] Chloride molar conc 109 mmol/L High 98 - 108 mmol/L [facility] Creatinine mass conc 0.47 mg/dL 0.4 - 1.1 mg/dL [facility] GFR/1.73 sq M predicted among non-blacks MDRD vol rate/area (S/P/Bld) The eGFR should be used for monitoring renal function only and not for medication dosing. [facility] Glucose mass conc 90 mg/dL 65 - 99 mg/dL [facility] Potassium molar conc 3.7 mmol/L 3.5 - 5.1 mmol/L [facility] Sodium molar conc 140 mmol/L 135 - 145 mmol/L [facility] Urea nitrogen mass conc 3 mg/dL Low 8 - 25 mg/dL [facility] Urea nitrogen/Creatinin e mass ratio 6.4 mg/mg Low [facility] Otheron 01-23-2019 No radiographic evidence of acute cardiopulmonary disease. Minimal atelectasis may be present at the lung bases right greater than left. [facility] Workstation ID: [id number] [facility] Interface, Rad In Mk Ramirezq - 01/23/2019 5:00 AM EDT EXAMINATION: XR [...] the lung bases right greater than left. [facility] Workstation ID: [id number] [facility] EXAMINATION: XR CHES T PA/AP HISTORY: ORDERING [...] unremarkable. There is no acute osseous abnormality. [facility] FLUAV RNA FLACO+probe Ql (Unsp spec) Not Detected Not Detected [facility] FLUBV RNA FLACO+probe Ql (Unsp spec) Not Detected Not Detected [facility] Interpretation and review of laboratory results Normal [facility] Test Method: Nucleic Acid Amplification [facility] GFR/1.73 sq M.predicted CKD-EPI vol rate/area (S/P/Bld) 130 >=60 mL/min/1.73 m2 [facility] HCO3 molar conc 23 mmol/L 21 - 32 mmol/L [facility] ealt Interpretation and review of laboratory results Abnormal [facility] Erythrocyte distribution width Entitic volume (RBC) 13.0 % 11.6 - 14.8 % [facility] Immature granulocytes #/vol (Bld) 0.19 10*3/uL [facility] Immature granulocytes/100 WBC (Bld) 1.70 % [facility] Comment on above: The IG parameter is the percentage of metamyelocytes, myelocytes, and promyelocytes. Interpretation and review of laboratory results Abnormal [facility] MCHC mass conc (RBC) 33.8 g/dL 31 - 37 g/dL [facility] Nucleated RBC/100 WBC Ratio (Bld) 0.0 % [facility] Platelet mean volume Entitic volume (Bld) 10.7 fL 9 - 15.5 fL [facility] Interpretation and review of laboratory results Normal [facility] Strep A Ag Negative Presumptive Negative for Group A Streptococcus [facility] XR CHEST PA/APon 01-23-2019 XR CHEST PA/AP [...] the lung bases right greater than left. [facility] Workstation ID: [id number] Dictated by: WALLACE ALEXIS on SunJanuary 23, 2019 3:01:45 AM EDT Transcribed by: REYMUNDO DAMON on SunJanuary 23, 2019 3:04:55 AM EDT Finalized by: WALLACE ALEXIS on SunJanuary 23, 2019 4:57:28 AM EDT Normal [facility] Comment on above: Order Comment: Reaso [...] INDICATION: Standard Anatomy. COMPARISON: None. ACCESSION NUMBER(S): [id number] ORDERING CLINICIAN: Carissa Crawford TECHNIQUE: Routine ultrasound [...] am Signed by: Ernie Syed MD Technologist: [facility] AFP Tetra Profileon 10-23-19 19 AFP TP AFP Mom Value 1.64 [facility] Comment on above: Performed By: #### 2 [id number] #### RAHUL RemHemo [address] [place] [address] AFP TP AFP Kanwal EIA 53.7 ng/mL [facility] Comment on above: Performed By: #### 2 [id number] #### RAHUL RemHemo [address] [place] [address] AFP TP Comments: Comment [facility] Comment on above: Result Comment: Melly Gore, Ph.D., [facility] Principal Genetics Mathematician References: Available Upon Request. Multiples Of Median Cutoffs Abbreviation Definitions For AFP Elevations IDD- Insulin Dep Diabetes Garcia 2.5 Black 2.8 OSBR- Open Spina Bifida IDD 2.0 Twins 4.5 Risk DSR Cutoff 1:270 DSR- Down Syndrome Risk T18 Cutoff 1:100 T18- Trisomy 18 Down Syndrome and Trisomy 18 screening are considered Investigational For further inquiries contact [employer] at [phone]. Performed At: [facility] [address] [facility], [place] [id number] Junito Bennett MD Ph:[phone] Performed By: #### 2 [id number] #### RAHUL RemHemo [address] [place] [address] AFP TP KHLOE Mom Value 0.90 [facility] Comment on above: Performed By: #### 2 [id number] #### RAHUL Lopezo [address] [place] [address] AFP TP KHLOE Value EIA 129.35 pg/mL [facility] Comment on above: Performed By: #### 2 [id number] #### RAHUL L[address]zo [address] [place] [address] AFP TP DSR 2nd Times 1IN [id number] [facility] Comment on above: Performed By: #### 2 [id number] #### RAHUL Lopezo [address] [place] [address] AFP TP DSR(by Age) 1IN 428 [facility] Comment on above: Performed By: #### 2 [id number] #### RAHUL Lopezo [address] [place] [address] AFP TP GA Base Ultrasound [facility] Comment on above: Result Comment: 17.3 on 10/18/2018 Performed By: #### 2 [id number] #### RAHUL L[address]zo [address] [place] [address] AFP TP Gest Age 17.3 week(s) [facility] Comment on above: Performed By: #### 2 [id number] #### RAHUL HolcombHemo [address] [place] [address] AFP TP hCG Mom 0.90 [facility] Comment on above: Performed By: #### 2 [id number] #### RAHUL HolcombHemo [address] [place] [address] AFP TP Insulin Dep Diabetes No [facility] Comment on above: Performed By: #### 2 [id number] #### RAHUL HolcombHemo [address] [place] [address] AFP TP Interp Comment [facility] Comment on above: Result Comment: Inte rpretation: [...] identifies 60% of Trisomy 18 pregnancies. The [employer] recommends amniocentesis be offered to women age 35 and older. Recalculations are not recommended when gestational dating by LMP and ultrasound are within 10 days. Performed By: #### 2 [id number] #### RAHUL RemHemo [address] [place] [address] AFP TP Mat Age ALEK 33.2 [facility] Comment on above: Performed By: #### 2 [id number] #### RAHUL RemHemo [address] [place] [address] AFP TP Mult Gest No [facility] Comment on above: Performed By: #### 2 [id number] #### RAHUL RemHemo [address] [place] [address] AFP TP OSBR Risk 1 [place] [address] [place] [facility] Comment on above: Performed By: #### 2 [id number] #### RAHUL RemHemo [address] [place] [address] AFP TP Race [facility] Comment on above: Performed By: #### 2 [id number] #### RAHUL RemHemo [address] [place] [address] AFP TP T18 (By Age) Not increased [facility] Comment on above: Performed By: #### 2 [id number] #### RAHUL RemHemo [address] [place] [address] AFP TP T18 Risk 1:1667 [facility] Comment on above: Performed By: #### 2 110027 #### RAHUL RemHemo [address] [place] [address] AFP TP Test Results: Negative [facility] Comment on above: Performed By: #### 2 [id number] #### RAHUL RemHemo [address] [place] [address] AFP TP uE3 Mom 1.36 [facility] Comment on above: Performed By: #### 2 330293 #### RAHUL RemHemo [address] [place] [address] AFP TP uE3 Value 1.41 ng/mL [facility] Comment on above: Performed By: #### 2 [id number] #### RAHUL RemHemo [facility] [place] [address] [place] [address] m[IU]/mL Normal [facility] Comment on above: Performed By: #### 2 [id number] #### RAHUL RemHemo [facility] [place] [address] IGP W/hpv Rfx [id number] 09-26 Diagnosis: See Ref Lab Report Normal [facility] Comment on above: Order Comment: Order Added by Discern Expert. Performed By: #### 2 [id number] #### RAHUL RemHemo [address] [place] [address] RPRon 09-25-2018 Reagin Ab RPR Ql (S) Non-Reactive Normal Non-Reactive [facility] Comment on above: Performed By: #### 2 [id number] #### RAHUL RemHemo [address] [place], [place] [address] C Urineon 09-22-2018 C Urine Final Report: Light growth of Normal skin sola isolated Normal [facility] Comment on above: Performed By: #### 2 036034 #### RAHUL Microbiology Subsection [address] [place] [address] Hep Bs Agon 09-22-2018 Hep Bs Ag Negative Normal Negative [facility] Comment on above: Result Comment: Perf ormed At: [facility] [address] [id number] Kecia Bateman PhD Ph:[phone] Performed By: #### 2 [id number] #### RAHUL Send Outs Subsection [address] [place] [address] ABO/Rh Echoon 09-20-2018 ABO/Rh E Interp... AB POS Normal [facility] Comment on above: Performed By: #### 8 [id number] #### RAHUL Blood Bank Subsection [address] [place] [address] Antibody Screen Cap...on Screen Interp... Negative Normal [facility] Comment on above: Performed By: #### 8 [id number] #### RAHUL Blood Bank Subsection [address] [place] [address] Auto Diffon 09-20-2018 Basophils #/vol (Bld) 0.0 E3/mcL Normal 0.0-0.2 [facility] Comment on above: Order Comment: Order Added by Discern Expert. Performed By: #### 2 579072 #### RAHUL RemHemo [address] [place] [address] Basophils/100 WBC (Bld) 0.3 % Normal 0.0-2.0 [facility] Comment on above: Order Comment: Order Added by Discern Expert. Performed By: #### 2 066915 #### RAHUL RemHemo [address] [place] [address] Eos Absolute 0.1 E3/mcL Normal 0.0-0.7 [facility] Comment on above: Order Comment: Order Added by Discern Expert. Performed By: #### 2 233277 #### RAHUL RemHemo [address] [place] [address] Eosinophils/100 WBC (Bld) 1.4 % Normal 0.0-11.0 [facility] Comment on above: Order Comment: Order Added by Discern Expert. Performed By: #### 2 154017 #### RAHUL RemHemo [address] [place] [address] Lymphocytes #/vol (Bld) 2.0 E3/mcL Normal 1.2-3.4 [facility] Comment on above: Order Comment: Order Added by Discern Expert. Performed By: #### 2 754316 #### RAHUL RemHemo [address] [place] [address] Lymphocytes/100 WBC (Bld) 20.3 % Normal 20.0-55.0 [facility] Comment on above: Order Comment: Order Added by Discern Expert. Performed By: #### 2 978621 #### RAHUL RemHemo [address] [place] [address] [place] Absolute 0.5 E3/mcL Normal 0.0-0.7 [facility] Comment on above: Order Comment: Order Added by Eladia Expert. Performed By: #### 2 568890 #### RAHUL RemHemo [address] [place] [address] Monocytes/100 WBC (Bld) 4.8 % Normal 0.0-10.0 [facility] Comment on above: Order Comment: Order Added by Discern Expert. Performed By: #### 2 587615 #### RAHUL Lopezo [facility] [place] [address] Neutro Absolute 7.1 E3/mcL High 1.4-6.5 [facility] Comment on above: Order Comment: Order Added by Discern Expert. Performed By: #### 2 761792 #### RAHUL Lopezo [address] [place] [address] Neutro Auto 73.2 % Normal 37.0-75.0 [facility] Comment on above: Order Comment: Order Added by Discern Expert. Performed By: #### 2 226793 #### RAHUL Lopezo [address] [place] [address] CBC w/ Auto Diffon 9 Erythrocyte distribution width Ratio (RBC) 12.6 % Normal 11.5-14.5 [facility] Comment on above: Performed By: #### 2 763116 #### RAHUL Lopezo [address] [place] [address] Hematocrit Volume Fraction (Bld) 38.6 % Normal 36.0-48.0 [facility] Comment on above: Performed By: #### 2 355928 #### RAHUL Lopezo [address] [place] [address] Hemoglobin mass conc (Bld) 13.2 g/dL Normal 12.0-16.0 [facility] Comment on above: Performed By: #### 2 460915 #### RAHUL Lopezo [facility] [place] [address] MCH Entitic mass (RBC) 30.4 pg Normal 27.0-31.0 [facility] Comment on above: Performed By: #### 2 780154 #### RAHUL HolcombHemo [facility] [place] [address] MCHC mass conc (RBC) 34.3 g/dL Normal 33.0-37.0 [facility] Comment on above: Performed By: #### 2 069633 #### RAHUL HolcombHemo [facility] [place] [address] MCV Entitic volume (RBC) 88.7 fL Normal 78.0-100.0 [facility] Comment on above: Performed By: #### 2 607396 #### RAHUL RemHemo [facility] [place] [address] Platelet mean volume Entitic volume (Bld) 9.4 fL Normal 7.4-11.0 [facility] Comment on above: Performed By: #### 2 497727 #### RAHUL RemHemo [address] [place] [address] Platelets #/vol (Bld) 235 E3/mcL Normal 130-400 [facility] Comment on above: Performed By: #### 2 114199 #### RAHUL RemHemo [facility] [place] [address] RBC #/vol (Bld) 4.35 E6/mcL Normal 3.90-5.40 [facility] Comment on above: Performed By: #### 2 432443 #### RAHUL RemHemo [facility] [place] [address] WBC #/vol (Bld) 9.8 E3/mcL Normal 3.6-11.0 [facility] Comment on above: Performed By: #### 2 799841 #### RAHUL RemHemo [address] [place] [address] Chlamydia GC by PCRon 2018 Chlamydia by PCR. Not Detected Normal Not Detected [facility] Comment on above: Result Comment: Xper t CT/NG Assay performance has not been evaluated in patients less than 14 years of age. Performed By: #### 3 [id number] #### RAHUL Martinez Micro SubSection , Gonorrhoeae by PCR Not Detected Normal Not Detected [facility] Comment on above: Result Comment: Xper t CT/NG Assay performance has not been evaluated in patients less than 14 years of age. Performed By: #### 3 [id number] #### RAHUL Rodasc Micro SubSection , HIV-1/2 Ag/Abon 09-20-2018 HIV Combo Internal Control Line Reactive Normal Reactive [facility] Comment on above: Performed By: #### 6 [id number] #### RAHUL Chemistry Manual Subsection [address] [place] [address] HIV-1 & HIV-2 Antibodies Non-Reactive Normal Non-Reactive [facility] Comment on above: Performed By: #### 6 [id number] #### RAHUL Chemistry Manual Subsection [address] [place] [address] HIV-1 p-24 Antigen Non-Reactive Normal Non-Reactive [facility] Comment on above: Performed By: #### 6 [id number] #### RAHUL Chemistry Manual Subsection [facility] [place] [address] HIV-1/2 Ag/Ab Interp Negative Normal Negative [facility] Comment on above: Performed By: #### 6 [id number] #### RAHUL Chemistry Manual Subsection [address] [place] [address] Rubella IgG Lvlon 09-20-2018 Rubella IgG Lvl 265.7 (POS) Normal [facility] Comment on above: Result Comment: <10I U/ml NON REACTIVE: NOT IMMUNE 10-15 IU/ml RUBELLA SPECIFIC AB PRESENT, EVALUATE FURTHER TO DETERMINE IMMUNE STATUS >15 IU/ml REACTIVE, IMMUNE Performed By: #### 2 [id number] #### RAHUL [employer] [address] [place] [address] TSHon 09-20-2018 Thyrotropin Qn 1.42 mcIU/mL Normal 0.30-5.60 [facility] Comment on above: Performed By: #### 2 120206 #### RAHUL [employer] [address] [place] [address] Hgb and Hcton 07-04-2017 Hematocrit (HCT) 31.3 % Low 34.4-44.8 [facility] Comment on above: Performed By: #### H H ####Unless otherwise noted, all testing performed by [place] [address] [address] [place], [place] [phone]: [id number] Director: Terry Lam M.D. Hemoglobin mass conc (Bld) 10.5 g/dL Low 11.6-15.4 [facility] Comment on above: Performed By: #### H H ####Unless otherwise noted, all [facility] performed [facility] [place] [address] [address], [place] [phone]: [id number] Director: Terry Lam M.D. SURGon 07-03-2017 SURG [...] any other discrete lesions. Cassette 1 contains escrow representative umbilical cord. Cassette 2 contains escrow representative umbilical cord insertion site. Cassette 3 contains escrow representative membranes. Cassette 4 contains escrow representative placental disc, peripheral. Cassettes 5-6 contain escrow representative placental disc, central. (ICT/lt) Electronically Signed By Anshu Lord DO , Pathologist (Case signed 07/05/2017) Normal [facility] CBC with Diffon 07-01-2017 Basophils Auto #/vol (Bld) 0.1 K/mcL Normal 0-0.2 [facility] Comment on above: Performed By: #### C BCDIF, SYPHABS ####Unless otherwise noted, all testing performed by [address] [phone]: [id number] Director: Terry Lam M.D. Basophils/100 WBC Auto (Bld) 0.4 % Normal [facility] Comment on above: Performed By: #### C BCDIF, SYPHABS ####Unless otherwise noted, all testing performed by [address] [phone]: [id number] Director: Terry Lam M.D. Eosinophils 0.2 K/mcL Normal 0-0.5 [facility] Comment on above: Performed By: #### C BCDIF, SYPHABS ####Unless otherwise noted, all testing performed by [address] [phone]: [id number] Director: Terry Lam M.D. Eosinophils/100 leukocytes 1.2 % Normal [facility] Comment on above: Performed By: #### C BCDIF, SYPHABS ####Unless otherwise noted, all testing performed by [place] [phone]: [id number] Director: Terry Lam M.D. Erythrocyte distribution width Auto Ratio (RBC) 13.5 % Normal 10.0-14.4 [facility] Comment on above: Performed By: #### C BCDIF, SYPHABS ####Unless otherwise noted, all testing performed by [address] [phone]: [id number] Director: Terry Lam M.D. Erythrocytes (RBC) 3.97 M/mcL Normal 3.7-5.0 [facility] Comment on above: Performed By: #### C BCDIF, SYPHABS ####Unless otherwise noted, all testing performed by [address] [phone]: [id number] Director: Terry Lam M.D. Hematocrit (HCT) 35.2 % Normal 34.4-44.8 [facility] Comment on above: Performed By: #### C BCDIF, SYPHABS ####Unless otherwise noted, all testing performed by [address] [phone]: [id number] Director: Terry Lam M.D. Hemoglobin mass conc (Bld) 12.1 g/dL Normal 11.6-15.4 [facility] Comment on above: Performed By: #### C BCDIF, SYPHABS ####Unless otherwise noted, all testing performed by [address] [phone]: [id number] Director: Terry Lam M.D. Lymphocytes 2.4 K/mcL Normal 1.0-3.7 [facility] Comment on above: Performed By: #### C BCDIF, SYPHABS ####Unless otherwise noted, all testing performed by [address] [phone]: [id number] Director: Terry Lam M.D. Lymphocytes/100 leukocytes 18.0 % Normal [facility] Comment on above: Performed By: #### C BCDIF, SYPHABS ####Unless otherwise noted, all testing performed by [address] [phone]: [id number] Director: Terry Lam M.D. MCH 30.4 pg Normal 27.9-33.9 [facility] Comment on above: Performed By: #### C BCDIF, SYPHABS ####Unless otherwise noted, all testing performed by [address] [phone]: [id number] Director: Terry Lam M.D. MCHC mass conc (RBC) 34.3 g/dL Normal 33.1-35.1 [facility] Comment on above: Performed By: #### C BCDIF, SYPHABS ####Unless otherwise noted, all testing performed by [address] [phone]: [id number] Director: Terry Lam M.D. MCV 88.5 fL Normal 82.6-98.9 [facility] Comment on above: Performed By: #### C BCDIF, SYPHABS ####Unless otherwise noted, all testing performed by [address] [phone]: [id number] Director: Terry Lam M.D. Monocytes 1.1 K/mcL High 0.1-0.6 [facility] Comment on above: Performed By: #### C BCDIF, SYPHABS ####Unless otherwise noted, all testing performed by [address] [phone]: [id number] Director: Terry Lam M.D. Monocytes/100 leukocytes 8.1 % Normal [facility] Comment on above: Performed By: #### C BCDIF, SYPHABS ####Unless otherwise noted, all testing performed by [address] [phone]: [id number] Director: Terry Lam M.D. Neutrophils 9.5 K/mcL High 1.2-6.9 [facility] Comment on above: Performed By: #### C BCDIF, SYPHABS ####Unless otherwise noted, all testing performed by [address] [phone]: [id number] Director: Terry Lam M.D. Platelet mean volume (PMV) 8.7 fL Normal 7.0-10.6 [facility] Comment on above: Performed By: #### C BCDIF, SYPHABS ####Unless otherwise noted, all testing performed by [address] [phone]: [id number] Director: Terry Lam M.D. Platelets 168 K/mcL Normal 162-402 [facility] Comment on above: Performed By: #### C BCDIF, SYPHABS ####Unless otherwise noted, all testing performed by [address] [phone]: [id number] Director: Terry Lam M.D. Segmented Neut % 72.3 % Normal [facility] Comment on above: Performed By: #### C BCDIF, SYPHABS ####Unless otherwise noted, all testing performed by [address] [phone]: [id number] Director: Terry Lam M.D. WBC (Leukocytes) 13.2 K/mcL High 3.4-10.6 [facility] Comment on above: Performed By: #### C BCDIF, SYPHABS ####Unless otherwise noted, all testing performed by [address] [phone]: [id number] Director: Terry Lam M.D. Culture, Urineon 07-01-2017 Culture, Urine Test Name: Culture, Urine Culture Status: Final Culture Report: No significant growth. Micro Source: Urine - clean catch Normal [facility] Comment on above: Performed By: #### U RCUL ####Unless otherwise noted, all testing performed by [address] [phone]: [id number] Director: Terry Lam M.D. Rupture Of [] Membranes on 07-01-2017 Rupture Of [] Membranes Negative Normal [facility] Comment on above: Result Comment: Rapi d test procedural control acceptable. Performed By: #### R OM ####Unless otherwise noted, all testing performed by [address] [phone]: [id number] Director: Terry Lam M.D. Syphilis Ab, IgGon 7 RPR Screen Reactive Abnormal Non-Reactive [facility] Comment on above: Performed By: #### C BCDIF, SYPHABS ####Unless otherwise noted, all testing performed by [address] [phone]: [id number] Director: Terry Lam M.D. RPR Titer 1:2 Normal [facility] Comment on above: Result Comment: [place] [address] Performed By: #### C BCDIF, SYPHABS ####Unless otherwise noted, all testing performed by [address]CLIA: [id number] Director: Terry Lam M.D. Syphilis Ab, IgG Positive Abnormal Negative [facility] Comment on above: Result Comment: [place] [address] Performed By: #### C BCDIF, SYPHABS ####Unless otherwise noted, all testing performed by [address] [phone]: [id number] Director: Terry Lam M.D. Urinalysis, Routineon 2016 Bilirubin,Urine Negative Normal NEG;NEGATIVE [facility] Comment on above: Performed By: #### U A ####Unless otherwise noted, all testing performed by [address] [phone]: [id number] Director: Terry Lam M.D. Blood,Urine Moderate Abnormal NEG;NEGATIVE [facility] Comment on above: Performed By: #### U A ####Unless otherwise noted, all testing performed by [address], [place] [phone]: [id number] Director: Terry Lam M.D. Ketone,Urine Negative Normal NEG;NEGATIVE [facility] Comment on above: Performed By: #### U A ####Unless otherwise noted, all testing performed by [phone]: [id number] Director: Terry Lam M.D. Leuk.Esterase,Urin e Large Abnormal Negative [facility] Comment on above: Performed By: #### U A ####Unless otherwise noted, all testing performed by [address]8[address]CLIA: [id number] Director: Terry Lam M.D. Mucus, Urine Rare Abnormal None Seen [facility] Comment on above: Performed By: #### U A ####Unless otherwise noted, all testing performed by [place] [phone]: [id number] Director: Terry Lam M.D. Nitrite,Urine Negative Normal NEG;NEGATIVE [facility] Comment on above: Performed By: #### U A ####Unless otherwise noted, all testing performed by [place] [phone]: [id number] Director: Terry Lam M.D. Protein,Urine 30 mg/dL High < 30 [facility] Comment on above: Performed By: #### U A ####Unless otherwise noted, all testing performed by [address] [place] [phone]: [id number] Director: Terry Lam M.D. Specific [place],Urine 1.034 High 1.003-1.029 [facility] Comment on above: Performed By: #### U A ####Unless otherwise noted, all testing performed by [address] [phone]: [id number] Director: Terry Lam M.D. Squamous Epithelial 3 /HPF Normal 0-40 [facility] Comment on above: Performed By: #### U A ####Unless otherwise noted, all testing performed by [address] [phone]: [id number] Director: Terry Lam M.D. Trichomonas, Urine Present Abnormal None Seen [facility] Comment on above: Performed By: #### U A ####Unless otherwise noted, all testing performed by [address] [phone]: [id number] Director: Terry Lam M.D. Urine, bacteria in sediment Occasional Abnormal NS;RARE [facility] Comment on above: Performed By: #### U A ####Unless otherwise noted, all testing performed by [address] [phone]: [id number] Director: Terry Lam M.D. Urine, character Hazy Normal [facility] Comment on above: Performed By: #### U A ####Unless otherwise noted, all testing performed by [address] [place] [phone]: [id number] Director: Terry Lam M.D. Urine, color Yellow Normal [facility] Comment on above: Performed By: #### U A ####Unless otherwise noted, all testing performed by [address] [phone]: [id number] Director: Terry Lam M.D. Urine, erythrocytes in sediment by area 9 /[HPF] High 0-5 [facility] Comment on above: Performed By: #### U A ####Unless otherwise noted, all testing performed by [address] [phone]: [id number] Director: Terry Lam M.D. Urine, glucose presence Negative Normal NEG;NEGATIVE [facility] Comment on above: Performed By: #### U A ####Unless otherwise noted, all testing performed by [address] [phone]: [id number] Director: Terry Lam M.D. Urine, leukocytes in sedmiment 60 /[HPF] High 0-5 [facility] Comment on above: Performed By: #### U A ####Unless otherwise noted, all testing performed by [address] [phone]: [id number] Director: Terry Lam M.D. Urine, pH 5.0 [pH] Normal 4.5-8.0 [facility] Comment on above: Performed By: #### U A ####Unless otherwise noted, all testing performed by [address] [phone]: [id number] Director: Terry Lam M.D. Urobilinogen,Urine < 2.0 Normal <2 [facility] Comment on above: Performed By: #### U A ####Unless otherwise noted, all testing performed by [address] [phone]: [id number] Director: Terry Lam M.D. Culture, Urineon 06-23-2017 Culture, Urine Test Name: Culture, Urine Culture Status: Final Culture Report: No significant growth. Micro Source: Urine Normal [facility] Comment on above: Performed By: #### U RCUL ####Unless otherwise noted, all testing performed by [address] [phone]: [id number] Director: Terry Lam M.D. Urinalysis, Routineon 2016 Bilirubin,Urine Negative Normal NEG;NEGATIVE [facility] Comment on above: Performed By: #### U A ####Unless otherwise noted, all testing performed by [address] [phone]: [id number] Director: Terry Lam M.D. Blood,Urine Large Abnormal NEG;NEGATIVE [facility] Comment on above: Performed By: #### U A ####Unless otherwise noted, all testing performed by [address] [phone]: [id number] Director: Terry Lam M.D. Ketone,Urine Negative Normal NEG;NEGATIVE [facility] Comment on above: Performed By: #### U A ####Unless otherwise noted, all testing performed by [address] [phone]: [id number] Director: Terry Lam M.D. Leuk.Esterase,Urin e Large Abnormal Negative [facility] Comment on above: Performed By: #### U A ####Unless otherwise noted, all testing performed by [place] [phone]: [id number] Director: Terry Lam M.D. Mucus, Urine Rare Abnormal None Seen [facility] Comment on above: Performed By: #### U A ####Unless otherwise noted, all testing performed by [address] [phone]: [id number] Director: Terry Lam M.D. Nitrite,Urine Negative Normal NEG;NEGATIVE [facility] Comment on above: Performed By: #### U A ####Unless otherwise noted, all testing performed by [place] [phone]: [id number] Director: Terry Lam M.D. Protein,Urine 30 mg/dL High < 30 [facility] Comment on above: Performed By: #### U A ####Unless otherwise noted, all testing performed by [address] [phone]: [id number] Director: Terry Lam M.D. Specific [place],Urine 1.023 Normal 1.003-1.029 [facility] Comment on above: Performed By: #### U A ####Unless otherwise noted, all testing performed by [address] [phone]: [id number] Director: Terry Lam M.D. Squamous Epithelial 7 /HPF Normal 0-40 [facility] Comment on above: Performed By: #### U A ####Unless otherwise noted, all testing performed by [place] [phone]: [id number] Director: Terry Lam M.D. Urine, bacteria in sediment Moderate Abnormal NS;RARE [facility] Comment on above: Performed By: #### U A ####Unless otherwise noted, all testing performed by [address] [id number]: [id number] Director: Terry Lam M.D. Urine, character Cloudy Normal [facility] Comment on above: Performed By: #### U A ####Unless otherwise noted, all testing performed by [phone]: [id number] Director: Terry Lam M.D. Urine, color Amy Normal [facility] Comment on above: Performed By: #### U A ####Unless otherwise noted, all testing performed by [address] [id number]: [id number] Director: Terry Lam M.D. Urine, erythrocytes in sediment by area /[HPF] High 0-5 [facility] Comment on above: Performed By: #### U A ####Unless otherwise noted, all testing performed by [address] [id number]: [id number] Director: Terry Lam M.D. Urine, glucose presence Negative Normal NEG;NEGATIVE [facility] Comment on above: Performed By: #### U A ####Unless otherwise noted, all testing performed by [address] [id number]: [id number] Director: Terry Lam M.D. Urine, leukocytes in sedmiment 96 /[HPF] High 0-5 [facility] Comment on above: Performed By: #### U A ####Unless otherwise noted, all testing performed by [address] [id number]: [id number] Director: Terry Lam M.D. Urine, pH 6.0 [pH] Normal 4.5-8.0 [facility] Comment on above: Performed By: #### U A ####Unless otherwise noted, all testing performed by [address] [id number]: [id number] Director: Terry Lam M.D. Urobilinogen,Urine < 2.0 Normal <2 [facility] Comment on above: Performed By: #### U A ####Unless otherwise noted, all testing performed by [address] [id number]: [id number] Director: Terry Lam M.D. Vital Signs Date Time Vital Sign Value Performing Clinician Facility 03-28-2025 21:04-0400 Body temperature 98.3 [degF] No Primary Care Physician [facility] 03-28-2025 21:04-0400 Diastolic blood pressure 80 mm[Hg] No Primary Care Physician [facility] 03-28-2025 21:04-0400 Heart rate 81 /min No Primary Care Physician [facility] 03-28-2025 21:04-0400 Respiratory rate 16 /min No Primary Care Physician [facility] 03-28-2025 21:04-0400 SaO2% (BldA) [Mass fraction] 100 % No Primary Care Physician [facility] 03-28-2025 21:04-0400 Systolic blood pressure 128 mm[Hg] No Primary Care Physician [facility] 03-28-2025 20:01-0400 Body height 162.56 cm No Primary Care Physician [facility] 01-05-2025 15:23-0400 Body mass index (BMI) [Ratio] 35.32 kg/m2 Boo Priest APRN.SAND OPERATOR Work Phone: [facility] 01-05-2025 15:23-0400 Body temperature 98.4 [degF] Boo Priest APRN.SAND OPERATOR Work Phone: [facility] 01-05-2025 15:23-0400 Body weight 95 kg Boo Priest APRN.SAND OPERATOR Work Phone: [facility] 01-05-2025 15:23-0400 Diastolic blood pressure 68 mm[Hg] Boo Priest APRN.SAND OPERATOR Work Phone: [facility] 01-05-2025 15:23-0400 Heart rate 64 /min Boo Priest APRN.SAND OPERATOR Work Phone: [facility] 01-05-2025 15:23-0400 Respiratory rate 18 /min Boo Priest APRN.SAND OPERATOR Work Phone: [facility] 01-05-2025 15:23-0400 SaO2% (BldA) [Mass fraction] 100 % Boo Priest APRN.SAND OPERATOR Work Phone: [facility] 01-05-2025 15:23-0400 Systolic blood pressure 132 mm[Hg] Boo Priest APRN.SAND OPERATOR Work Phone: [facility] 09-29-2024 09:41-0500 Body mass index (BMI) [Ratio] 34.28 kg/m2 Boo Priest APRN.SAND OPERATOR Work Phone: [facility] 09-29-2024 09:41-0500 Body temperature 98.8 [degF] Boo Priest APRN.SAND OPERATOR Work Phone: [facility] 09-29-2024 09:41-0500 Body weight 92.2 kg Boo Priest APRN.SAND OPERATOR Work Phone: [facility] 09-29-2024 09:41-0500 Diastolic blood pressure 72 mm[Hg] Boo Priest APRN.SAND OPERATOR Work Phone: [facility] 09-29-2024 09:41-0500 Heart rate 101 /min Boo Priest APRN.SAND OPERATOR Work Phone: [facility] 09-29-2024 09:41-0500 Respiratory rate 18 /min Boo Priest APRN.SAND OPERATOR Work Phone: [facility] 09-29-2024 09:41-0500 SaO2% (BldA) [Mass fraction] 98 % Boo Priest APRN.SAND OPERATOR Work Phone: [facility] 09-29-2024 09:41-0500 Systolic blood pressure 106 mm[Hg] Boo Priest APRN.SAND OPERATOR Work Phone: [facility] 09-10-2024 15:15-0500 Body mass index (BMI) [Ratio] 33.95 kg/m2 Jamaal Chaparro MD Work Phone: [facility] 09-10-2024 15:15-0500 Body temperature 98.71 [degF] Jamaal Chaparro MD Work Phone: [facility] 09-10-2024 15:15-0500 Body weight 91.3 kg Jamaal Chaparro MD Work Phone: [facility] 09-10-2024 15:15-0500 Diastolic blood pressure 76 mm[Hg] Jamaal Chaparro MD Work Phone: [facility] 09-10-2024 15:15-0500 Heart rate 88 /min Jamaal Chaparro MD Work Phone: [facility] 09-10-2024 15:15-0500 Respiratory rate 18 /min Jamaal Chaparro MD Work Phone: [facility] 09-10-2024 15:15-0500 SaO2% (BldA) [Mass fraction] 99 % Jamaal Chaparro MD Work Phone: [facility] 09-10-2024 15:15-0500 Systolic blood pressure 118 mm[Hg] Jamaal Chaparro MD Work Phone: [facility] 06-24-2024 09:12-0400 Body height 164 cm Betty Claudia HIGH TENSION TESTER.SAND OPERATOR Work Phone: [facility] 06-24-2024 09:12-0400 Body mass index (BMI) [Ratio] 34.1 kg/m2 Betty Claudia HIGH TENSION TESTER.SAND OPERATOR Work Phone: [facility] 06-24-2024 09:12-0400 Body weight 91.72 kg Betty Ninole HIGH TENSION TESTER.SAND OPERATOR Work Phone: [facility] 06-24-2024 09:12-0400 Diastolic blood pressure 78 mm[Hg] Betty Ninole HIGH TENSION TESTER.SAND OPERATOR Work Phone: [facility] 06-24-2024 09:12-0400 Systolic blood pressure 122 mm[Hg] Betty Ninole HIGH TENSION TESTER.SAND OPERATOR Work Phone: [facility] 05-06-2023 12:18-0400 Body temperature 98.49 [degF] Joan Ca HIGH TENSION TESTER.SAND OPERATOR Work Phone: [facility] 05-06-2023 12:18-0400 Body weight 87.45 kg Joan Ca HIGH TENSION TESTER.SAND OPERATOR Work Phone: [facility] 05-06-2023 12:18-0400 Diastolic blood pressure 78 mm[Hg] Joan Ca HIGH TENSION TESTER.SAND OPERATOR Work Phone: [facility] 05-06-2023 12:18-0400 Heart rate 88 /min Joan Ca HIGH TENSION TESTER.SAND OPERATOR Work Phone: [facility] 05-06-2023 12:18-0400 Respiratory rate 20 /min Joan Ca HIGH TENSION TESTER.SAND OPERATOR Work Phone: [facility] 05-06-2023 12:18-0400 SaO2% (BldA) [Mass fraction] 99 % Joan Ca HIGH TENSION TESTER.SAND OPERATOR Work Phone: [facility] 05-06-2023 12:18-0400 Systolic blood pressure 120 mm[Hg] Joan Ca HIGH TENSION TESTER.SAND OPERATOR Work Phone: [facility] 03-19-2023 18:48-0400 Body temperature 99.39 [degF] Cheryl Praisler-Wood HIGH TENSION TESTER.SAND OPERATOR Work Phone: [facility] 03-19-2023 18:48-0400 Body weight 85.73 kg Cheryl Praisler-Wood HIGH TENSION TESTER.SAND OPERATOR Work Phone: [facility] 03-19-2023 18:48-0400 Diastolic blood pressure 64 mm[Hg] Cheryl Praisler-Wood HIGH TENSION TESTER.SAND OPERATOR Work Phone: [facility] 03-19-2023 18:48-0400 Heart rate 94 /min Cheryl Praisler-Wood HIGH TENSION TESTER.SAND OPERATOR Work Phone: [facility] 03-19-2023 18:48-0400 Respiratory rate 16 /min Cheryl Praisler-Wood HIGH TENSION TESTER.SAND OPERATOR Work Phone: [facility] 03-19-2023 18:48-0400 SaO2% (BldA) [Mass fraction] 99 % Cheryl Praisler-Wood HIGH TENSION TESTER.SAND OPERATOR Work Phone: [facility] 03-19-2023 18:48-0400 Systolic blood pressure 112 mm[Hg] Cheryl VanceKatie ROA Work Phone: [facility] 10-02-2022 18:00-0500 Body temperature 98.49 [degF] Zena Athy PA-C Work Phone: [facility] 10-02-2022 18:00-0500 Body weight 88.91 kg Zena Athy PA-C Work Phone: [facility] 10-02-2022 18:00-0500 Diastolic blood pressure 78 mm[Hg] Zena Athy PA-C Work Phone: [facility] 10-02-2022 18:00-0500 Heart rate 68 /min Zena Athy PA-C Work Phone: [facility] 10-02-2022 18:00-0500 Respiratory rate 16 /min Zena Athy PA-C Work Phone: [facility] 10-02-2022 18:00-0500 SaO2% (BldA) [Mass fraction] 98 % Zena Athy PA-C Work Phone: [facility] 10-02-2022 18:00-0500 Systolic blood pressure 132 mm[Hg] Zena Athy PA-C Work Phone: [facility] 05-25-2022 09:40-0400 Body weight 84.37 kg Gini Pete MD Work Phone: [facility] 05-25-2022 09:40-0400 Diastolic blood pressure 74 mm[Hg] Gini Pete MD Work Phone: [facility] 05-25-2022 09:40-0400 Systolic blood pressure 108 mm[Hg] Gini Pete MD Work Phone: [facility] 05-11-2022 11:45-0400 Body temperature 97.8 [degF] [facility] Work Phone: 05-11-2022 11:45-0400 Diastolic blood pressure 85 mm[Hg] [facility] Work Phone: 05-11-2022 11:45-0400 Heart rate 85 /min [facility] Work Phone: 05-11-2022 11:45-0400 Respiratory rate 16 /min [facility] Work Phone: 05-11-2022 11:45-0400 SaO2% (BldA) [Mass fraction] 99 % [facility] Work Phone: 05-11-2022 11:45-0400 Systolic blood pressure 138 mm[Hg] [facility] Work Phone: 05-11-2022 07:25-0400 Body height 162.[address] [facility] Work Phone: 05-11-2022 07:25-0400 Body mass index (BMI) [Ratio] 32.1 kg/m2 [facility] Work Phone: 05-11-2022 07:25-0400 Body weight [address] [facility] Work Phone: 05-03-2022 09:08-0400 Body height 163.8 cm Gini Pete MD Work Phone: [facility] 05-03-2022 09:08-0400 Body weight 84.19 kg Gini Pete MD Work Phone: [facility] 05-03-2022 09:08-0400 Diastolic blood pressure 78 mm[Hg] Gini Pete MD Work Phone: [facility] 05-03-2022 09:08-0400 Heart rate 79 /min Gini Pete MD Work Phone: [facility] 05-03-2022 09:08-0400 Respiratory rate 16 /min Gini Pete MD Work Phone: [facility] 05-03-2022 09:08-0400 Systolic blood pressure 110 mm[Hg] Gini Pete MD Work Phone: [facility] 04-26-2022 12:22-0400 Body temperature 98.49 [degF] Jamaal Chaparro MD Work Phone: [facility] 04-26-2022 12:22-0400 Body weight 84.82 kg Jamaal Chaparro MD Work Phone: [facility] 04-26-2022 12:22-0400 Diastolic blood pressure 88 mm[Hg] Jamaal Chaparro MD Work Phone: [facility] 04-26-2022 12:22-0400 Heart rate 78 /min Jamaal Chaparro MD Work Phone: [facility] 04-26-2022 12:22-0400 Respiratory rate 21 /min Jamaal Chaparro MD Work Phone: [facility] 04-26-2022 12:22-0400 SaO2% (BldA) [Mass fraction] 98 % Jamaal Chaparro MD Work Phone: [facility] 04-26-2022 12:22-0400 Systolic blood pressure 130 mm[Hg] Jamaal Chaparro MD Work Phone: [facility] 03-23-2022 10:35-0400 Body weight 85.19 kg Gini Pete MD Work Phone: [facility] 03-23-2022 10:35-0400 Diastolic blood pressure 76 mm[Hg] Gini Pete MD Work Phone: [facility] 03-23-2022 10:35-0400 Systolic blood pressure 110 mm[Hg] Gini Pete MD Work Phone: [facility] 12-30-2021 20:24-0400 Body temperature 98.1 [degF] [facility] Work Phone: 12-30-2021 20:24-0400 Diastolic blood pressure 64 mm[Hg] [facility] Work Phone: 12-30-2021 20:24-0400 Respiratory rate 15 /min [facility] Work Phone: 12-30-2021 20:24-0400 Systolic blood pressure 108 mm[Hg] [facility] Work Phone: 12-30-2021 16:19-0400 Heart rate 78 /min [facility] Work Phone: 12-29-2021 14:38-0400 SaO2% (BldA) [Mass fraction] 79 % [facility] Work Phone: 12-29-2021 08:44-0400 Body height 162.[address] [facility] Work Phone: 12-29-2021 08:44-0400 Body mass index (BMI) [Ratio] 38 kg/m2 [facility] Work Phone: 12-29-2021 08:44-0400 Body weight 100.[address] [facility] Work Phone: 12-28-2021 14:19-0400 Body weight 99.52 kg Gini Pete MD Work Phone: [facility] 12-28-2021 14:19-0400 Diastolic blood pressure 74 mm[Hg] Gini Pete MD Work Phone: [facility] 12-28-2021 14:19-0400 Systolic blood pressure 110 mm[Hg] Gini Pete MD Work Phone: [facility] 12-23-2021 11:36-0400 Body weight 98.88 kg Serene Horowitz HIGH TENSION TESTER.CNM Work Phone: [facility] 12-23-2021 11:36-0400 Diastolic blood pressure 74 mm[Hg] Serene Horowitz HIGH TENSION TESTER.CNM Work Phone: [facility] 12-23-2021 11:36-0400 Systolic blood pressure 113 mm[Hg] Serene Horowitz HIGH TENSION TESTER.CNM Work Phone: [facility] 11-30-2021 14:23-0400 Body weight 99.97 kg Gini Pete MD Work Phone: [facility] 11-30-2021 14:23-0400 Diastolic blood pressure 68 mm[Hg] Gini Pete MD Work Phone: [facility] 11-30-2021 14:23-0400 Systolic blood pressure 110 mm[Hg] Gini Pete MD Work Phone: [facility] 03-22-2019 09:26-0400 Body Temperature 98.8 [degF] Bennett Kerns [facility] 03-22-2019 09:26-0400 BP Diastolic 71 mm[Hg] Bennett Kerns [facility] 03-22-2019 09:26-0400 BP Systolic 111 mm[Hg] Bennett Kerns [facility] 03-22-2019 09:26-0400 Pulse (Heart Rate) 83 /min Bennett Kerns [facility] 03-22-2019 09:26-0400 Pulse Oximetry 98 % Bennett Kerns [facility] 03-22-2019 09:26-0400 Respiratory Rate 14 /min Bennett Kerns [facility] 03-20-2019 07:39-0400 BMI (Body Mass Index) 36.9 kg/m2 Bennett Kerns [facility] 03-20-2019 07:39-0400 Body weight 97.52 kg Bennett Kerns [facility] 03-20-2019 07:39-0400 Height 162.6 cm Bennett Kerns [facility] 01-23-2019 01:42-0400 Body Temperature 98.4 [degF] Mary Alexis [facility] 01-23-2019 01:42-0400 BP Diastolic 63 mm[Hg] Mary Alexis [facility] 01-23-2019 01:42-0400 BP Systolic 111 mm[Hg] Mary Alexis [facility] 01-23-2019 01:42-0400 Pulse (Heart Rate) 96 /min Mary Alexis [facility] 01-23-2019 01:42-0400 Pulse Oximetry 98 % Mary Alexis [facility] 01-23-2019 01:42-0400 Respiratory Rate 16 /min Mary Aelxis [facility] 01-23-2019 01:34-0400 BMI (Body Mass Index) 32.11 kg/m2 Mary Alexis [facility] 01-23-2019 01:34-0400 Height 163.8 cm Mary Alexis [facility] 01-23-2019 01:34-0400 Weight 86.18 kg Mary Alexis [facility] 10-23-2018 05:05-0500 Body weight Measured 87.5448 kg [facility] Comment on above: Performed By: #### [id number] #### RAHUL Ricardo [address] [place] [address] Encounters Encounter Date Encounter Type Care Provider Facility Start: 03-28-2025 End: 03-28-2025 Emergency department patient visit No Primary Care Physician -Emergency Department Work Phone: Start: 01-05-2025 End: 01-05-2025 Patient encounter procedure Boo Cem HIGH TENSION TESTER.SAND OPERATOR Work Phone: [facility] Comment on above: Dysuria (Primary Dx) ; Vaginal discharge Start: 01-05-2025 End: 01-05-2025 [facility] Facility:[facility] Start: 01-05-2025 End: 01-06-2025 Follow-up encounter Jamaal Chaparro MD Work Phone: [facility] Comment on above: Results Start: 09-29-2024 End: 09-29-2024 [facility] Facility:[facility] Start: 09-29-2024 End: 09-29-2024 Patient encounter procedure Boo Cem MIRELES.SAND OPERATOR Work Phone: [facility] Comment on above: Sore throat (Primary Dx); Strep throat Start: 09-10-2024 End: 09-10-2024 Office outpatient visit 25 minutes Jamaal Chaparro MD Work Phone: [facility] Comment on above: Streptococcal pharyn gitis (Primary Dx); Sore throat Start: 09-10-2024 End: 09-10-2024 ambulatory Tejas Thompson Facility:[facility] Start: 06-26-2024 End: 06-26-2024 Telephone encounter Betty Meredith APRN.SAND OPERATOR Work Phone: OB/Gynecology Comment on above: Results Start: 06-25-2024 End: 06-25-2024 Refill Betty Meredith HIGH TENSION TESTER.SAND OPERATOR Work Phone: OB/Gynecology Comment on above: Refill Request Start: 06-25-2024 End: 06-25-2024 Telephone encounter Jaci Ta HIGH TENSION TESTER.SAND OPERATOR Work Phone: OB/Gynecology Comment on above: Results Start: 06-24-2024 End: 06-24-2024 ambulatory BETTY MEREDITH Facility:[facility] Start: 06-24-2024 End: 06-24-2024 Patient encounter procedure Betty Meredith HIGH TENSION TESTER.SAND OPERATOR Work Phone: OB/Gynecology Comment on above: Encounter for gyneco logical examination (general) (routine) without abnormal findings (Primary Dx); Vaginal discharge; Unprotected sexual intercourse; Encounter for screening for human papillomavirus (HPV); Screening for malignant neoplasm of cervix Start: 06-24-2024 End: 06-24-2024 Patient encounter status Betty Meredith HIGH TENSION TESTER.SAND OPERATOR Work Phone: [facility] Start: 06-22-2024 End: 06-22-2024 [facility] Start: 05-29-2023 Telephone encounter Queenie Lujan Work Phone: Infectious Disease Comment on above: Education Of Patient /family (HIV PrEP education) Start: 05-07-2023 Telephone encounter Boo Priest HIGH TENSION TESTER.SAND OPERATOR Work Phone: [facility] Comment on above: Results Start: 05-06-2023 End: 05-06-2023 Patient encounter procedure Joan Ca HIGH TENSION TESTER.SAND OPERATOR Work Phone: [facility] Comment on above: Exposure to sexually transmitted disease (STD) (Primary Dx); Dysuria; Microscopic hematuria Start: 03-19-2023 End: 03-19-2023 Patient encounter procedure Cheryl Randall HIGH TENSION TESTER.SAND OPERATOR Work Phone: [facility] Comment on above: Sore throat (Primary Dx); Strep throat Start: 10-04-2022 Telephone encounter Zena jenkins PA-C Work Phone: [facility] Comment on above: Results Start: 10-02-2022 End: 10-02-2022 Patient encounter procedure Zena Cabrera PA-C Work Phone: [facility] Comment on above: Acute cystitis with hematuria (Primary Dx) Start: 05-25-2022 End: 05-25-2022 Patient encounter procedure Gini Pete MD Work Phone: OB/Gynecology Comment on above: Post-operative state (Primary Dx) Start: 05-11-2022 End: 05-11-2022 Admission to same day surgery center [facility] Start: 05-11-2022 End: 05-11-2022 ambulatory [facility] Work Phone: Start: 05-03-2022 End: 05-03-2022 Patient [...] encounter procedure Jamaal Chaparro MD Work Phone: [facility] Comment on above: Toothache (Primary D x) Start: 04-03-2022 Telephone encounter Gini cortez MD Work Phone: OB/Gynecology Comment on above: Schedule Surgery Start: 03-23-2022 End: 03-23-2022 Patient encounter procedure Gini Pete MD Work Phone: OB/Gynecology Comment on above: Sterilization consul t (Primary Dx); Lactating mother Start: 01-21-2022 Refill Gini Hudson Work Phone: OB/Gynecology Comment on above: Refill Request Start: 12-29-2021 End: 04-29-2022 [facility] Start: 12-28-2021 End: 12-28-2021 Patient encounter procedure [...] End: 03-22-2019 Evaluation and management of inpatient WARD [facility] Start: 03-20-2019 End: 03-22-2019 Evaluation and management of inpatient [facility] Work Phone: [facility] Start: 02-27-2019 End: 03-03-2019 Patient encounter procedure LAZARA [facility] Start: 01-23-2019 End: 01-23-2019 Emergency department patient visit MARY SMITH ALEXIS [facility] Start: 01-23-2019 End: 01-23-2019 Emergency department patient visit Mary Alexis Work Phone: [facility] Emergency Department Comment on above: Cough (Primary Dx) Start: 11-15-2018 Patient encounter procedure Carissa Ty Facility:[facility] Start: 11-06-2018 End: 11-07-2018 Patient encounter procedure Carissa Ty Facility:[facility] Start: 11-06-2018 Patient encounter procedure Facility:[id number] Start: 10-18-2018 End: 10-19-2018 Patient encounter procedure Carissa Ty Facility:[facility] Start: 10-18-2018 Patient encounter procedure Facility:[id number] Start: 09-20-2018 End: 09-21-2018 Patient encounter procedure [facility] Facility:[facility] Start: 09-20-2018 Patient encounter procedure Facility:[id number] Start: 08-19-2018 End: 08-20-2018 Patient encounter procedure [facility] Facility:[facility] Start: 07-03-2017 End: 07-05-2017 Evaluation and management of inpatient Sammi Georges Facility:[facility] Start: 07-01-2017 End: 07-01-2017 Ambulatory Cem Perez Facility:[facility] Start: 06-23-2017 End: 06-23-2017 Ambulatory Sammi Georges Facility:[facility] Procedures Date Procedure Procedure Detail Performing Clinician Start: 01-05-2025 Urnls dip stick/tabl et rgnt auto w/o microscopy Boo Priest HIGH TENSION TESTER.SAND OPERATOR Work Phone: Start: 09-29-2024 STREP A MOLECULAR (POC) Joan Ca HIGH TENSION TESTER.SAND OPERATOR Work Phone: Start: 09-10-2024 STREP A MOLECULAR (POC) Cheryl Randall HIGH TENSION TESTER.SAND OPERATOR Work Phone: Start: 05-06-2023 Urnls dip stick/tabl et rgnt auto w/o microscopy Joan Ca HIGH TENSION TESTER.SAND OPERATOR Work Phone: Start: 03-19-2023 STREP A MOLECULAR (POC) Zena Cabrera PA-C Work Phone: Start: 10-02-2022 Urnls dip stick/tabl et rgnt auto w/o microscopy Zena Cabrera PA-C Work Phone: Start: 05-11-2022 Laparoscopic salpingectomy Start: 03-23-2022 Urine test visual color cmprsn meths Gini Pete MD Work Phone: Start: 12-29-2021 End: 12-29-2021 Viral antigen assay Start: 12-28-2021 URINE OB DIP B/O Gini lane MD Work Phone: Start: 12-23-2021 URINE OB DIP B/O Eliza Horowitz HIGH TENSION TESTER.CNM Work Phone: Start: 03-21-2019 Complete blood count with white cell differential, automated Nazariomariluz Cuco Kerns Work Phone: Start: 03-21-2019 Complete blood [...] ant neoplasm of cervix Cervical Cancer Screening [facility] Start: 06-26-2025 End: 06-26-2025 Patient encounter procedure 06/26/2025 3:30 PM EDT Office Visit OB/Gynecology [address] [place] [place] [id number] Betty Meredith APRN.SAND OPERATOR [address] [place] [address] Annual Exam OB/Gynecology Comment on above: Annual Exam Start: 05-04-2025 Influenza vaccination Influenz a Vaccine (Season Ended) [facility] Start: 03-28-2025 [facility] Start: 10-08-2024 HPV TESTING HPV TESTING [facility] Start: 10-08-2024 PAP TESTING PAP TESTING [facility] Start: 10-08-2024 Screening for malign ant neoplasm of cervix Cervical Cancer Screening [facility] Start: 06-24-2024 End: 09-23-2024 Hepatitis B virus surface Ag [Presence] in Serum [facility] Comment on above: Expected: 06/24/2024 , Expires: 09/23/2024 Start: 06-24-2024 End: 09-23-2024 Hepatitis C virus Ab [Presence] in Serum [facility] Comment on above: Expected: 06/24/2024 , Expires: 09/23/2024 Start: 06-24-2024 End: 09-23-2024 HIV 1+2 Ab [Presence] in Serum or Plasma by Immunoassay [facility] [facility] Comment on above: Expected: 06/24/2024 , Expires: 09/23/2024 Start: 06-24-2024 End: 09-23-2024 SYPHILIS TREPONEMAL W/REFLEX [facility] Work Phone: Comment on above: Expected: 06/24/2024 , Expires: 09/23/2024 Start: 05-04-2024 Covid-19 Vaccine ( season) Covid-19 Vaccine () [facility] Start: 05-04-2024 Influenza vaccination Influenza Vacc ine (#1) [facility] Start: 05-06-2023 End: 07-06-2023 Bacteria identified in Urine by Culture URINE CULTURE Microbiology Routine Exposure to sexually transmitted disease (STD) Dysuria Expected: 05/06/2023, Expires: 07/06/2023 [facility] Work Phone: Comment on above: Expected: 05/06/2023 , Expires: 07/06/2023 Start: 05-04-2023 Influenza vaccination [facility] Start: 09-03-2022 DEPRESSION ASSESSMENT DEPRESSION ASS ESSMENT [facility] Start: 05-11-2022 [facility] Start: 05-11-2022 Procedure discontinued [facility] Work Phone: Start: 05-11-2022 End: 05-11-2022 [facility] Work Phone: Start: 05-11-2022 Ambulation without limitation [facility] Work Phone: Start: 05-11-2022 Medical regimen orde rs management [facility] Work Phone: Start: 05-11-2022 Medication education [facility] Work Phone: Start: 05-11-2022 Taking patient vital signs [facility] Work Phone: Start: 05-11-2022 Vital signs measurements [facility] Work Phone: Start: 05-11-2022 Patient discharge [facility] Work Phone: Start: 05-04-2022 Influenza vaccination [facility] Start: 12-23-2021 End: 02-22-2022 Protein/Creatinine [Mass Ratio] in Urine [facility] Work Phone: Comment on above: Expected: 12/23/2021 , Expires: 02/22/2022 Start: 12-05-2021 Screening for malign ant neoplasm of cervix PAP SMEAR [facility] Start: 08-12-2021 COVID-19 VACCINE (3 - Booster for Pfizer series) COVID-19 VACCINE (3 - Booster for Pfizer series) [facility] Start: 05-07-2021 COVID-19 VACCINE (3 - Booster for Pfizer series) COVID-19 VACCINE (3 - Booster for Pfizer series) [facility] Start: 05-07-2021 COVID-19 VACCINE (3 - Pfizer series) COVID-19 VACCINE (3 - Pfizer series) [facility] Start: 05-04-2021 Influenza vaccination INFLUENZA (#1) [facility] Start: 05-04-2019 Influenza vaccinatio n given [facility] Start: 11-26-2018 History and physical examination, annual for health maintenance Wellness Visit [facility] Start: 06-05-2012 Urine microalbumin profile DTaP,Tdap,Td Vaccine (5 - Tdap) [facility] Start: 04-25-2012 Tetanus vaccination TETANUS EVERY 10 YR [facility] Start: 2005 Hepatitis B Vaccine (1 of 3 - 19+ 3-dose series) Hepatitis B Vaccine (1 of 3 - 19+ 3-dose series) [facility] Start: 2005 Urine microalbumin profile [facility] Start: 01-09-2004 Anxiety Screening Anxiety Screening [facility] Start: 01-09-2004 Depression Screening Depression Scre ening [facility] Start: 1998 Adult depression screening assessment DEPRESSION SCREENING [facility] Start: 1986 HEPATITIS B (1 of 3 - 3-dose series) HEPATITIS B (1 of 3 - 3-dose series) [facility] Start: 1986 Hepatitis B Vaccine (1 of 3 - 3-dose series) Hepatitis B Vaccine (1 of 3 - 3-dose series) [facility] Start: 1986 Tetanus vaccination TETANUS EVERY 10 YR [facility] Anion gap in Serum o r Plasma [facility] Bacteria identified in Urine by Culture URINE CULTURE Microbiology Routine Acute cystitis with hematuria 10/02/2022 6:29 PM [facility] Work Phone: Bacteria identified in Urine by Culture BACTERIAL CULTURE, URINE Microbiology Routine Dysuria 01/05/2025 3:50 PM EDT [facility] Work Phone: BACTERIAL VAGINOSIS NAAT BACTERIAL VAGINOSIS NAAT Lab Routine Exposure to sexually transmitted disease (STD) Ordered: 05/06/2023 [facility] Work Phone: Comment on above: Ordered: 05/06/2023 BACTERIAL VAGINOSIS NAAT BACTERIAL VAGINOSIS NAAT Lab Routine Vaginal discharge 06/24/2024 11:34 AM EDT [facility] BACTERIAL VAGINOSIS NAAT BACTERIAL VAGINOSIS NAAT Lab Routine Vaginal discharge 01/05/2025 3:50 PM T [facility] BUN/Creatinine ratio [facility] Calcium [Mass/volume ] in Serum or Plasma [facility] LUCY/TRICHOMONAS NAAT LUCY/TRICHOMONAS NAAT Lab Routine Exposure to sexually transmitted disease (STD) Ordered: 05/06/2023 [facility] Work Phone: Comment on above: Ordered: 05/06/2023 LUCY/TRICHOMONAS NAAT LUCY/TRICHOMONAS NAAT Lab Routine Vaginal discharge 06/24/2024 11:34 AM EDT [facility] LUCY/TRICHOMONAS NAAT LUCY/TRICHOMONAS NAAT Lab Routine Vaginal discharge 01/05/2025 3:50 PM EDT [facility] Carbon dioxide, tota l [Moles/volume] in Central venous blood [facility] Chlamydia trachomatis+Neisseria gonorrhoeae DNA [Presence] in Unspecified specimen by FLACO with probe detection GONORRHEA/CHLAMYDIA NAAT Lab Routine Exposure to sexually transmitted disease (STD) Ordered: 05/06/2023 [facility] Work Phone: Comment on above: Ordered: 05/06/2023 Chlamydia trachomatis+Neisseria gonorrhoeae DNA [Presence] in Unspecified specimen by FLACO with probe detection GONORRHEA/CHLAMYDIA NAAT Lab Routine Encounter for gynecological examination (general) (routine) without abnormal findings Vaginal discharge 06/24/2024 11:34 AM EDT [facility] Chlamydia trachomatis+Neisseria gonorrhoeae DNA [Presence] in Unspecified specimen by FLACO with probe detection GONORRHEA/CHLAMYDIA NAAT Lab Routine Vaginal discharge 01/05/2025 3:50 PM EDT [facility] Creatinine [Mass/volume] in Serum or Plasma [facility] Erythrocyte mean corpuscular volume determination [facility] Glucose [Mass/volume ] in Serum or Plasma [facility] Hematocrit [Volume Fraction] of Blood [facility] Hemoglobin [Mass/volume] in Blood [facility] Leukocytes [#/volume ] in Blood [facility] Mean corpuscular hemoglobin concentration determination [facility] Mean corpuscular hemoglobin determination [facility] Measurement of renal function [facility] Neutrophil count [facility] Neutrophil percent differential count [facility] PAP TEST PAP TEST Lab [facility] Encounter for screening for human papillomavirus (HPV) Screening for malignant neoplasm of cervix 06/24/2024 11:34 AM EDT [facility] Patient Education ED Panic Attack [facility] Work Phone: Patient referral [facility] Work Phone: Platelets [#/volume] in Blood [facility] Potassium measurement [facility] Red blood cell count [facility] Red cell distributio n width determination [facility] ROUTINE, GR OUP B STREP PCR ROUTINE, GROUP B STREP PCR Microbiology Routine 35 weeks gestation of 11/30/2021 3:26 PM EDT [facility] Work Phone: End: 01-23-2019 S. pyogenes Org specific cx Ql (Throat) Strep A Culture, Throat Microbiology KARIE Once for 1 Occurrences starting 01/23/2019 until 01/23/2019, 1 completed [facility] Comment on above: Once for 1 Occurrenc es starting 01/23/2019 until 01/23/2019, 1 completed S. pyogenes Org specific cx Ql (Throat) Strep A Culture, Throat Microbiology Routine 01/23/2019 1:58 AM EDT [facility] Serum chloride measurement [facility] Sodium measurement [facility] Urea nitrogen [Mass/volume] in Serum or Plasma [facility] Immunizations Immunization Date Immunization Notes Care Provider Fa roslyn 03-20-2019 diphtheria, tetanus toxoids and acellular pertussis vaccine, unspecified formulation [facility] 03-20-2019 measles, mumps and r ubella virus vaccine [facility] 03-20-2019 varicella zoster immune globulin Edw casi [facility] 11-26-2017 tuberculin skin test ; purified protein derivative solution, intradermal Mary Alexis [facility] Payers Date Payer Category Payer Self-pay [id number] 2018 Medicaid [employer] [place] [id number] 2018-Present [id number] [place] [id number] Medicaid [id number] 2018 Medicaid [id number] 2018 Unknown 2017 Medicaid [employer] [place] xxxxxxxxxxxx 2017-Present [id number] 2017 Unknown [id number] 1986 Unknown [id number] 2.16.840.1.415901.3.579.2. 1986 Unknown [id number] 2.16.840.1.728287.3.579.2. 1986 Unknown [id number] 2.16.840.1.522036.3.579.2. 1986 Unknown [id number] 2.16.840.1.478574.3.579.2. 1986 Unknown [id number] 2.16.840.1.943852.3.579.2. 1986 Unknown [id number] 2.16.840.1.633929.3.579.2. 1986 Unknown [id number] 2.16.840.1.087864.3.579.2. 1986 Unknown [id number] 2.16.840.1.838496.3.579.2. 1986 Unknown [id number] 2.16.840.1.849643.3.579.2. 1986 Unknown [id number] 2.16.840.1.343769.3.579.2. 1986 Unknown [id number] 2.16.840.1.933011.3.579.2. 1986 Unknown [id number] 2.16.840.1.163450.3.579.2. 1986 Unknown [id number] 2.16.840.1.229119.3.579.2. 1986 Unknown [id number] 2.16.840.1.640858.3.579.2. 1986 Unknown [id number] 2.16.840.1.069827.3.579.2.900 1986 Unknown [id number] 2.16.840.1.424573.3.579.2.903 1986 Unknown [id number] 2.16.840.1.687205.3.579.2.903 Unknown [id number] 2.16.840.1.988392.3.579.2.462 Unknown [id number] 2.16.840.1.582726.3.579.2.462 Unknown [id number] 2.16.840.1.986650.3.579.2.462 Social History Date Type Detail Facility Start: 01-23-2019 End: 04-26-2022 Tobacco smoking status NHIS Never smoker [facility] Work Phone: Start: 01-23-2019 End: 10-08-2019 History SDOH Alcohol Frequency 1 [facility] Start: 07-03-2018 [facility] Start: 1985 Sex Assigned At Not on file [facility] Start: 06-02-2021 End: 04-26-2022 Tobacco use and exposure Smokeless tobacco non-user [facility] Work Phone: Start: 11-30-2021 End: 01-05-2025 Alcohol intake Ex-drinker (finding) [facility] Start: 10-08-2019 History SDOH Alcohol Frequency 3 [facility] Start: 10-28-2020 History SDOH Alcohol Comment Occasionally [facility] Start: 06-02-2021 Education 15 [facility] Start: 11-06-2021 End: 05-25-2022 Exposure to SARS-CoV-2 (event) Not sure [facility] Start: 12-29-2021 End: 05-09-2022 Tobacco smoking status NHIS Unknown if ever smoked [facility] Work Phone: Start: 1985 Sex Assigned At Female W [facility] Start: 10-02-2022 End: 06-18-2024 History of Social function [facility] Start: 10-02-2022 End: 06-18-2024 Tobacco use panel [facility] National Score (1-100), lower number is lower risk 96 [facility] Start: 03-28-2025 Tobacco smoking stat us NHIS Current some day smoker [facility] Goals Date Patient Goal Desired Activity /State Mental Status Date Assessment Result Facility 05-11-2022 Cognitive function Voice/Name [facility] Work Phone: Clinical Notes 11-30-2021 to 01-06-2025 [...] pt know that her voicemail is full. [facility] 01-06-2025 Miscellaneous Notes Pt returned the call [...] flagyl to pharmacy. F/u with pcp or preparing box tender for continued s/s. Urine culture still pending. documented in this encounter [facility] 01-06-2025 Telephone encounter Note Unable to reach patient. Mailbox full/Mailbox not set up/ Number incorrect. Please try again later. Tiffanie Parker MA [facility] 01-06-2025 Telephone encounter Note Please notify positive for BV. This is an overgrowth of normal bacteria. I will send flagyl to pharmacy. F/u with pcp or preparing box tender for continued s/s. Urine culture still pending. [facility] 01-05-2025 Note HNO ID: [id number] Author: BOO PRIEST APRN.OSEI Service: ? Author [...] history is provided by the patient. No speech and language specialist was used. UTI Review of Systems Constitutional: [...] back positive please treat accordingly. Boo Priest APRN.SAND OPERATOR History and Record Review External record(s) reviewed: no prior records. Disposition The patient was discharged. Procedures [facility] 01-05-2025 History of Presen t illness Narrative [facility] Subjective Duarte Sunshine is [...] history is provided by the patient. No speech and language specialist was used. UTI Review of Systems Constitutional: [...] was discharged. Procedures documented in this encounter [facility] 09-29-2024 Note HNO ID: [id number] Author: BOO RPIEST APRN.OSEI Service: ? Author Type: Nurse Practitioner [...] Patient agreeable to treatment plan. Boo Priest APRN.[facility] 09-29-2024 History of Presen t illness Narrative [...] Patient agreeable to treatment plan. Boo Priest APRN.SAND OPERATOR documented in this encounter [facility] 09-10-2024 Note HNO ID: [id number] Author: JAMAAL CHAPARRO MD Service: ? Author [...] STREP A MOLECULAR (POC) Jamaal Chaparro MD [facility] 09-10-2024 History of Presen t illness [...] Jamaal Chaparro MD documented in this encounter [facility] 06-26-2024 Telephone encounter Note Patient notified. She will contact the [facility]. She's aware that her partner(s) need treatment. Geraldine Donnelly, KRISTOFER [facility] 06-26-2024 Miscellaneous Notes Patient notified. She will contact the [facility]. She's aware that her partner(s) need treatment. Geraldine Donnelly RN Left message for patient to call office. Faxed notification to [facility] Department asking that they reach out to patient for treatment. 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 She will need treatment. Betty Meredith APRN.CNP documented in this encounter [facility] 06-26-2024 Telephone encounter Note Left message for patient to call office. Faxed notification to Health Department asking that they reach out to patient for treatment. 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 She will need treatment. Betty Meredith APRN.CNP [facility] 06-24-2024 Note HNO ID: [id number] Author: BETTY MEREDITH APRN.CNP Service: ? Author Type: Nurse Practitioner Type: Progress Notes Filed: 06/24/2024 10:37 Note Text: Patient declined assembler motor vehicle. Duarte is a 39 year old who [...] Ectopic0 Multiple0 Live Births5 Comment: x 4 Ultrasound Spec History LMP: 04/23/2023 (Approximate), Unknown Age at Menarche: Age at First : Age at Menopause: Ultrasound Spec History Comments: Sexual Activity: Yes; Male Contraception: [...] discussed with the Patient or Patient's Authorized Solid Tire Finisher. As applicable, any other physician, advance practice provider, medical student, or other health professional student that will be observing or involved in the sensitive examination for educational or training purposes was discussed with the Patient or Authorized Solid Tire Finisher. The Patient or Authorized Solid Tire Finisher has agreed to proceed with the sensitive [...] external genitalia normal, normal Bartholin's glands, urethra, Bond's glands, no cervical lesions, physiologic discharge present, [...] ICD10: Z12.4 - PAP TEST Will notify janey (more content not included)... [facility] 06-24-2024 History of Presen t illness Narrative Patient declined assembler motor vehicle. Duarte is a 39 year old who [...] Ectopic0 Multiple0 Live Births5 Comment: x 4 Ultrasound Spec History LMP: 04/23/2023 (Approximate), Unknown Age at Menarche: Age at First : Age at Menopause: Ultrasound Spec History Comments: Sexual Activity: Yes; Male Contraception: [...] discussed with the Patient or Patient's Authorized Solid Tire Finisher. As applicable, any other physician, advance practice provider, medical student, or other health professional student that will be observing or involved in the sensitive examination for educational or training purposes was discussed with the Patient or Authorized Solid Tire Finisher. The Patient or Authorized Solid Tire Finisher has agreed to proceed with the sensitive [...] external genitalia normal, normal Bartholin's glands, urethra, Bond's glands, no cervical lesions, physiologic discharge present, [...] notify patient of test results. Betty Meredith APRN.SAND OPERATOR Medical Decision Making: Problems: Moderate: New problem with uncertain prognosis Data: Unique test(s) ordered: 3+ Risk: Moderate: Drug management Medical Decision Making Level: 4 - Moderate documented in this encounter [facility] 05-08-2023 Miscellaneous Notes Left another message with [...] worsens or changes. documented in this encounter [facility] 05-07-2023 Miscellaneous Notes Spoke with pt note [...] and bacterial vaginosis. documented in this encounter [facility] 05-06-2023 History of Presen t illness Narrative This note was created using Celsion. Subjective Duarte Sunshine is a 38 year [...] Exam Vitals reviewed. Exam conducted with a assembler motor vehicle present (Joan Ca). Constitutional: General: She is [...] culture - See above E [place] [employer] WIRE BASKET MAKER Student TEACHING PROVIDER (Physician/PA/HIGH TENSION TESTER) NOTE OF PERSONAL INVOLVEMENT IN CARE: I have personally seen and examined the patient and performed the medical decision-making components. I have reviewed the Advanced Practice Registered Nurse (HIGH TENSION TESTER) Student's documentation and verified the findings in the note as written. Any additions or changes are noted in bold/italics. Signature: Joan Ca Date: 05/06/2023 Time: 1:00 PM documented in this encounter [facility] 03-19-2023 History of Presen t illness Narrative [...] Discussed expected course of illness Cheryl Randall APRN.SAND OPERATOR documented in this encounter [facility] 03-19-2023 Instructions Cheryl Randall APRN.SAND OPERATOR - 03/19/2023 7:01 PM EDT ASSESSMENT/PLAN: 1. [...] Discussed expected course of illness Cheryl Randall APRN.SAND OPERATOR What is strep throat? Strep throat is [...] treated with antibiotics. When to call the sock examiner If your child has a sore throat that persists (not one that goes away after her first drink in the morning), whether or not it is accompanied by fever, headache, stomachache, or extreme fatigue, you should call your sock examiner. That call should be made even more urgently if your child seems extremely ill, or if she has difficulty breathing or extreme trouble swallowing (causing her to drool). This may indicate a more serious infection. Treatment If the strep test shows that your child does have strep throat, your sock examiner will prescribe an antibiotic to be taken [...] the best solution. documented in this encounter [facility] 10-05-2022 Miscellaneous Notes Phone call placed, no [...] follow-up with PCP. documented in this encounter [facility] 10-02-2022 History of Presen t illness Narrative This note was created using Caseyriter. Subjective Duarte Sunshine is a 37 year [...] HPV infection History of syphilis Syphilis 2016 Current Outpatient Medications Medication Sig Dispense Refill [...] Zena Cabrera PA-C documented in this encounter [facility] 05-25-2022 History of Presen t illness Narrative [...] Gini Pete DO documented in this encounter [facility] 05-03-2022 History and physical note DATE OF [...] 4 - Moderate documented in this encounter [facility] 04-26-2022 History of Presen t illness Narrative [...] Jamaal Chaparro MD documented in this encounter [facility] 04-04-2022 Miscellaneous Notes Patient called back and changed her mind. She would like to have surgery on 05/11. Marivel Butts RN Patient would like to have surgery on 05/05. Pre Op appointment scheduled. patient scheduler notified. Marivel Butts RN Left message to call office. Next available dates for surgery at [facility] for Dr. Pete are 05/05 & 05/11/2022. 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 Duarte Sunshine is a [...] Ectopic0 Multiple0 Live Births5 Comment: x 4 Ultrasound Spec History LMP: 03/26/2021 (Exact Date), Recent Age at Menarche: Age at First : Age at Menopause: Ultrasound Spec History Comments: Sexual Activity: Yes; Male Contraception: [...] with more than 50% of the total [id number] time of the visit in counseling / coordination of care. documented in this encounter [facility] 01-23-2022 Miscellaneous Notes Patient delivered 12/29/21. Pending Prescriptions Disp Refills OMEPRAZOLE 10 MG CAPSULE,DELAYED RELEASE 30 capsule 0 Sig: take 1 capsule by mouth once daily DESTINY: Yes RX INSTRUCTIONS: Pharmacy initiated this request. No need to notify patient. Valerie Calix RN documented in this encounter [facility] 12-29-2021 History of Presen t illness Narrative NST SUMMARY PROVIDER ASSESSMENT AND INTERPRETATION Indications for NST: AMA Baseline: 140 Variability: Moderate Accelerations: Present 15 X 15 Decelerations: None Interpretation: Reactive SIGNATURE: Gini Pete DO documented in this encounter [facility] 12-28-2021 Miscellaneous Notes SW- Reports she is [...] Gini Pete DO documented in this encounter [facility] 12-28-2021 Instructions Renetta Coello MA - 12/28/2021 2:14 PM EDT SEQUENTIAL SCREENINGS The [facility] offers sequential screenings for women who are [...] It will require an appointment with our aerospace technician. This is not an ultrasound performed [...] the above symptoms, contact our office at [phone] and ask to speak with a nurse. After hours, you can call doctors registry at [phone] OR call [facility] at [phone] and ask to have the doctor chief telephone operator paged. If you consider this an emergency, dial [phone] or go to your nearest emergency department. NEED HELP? Are you dealing with a violent or abusive relationship? Are you a victim of rape or sexual assult? Call [facility] ([place]) 24 hour Crisis Hotline: 791.490.4027 or 681-108-5409. MANUAL Your Guide to a Healthy manual is now on-line. Visit [email or web address] to download your free copy documented in this encounter [facility] 12-23-2021 History of Presen t illness Narrative [...] Serene Horowitz APRN.CNM documented in this encounter [facility] 12-23-2021 Miscellaneous Notes S: Duarte Sunshine is [...] No apparent distress Abd: Gravid, nontender CE- /60/-3 ASSESSMENT/PLAN: 1. Supervision of high risk in [...] Serene Horowitz APRN.CNM documented in this encounter [facility] 12-23-2021 Instructions June Amaral Ma - 12/23/2021 11:33 AM EDT SEQUENTIAL SCREENINGS [facility] offers sequential screenings for women who are [...] It will require an appointment with our aerospace technician. This is not an ultrasound performed [...] the above symptoms, contact our office at [phone] and ask to speak with a nurse. After hours, you can call [employer] [facility] at [phone] OR call [facility] at [phone] and ask to have the doctor chief telephone operator paged. If you consider this an emergency, dial 9-1- or go to your nearest emergency department. NEED HELP? Are you dealing with a violent or abusive relationship? Are you a victim of rape or sexual assult? Call [facility] ([place]) 24 hour Crisis Hotline: 194.905.1437 or 953-182-9651. MANUAL Your Guide to a Healthy manual is now on-line. Visit [email or web address] to download your free copy documented in this encounter [facility] 11-30-2021 Miscellaneous Notes SW- Doing well. No regular ctx, vb, lof. Good FM PE: Gen- NAD, well appearing Abd- Soft, gravid, NT Ext- No edema See flowsheet A/p 35 wk gestation - Continue pepcid for acid reflux - Growth US today - GBS today - Start Acyclovir, rx sent - Weekly visits Gini Pete DO documented in this encounter [facility] 11-30-2021 Instructions Renetta Coello MA - 11/30/2021 2:16 PM EDT SEQUENTIAL SCREENINGS [facility] offers sequential screenings for women who are [...] It will require an appointment with our aerospace technician. This is not an ultrasound performed [...] the above symptoms, contact our office at [phone] and ask to speak with a nurse. After hours, you can call [facility] at [phone] OR call [facility] at [phone] and ask to have the doctor chief telephone operator paged. If you consider this an emergency, dial 9-1- or go to your nearest emergency department. NEED HELP? Are you dealing with a violent or abusive relationship? Are you a victim of rape or sexual assult? Call [facility] ([place]) 24 hour Crisis Hotline: 204.860.5492 or 693-820-5613. MANUAL Your Guide to a Healthy manual is now on-line. Visit [email or web address] to download your free copy documented in this encounter [facility] Evaluation note Diagnosis 35 weeks gestation of - Primary state, incidental Supervision of high risk in third trimester Unspecified high-risk Obesity complicating , third trimester History of herpes genitalis Personal history of other infectious and parasitic disease [facility] Supervision of high risk in third trimester- Primary Unspecified high-risk 38 weeks gestation of state, incidental Gestational proteinuria in third trimester Unspecified antepartum renal disease [facility] Diagnosis 39 weeks gestation of - Primary state, incidental Supervision of high risk in third trimester Unspecified high-risk Gestational proteinuria in third trimester Unspecified antepartum renal disease [facility] Diagnosis Onset Date Resolution Status 39 weeks gestation of acute Advanced maternal age (AMA) in acute Obesity affecting acute Proteinuria affecting acute (spontaneous vaginal delivery) acute [facility] Work Phone: Evaluation note* Diagnosis 37 weeks gestation of state, incidental Gastroesophageal reflux disease, unspecified whether esophagitis present [facility] Sterilization consult- Primary Other general counseling and advice for contraceptive management Lactating mother care and examination of lactating mother [facility] Diagnosis Toothache- Primary Unspecified disorder of the teeth and supporting structures [facility]* Diagnosis Pre-op exam- Primary Preoperative examination, unspecified Request for sterilization Class 1 obesity with body mass index (BMI) of 31.0 to 31.9 in adult, unspecified obesity type, unspecified whether serious comorbidity present [facility]* Diagnosis Onset Date Resolution Status Encounter for sterilization [facility] Work [facility]: [facility]* Diagnosis Post-operative state- Primary Other postprocedural status [facility] Diagnosis Acute cystitis with hematuria- Primary Acute cystitis [facility]* Diagnosis Sore throat- Primary Acute pharyngitis Strep throat Streptococcal sore throat [facility]* Diagnosis Exposure to sexually transmitted disease (STD)- Primary Contact with or exposure to other communicable diseases Dysuria Microscopic hematuria [facility]* Diagnosis Encounter for gynecological examination (general) (routine) without abnormal findings- Primary Vaginal discharge Leukorrhea, not specified as infective Unprotected sexual intercourse Problems related to high-risk sexual behavior Encounter for screening for human papillomavirus (HPV) Special screening examination for human papillomavirus (HPV) Screening for malignant neoplasm of cervix Screening for malignant neoplasm of the cervix [facility]* Diagnosis Bacterial vaginosis- Primary Vaginitis and vulvovaginitis, unspecified [facility]* Diagnosis Streptococcal pharyngitis- Primary Streptococcal sore throat Sore throat Acute pharyngitis [facility]* Diagnosis Sore throat- Primary Acute pharyngitis Strep throat Streptococcal sore throat [facility]* Diagnosis Dysuria- Primary Vaginal discharge Leukorrhea, not specified as infective documented [facility] noteNo assessment information availableWCleveland Clinic [facility] Work Phone: Hospital Discharge instructionsAdditional Instructions Follow-up with your PCP and return for any worsening symptoms.[facility] Work Phone: Reason for referral (narrative)No reason for referral information availableWCleveland Clinic [facility] Work Phone: Summary Purpose Family History No Family History Records FoundNo Family History Records FoundNo Family History Records FoundNo Family History Records FoundNo Family History Records FoundNo Family History Records FoundNo Family History Records Found Advance Directives No Advanced Directives Records FoundDocuments on File Type Date Recorded 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 Advance Directives and Livin g Will 01/23/2019 2:16 AM Documents on File Type Date Recorded 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 Advance Directives and Livin g Will 03/20/2019 8:36 AM Latest Code Status on File Code Status Date Activated Date Inactivated Comments Full Code 03/20/2019 5:41 PM Full Code 03/20/2019 7:34 AM 03/20/2019 5:41 PM Advance Directive Response Recorded Date/ Time Living Will No December 29, 2021 9:14am Power of [employer] No December 29 9:14am Advance Directive Response Recorded Date/ Time Living Will No May 09 10:56am Power of [employer] No May 09, 2022 10:56am Advance Directive Response Recorded Date/ Time Do you have a Healthcare Power of [employer]? No March 28, 2025 9:03pm Assessments Diagnosis Cough- Primary Diagnosis 39 weeks gestation of Hospital Course * Cem Perez MD - 03/22/2019 10:56 AM EDT DISCHARGE SUMMARY Patient: Duarte Sunshine Date of : 1985 Site: [facility] Family Provider: Lazara Ruth MD Admit Date: 03/20/2019 Discharge Date/Time: 03/22/19 Disposition: Home Clinical Summary Hospital Course: Duarte Sunshine is a 34 y.o. female patient of Lazara Ruth MD with a history of admission for elective induction of labor at term. Patient successfully underwent induction of labor and achieved normal spontaneous vaginal delivery of a viable . She and the infant spent a very unremarkable 2-day course in [...] Physician(s) Family Provider: Lazara Ruth MD, Address: [address] [place] [address] / [facility] [id number] Follow Up: Bennett Kerns MD [facility] Etienne Meyers [place] [phone] Schedule an appointment as soon as possible [...] for at least 3 months - Use lyfr-lcu-yehyijq meds for pain. You may have been [...] be thoroughly driedand kept dry. Use a mathematics academic chair (on cool) after showing if necessary Call [...] Obstetrics Inpatient Follow-up 03/21/2019 Cem Perez MD [facility] Patient: Duarte Sunshine Date of : 1985 [...] after elective induction of labor.Patient and her infant tolerated the delivery well. Patient is ambulatory [...] Reason for Visit Encounter for steril ization Chief Complaint Admit Date anxiety March 28, 2025 8:00 pm Additional Source Comments INFORMATION SOURCE (unrecogn ized section and content) DATE CREATED AUTHOR 02/26/2018 [facility] DATE CREATED AUTHOR AUTHOR'S ORGANIZ ATION 11/11/2018 [facility] DATE CREATED AUTHOR AUTHOR'S ORGANIZ ATION 11/16/2018 [facility] DATE CREATED AUTHOR AUTHOR'S ORGANIZ ATION 04/26/2019 [facility] DATE CREATED AUTHOR AUTHOR'S ORGANIZ ATION 05/03/2019 [facility] DATE CREATED AUTHOR AUTHOR'S ORGANIZ ATION 2025 [facility] DATE CREATED AUTHOR AUTHOR'S ORGANIZ ATION 03/29/[address] [facility] Reason for Visit (unrecogniz ed section and [...] (7 lb 8 oz) F Vag-Spont N JACUQELINE 2 Term 12/23/13 40w0d F Vag-Spont N [...] PERIOD, 39 WEEKS Graening, Baby Boy Duarte [[id number]] Delivery Anesthesia Method: Epidural Operative Delivery Forceps attempted?: No Vacuum extractor attempted?: No Shoulder Dystocia Shoulder dystocia present: No Presentation Presentation: Vertex Information date/time: 03/20/19 1413 Gender: Male Delivery type: Vaginal, Spontaneous Delivery location: OB Unit ?: No Details: Delivery Providers Delivering clinician: Bennett Kerns MD Other personnel: Provider Role Covering Attending Resident Budget Counselor Chrystal Blackburn RN Delivery Nurse Kim Mendoza [...] 9 10 Minute: 15 Minute: 20 Minute: Measurements Weight: 8 lb 8.5 oz (3870 [...] or prosecute any alcohol or drug abuse patient.[facility] the event this information is protected by the Federal Confidentiality of Alcohol and Drug Abuse Patient Records regulations: The Federal rules restrict any use of the information to criminally investigate or prosecute any alcohol or drug abuse patient.[facility]In the event this information is protected by the Federal Confidentiality of Alcohol and Drug Abuse Patient Records regulations: The Federal rules restrict any use of the information to criminally investigate or prosecute any alcohol or drug abuse patient.[facility] ClinicIn the event this information is protected by the Federal Confidentiality of Alcohol and Drug Abuse Patient Records regulations: The Federal rules restrict any use of the information to criminally investigate or prosecute any alcohol or drug abuse patient.[facility] ClinicIn the event this information is protected by the Federal Confidentiality of Alcohol and Drug Abuse Patient Records regulations: The Federal rules restrict any use of the information to criminally investigate or prosecute any alcohol or drug abuse patient.[facility] ClinicIn the event this information is protected by the Federal Confidentiality of Alcohol and Drug Abuse Patient Records regulations: The Federal rules restrict any use of the information to criminally investigate or prosecute any alcohol or drug abuse patient.[facility] ClinicIn the event this information is protected by the Federal Confidentiality of Alcohol and Drug Abuse Patient Records regulations: The Federal rules restrict any use of the information to criminally investigate or prosecute any alcohol or drug abuse patient.[facility] ClinicIn the event this information is protected by the Federal Confidentiality of Alcohol and Drug Abuse Patient Records regulations: The Federal rules restrict any use of the information to criminally investigate or prosecute any alcohol or drug abuse patient.[facility] ClinicIn the event this information is protected by the Federal Confidentiality of Alcohol and Drug Abuse Patient Records regulations: The Federal rules restrict any use of the information to criminally investigate or prosecute any alcohol or drug abuse patient.[facility] ClinicIn the event this information is protected by the Federal Confidentiality of Alcohol and Drug Abuse Patient Records regulations: The Federal rules restrict any use of the information to criminally investigate or prosecute any alcohol or drug abuse patient.[facility] ClinicIn the event this information is protected by the Federal Confidentiality of Alcohol and Drug Abuse Patient Records regulations: The Federal rules restrict any use of the information to criminally investigate or prosecute any alcohol or drug abuse patient.[facility] ClinicIn the event this information is protected by the Federal Confidentiality of Alcohol and Drug Abuse Patient Records regulations: The Federal rules restrict any use of the information to criminally investigate or prosecute any alcohol or drug abuse patient.[facility] ClinicIn the event this information is protected by the Federal Confidentiality of Alcohol and Drug Abuse Patient Records regulations: The Federal rules restrict any use of the information to criminally investigate or prosecute any alcohol or drug abuse patient.[facility] ClinicIn the event this information is protected by the Federal Confidentiality of Alcohol and Drug Abuse Patient Records regulations: The Federal rules restrict any use of the information to criminally investigate or prosecute any alcohol or drug abuse patient.[facility] ClinicIn the event this information is protected by the Federal Confidentiality of Alcohol and Drug Abuse Patient Records regulations: The Federal rules restrict any use of the information to criminally investigate or prosecute any alcohol or drug abuse patient.[facility] ClinicIn the event this information is protected by the Federal Confidentiality of Alcohol and Drug Abuse Patient Records regulations: The Federal rules restrict any use of the information to criminally investigate or prosecute any alcohol or drug abuse patient.[facility] ClinicIn the event this information is protected by the Federal Confidentiality of Alcohol and Drug Abuse Patient Records regulations: The Federal rules restrict any use of the information to criminally investigate or prosecute any alcohol or drug abuse patient.[facility] ClinicIn the event this information is protected by the Federal Confidentiality of Alcohol and Drug Abuse Patient Records regulations: The Federal rules restrict any use of the information to criminally investigate or prosecute any alcohol or drug abuse patient.[facility] ClinicIn the event this information is protected by the Federal Confidentiality of Alcohol and Drug Abuse Patient Records regulations: The Federal rules restrict any use of the information to criminally investigate or prosecute any alcohol or drug abuse patient.[facility] ClinicIn the event this information is protected by the Federal Confidentiality of Alcohol and Drug Abuse Patient Records regulations: The Federal rules restrict any use of the information to criminally investigate or prosecute any alcohol or drug abuse patient.[facility] ClinicIn the event this information is protected by the Federal Confidentiality of Alcohol and Drug Abuse Patient Records regulations: The Federal rules restrict any use of the information to criminally investigate or prosecute any alcohol or drug abuse patient.[facility] ClinicIn the event this information is protected by the Federal Confidentiality of Alcohol and Drug Abuse Patient Records regulations: The Federal rules restrict any use of the information to criminally investigate or prosecute any alcohol or drug abuse patient.[facility] ClinicIn the event this information is protected by the Federal Confidentiality of Alcohol and Drug Abuse Patient Records regulations: The Federal rules restrict any use of the information to criminally investigate or prosecute any alcohol or drug abuse patient.[facility] ClinicIn the event this information is protected by the Federal Confidentiality of Alcohol and Drug Abuse Patient Records regulations: The Federal rules restrict any use of the information to criminally investigate or prosecute any alcohol or drug abuse patient.[facility] Goals (unrecognized section and content) Goals may be documented in a n alternate sectionGoals may be documented in an alternate section Care Teams (unrecognized sec tion and content) Team Status: Active Member Role/Relationship Status Dates No Primary Care Physician Primary Care Provider Active Team Status: Inactive Member Role/Relationship Status Dates No Primary Care Physician Primary Care Provider Active Start: March 28, 2025 End: March 28, 2025 Dr. Toñito Lozoya , DO Emergency Provider Active Start: March 28, 2025 End: March 28, 2025 FOR RECORDS PERTAINING TO PATIENTS WHO ARE [...] BE BASED ON THE PRIMARY CLINICAL RECORDS. [employer] provides no warranty or guarantee of the accuracy or completeness of information in this document.
[2025-03-29 16:30] LABS: Internal QC Validated? YES +Cl - CLEAR BKGD; Record Kit Lot#, Serum Preg. 962302
[2025-03-29 16:34] LABS: Pregnancy, Serum, hCG Quali. NEGATIVE Negative
[2025-03-29 16:45] LABS: AST(SGOT) 22 U/L (<=31); Alanine Aminotransfer ALT/SGPT 14 U/L (<=34); Albumin, Serum 4.3 g/dL (3.5-5.0); Alkaline Phosphatase 70 U/L (35-104); Anion Gap 10 (5-15); BUN 11 mg/dL (4-19); BUN/Creat Ratio 15.3 RATIO (10-20); Calcium,Total 9.0 mg/dL (7.6-11.0); Carbon Dioxide 24.5 mmol/L (21.0-32.0); Chloride 106 mmol/L (98-108); Estimated Creatinine Clearance 116.70 ml/min (50-250); Globulin 2.3 g/dL (2.2-4.2); Glucose 103 mg/dL (70-99); Potassium 4.0 mmol/L (3.3-5.1)
[2025-03-29 17:04] VITALS: BP 118/64; PULSE 86; RESP 23; TEMP 36.9; O2SAT 100
[2025-03-29 17:35] VITALS: BP 118/64; PULSE 86; RESP 23; TEMP 36.9; O2SAT 100
[2025-03-29 17:58] LABS: Mucous, Urine 0 SEEN /hpf (<or=2+)
[2025-03-29 18:00] LABS: Color, Urine Straw (Yellow); Glucose, Dipstick Normal (Normal); Ketone-Dipstick Negative (Negative); Leukocyte Esterase-Dipstick Negative /ul (Negative); Nitrite-Dipstick Negative (Negative); Occult Blood-Urine 25 /ul (Negative); Protein-Dipstick 15 mg/dl (Negative); Specific Gravity, Urine 1.015 (1.002-1.030); Urine Bilirubin Dipstick Negative (Negative)
[2025-03-29 18:07] LABS: Red Blood Cells-Urine 0-5 SEEN /hpf (0-5); Squamous Epithelial Cells - UA 0-5 SEEN /hpf (5-10)
[2025-03-29 19:00] VITALS: BP 126/66; PULSE 56; RESP 19; TEMP 36.7; O2SAT 99
[2025-03-29 19:26] VITALS: BP 121/73; PULSE 61; RESP 18; O2SAT 99
== END 2025-03-29 19:27 | disposition home or self-care (01) ==
PROVIDERS: Emergency Provider Emergency Medicine; Visit Provider Emergency Medicine
DX: R68.2 Dry mouth, unspecified (principal); R19.7 Diarrhea, unspecified; E86.9 Volume depletion, unspecified; F17.290 Nicotine dependence, other tobacco product, uncomplicated; R73.9 Hyperglycemia, unspecified; R51.9 Headache, unspecified; R11.0 Nausea; K21.9 Gastro-esophageal reflux disease without esophagitis
CPT/HCPCS: 80053; 81001; 84703; 85027; 87651; 96360; 96361; 99283; A4216